=== PATIENT | male | born 1950 | race African-American/Black ===

== ENCOUNTER → 2016-05-17 | Outpatient (CLI) | payer MEDICARE, MEDICAID ==
[~2016-05-17] MED LIST: ALPR1T PO; AMIT10TA6; AMIT10TA6 PO; AMT10T PO; ASP325T PO; ASP325TEC PO; ASP81TEC PO; ASPI-84; ASPI-892 PO; ATR20T PO; AVANDAMET; CETI10TA17; CETI10TA17 PO; CLCX200C PO; CLOP75TA PO; DCS100C PO; DICL100G20 TOP; FLUO15CR2 TP; GBPN300C PO; GBPN600T PO; GLYB5TAB6 PO; KETO120S5 TP; KETO30CR; KETOCONAZOLE 2%; LANSOPRAZOLE; LD5PT TOP; LIRA0.6P SQ; LISI10TA PO; LNS30CCR; LNS30CCR PO; LORA10TA7 PO; LRT10T; LSNP20T PO; MAGN400T26 PO; MAGN400T29 PO; MECL-124 PO; MELO-195 PO; MEPE50TA2 PO; METO50TA7; METO50TA7 PO; MNTL10T PO; NITR0.4T SL; NST15O TOP; NTR.4SL SL; NYST15CR3 TP; OXC40TCR PO; OXYC-100 PO; OXYC-103 PO; OXYC-12 PO; OXYC1TAB87 PO; OXYC40TA3 PO; OXYC80TA42 PO; PERCOCET 5/325; PIOG1TAB2 PO; POLY119P PO; POLY17PO23 PO; PRX20T PO; ROSI1TAB25; ROSI1TAB25 PO; SULF1TAB35 PO; TMSL.4C PO; TOPICORT TOP; TR1C15 TOP; ZLP10T; ZLP10T PO
--- OUTSIDE RECORDS SUMMARY | 2016-05-17 09:48 | XMS REPORT | Continuity of Care Document ---
Author Author [facility] Organization [facility] Address Unknown Phone Unavailable Care Team Providers Care Bed Bug Exterminator Name Role Phone Self, Kanu PCP [phone] Source Comments Some departments are not documenting in the electronic medical record. If you do not see the information that you expected, contact Release of Information in the Health Information Management department at [phone] for further assistance in locating additional records.[facility] Active Allergies and Adverse Reactions Allergen Noted Date Severity Reactions Comments Penicillins 11/12/2006 Allergy recorded in SMS: Penicillin~Reactions: HIVES Current Medications Not on file Active Problems Not on file Social History Tobacco Use Types Packs/Day Years Used Date Never Assessed Plan of Care Health Maintenance Due Date Last Done Comments Hepatitis C Screening 1950 Physical (Comprehensive) 07/25/1955 Exam Pertussis Vaccine 07/25/1959 Tetanus Vaccine 1965 Colorectal Cancer 1998 Screening Shingles Vaccine 2008 Prevnar/Pneumovax (#1) 2013 Influenza Vaccine 11/17/2015 Results from Last 3 Months Not on file
[2016-05-17] MEDS: CATHETER FLUSH 10 ML SYR IV PRN (11:04)
--- NOTE | 2016-05-17 13:59 | Diagnostic Imaging Report ---
EXAMINATION: HIDA with EF measurements Indication: Abdominal pain TECHNIQUE: After the intravenous administration of 5.2 mCi of Tc 99m Choletec, imaging over the abdomen was obtained. This was followed by administration of Ensure orally to stimulate intrinsic CCK secretion, followed by continued imaging with ejection fraction measured. FINDINGS: There is homogeneous uptake in the liver with prompt bile duct and gallbladder filling seen. Bowel activity is seen at 15 minutes. Based on further imaging and gallbladder area of interest activity measurements after the administration of Ensure, the gallbladder ejection fraction is estimated at 32%. IMPRESSION: 1. Normal hepatobiliary uptake and Gallbladder filling. 2. Biliary dyskinesia. Reduced gallbladder ejection fraction. Dictated by: Dictated on workstation # [id number]
== END ==
LOC: CARD 09:44
PROVIDERS: ATTEND Surgery
DX: K82.8 Other specified diseases of gallbladder (principal)
CPT/HCPCS: 78227

== ENCOUNTER → 2016-06-12 | Outpatient (CLI) | payer MEDICARE, MEDICAID ==
[~2016-06-12] MED LIST changes: +CATHETER FLUSH 10 ML SYR IV PRN; +REGADENOSON 0.4 MG/5 ML SYR (LEXISCAN) IV ONE
[2016-06-12 09:37] VITALS: BP 150/86
[2016-06-12 09:42] VITALS: BP 158/66
[2016-06-12 09:44] VITALS: BP 159/86
[2016-06-12 09:46] VITALS: BP 150/85
--- NOTE | 2016-06-13 08:32 | STRESS TEST ---
PROCEDURE PHYSICIAN: MANUEL SUAZO DATE OF PROCEDURE: 06/12/2016 RESTING AND TECHNETIUM 99M TETROFOSMIN SPECT CT IMAGING ORDERING PHYSICIAN: Dinora Doshi APRN. PRIMARY PHYSICIAN: Dr. Vaughan OTHER PHYSICIAN: Dr. Suazo CLINICAL DIAGNOSES: 1. Coronary artery disease. 2. Hypertension. Baseline images were carried out after injection of 10.53 mCi of technetium 99m tetrofosmin. This was followed by 0.4 mCi of regadenoson and 29.8 mCi of technetium 99m tetrofosmin for stress imaging. The electrocardiogram showed sinus rhythm and the electrocardiogram did not change significantly with the regadenoson infusion. Following the regadenoson infusion, he had some headaches and shortness of breath and some aching of the left arm which resolved in a few minutes. Review of images at rest and following stress, does not indicate any significant perfusion defects consistent with significant myocardial ischemia or infarction. Gated images show normal global left ventricular systolic function with normal regional wall motion. Left ventricular ejection fraction is calculated by one method at 48% and by another method at 54%. Subjectively, the ejection fraction appears more close to 54% than 48%. Left ventricular end-diastolic volume is 123 mL. CONCLUSIONS: 1. No evidence of significant myocardial ischemia or infarction on this study. 2. Mild cardiomegaly. 3. No significant regional wall motion abnormality. 4. Left ventricular ejection fraction is calculated to be 54%. Job ID: [id number] Dictated Date: 06/12/2016 17:11:42 Associate Curator Date: 06/13/2016 08:27:08 / toya
== END ==
LOC: CARD 07:40
PROVIDERS: ATTEND Nurse Practitioner Family
DX: I25.10 Atherosclerotic heart disease of native coronary artery without angina pectoris (principal); I10 Essential (primary) hypertension; I47.1 Supraventricular tachycardia; I47.2 Ventricular tachycardia; E78.4 Other hyperlipidemia
CPT/HCPCS: 78452; 93017

== ENCOUNTER → 2016-07-11 | Outpatient (CLI) | payer MEDICARE, MEDICAID ==
[~2016-07-11] MED LIST changes: -CATHETER FLUSH 10 ML SYR IV PRN; -REGADENOSON 0.4 MG/5 ML SYR (LEXISCAN) IV ONE
--- NOTE | 2016-07-11 13:33 | Diagnostic Imaging Report ---
PROCEDURE: CT lumbar spine without contrast. TECHNIQUE: Multiple contiguous axial images were obtained through the lumbar spine without the use of intravenous contrast. Sagittal and coronal reformations were then performed. INDICATION: Neck pain status post spinal fusion. COMPARISON: 01/27/2015. FINDINGS: Surgical changes from laminectomies at L3-L5. There is paired transpedicular screw and qian fixation from L2-S1, with the exception of L5 in which the left-sided transpedicular screw has been removed. There are also bilateral iliac screws which transverse the posteromedial aspect of the bilateral ilii along the SI joints. The vertical spanning rods and transpedicular screws are intact. Approximately 2 mm of lucency surrounds the right L2 fixation screw, which is age indeterminate as this has been placed since prior CT. At L3-L4 and L4-L5, there have been changes of discectomy with interbody fusion. However, there is partial solid osseous incorporation across the interbody cages centrally. There is also solid osseous fusion across the posterior elements at L3 and L4 on the right and partial solid osseous fusion of L3 and L4 on the left. No acute compression fracture of the lumbar vertebrae. No acute fracture of the posterior elements. No insufficiency fracture of the sacrum. At S1, there is an anterior plate and screw fixation. No evidence of hardware complication at this level. No evidence of high-grade spinal stenosis or neural foraminal narrowing by non-myelogram CT. Visualized aspects of the retroperitoneum demonstrate no acute abnormality. Atherosclerotic calcifications of the aorta are noted. IMPRESSION: 1. Posterior decompression with long segment posterior instrumented fixation in the lumbar spine from L2-S1. The right L2 screw has 2 mm of lucency around its tip, which is age indeterminate but could represent loosening. No evidence of other hardware complication. 2. Discectomies at L3-L4 and L4-L5 with partial solid osseous fusion across the interbody bone cages. 3. No acute compression deformity. Dictated by: Dictated on workstation # [id number]
== END ==
LOC: RAD 10:28
PROVIDERS: ATTEND Orthopaedic Surgery Orthopaedic Surgery of the Spine
DX: Z98.1 Arthrodesis status (principal)
CPT/HCPCS: 72131

== ENCOUNTER → 2016-07-19 | Outpatient (CLI) | payer MEDICARE, MEDICAID ==
--- NOTE | 2016-07-19 11:11 | Diagnostic Imaging Report ---
EXAM: ABDOMEN/KUB 1VIEW INDICATION: ABDOMINAL PAIN; RT FLANK PAIN/GENERALIZED ABD PAIN COMPARISON: CT abdomen and pelvis with IV contrast 01/27/2015. FINDINGS: Nonobstructive bowel gas pattern. Moderate amount of stool in the proximal colon. Cholecystectomy clips. Surgical clips in the pelvis. Extensive lumbosacral postoperative changes. No acute osseous findings. IMPRESSION: No acute abdominal radiographic findings. Dictated by: Dictated on workstation # [id number]
== END ==
LOC: RAD 10:11
PROVIDERS: ATTEND Nurse Practitioner Family
DX: R10.817 Generalized abdominal tenderness (principal)
CPT/HCPCS: 74000

== ENCOUNTER 2016-12-18 07:09 | Day surgery (SDC) | payer MEDICARE, MEDICAID ==
[2016-12-18] VITALS (9 sets, daily range): BP systolic 136–162; BP diastolic 75–113
[~2016-12-18] VITALS: Ht 182.9 cm; Wt 108.9 kg
--- OUTSIDE RECORDS SUMMARY | 2016-12-18 07:13 | XMS REPORT | Clinical Summary ---
Author Author [facility] Organization [facility] Address Unknown Phone Unavailable Care Team Providers Care Gluer Machine Operator Name Role Phone PCP Unavailable Source Comments Some departments are not documenting in the electronic medical record. If you do not see the information that you expected, contact Release of Information in the Health Information Management department at [phone] for further assistance in locating additional records.[facility] Allergies Active Allergy Reactions Severity Noted Date Comments Penicillins 11/12/2006 Allergy recorded in SMS: Penicillin~Reactions: HIVES Current Medications Not on file Active Problems Not on file Social History Tobacco Use Types Packs/Day Years Used Date Never Assessed Sex Assigned at Date Recorded Not on file Last Filed Vital Signs Not on file Plan of Treatment Health Maintenance Due Date Last Done Comments HEPATITIS C SCREENING 1950 PHYSICAL (COMPREHENSIVE) 07/25/1955 EXAM PERTUSSIS VACCINE 07/25/1959 TETANUS VACCINE 1965 COLORECTAL CANCER 1998 SCREENING SHINGLES VACCINE 2008 PREVNAR/PNEUMOVAX (#1) 2013 INFLUENZA VACCINE 12/16/2016 Results Not on filefrom Last 3 Months
[2016-12-18] MEDS ORDERED: HEParin (CATH LAB) 2,000 ML IV ONE (07:20)
[2016-12-18] MEDS ORDERED: NS IV 1000 ML 1,000 ML ONE (07:20)
[2016-12-18] MEDS ORDERED: NS IV 1000 ML 1,000 ML IV SCH ×3 (07:33→11:55)
[2016-12-18 08:02] LABS: MEAN PLATELET VOLUME 10.6 FL (7.4-10.4); RED BLOOD COUNT 5.33 10^6/uL (4.35-5.85); RED CELL DISTRIBUTION WIDTH 17.3 % (10.0-14.5); WHITE BLOOD COUNT 6.2 10^3/uL (4.3-11.0)
[2016-12-18 08:18] LABS: PROTHROMBIN TIME PATIENT 12.9 SEC (12.2-14.7)
[2016-12-18 08:29] LABS: ALANINE AMINOTRANSFERASE 24 U/L (0-55); ALBUMIN 4.3 GM/DL (3.2-4.5); ANION GAP 10 MMOL/L (5-14); ASPARTATE AMINO TRANSFERASE 23 U/L (5-34); BILIRUBIN,TOTAL 1.2 MG/DL (0.1-1.0); BLOOD UREA NITROGEN 17 MG/DL (7-18); BUN/CREATININE RATIO 16; CALCIUM 9.6 MG/DL (8.5-10.1); CARBON DIOXIDE 25 MMOL/L (21-32); CHLORIDE 104 MMOL/L (98-107); CHOLESTEROL 159 MG/DL (< 200); CREATININE SERUM 1.04 MG/DL (0.60-1.30); DIRECT LDL 68 MG/DL (1-129); GFR ESTIMATED > 60; GLUCOSE 112 MG/DL (70-105); POTASSIUM 4.3 MMOL/L (3.6-5.0); SODIUM 139 MMOL/L (135-145); TRIGLYCERIDES 47 MG/DL (<150); VLDL CHOLESTEROL 9 MG/DL (5-40)
[2016-12-18] MEDS ORDERED: ZOLP10TA5 PO (08:46)
[2016-12-18] MEDS ORDERED: ASPI-983 PO (08:46)
[2016-12-18] MEDS ORDERED: NYST15CR TP (08:46)
[2016-12-18] MEDS ORDERED: TAMS0.4C2 PO (08:46)
[2016-12-18] MEDS ORDERED: OXYC40TA57 PO (08:46)
[2016-12-18] MEDS ORDERED: GABA-488 PO ×2 (08:46)
[2016-12-18] MEDS ORDERED: METO-272 PO (08:46)
[2016-12-18] MEDS ORDERED: TR1O15 TP (08:46)
[2016-12-18] MEDS ORDERED: BACL10TA PO (08:46)
[2016-12-18] MEDS ORDERED: KETO120S11 TP (08:46)
[2016-12-18] MEDS ORDERED: POLY17PO6 PO (08:46)
[2016-12-18] MEDS ORDERED: MECL-106 PO (08:46)
[2016-12-18] MEDS ORDERED: DOCU100C37 PO (08:46)
[2016-12-18] MEDS ORDERED: DICL100G18 TP (08:46)
[2016-12-18] MEDS ORDERED: PRAM0.252 PO (08:46)
[2016-12-18] MEDS ORDERED: FLUO15CR2 TP (08:46)
[2016-12-18] MEDS ORDERED: METF500T4 PO (08:46)
[2016-12-18] MEDS ORDERED: MELO15TA39 PO (08:46)
[2016-12-18] MEDS ORDERED: CETI10TA17 PO (08:46)
[2016-12-18] MEDS ORDERED: ALPR1TAB7 PO (08:46)
[2016-12-18] MEDS ORDERED: LANS30CA PO (08:46)
[2016-12-18] MEDS ORDERED: NITR0.4T39 SL (08:46)
[2016-12-18] MEDS ORDERED: LISI10TA2 PO (08:46)
[2016-12-18] MEDS ORDERED: LIRA0.6P SQ (08:46)
[2016-12-18] MEDS ORDERED: ATOR20TA66 PO (08:46)
[2016-12-18] MEDS ORDERED: OXYC-471 PO (08:49)
[2016-12-18] MEDS ORDERED: PANT40TA2 PO (09:45)
[2016-12-18] MEDS ORDERED: fentaNYL INJECTION 100 MCG/2 ML AMP ONE (10:02)
[2016-12-18] MEDS ORDERED: diphenhydrAMINE 50 MG/ML INJ (BENADRYL) ONE (10:03)
[2016-12-18] MEDS ORDERED: MIDAZOLAM 5 MG/5 ML (VERSED) VIAL ONE (10:03)
--- NOTE | 2016-12-18 10:46 | Cardiac Procedure Note-CS/ASA ---
Pre-Procedure Note Pre-Op Procedure Note H&P Reviewed The H&P was reviewed, patient examined and no changes noted. Date H&P Reviewed: Dec 18, 2016 Time H&P Reviewed: 10:46 Conscious Sedation Pre-Proced Time Reviewed: 10:46 ASA Class: 3 Airway Mallampati Classification: ([place] appropriate class) I. II. III, IV Lungs Heart ASA score ASA 1: a normal healthy patient ASA 2: a patient with a mild systemic disease (mid diabetes, controlled hypertension, obesity ASA 3: a patient with a severe systemic disease that limits activity (angina , COPD, prior Myocardial infarction) ASA 4: a patient with an incapacitating disease that is a constant threat to life (CHF, renal failure) ASA 5: a moribund patient not expected to survive 24 hrs. (ruptured aneurysm) ASA 6: a declared brain patient whose organs are being harvested. For emergent operations, add the letter E after the classification Grade 3 Sedation Plan: Analgesia, Amnesia, Plan communicated to team members, Discussed options with patient/fam, Discussed risks with patient/fam Note The patient is an appropriate candidate to undergo the planned procedure, sedation, and anesthesia. The patient immediately re-assessed prior to indication. MANUEL GOODRICH MD FACP FAC CCDS Dec 18, 2016 10:46
[2016-12-18] MEDS ORDERED: HEParin 1000 UNIT/ML (10ML VIAL) FOR BOLUS ONE (10:50)
[2016-12-18] MEDS ORDERED: ADENOSINE 3 MG/1 ML (ADENOSCAN) 30ML VIAL IV ONE (10:50)
[2016-12-18] MEDS ORDERED: amLODIPine 10 MG (NORVASC) TAB PO ONE (12:00)
[2016-12-18] MEDS ORDERED: PATIENT MAY USE OWN MEDS, ALL PO SCH (12:00)
--- NOTE | 2016-12-18 12:01 | Discharge Inst-Cardiology ---
Discharge Inst-Cardiac Discharge Medications Continued Medications: Alprazolam (Alprazolam) 1 Mg Tablet 1 MG PO BID PRN for ANXIETY, TAB Aspirin (Aspirin EC) 81 Mg Tablet.dr 81 MG PO DAILY, TAB Atorvastatin Calcium (Atorvastatin Calcium) 20 Mg Tablet 20 MG PO HS, TAB Baclofen (Baclofen) 10 Mg Tablet 10 MG PO TID PRN for MUSCLE SPASMS, TAB Cetirizine HCl (Cetirizine HCl) 10 Mg Tablet 10 MG PO HS, TAB Diclofenac Sodium (Voltaren) 100 Gm Gel..gram. TP QID PRN for JOINT PAIN, TUBE Docusate Sodium (Docusate Sodium) 100 Mg Capsule 100 MG PO BID, CAP Fluocinonide/Emollient Base (Fluocinonide-E 0.05% Cream) 15 Gm Cream..g. TP BID PRN for PAIN, TUBE Gabapentin (Gabapentin) 300 Mg Capsule 600 MG PO BID, CAP TAKES 2 (300MG) CAPSULES Gabapentin (Gabapentin) 300 Mg Capsule 600 MG PO 1200 PRN for NERVE PAIN, CAP TAKES 2 (300MG) CAPSULES Ketoconazole (Ketoconazole) 120 Ml Shampoo TP DAILY, EA Liraglutide (Victoza 2-Eagle) 0.6 Mg/0.1 Ml Pen.injctr 1.8 MG SQ DAILY, VIAL Lisinopril (Lisinopril) 10 Mg Tablet 5 MG PO DAILY, TAB TAKES 1/2 (10MG) TABLET Meclizine HCl (Meclizine HCl) 25 Mg Tablet 25 MG PO TID PRN for DIZZINESS, TAB Meloxicam (Meloxicam) 15 Mg Tablet 15 MG PO DAILY, TAB Metformin HCl (Metformin HCl) 500 Mg Tablet 500 MG PO BID WITH MEALS, TAB Metoprolol Succinate (Metoprolol Succinate) 50 Mg Tab.er.24h 50 MG PO DAILY, TAB Nitroglycerin (Nitroglycerin) 0.4 Mg Tab.subl 0.4 MG SL UD PRN for CHEST PAIN, TAB Nystatin (Nystatin) 15 Gm Cream..g. TP BID PRN for SORES, TUBE Oxycodone HCl (Oxycodone HCl ER) 40 Mg Tab.er.12h 40 MG PO BID PRN for PAIN-SEVERE, TAB Oxycodone HCl/Acetaminophen (Oxycodone-Acetaminophen 5-325) 1 Each Tablet 1 TAB PO Q8H PRN for PAIN-MODERATE, TAB Pantoprazole Sodium (Protonix) 40 Mg Tablet.dr 40 MG PO DAILY, TAB Polyethylene Glycol 3350 (Miralax) 17 Gm Powd.pack 17 GM PO DAILY PRN for CONSTIPATION-2ND LINE, EACH Pramipexole Di-HCl (Mirapex) 0.25 Mg Tablet 0.25 MG PO BID, TAB Tamsulosin HCl (Tamsulosin HCl) 0.4 Mg Cap.er.24h 0.4 MG PO DAILY, CAP Triamcinolone Acet (Triamcinolone Acetonide 0.1% Ointment) 15 Gm Oint TP BID, TUBE Zolpidem Tartrate (Zolpidem Tartrate) 10 Mg Tablet 10 MG PO HS, TAB MANUEL GOODRICH MD FACP FAC CCDS Dec 18, 2016 12:01
--- NOTE | 2016-12-18 12:01 | Discharge Inst-Post CATH ---
Discharge Inst-CATH Post Cardiac Cath D/C Inst Follow Up/Plan F/u at Dr Suazo's on 12/21/16 CARDIAC CATH DISCHARGE INSTRUCTIONS *Hold Metformin for 48 hours post heart cath. ACTIVITY * Go Home directly and rest. * Limit activity of the leg (or wrist if it was used) for 7 days including aerobics, swimming, jogging, bicycling, etc. * Restrict stair-climbing for 7 days if possible, if not, climb up with your non -cath leg, then bring together on the same step. * Avoid lifting, pushing, pulling or excessive movement of the affected extremity for 7 days. * Customary sexual activity may be resumed after 2 days-use caution not to use a position that strains or causes pain to the affected extremity. * No driving for 24 hours. * NO SMOKING. * Avoid straining for bowel movements for 7 days. * Gentle walking on level ground is allowed. * Returning to work will depend on the type of procedure and the results. Your doctor will discuss this with you. CALL YOUR DOCTOR FOR ANY OF THE FOLLOWING: *If bleeding from the puncture site occurs- Apply gentle pressure to site with clean cloth and call your doctor or EMS. * If a knot or lump forms under the skin, increases in size, or causes pain. * If bruising appears to be worsening or moving further down your leg instead of disappearing. * Temperature above 101 F. CARE OF YOUR GROIN INCISION; * Bruising or purple discoloration of the skin near the puncture site is common. * You may shower only, no bathtub bathing for 5 days. Be careful to avoid slipping as your leg may feel stiff. * If a closure device was used on your femoral artery, please see the attached guide regarding care of the device and your leg. * REMOVE the dressing from your groin the next day after your procedure in the shower. CARE OF YOUR WRIST INCISION; * Bruising or purple discoloration of the skin near the puncture site is common. * You may shower. * DO NOT submerge wrist. * Remove dressing in 24 hours. MANUEL SUAZO MD [facility] CCDS Dec 18, 2016 12:01
--- NOTE | 2016-12-18 12:05 | CARDIAC CATHETERIZATION ---
DATE OF SERVICE: 12/18/2016 The patient is a 66-year-old man who has multiple coronary artery disease risk factors and who has been experiencing symptoms of chest discomfort and more shortness of breath and near syncope. Cardiac catheterization was carried out today after having obtained an informed consent. PROCEDURE: He was brought to the cardiac catheterization laboratory in a fasting state. Right groin was prepared and draped in the usual sterile fashion, 1% lidocaine was used for local anesthesia. Modified Seldinger technique was used to advance a 5-Kyrgyz sheath into the right femoral artery. Angiography of the right femoral artery was carried out through a sheath. A 5-Kyrgyz JL4 catheter for left coronary angiography, JR4 catheter for right coronary angiography, 5-Kyrgyz pigtail catheter used for left heart catheterization and left ventricular angiography. FRACTIONAL FLOW RESERVE MEASUREMENT IN THE RIGHT CORONARY ARTERY: Following completion of the diagnostic procedure, we carried out fractional flow reserve measurement in the mid to distal right coronary artery where the patient had a 40% to 50% stenosis. Because of his symptoms, we wanted to be sure that this was not a hemodynamically significant lesion. We exchanged the sheath over a wire for a 6-Kyrgyz sheath. We gave 7000 units of intravenous heparin. We used the 6-Kyrgyz JR4 guide catheter to engage the right coronary artery. We advanced an Aeris wire across the lesion and the tip was placed in the distal part of the vessel. We gave adenosine 140 mcg per kilogram over a total of approximately three minutes. Fractional flow reserve was 0.9, indicating hemodynamic nonsignificance. The equipment was removed. Repeat angiography of the right coronary artery indicated stable right coronary artery. The catheter was removed. Mynx was used to achieve hemostasis. He tolerated the procedure well. HEMODYNAMICS: Left ventricular end-diastolic pressure following coronary angiography was 11 mmHg. There was no significant pressure gradient on pullback across the aortic valve. Ascending aortic pressure was 173/89 with a mean of 19 mmHg. LEFT VENTRICULAR ANGIOGRAPHY: Left ventricular angiography was carried out in the right anterior oblique projection. Global left ventricular systolic function is normal. No regional wall motion abnormalities are seen. Left ventricular ejection fraction approximately 60%. There does not appear to be significant mitral regurgitation. CORONARY ANGIOGRAPHY: Coronary calcification is present. Left main coronary artery does not exhibit significant obstructive disease. Left anterior descending and left circumflex arteries have diffuse mild to moderate plaque. The right coronary artery is dominant. It has a 30% mid vessel and 40% to 50% mid to distal vessel stenoses. Fractional flow reserve across a combination of these lesions is 0.9, indicating hemodynamic insignificance. CONCLUSIONS: 1. Mild to moderate coronary artery disease as detailed above. 2. Normal global left ventricular systolic function with ejection fraction of 60%. 3. No significant mitral regurgitation. 4. Normal left ventricular end-diastolic pressure. DISCUSSION AND RECOMMENDATIONS: Based on results of the study, it appears appropriate to continue a conservative approach for coronary artery disease. Risk factor modification has been reviewed. Outpatient followup is advised. Job ID: [id number] DocumentID: [id number] Dictated Date: 12/18/2016 11:20:43 Precision Mechanical Instrument Maker Date: 12/18/2016 12:04:55 Dictated By: MANUEL GOODRICH MD, MA, FACP, FACC, MTDD
--- NOTE | 2016-12-19 12:02 | OPERATIVE REPORT ---
DATE OF SERVICE: 12/18/2016 PREOPERATIVE DIAGNOSIS: Near syncope. POSTOPERATIVE DIAGNOSIS: Near syncope. PROCEDURE: Implantable loop recorder implantation ([employer], BioMonitor device with serial #[id number]). He was brought to the cardiac catheterization laboratory in a fasting state. The left pre-pectoral area was prepared and draped in the usual sterile fashion. A 1% lidocaine was used for local anesthesia. A small incision was made at about the level of the second intercostal space. The tools provided with the implantable loop recorder were used to make a subcutaneous pocket into which the device was placed and the pocket was closed with an absorbable suture. The patient tolerated the procedure well. Job ID: [id number] DocumentID: [id number] Dictated Date: 12/18/2016 11:51:15 Glove Presser Date: 12/19/2016 02:58:52 Dictated By: MANUEL GOODRICH MD, MA, FACP, FACC,
== END 2016-12-18 15:15 | disposition home or self-care (01) ==
LOC: CATH 07:09 → SURG 12:22 → CATH 15:15
PROVIDERS: ATTEND Nurse Practitioner Family
DX: R07.89 Other chest pain (principal); I25.10 Atherosclerotic heart disease of native coronary artery without angina pectoris; R06.02 Shortness of breath; R55 Syncope and collapse; I25.84 Coronary atherosclerosis due to calcified coronary lesion; N18.2 Chronic kidney disease, stage 2 (mild); I12.9 Hypertensive chronic kidney disease with stage 1 through stage 4 chronic kidney disease, or unspecified chronic kidney disease; E11.22 Type 2 diabetes mellitus with diabetic chronic kidney disease; E78.5 Hyperlipidemia, unspecified; Z87.891 Personal history of nicotine dependence; Z79.899 Other long term (current) drug therapy; Z79.84 Long term (current) use of oral hypoglycemic drugs
CPT/HCPCS: 33282; 36415; 80053; 80061; 85027; 85610; 85730; 87081; 93005; 93458; 93571

== ENCOUNTER 2017-03-19 06:49 | Outpatient (CLI) | payer MEDICARE, MEDICAID ==
[~2017-03-19] VITALS: Ht 188 cm; Wt 109.3 kg
[2017-03-19] VITALS (37 sets, daily range): BP systolic 143–175; BP diastolic 81–105
[~2017-03-19 06:49] MED LIST changes: +ALPR1TAB7 PO; +ASPI-983 PO; +ATOR20TA66 PO; +BACL10TA PO; +DICL100G18 TP; +DOCU100C37 PO; +GABA-488 PO; +KETO120S11 TP; +LANS30CA PO; +LISI10TA2 PO; +MECL-106 PO; +MELO15TA39 PO; +METF500T4 PO; +METO-370 PO; +NITR0.4T39 SL; +NYST15CR TP; +OXYC-471 PO; +OXYC40TA57 PO; +PANT40TA2 PO; +POLY17PO6 PO; +PRAM0.252 PO; +TAMS0.4C2 PO; +TR1O15 TP; +ZOLP10TA5 PO
[2017-03-19] MEDS ORDERED: NS IV 1000 ML 1,000 ML ONE (07:01)
[2017-03-19] MEDS ORDERED: NS IV 1000 ML 1,000 ML IV SCH (07:30)
--- NOTE | 2017-03-19 21:34 | OPERATIVE REPORT ---
DATE OF SERVICE: 03/19/2017 TILT TABLE TEST ORDERING PHYSICIAN: Dr. Suazo. CLINICAL DIAGNOSIS: Near syncope. Baseline blood pressure was obtained. He was made to lie on a tilt table. He was attached to a monitoring tech. The table was tilted up with the head up to 70 degrees. Blood pressure was taken every minute. Heart rhythm was monitored continuously. The position was maintained for 45 minutes. There was no significant change in blood pressure or heart rate. Thus, there is no evidence of neurocardiogenic syncope. CONCLUSIONS: No evidence of any neurocardiogenic syncope on this tilt table study. Job ID: [id number] DocumentID: [id number] Dictated Date: 03/19/2017 16:13:05 Mercerizer Machine Operator Date: 03/19/2017 21:33:29 Dictated By: MANUEL SUAZO MD, MA, FACP, FACC,
== END 2017-03-19 09:57 | disposition home or self-care (01) ==
LOC: CARD 06:49
PROVIDERS: ATTEND Nurse Practitioner Family
DX: R42 Dizziness and giddiness (principal); R55 Syncope and collapse; I10 Essential (primary) hypertension; I25.10 Atherosclerotic heart disease of native coronary artery without angina pectoris
CPT/HCPCS: 93660

== ENCOUNTER → 2017-03-27 | Outpatient (CLI) | payer MEDICARE, MEDICAID ==
--- NOTE | 2017-03-27 10:44 | Diagnostic Imaging Report ---
PA and lateral chest at 1002 hours. INDICATION: Dizziness, productive cough. FINDINGS: The heart size is within normal limits. The heart does seem less prominent than noted on the prior exam of 11/25/2015. The lungs are clear. There is no evidence for failure, pneumonia or for pleural effusion to indicate an acute abnormality. The mediastinum is not widened. The osseous structures are intact. There is now loop recorder device overlying the left thorax. IMPRESSION: There is no evidence for an acute cardiopulmonary abnormality. Dictated by: Dictated on workstation # [id number]
== END ==
LOC: RAD 09:32
DX: R05 Cough (principal); R42 Dizziness and giddiness
CPT/HCPCS: 71046

== ENCOUNTER → 2017-03-28 | Outpatient (CLI) | payer MEDICARE, MEDICAID ==
[~2017-03-28] MED LIST changes: +GADOBUTROL 10 MMOL/10 ML (GADAVIST) VIAL IV ONE
--- NOTE | 2017-03-28 09:47 | Diagnostic Imaging Report ---
PROCEDURE: MR imaging of the brain with and without contrast. TECHNIQUE: Multiplanar, multisequence MR imaging of the brain was performed with and without contrast. INDICATION: Blurred vision. There are no previous MRI examinations available for comparison. FINDINGS: The CT head exam performed on 02/21/2016 failed to show any sign of an acute intracranial abnormality. 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 On this exam, there is no mass, shift of midline or hemorrhage to suggest an acute intracranial abnormality. There is no abnormal enhancement on the postcontrast series to indicate a neoplastic or infectious process either. Furthermore, there is no signal abnormality arising from the brain on the diffusion sequence to indicate an area of acute ischemia. The ventricles are not abnormally dilated and stable in size when compared to the previous CT head exam. There is a prominent area of encephalomalacia involving the right parietal occipital lobe. This would correspond to the suspected infarct seen on the prior exam. The FLAIR series also shows multiple small areas of increased signal in the periventricular white matter bilaterally. These findings are nonspecific but are probably related to encephalomalacia from microvascular ischemia. There is cortical atrophy present. The degree of atrophy is consistent with the patient's age. The sella is not enlarged and expected carotid flow voids are evident bilaterally. The orbits are symmetrical and within normal limits. The sinuses show mild mucosal thickening of the ethmoid and maxillary sinuses. The seventh and eight nerve complexes are unremarkable. IMPRESSION: 1. There is no evidence for an acute intracranial abnormality. 2. There is no abnormal enhancement to suggest a neoplastic or infectious process. 3. The prominent area of encephalomalacia involving the right parietal occipital lobe seen previously is again evident. Most likely this is a sequela of a prior infarct. Dictated by: Dictated on workstation # [id number]
== END ==
LOC: RAD 07:55
DX: G93.89 Other specified disorders of brain (principal); G45.8 Other transient cerebral ischemic attacks and related syndromes
CPT/HCPCS: 70553

== ENCOUNTER 2017-07-17 20:50 | Emergency (ER) | payer MEDICARE, MEDICAID ==
[~2017-07-17] VITALS: Ht 188 cm; Wt 110.7 kg
[~2017-07-17 20:50] MED LIST changes: -GADOBUTROL 10 MMOL/10 ML (GADAVIST) VIAL IV ONE; -METF500T4 PO; +METF500T5 PO
--- OUTSIDE RECORDS SUMMARY | 2017-07-17 20:56 | XMS REPORT | Clinical Summary ---
Author Author [facility] Organization [facility] Address Unknown Phone Unavailable Care Team Providers Care Sports Medicine Trainer Name Role Phone Self, Kanu SALAZAR PCP Unavailable Source Comments Some departments are not documenting in the electronic medical record. If you do not see the information that you expected, contact Release of Information in the Health Information Management department at [phone] for further assistance in locating additional records.[facility] Allergies Active Allergy Reactions Severity Noted Date [...] VACCINE 2008 PREVNAR/PNEUMOVAX (#1) 2013 INFLUENZA VACCINE 12/16/2017 Results Not on filefrom Last 3 Months
--- OUTSIDE RECORDS SUMMARY | 2017-07-17 20:56 | XMS REPORT | Continuity of Care Document ---
Author Author [facility] Organization [facility] Address Unknown Phone Unavailable Care Team Providers Care Tourist Escort Name Role Phone [employer] Unavailable Unavailable Problems Medications Allergies, Adverse Reactions, Alerts Immunizations Results Vital Signs Encounters Location Location Details Encounter Type Encounter Number Reason For Visit Attending Provider ADM Date DC Date Status Source OUTPATIENT [id number] KANDI DARDEN 11/10/2013 11/10/2013 Active [facility] Procedures Plan of Care Social History Assessment and Plan Family History Advance Directives Functional Status
--- OUTSIDE RECORDS SUMMARY | 2017-07-17 20:59 | XMS REPORT | Continuity of Care Document ---
Author Author [facility] Organization [facility] Address Unknown Phone Unavailable Allergies Active Description Code Type Severity Reaction Onset Reported/Identified Relationship to Patient Clinical Status Yes Penicillins [id number] Drug Allergy Moderate RASH 12/22/2010 Medications There is no data. Problems Date Dx Coded Attending Type Code Diagnosis Diagnosed By 06/28/2010 Ot 718.56 ANKYLOSIS- LOWER/LEG 06/28/2010 Ot V57.1 PHYSICAL THERAPY NEC 08/01/2010 Ot 250.00 DIAB KELECHI WO COMPL, TYPE II OR UNSPEC TY 08/01/2010 Ot 272.4 HYPERLIPIDEMIA NEC/NOS 08/01/2010 Ot 281.9 DEFICIENCY ANEMIA NOS 08/01/2010 Ot 305.1 TOBACCO USE DISORDER 08/01/2010 Ot 414.01 CORONARY ATHEROSCLEROSIS OF [place] CORON 08/01/2010 Ot 715.90 OSTEOARTHROS NOS-UNSPEC 08/01/2010 Ot 729.5 PAIN IN LIMB 08/01/2010 Ot 786.59 CHEST PAIN NEC 08/01/2010 Ot V43.65 KNEE JOINT REPLACEMENT STATUS 08/01/2010 Ot V45.89 POSTSURGICAL STATES NEC 08/01/2010 Ot V58.63 LONG-TERM( CURRENT)USE OF ANTIPLATELET/AN 08/01/2010 Ot V58.66 LONG-TERM ( CURRENT) USE OF ASPIRIN 08/01/2010 Ot V58.69 OTH MED,LT, CURRENT USE 12/22/2010 Ot 250.00 DIAB KELECHI WO COMPL, TYPE II OR UNSPEC TY 12/22/2010 Ot 272.0 PURE HYPERCHOLESTEROLEM 12/22/2010 Ot 300.00 ANXIETY STATE NOS 12/22/2010 Ot 356.9 IDIO PERIPH NEURPTHY NOS 12/22/2010 Ot 401.9 HYPERTENSION NOS 12/22/2010 Ot 414.01 CORONARY ATHEROSCLEROSIS OF [place] CORON 12/22/2010 Ot 530.81 ESOPHAGEAL REFLUX 12/22/2010 Ot 715.96 OSTEOARTHROS NOS-L/LEG 12/22/2010 Ot 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 07/17/2011 Ot 250.00 DIAB KELECHI WO COMPL, TYPE II OR UNSPEC TY 07/17/2011 Ot 272.4 HYPERLIPIDEMIA NEC/NOS 07/17/2011 Ot 285.9 ANEMIA NOS 07/17/2011 Ot 414.01 CORONARY ATHEROSCLEROSIS OF [place] CORON 07/17/2011 Ot 715.90 OSTEOARTHROS NOS-UNSPEC 07/17/2011 Ot 786.09 RESPIRATORY ABNORM NEC 07/17/2011 Ot 786.59 CHEST PAIN NEC 07/17/2011 Ot V15.82 HISTORY OF TOBACCO USE 07/17/2011 Ot V58.63 LONG-TERM( CURRENT)USE OF ANTIPLATELET/AN 07/17/2011 Ot V58.66 LONG-TERM ( CURRENT) USE OF ASPIRIN 07/17/2011 Ot V58.69 OTH MED,LT, CURRENT USE 07/30/2011 Ot 250.00 DIAB KELECHI WO COMPL, TYPE II OR UNSPEC TY 07/30/2011 Ot 272.4 HYPERLIPIDEMIA NEC/NOS 07/30/2011 Ot 401.9 HYPERTENSION NOS 07/30/2011 Ot 414.01 CORONARY ATHEROSCLEROSIS OF [place] CORON 07/30/2011 Ot 593.9 RENAL URETERAL DIS NOS 07/30/2011 Ot 786.50 CHEST PAIN NOS 07/30/2011 Ot V15.82 HISTORY OF TOBACCO USE 04/30/2012 Ot 250.00 DIAB KELECHI WO COMPL, TYPE II OR UNSPEC TY 04/30/2012 Ot 727.03 TRIGGER FINGER 09/09/2012 TOYA SALAZAR, ROHAN Wilkerson Ot 916.0 ABRASION HIP LEG 09/09/2012 ROHAN PITTMAN MD Ot E000.8 OTHER EXTERNAL CAUSE STATUS 09/09/2012 ROHAN PITTMAN MD Ot E928.9 ACCIDENT NOS 09/09/2012 ROHAN PITTMAN MD Ot V06.1 UOTPCKEHIX-SPAHZCM-NBYINBCBL, COMBINED [ 02/19/2013 GUS SALAZAR, LANDY Burrell Ot 250.00 DIAB KELECHI WO COMPL, TYPE II OR UNSPEC TY 02/19/2013 LANDY WEBER MD Ot 272.4 HYPERLIPIDEMIA NEC/NOS 02/19/2013 LANDY WEBER MD Ot 401.9 HYPERTENSION NOS 02/19/2013 LANDY WEBER MD Ot 429.9 HEART DISEASE NOS 02/19/2013 LANDY WEBER MD Ot 443.9 PERIPH VASCULAR DIS NOS 02/19/2013 LANDY WEBER MD Ot 593.9 RENAL URETERAL DIS NOS 02/19/2013 LANDY WEBER MD Ot 726.32 LATERAL EPICONDYLITIS 02/19/2013 LANDY WEBER MD Ot 786.59 CHEST PAIN NEC 02/19/2013 LANDY WEBER MD Ot 996.42 DISLOCATION OF PROSTHETIC JOINT 02/19/2013 LANDY WEBER MD Ot V43.65 KNEE JOINT REPLACEMENT STATUS 08/07/2013 SUMAN CAICEDO MD Ot 780.2 SYNCOPE AND COLLAPSE 08/07/2013 SUMAN CAICEDO MD Ot 786.59 CHEST PAIN NEC 01/05/2014 VANNESA WOMACK MD Ot 780.4 DIZZINESS AND GIDDINESS 01/05/2014 VANNESA WOMACK MD Ot 787.02 NAUSEA ALONE 01/05/2014 VANNESA WOMACK MD Ot 789.00 ABDOMINAL PAIN, UNSPECIFIED SITE 01/19/2014 KARRI BECKFORD PIECE WORK INSPECTOR Ot 724.5 BACKACHE NOS 01/19/2014 KARRI BECKFORD PIECE WORK INSPECTOR Ot 729.5 PAIN IN LIMB 01/19/2014 KARRI BECKFORD PIECE WORK INSPECTOR Ot 780.2 SYNCOPE AND COLLAPSE 01/19/2014 KARRI BECKFORD PIECE WORK INSPECTOR Ot 780.4 DIZZINESS AND GIDDINESS 07/02/2014 LANDY WEBER MD Ot 726.10 08/25/2014 KP SALAZAR [facility], MANUEL FACP CCDS Ot 250.00 08/25/2014 KP SALAZAR [facility], ALI FACP CCDS Ot 401.9 08/25/2014 KP SALAZAR [facility], ALI FACP CCDS Ot 414.00 08/25/2014 KP SALAZAR [facility], ALI FACP CCDS Ot 786.50 08/25/2014 LANDY WEBER MD Ot 726.10 08/25/2014 LANDY WEBER MD Ot 727.61 08/25/2014 LANDY WEBER MD Ot V72.83 08/25/2014 LANDY WEBER MD Ot V74.8 08/25/2014 LANDY WEBER MD Ot 250.00 DIAB KELECHI WO COMPL, TYPE II OR UNSPEC TY 08/25/2014 LANDY WEBER MD Ot 272.4 HYPERLIPIDEMIA NEC/NOS 08/25/2014 LANDY WEBER MD Ot 414.01 CORONARY ATHEROSCLEROSIS OF [place] CORON 08/25/2014 LANDY WEBER MD Ot 726.10 BURSAE TENDONS DIS SHLDER NOS 08/25/2014 LANDY WEBER MD Ot 726.2 SHOULDER REGION DIS NEC 08/25/2014 LANDY WEBER MD Ot 727.61 ROTATOR CUFF RUPTURE 08/25/2014 LANDY WEBER MD Ot 733.92 CHONDROMALACIA 08/25/2014 LANDY WEBER MD Ot 840.7 (SLAP) SUPERIOR GLENOID LABRUM LESIONS 08/25/2014 LANDY WEBER MD Ot V58.69 OT MED,LT,CURRENT USE 08/25/2014 LANDY WEBER MD Ot 726.10 08/31/2014 ARLIN LEE JACQUARD LOOM FIXER Ot V57.1 08/31/2014 ARLIN LEE JACQUARD LOOM FIXER Ot V58.78 09/01/2014 ARLIN LEE JACQUARD LOOM FIXER Ot V57.1 09/01/2014 ARLIN LEE JACQUARD LOOM FIXER Ot V58.78 09/15/2014 ARLIN LEE JACQUARD LOOM FIXER Ot V57.1 PHYSICAL THERAPY NEC 09/15/2014 ARLIN LEE JACQUARD LOOM FIXER Ot V58.78 AFTERCARE POST SURGERY MUSCULOSKELETAL S 09/21/2014 KP SALAZAR FACC, MANUEL FACP CCDS Ot 250.00 DIAB KELECHI WO COMPL, TYPE II OR UNSPEC TY 09/21/2014 KP SALAZAR FACC, MANUEL FACP CCDS Ot 272.4 HYPERLIPIDEMIA NEC/NOS 09/21/2014 KP SALAZAR FACC, MANUEL FACP CCDS Ot 285.9 ANEMIA NOS 09/21/2014 KP SALAZAR FACC, MANUEL FACP CCDS Ot 403.90 HYPTNSV CHR KID DIS, UNSPEC, W CHR KD ST 09/21/2014 KP SALAZAR FACC, MANUEL TERESAP CCDS Ot 414.01 CORONARY ATHEROSCLEROSIS OF [place] CORON 09/21/2014 KP SALAZAR FACC, MANUEL TERESAP CCDS Ot 414.4 CORONARY ATHEROSCLEROSIS DUE TO [place] 09/21/2014 KP SALAZAR FACC, MANUEL TERESAP CCDS Ot 585.1 CHRONIC KIDNEY DISEASE, STAGE I 09/21/2014 KP SALAZAR FACC, MANUEL TERESAP CCDS Ot 786.59 CHEST PAIN NEC 09/21/2014 KP SALAZAR FAC, ALI [facility] CCDS Ot V15.82 HISTORY OF TOBACCO USE 09/21/2014 KP SALAZAR FAC, ALI [facility] CCDS Ot V58.69 OTH MED,LT,CURRENT USE 01/27/2015 MIKY MUSE Ot F17.211 NICOTINE DEPENDENCE, CIGARETTES, IN [place] 01/27/2015 MIKY MUSE Ot G89.18 OTHER ACUTE POSTPROCEDURAL PAIN 01/27/2015 MIKY MUSE Ot Z98.1 ARTHRODESIS STATUS 11/25/2015 Ot 718.56 ANKYLOSIS- LOWER/LEG 11/25/2015 Ot V72.83 EXAM PRE- OPERATIVE NEC 11/25/2015 Ot 715.36 LOC OSTEOARTH NOS-L/LEG 11/25/2015 Ot 791.9 ABN URINE FINDINGS NEC 11/25/2015 Ot V72.63 PRE- PROCEDURAL LABORATORY EXAMINATION 11/25/2015 Ot V74.8 SCREEN- BACTERIAL DIS NEC 11/25/2015 Ot 453.40 ACUTE VENOUS EMBOLISM THROMBOSIS UNSP 11/25/2015 Ot V43.65 KNEE JOINT REPLACEMENT STATUS 11/25/2015 Ot 250.00 DIAB KELECHI WO COMPL, TYPE II OR UNSPEC TY 11/25/2015 Ot 272.0 PURE HYPERCHOLESTEROLEM 11/25/2015 Ot 401.9 HYPERTENSION NOS 11/25/2015 Ot 718.56 ANKYLOSIS- LOWER/LEG 11/25/2015 Ot V43.65 KNEE JOINT REPLACEMENT STATUS 11/25/2015 Ot 727.03 TRIGGER FINGER 11/25/2015 Ot V72.84 EXAM PRE- OPERATIVE NOS 11/25/2015 Ot V74.8 SCREEN- BACTERIAL DIS NEC 11/25/2015 GUS SALAZAR, LANDY Burrell Ot 716.92 ARTHROPATHY NOS-UP/ARM 11/25/2015 GUS SALAZAR, LANDY Burrell Ot 718.86 JT DERANGEMENT NEC-L/LEG 11/25/2015 GUS SALAZAR, LANDY Burrell Ot 780.79 OTH MALAISE FATIGUE 11/25/2015 LANDY WEBER MD Ot V72.63 PRE-PROCEDURAL LABORATORY EXAMINATION 11/25/2015 LANDY WEBER MD Ot V74.8 SCREEN-BACTERIAL DIS NEC 11/25/2015 LANDY WEBER MD Ot 719.06 JOINT EFFUSION-L/LEG 11/25/2015 GUS SALAZAR, LANDY Burrell Ot V43.65 KNEE JOINT REPLACEMENT STATUS 11/25/2015 KP SALAZAR [facility], [facility] FACP CCDS Ot 250.00 DIAB KELECHI WO COMPL, TYPE II OR UNSPEC TY 11/25/2015 KP SALAZAR [facility], [facility] FACP CCDS Ot 401.9 HYPERTENSION NOS 11/25/2015 KP SALAZAR [facility], [facility] FACP CCDS Ot 414.00 CORON ATHEROSCLER NOS TYPE VESSEL, NATIV 11/25/2015 KP SALAZAR [facility], [facility] FACP CCDS Ot 786.50 CHEST PAIN NOS 11/25/2015 GUS SALAZAR, LANDY Burrell Ot 726.10 BURSAE TENDONS DIS SHLDER NOS 11/25/2015 GUS SALAZAR, LANDY Burrell Ot 727.61 ROTATOR CUFF RUPTURE 11/25/2015 GUS SALAZAR, LANDY Burrell Ot V72.83 EXAM PRE-OPERATIVE NEC 11/25/2015 GUS SALAZAR, LANYD Burrell Ot V74.8 SCREEN-BACTERIAL DIS NEC 11/26/2015 Ot 718.56 ANKYLOSIS- LOWER/LEG 11/26/2015 Ot V72.83 EXAM PRE- OPERATIVE NEC 11/26/2015 Ot 715.36 LOC OSTEOARTH NOS-L/LEG 11/26/2015 Ot 791.9 ABN URINE FINDINGS NEC 11/26/2015 Ot V72.63 PRE- PROCEDURAL LABORATORY EXAMINATION 11/26/2015 Ot V74.8 SCREEN- BACTERIAL DIS NEC 11/26/2015 Ot 453.40 ACUTE VENOUS EMBOLISM THROMBOSIS UNSP 11/26/2015 Ot V43.65 KNEE JOINT REPLACEMENT STATUS 11/26/2015 Ot 250.00 DIAB KELECHI WO COMPL, TYPE II OR UNSPEC TY 11/26/2015 Ot 272.0 PURE HYPERCHOLESTEROLEM 11/26/2015 Ot 401.9 HYPERTENSION NOS 11/26/2015 Ot 718.56 ANKYLOSIS- LOWER/LEG 11/26/2015 Ot V43.65 KNEE JOINT REPLACEMENT STATUS 11/26/2015 Ot 727.03 TRIGGER FINGER 11/26/2015 Ot V72.84 EXAM PRE- OPERATIVE NOS 11/26/2015 Ot V74.8 SCREEN- BACTERIAL DIS NEC 11/26/2015 GUS SALAZAR, LANDY Burrell Ot 716.92 ARTHROPATHY NOS-UP/ARM 11/26/2015 GUS SALAZAR, LANDY Burrell Ot 718.86 JT DERANGEMENT NEC-L/LEG 11/26/2015 LANDY WEBER MD Ot 780.79 OTH MALAISE FATIGUE 11/26/2015 LANDY WEBER MD Ot V72.63 PRE-PROCEDURAL LABORATORY EXAMINATION 11/26/2015 LANDY WEBER MD Ot V74.8 SCREEN-BACTERIAL DIS NEC 11/26/2015 LANDY WEBER MD Ot 719.06 JOINT EFFUSION-L/LEG 11/26/2015 LANDY WEBER MD Ot V43.65 KNEE JOINT REPLACEMENT STATUS 11/26/2015 KP SALAZAR FAC, ALI FACP CCDS Ot 250.00 DIAB KELECHI WO COMPL, TYPE II OR UNSPEC TY 11/26/2015 KP SALAZAR FACC, ALI FACP CCDS Ot 401.9 HYPERTENSION NOS 11/26/2015 KP SALAZAR FAC, ALI FACP CCDS Ot 414.00 CORON ATHEROSCLER NOS TYPE VESSEL, NATIV 11/26/2015 KP SALAZAR FAC, ALI FACP CCDS Ot 786.50 CHEST PAIN NOS 11/26/2015 LANDY WEBER MD Ot 726.10 BURSAE TENDONS DIS SHLDER NOS 11/26/2015 LANDY WEBER MD Ot 727.61 ROTATOR CUFF RUPTURE 11/26/2015 LANDY WEBER MD Ot V72.83 EXAM PRE-OPERATIVE NEC 11/26/2015 LANDY WEBER MD Ot V74.8 SCREEN-BACTERIAL DIS NEC 11/26/2015 CLINTON MONTAGUE MD Ot E11.9 TYPE 2 DIABETES MELLITUS WITHOUT COMPLIC 11/26/2015 CLINTON MONTAGUE MD Ot I10 ESSENTIAL (PRIMARY) HYPERTENSION 11/26/2015 CLINTON MONTAGUE MD A Ot R00.2 PALPITATIONS 11/26/2015 CLINTON MONTAGUE MD A Ot R06.00 DYSPNEA, UNSPECIFIED 11/26/2015 CLINTON MONTAGUE MD Ot Z79.82 USP (CURRENT) USE OF ASPIRIN 11/26/2015 CLINTON MONTAGUE MD Ot Z79.899 OTHER USP (CURRENT) DRUG THERAPY 11/28/2015 CLINTON MONTAGUE MD A Ot E11.9 TYPE 2 DIABETES MELLITUS WITHOUT COMPLIC 11/28/2015 CLINTON MONTAGUE MD Ot I10 ESSENTIAL (PRIMARY) HYPERTENSION 11/28/2015 CLINTON MONTAGUE MD Ot R00.2 PALPITATIONS 11/28/2015 CLINTON MONTAGUE MD Ot R06.00 DYSPNEA, UNSPECIFIED 11/28/2015 EDDI SALAZAR, CLINTON Londono Ot Z79.82 BEVEL GEAR GENERATOR OPERATOR (CURRENT) USE OF ASPIRIN 11/28/2015 EDDI SALAZAR, CLINTON Londono Ot Z79.899 OTHER BEVEL GEAR GENERATOR OPERATOR (CURRENT) DRUG THERAPY 02/21/2016 Ot 715.36 LOC OSTEOARTH NOS-L/LEG 02/21/2016 Ot 791.9 ABN URINE FINDINGS NEC 02/21/2016 Ot V72.63 PRE- PROCEDURAL LABORATORY EXAMINATION 02/21/2016 Ot V74.8 SCREEN- BACTERIAL DIS NEC 02/21/2016 Ot 453.40 ACUTE VENOUS EMBOLISM THROMBOSIS UNSP 02/21/2016 Ot V43.65 KNEE JOINT REPLACEMENT STATUS 02/21/2016 Ot 250.00 DIAB KELECHI WO COMPL, TYPE II OR UNSPEC TY 02/21/2016 Ot 272.0 PURE HYPERCHOLESTEROLEM 02/21/2016 Ot 401.9 HYPERTENSION NOS 02/21/2016 Ot 718.56 ANKYLOSIS- LOWER/LEG 02/21/2016 Ot V43.65 KNEE JOINT REPLACEMENT STATUS 02/21/2016 Ot 727.03 TRIGGER FINGER 02/21/2016 Ot V72.84 EXAM PRE- OPERATIVE NOS 02/21/2016 Ot V74.8 SCREEN- BACTERIAL DIS NEC 02/21/2016 GUS SALAZAR, LANDY Burrell Ot 716.92 ARTHROPATHY NOS-UP/ARM 02/21/2016 GUS SALAZAR, LANDY Burrell Ot 718.86 JT DERANGEMENT NEC-L/LEG 02/21/2016 GUS SALAZAR, LANDY Burrell Ot 780.79 OTH MALAISE FATIGUE 02/21/2016 GUS SALAZAR, LANDY Burrell Ot V72.63 PRE-PROCEDURAL LABORATORY EXAMINATION 02/21/2016 GUS SALAZAR, LANDY Burrell Ot V74.8 SCREEN-BACTERIAL DIS NEC 02/21/2016 GUS SALAZAR, LANDY Burrell Ot 719.06 JOINT EFFUSION-L/LEG 02/21/2016 LANDY WEBER MD Ot V43.65 KNEE JOINT REPLACEMENT STATUS 02/21/2016 KP SALAZAR FACDelaney, MANUEL FACP CCDS Ot 250.00 DIAB KELECHI WO COMPL, TYPE II OR UNSPEC TY 02/21/2016 KP SALAZAR FACDelaney, ALI FACP CCDS Ot 401.9 HYPERTENSION NOS 02/21/2016 KP SALAZAR FACDelaney, ALI FACP CCDS Ot 414.00 CORON ATHEROSCLER NOS TYPE VESSEL, NATIV 02/21/2016 KP SALAZAR FAC, MANUEL FACP CCDS Ot 786.50 CHEST PAIN NOS 02/21/2016 GUS SALAZAR, LANDY Burrell Ot 726.10 BURSAE TENDONS DIS SHLDER NOS 02/21/2016 LANDY WEBER MD Ot 727.61 ROTATOR CUFF RUPTURE 02/21/2016 LANDY WEBER MD Ot V72.83 EXAM PRE-OPERATIVE NEC 02/21/2016 LANDY WEBER MD Ot V74.8 SCREEN-BACTERIAL DIS NEC 02/24/2016 KARRI BECKFORD PIECE WORK INSPECTOR Ot R20.0 ANESTHESIA OF SKIN 03/15/2016 KARRI BECKFORD PIECE WORK INSPECTOR Ot R20.0 ANESTHESIA OF SKIN 03/16/2016 VANNESA WOMACK MD Ot E11.649 TYPE 2 DIABETES MELLITUS WITH HYPOGLYCEM 03/16/2016 VANNESA WOMACK MD Ot I10 ESSENTIAL (PRIMARY) HYPERTENSION 03/16/2016 VANNESA WOMACK MD Ot Z79.02 BEVEL GEAR GENERATOR OPERATOR (CURRENT) USE OF ANTITHROMBOTI 03/16/2016 VANNESA WOMACK MD Ot Z79.82 USP (CURRENT) USE OF ASPIRIN 03/16/2016 VANNESA WOMACK MD T Ot Z79.899 OTHER USP (CURRENT) DRUG THERAPY 03/16/2016 VANNESA WOMACK MD Ot Z87.891 PERSONAL HISTORY OF NICOTINE DEPENDENCE 03/20/2016 VANNESA WOMACK MD Ot E11.649 TYPE 2 DIABETES MELLITUS WITH HYPOGLYCEM 03/20/2016 VANNESA WOMACK MD Ot I10 ESSENTIAL (PRIMARY) HYPERTENSION 03/20/2016 VANNESA WOMACK MD Ot Z79.02 USP (CURRENT) USE OF ANTITHROMBOTI 03/20/2016 VANNESA WOMACK MD T Ot Z79.82 BEVEL GEAR GENERATOR OPERATOR (CURRENT) USE OF ASPIRIN 03/20/2016 VANNESA WOMACK MD Ot Z79.899 OTHER USP (CURRENT) DRUG THERAPY 03/20/2016 VANNESA WOMACK MD Ot Z87.891 PERSONAL HISTORY OF NICOTINE DEPENDENCE 03/22/2016 KARRI BECKFORD PIECE WORK INSPECTOR Ot R20.0 ANESTHESIA OF SKIN 05/20/2016 JESSICA WHATLEY MD Ot K82.8 OTHER SPECIFIED DISEASES OF GALLBLADDER 06/07/2016 JESSICA WHATLEY MD Ot K82.8 OTHER SPECIFIED DISEASES OF GALLBLADDER 06/13/2016 BAIMA, CLIFF L JACQUARD LOOM FIXER Ot E78.4 OTHER HYPERLIPIDEMIA 06/13/2016 BAIMA, CLIFF L JACQUARD LOOM FIXER Ot I10 ESSENTIAL (PRIMARY) HYPERTENSION 06/13/2016 BAIMA, CLIFF L JACQUARD LOOM FIXER Ot I25.10 ATHSCL HEART DISEASE OF [place] CORONARY 06/13/2016 BAIMA, CLIFF L JACQUARD LOOM FIXER Ot I47.1 SUPRAVENTRICULAR TACHYCARDIA 06/13/2016 BAIMA, CLIFF L JACQUARD LOOM FIXER Ot I47.2 VENTRICULAR TACHYCARDIA 06/27/2016 PHYLICIA SALAZAR, JESSICA Ot K82.8 OTHER SPECIFIED DISEASES OF GALLBLAD[place] 07/03/2016 BAIMA, CLIFF L JACQUARD LOOM FIXER Ot E78.4 OTHER HYPERLIPIDEMIA 07/03/2016 BAIMA, CLIFF L JACQUARD LOOM FIXER Ot I10 ESSENTIAL (PRIMARY) HYPERTENSION 07/03/2016 BAIMA, CLIFF L JACQUARD LOOM FIXER Ot I25.10 ATHSCL HEART DISEASE OF [place] CORONARY 07/03/2016 BAIMA, CLIFF L JACQUARD LOOM FIXER Ot I47.1 SUPRAVENTRICULAR TACHYCARDIA 07/03/2016 BAIMA, CLIFF L JACQUARD LOOM FIXER Ot I47.2 VENTRICULAR TACHYCARDIA 07/19/2016 BAIMA, CLIFF L JACQUARD LOOM FIXER Ot E78.4 OTHER HYPERLIPIDEMIA 07/19/2016 BAIMA, CLIFF L JACQUARD LOOM FIXER Ot I10 ESSENTIAL (PRIMARY) HYPERTENSION 07/19/2016 BAIMA, CLIFF L JACQUARD LOOM FIXER Ot I25.10 ATHSCL HEART DISEASE OF [place] CORONARY 07/19/2016 BAIMA, CLIFF L JACQUARD LOOM FIXER Ot I47.1 SUPRAVENTRICULAR TACHYCARDIA 07/19/2016 BAIMA, CLIFF L JACQUARD LOOM FIXER Ot I47.2 VENTRICULAR TACHYCARDIA 08/03/2016 YOSEPH BLEDSOE MD Ot Z98.1 ARTHRODESIS STATUS 08/10/2016 YOSEPH BLEDSOE MD Ot Z98.1 ARTHRODESIS STATUS 08/10/2016 KARRI BECKFORD PIECE WORK INSPECTOR Ot R10.817 GENERALIZED ABDOMINAL TENDERNESS 08/21/2016 KARRI BECKFORD PIECE WORK INSPECTOR Ot R10.817 GENERALIZED ABDOMINAL TENDERNESS 12/17/2016 KARRI BECKFORD PIECE WORK INSPECTOR Ot R20.0 ANESTHESIA OF SKIN 12/17/2016 PHYLICIA SALAZAR, JESSICA Ot K82.8 OTHER SPECIFIED DISEASES OF GALLBLADDER 12/17/2016 BAIMA, CLIFF L JACQUARD LOOM FIXER Ot E78.4 OTHER HYPERLIPIDEMIA 12/17/2016 BAIMA, CLIFF L JACQUARD LOOM FIXER Ot I10 ESSENTIAL (PRIMARY) HYPERTENSION 12/17/2016 BAIMA, CLIFF L JACQUARD LOOM FIXER Ot I25.10 ATHSCL HEART DISEASE OF [place] CORONARY 12/17/2016 BAIMA, CLIFF L JACQUARD LOOM FIXER Ot I47.1 SUPRAVENTRICULAR TACHYCARDIA 12/17/2016 BAIMA, CLIFF L JACQUARD LOOM FIXER Ot I47.2 VENTRICULAR TACHYCARDIA 12/17/2016 LADI SALAZAR, YOSEPH Keating Ot Z98.1 ARTHRODESIS STATUS 12/17/2016 KARRI BECKFORD APRN Ot R10.817 GENERALIZED ABDOMINAL TENDERNESS 12/18/2016 BAISOCORRO, CLIFF L JACQUARD LOOM FIXER Ot E11.22 TYPE 2 DIABETES MELLITUS W DIABETIC MULTIFOCAL BUTTON INSPECTOR 12/18/2016 BAIMA, CLIFF L JACQUARD LOOM FIXER Ot E78.5 HYPERLIPIDEMIA, UNSPECIFIED 12/18/2016 BAIMA, CLIFF L JACQUARD LOOM FIXER Ot I12.9 HYPERTENSIVE CHRONIC KIDNEY DISEASE W ST 12/18/2016 BAIMA, CLIFF L JACQUARD LOOM FIXER Ot I25.10 ATHSCL HEART DISEASE OF [place] CORONARY 12/18/2016 BAIMA, CLIFF L JACQUARD LOOM FIXER Ot I25.84 CORONARY ATHEROSCLEROSIS DUE TO [place]IF[place] 12/18/2016 BAIMA, CLIFF L JACQUARD LOOM FIXER Ot N18.2 CHRONIC KIDNEY DISEASE, STAGE 2 (MILD) 12/18/2016 BAIMA, CLIFF L JACQUARD LOOM FIXER Ot R06.02 SHORTNESS OF BREATH 12/18/2016 BAIMA, CLIFF L JACQUARD LOOM FIXER Ot R07.89 OTHER CHEST PAIN 12/18/2016 BAIMA, CLIFF L JACQUARD LOOM FIXER Ot R55 SYNCOPE AND COLLAPSE 12/18/2016 BAIMA, CLIFF L JACQUARD LOOM FIXER Ot Z79.84 USP (CURRENT) USE OF ORAL HYPOGLYC 12/18/2016 TUMA, CLIFF L JACQUARD LOOM FIXER Ot Z79.899 OTHER USP (CURRENT) DRUG THERAPY 12/18/2016 BAIMA, CLIFF L JACQUARD LOOM FIXER Ot Z87.891 PERSONAL HISTORY OF NICOTINE DEPENDENCE 12/26/2016 BAIMA, CLIFF L JACQUARD LOOM FIXER Ot E11.22 TYPE 2 DIABETES MELLITUS W DIABETIC MULTIFOCAL BUTTON INSPECTOR 12/26/2016 BAIMA, CLIFF L JACQUARD LOOM FIXER Ot E78.5 HYPERLIPIDEMIA, UNSPECIFIED 12/26/2016 TUCLIFF QUINTANILLA JACQUARD LOOM FIXER Ot I12.9 HYPERTENSIVE CHRONIC KIDNEY DISEASE W ST 12/26/2016 TUCLIFF QUINTANILLA L JACQUARD LOOM FIXER Ot I25.10 ATHSCL HEART DISEASE OF [place] CORONARY 12/26/2016 CLIFF CR L JACQUARD LOOM FIXER Ot I25.84 CORONARY ATHEROSCLEROSIS DUE TO [place]IF[place] 12/26/2016 TUCLIFF QUINTANILLA JACQUARD LOOM FIXER Ot N18.2 CHRONIC KIDNEY DISEASE, STAGE 2 (MILD) 12/26/2016 TUCLIFF QUINTANILLA L JACQUARD LOOM FIXER Ot R06.02 SHORTNESS OF BREATH 12/26/2016 TUCLIFF QUINTANILLA L JACQUARD LOOM FIXER Ot R07.89 OTHER CHEST PAIN 12/26/2016 TUCLIFF QUINTANILLA L JACQUARD LOOM FIXER Ot R55 SYNCOPE AND COLLAPSE 12/26/2016 TUCLIFF QUINTANILLA JACQUARD LOOM FIXER Ot Z79.84 USP (CURRENT) USE OF ORAL HYPOGLYC 12/26/2016 TUCLIFF QUINTANILLA L JACQUARD LOOM FIXER Ot Z79.899 OTHER BEVEL GEAR GENERATOR OPERATOR (CURRENT) DRUG THERAPY 12/26/2016 TUCLIFF UQINTANILLA JACQUARD LOOM FIXER Ot Z87.891 PERSONAL HISTORY OF NICOTINE DEPENDENCE 03/19/2017 TUCLIFF QUINTANILLA L JACQUARD LOOM FIXER Ot I10 ESSENTIAL (PRIMARY) HYPERTENSION 03/19/2017 [place] QUINTANILLA L JACQUARD LOOM FIXER Ot I25.10 ATHSCL HEART DISEASE OF [place] CORONARY 03/19/2017 [place] CR L JACQUARD LOOM FIXER Ot R42 DIZZINESS AND GIDDINESS 03/19/2017 [place] QUINTANILLA L JACQUARD LOOM FIXER Ot R55 SYNCOPE AND COLLAPSE 03/20/2017 [place] QUINTANILLA L JACQUARD LOOM FIXER Ot I10 ESSENTIAL (PRIMARY) HYPERTENSION 03/20/2017 [place] QUINTANILLA L JACQUARD LOOM FIXER Ot I25.10 ATHSCL HEART DISEASE OF [place] CORONARY 03/20/2017 [place] QUINTANILLA L JACQUARD LOOM FIXER Ot R42 DIZZINESS AND GIDDINESS 03/20/2017 [place] CLIFF L JACQUARD LOOM FIXER Ot R55 SYNCOPE AND COLLAPSE 03/28/2017 MEHRAN SALAZAR, JENNIFER Rock Ot R05 COUGH 03/28/2017 MEHRAN SALAZAR, JENNIFER [place] Ot R42 DIZZINESS AND GIDDINESS 04/17/2017 MEHRAN SALAZAR, JENNIFER D Ot R05 COUGH 04/17/2017 MEHRAN SALAZAR, JENNIFER Wilkerson Ot R42 DIZZINESS AND GIDDINESS 04/23/2017 JENNIFER LAURENT MD Ot 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 04/23/2017 JENNIFER LAURENT MD Ot G93.89 OTHER SPECIFIED DISORDERS OF BRAIN 05/13/2017 JENNIFER LAURENT MD Ot 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 05/13/2017 JENNIFER LAURENT MD Ot G93.89 OTHER SPECIFIED DISORDERS OF BRAIN 05/22/2017 JENNIFER LAURENT MD Ot R05 COUGH 05/22/2017 JENNIFER LAURENT MD Ot R42 DIZZINESS AND GIDDINESS 07/17/2017 JENNIFER LAURENT MD, Ot 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 07/17/2017 JENNIFER LAURENT MD, Ot G93.89 OTHER SPECIFIED DISORDERS OF BRAIN 07/17/2017 JENNIFER LAURENT MD Ot R05 COUGH 07/17/2017 JENNIFER LAURENT MD, Ot R42 DIZZINESS AND GIDDINESS Procedures Code Description Performed By Performed On 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 81.92 INJECTION INTO JOINT 01/12/2009 81.54 TOTAL KNEE REPLACEMENT 12/20/2010 81.55 REVISION OF KNEE REPLACEMENT , NOT OTHERW 02/18/2013 81.92 INJECTION INTO JOINT 02/18/2013 84.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 02/18/2013 Results Test Result Range PT panel in platelet poor plasma by coagulation assay - 11/25/15 22:43 Prothrombin time (PT) in platelet poor plasma by coagulation assay 12.6 s 12.2-14.7 INR in platelet poor plasma or blood by coagulation assay 1.0 0.8-1.4 Complete blood count (CBC) with automated white blood cell (WBC) differential - 11/25/15 22:43 Blood leukocytes automated count (number/volume) 7.4 10*3/uL 4.3-11.0 Blood erythrocytes automated count (number/volume) 5.30 10*6/uL 4.35-5.85 Venous blood hemoglobin measurement (mass/volume) 13.9 g/dL 13.3-17.7 Blood hematocrit (volume fraction) 40 % 40-54 Automated erythrocyte mean corpuscular volume 76 [foz_us] 80-99 Automated erythrocyte mean corpuscular hemoglobin (mass per erythrocyte) 26 pg 25-34 Automated erythrocyte mean corpuscular hemoglobin concentration measurement ( mass/volume) 35 g/dL 32-36 Automated erythrocyte distribution width ratio 17.1 % 10.0-14.5 Automated blood platelet count (count/volume) 209 10*3/uL 130-400 Automated blood platelet mean volume measurement 10.8 [foz_us] 7.4-10.4 Automated blood neutrophils/100 leukocytes 37 % 42-75 Automated blood lymphocytes/100 leukocytes 50 % 12-44 Blood monocytes/100 leukocytes 10 % 0-12 Automated blood eosinophils/100 leukocytes 3 % 0-10 Automated blood basophils/100 leukocytes 0 % 0-10 Blood neutrophils automated count (number/volume) 2.7 10*3 1.8-7.8 Blood lymphocytes automated count (number/volume) 3.7 10*3 1.0-4.0 Blood monocytes automated count (number/volume) 0.8 10*3 0.0-1.0 Automated eosinophil count 0.2 10*3/uL 0.0-0.3 Automated blood basophil count (count/volume) 0.0 10*3/uL 0.0-0.1 Activated partial thromboplastin time (aPTT) in platelet poor plasma bycoagulation assay - 11/25/15 22:43 Activated partial thromboplastin time (aPTT) in platelet poor plasma bycoagulation assay 33 s 24-35 Comprehensive metabolic panel - 11/25/15 22:43 Serum or plasma sodium measurement (moles/volume) 140 mmol/L 135-145 Serum or plasma potassium measurement (moles/volume) 3.5 mmol/L 3.6-5.0 Serum or plasma chloride measurement (moles/volume) 106 mmol/L 98-107 Carbon dioxide 22 mmol/L 21-32 Serum or plasma anion gap determination (moles/volume) 12 mmol/L 5-14 Serum or plasma urea nitrogen measurement (mass/volume) 18 mg/dL 7-18 Serum or plasma creatinine measurement (mass/volume) 1.09 mg/dL 0.60-1.30 Serum or plasma urea nitrogen/creatinine mass ratio 17 NRG Serum or plasma creatinine measurement with calculation of estimated glomerular filtration rate > NRG Serum or plasma glucose measurement (mass/volume) 116 mg/dL 70-105 Serum or plasma calcium measurement (mass/volume) 9.4 mg/dL 8.5-10.1 Serum or plasma total bilirubin measurement (mass/volume) 1.0 mg/dL 0.1-1.0 Serum or plasma alkaline phosphatase measurement (enzymatic activity/volume) 123 U/L 40-136 Serum or plasma aspartate aminotransferase measurement (enzymatic activity/ volume) 25 U/L 5-34 Serum or plasma alanine aminotransferase measurement (enzymatic activity/volume ) 20 U/L 0-55 Serum or plasma protein measurement (mass/volume) 7.8 g/dL 6.4-8.2 Serum or plasma albumin measurement (mass/volume) 4.5 g/dL 3.2-4.5 Magnesium - 11/25/15 22:43 Magnesium 2.2 mg/dL 1.8-2.4 Serum or plasma troponin i.cardiac measurement (mass/volume) - 11/25/15 22:43 Serum or plasma troponin i.cardiac measurement (mass/volume) < ng/ mL <0.30 Serum or plasma lithium measurement (moles/volume) - 11/25/15 22:43 BNP level 44.6 pg/mL <100.0 Capillary blood glucose measurement by glucometer (mass/volume) - 03/16/16 12: 37 Capillary blood glucose measurement by glucometer (mass/volume) 136 mg/dL 70-110 Whole blood basic metabolic panel - 03/16/16 12:41 Serum or plasma sodium measurement (moles/volume) 135 mmol/L 135-145 Serum or plasma potassium measurement (moles/volume) 3.9 mmol/L 3.6-5.0 Serum or plasma chloride measurement (moles/volume) 102 mmol/L 98-107 Carbon dioxide 24 mmol/L 21-32 Serum or plasma anion gap determination (moles/volume) 9 mmol/L 5-14 Serum or plasma urea nitrogen measurement (mass/volume) 20 mg/dL 7-18 Serum or plasma creatinine measurement (mass/volume) 0.98 mg/dL 0.60-1.30 Serum or plasma urea nitrogen/creatinine mass ratio 20 NRG Serum or plasma creatinine measurement with calculation of estimated glomerular filtration rate > NRG Serum or plasma glucose measurement (mass/volume) 134 mg/dL 70-105 Serum or plasma calcium measurement (mass/volume) 9.1 mg/dL 8.5-10.1 Complete urinalysis with reflex to culture - 03/16/16 13:44 Urine color determination YELLOW NRG Urine clarity determination CLEAR NRG Urine pH measurement by test strip 5 5-9 Specific gravity of urine by test strip 1.025 1.016- 1.022 Urine protein assay by test strip, semi-quantitative 2+ NEGATIVE Urine glucose detection by automated test strip NEGATIVE NEGATIVE Erythrocytes detection in urine sediment by light microscopy NEGATIVE NEGATIVE Urine ketones detection by automated test strip NEGATIVE NEGATIVE Urine nitrite detection by test strip NEGATIVE NEGATIVE Urine total bilirubin detection by test strip NEGATIVE NEGATIVE Urine urobilinogen measurement by automated test strip (mass/volume) NORMAL NORMAL Urine leukocyte esterase detection by dipstick 1+ NEGATIVE Automated urine sediment erythrocyte count by microscopy (number/high power field) NONE NRG Automated urine sediment leukocyte count by microscopy (number/high power field ) [HPF] NRG Bacteria detection in urine sediment by light microscopy NEGATIVE NRG Squamous epithelial cells detection in urine sediment by light microscopy 5-10 NRG Crystals detection in urine sediment by light microscopy NONE NRG Casts detection in urine sediment by light microscopy NONE NRG Mucus detection in urine sediment by light microscopy NEGATIVE NRG Complete urinalysis with reflex to culture NO NRG Capillary blood glucose measurement by glucometer (mass/volume) - 03/16/16 14: 07 Capillary blood glucose measurement by glucometer (mass/volume) 96 mg/dL 70-110 Automated blood complete blood count (hemogram) panel - 12/18/16 07:50 Blood leukocytes automated count (number/volume) 6.2 10*3/uL 4.3-11.0 Blood erythrocytes automated count (number/volume) 5.33 10*6/uL 4.35-5.85 Venous blood hemoglobin measurement (mass/volume) 13.4 g/dL 13.3-17.7 Blood hematocrit (volume fraction) 40 % 40-54 Automated erythrocyte mean corpuscular volume 75 [foz_us] 80-99 Automated erythrocyte mean corpuscular hemoglobin (mass per erythrocyte) 25 pg 25-34 Automated erythrocyte mean corpuscular hemoglobin concentration measurement ( mass/volume) 34 g/dL 32-36 Automated erythrocyte distribution width ratio 17.3 % 10.0-14.5 Automated blood platelet count (count/volume) 203 10*3/uL 130-400 Automated blood platelet mean volume measurement 10.6 [foz_us] 7.4-10.4 PT panel in platelet poor plasma by coagulation assay - 12/18/16 07:50 Prothrombin time (PT) in platelet poor plasma by coagulation assay 12.9 s 12.2-14.7 INR in platelet poor plasma or blood by coagulation assay 1.0 0.8-1.4 Activated partial thromboplastin time (aPTT) in platelet poor plasma bycoagulation assay - 12/18/16 07:50 Activated partial thromboplastin time (aPTT) in platelet poor plasma bycoagulation assay 28 s 24-35 Comprehensive metabolic panel - 12/18/16 07:50 Serum or plasma sodium measurement (moles/volume) 139 mmol/L 135-145 Serum or plasma potassium measurement (moles/volume) 4.3 mmol/L 3.6-5.0 Serum or plasma chloride measurement (moles/volume) 104 mmol/L 98-107 Carbon dioxide 25 mmol/L 21-32 Serum or plasma anion gap determination (moles/volume) 10 mmol/L 5-14 Serum or plasma urea nitrogen measurement (mass/volume) 17 mg/dL 7-18 Serum or plasma creatinine measurement (mass/volume) 1.04 mg/dL 0.60-1.30 Serum or plasma urea nitrogen/creatinine mass ratio 16 NRG Serum or plasma creatinine measurement with calculation of estimated glomerular filtration rate > NRG Serum or plasma glucose measurement (mass/volume) 112 mg/dL 70-105 Serum or plasma calcium measurement (mass/volume) 9.6 mg/dL 8.5-10.1 Serum or plasma total bilirubin measurement (mass/volume) 1.2 mg/dL 0.1-1.0 Serum or plasma alkaline phosphatase measurement (enzymatic activity/volume) 113 U/L 40-136 Serum or plasma aspartate aminotransferase measurement (enzymatic activity/ volume) 23 U/L 5-34 Serum or plasma alanine aminotransferase measurement (enzymatic activity/volume ) 24 U/L 0-55 Serum or plasma protein measurement (mass/volume) 8.0 g/dL 6.4-8.2 Serum or plasma albumin measurement (mass/volume) 4.3 g/dL 3.2-4.5 Lipid 1996 panel - 12/18/16 07:50 Serum or plasma triglyceride measurement (mass/volume) 47 mg/dL <150 Serum or plasma cholesterol measurement (mass/volume) 159 mg/dL < 200 Serum or plasma cholesterol in HDL measurement (mass/volume) 73 mg/ dL 40-60 Cholesterol in LDL [mass/volume] in serum or plasma by direct assay 68 mg/dL 1-129 Serum or plasma cholesterol in VLDL measurement (mass/volume) 9 mg/ dL 5-40 Methicillin resistant Staphylococcus aureus (MRSA) screening culture - 07:50 Methicillin resistant Staphylococcus aureus (MRSA) screening culture NEG NRG Encounters ACCT No. Visit Date/Time Discharge Status Pt. Type Provider Facility Loc./Unit Complaint [id number] 03/28/2017 07:55:00 03/28/2017 23:59:59 CLS Outpatient JENNIFER LAURENT MD [facility] RAD TRANSIENT CEREBRAL ISCHEMIA [id number] 03/27/2017 09:32:00 03/27/2017 23:59:59 CLS Outpatient JENNIFER LAURENT MD [facility] RAD R05 [id number] 03/19/2017 06:49:00 03/19/2017 09:57:00 DIS Outpatient CLIFF CR [facility] CARD DIZZINESS [id number] 12/18/2016 07:09:00 12/18/2016 15:15:00 DIS Outpatient BAICLIFF QUINTANILLA [facility] CATH CAD,CAROTID ARTERIAL DISEASE,HTN [id number] 07/19/2016 10:11:00 07/19/2016 23:59:59 CLS Outpatient KARRI BECKFORD APRN [facility] RAD [id number] 07/11/2016 10:28:00 07/11/2016 23:59:59 CLS Outpatient YOSEPH BLEDSOE MD [facility] RAD S/P SPINAL FUSION [id number] 06/12/2016 07:40:00 06/12/2016 23:59:59 CLS Outpatient CLIFF CR [facility] CARD CAD,HTN,SVT [id number] 05/17/2016 09:44:00 05/17/2016 23:59:59 CLS Outpatient PHYLICIA SALAZAR, JESSICA [facility] CARD BLOATED ABDOMEN [id number] 03/16/2016 12:27:00 03/16/2016 14:30:00 DIS Emergency VANNESA WOMACK MD [facility] ER LOW BP/WEAKNESS [id number] 02/21/2016 16:48:00 02/21/2016 23:59:59 CLS Outpatient KARRI BECKFORD APRN [facility] RAD BLURRED VISION, NUMBNESS/SWELLING OF FACE [id number] 11/25/2015 22:40:00 11/26/2015 00:12:00 DIS Emergency CLINTON MONTAGUE MD [facility] ER CHEST PAIN [id number] 01/27/2015 14:23:00 01/27/2015 18:48:00 DIS Emergency MIKY MUSE [facility] ER FALL/BACK PAIN [id number] 09/21/2014 07:13:00 09/21/2014 13:10:00 DIS Outpatient KP SALAZAR FACC, MANUEL FACIndra CCDS [facility] CATH CAD,CP,HLP [id number] 09/07/2014 09:56:00 09/15/2014 14:58:00 DIS Outpatient ARLIN LEE [facility] REHAB S/P R SHOULDER SCOPE; BICEP TENOTOMY;RCR DEBRIDEMEN [id number] 08/25/2014 06:00:00 08/25/2014 11:40:00 DIS Outpatient LANDY WEBER MD [facility] SDC RIGHT SHOULDER ROTATOR CUFF GLENOID LABRAL TEAR [id number] 08/20/2014 12:18:00 08/20/2014 23:59:59 CLS Outpatient LANDY WEBER MD [facility] PREOP RIGHT SHOULDER ROTATOR CUFF GLENOID LABRAL TEAR [id number] 06/10/2014 13:21:00 06/10/2014 23:59:59 CLS Outpatient LANDY WEBER MD [facility] RAD RTC [id number] 01/19/2014 08:31:00 01/19/2014 09:46:00 DIS Outpatient KARRI BECKFORD APRN [facility] CARD POSTURAL DIZZINES, HTN,CAD [id number] 01/05/2014 11:49:00 01/05/2014 13:28:00 DIS Emergency VANNESA WOMACK MD [facility] ER VOMITING/NAUSEA DIZZINESS [id number] 08/07/2013 14:14:00 08/07/2013 17:19:00 DIS Emergency MARIFER SALAZAR, SUMAN Phillip [facility] ER CHEST PAIN [id number] 07/16/2013 07:04:00 07/16/2013 23:59:59 CLS Outpatient KP SALAZAR FACC, MANUEL ANDRADE CCDS [facility] CARD AFIB [id number] 05/18/2013 07:43:00 05/18/2013 23:59:59 CLS Outpatient LANDY WEBER MD [facility] RAD LFT KNEE LATERAL CYST [id number] 02/18/2013 08:45:00 02/19/2013 09:40:00 DIS Inpatient LANDY WEBER MD [facility] SURGICAL LEFT KNEE FUNCTIONAL INSTABILITY;RIGHT ELBOW ARTHR [id number] 02/11/2013 07:42:00 02/11/2013 23:59:59 CLS Outpatient LANDY WEBER MD [facility] PREOP LEFT KNEE FUNCTIONAL INSTABILITY;RIGHT ELBOW ARTHR [id number] 09/09/2012 16:51:00 09/09/2012 18:07:00 DIS Emergency ROHAN PITTMAN MD [facility] ER BROKEN BLOOD VESSEL [id number] 07/17/2017 20:51:00 ACT Emergency ABRAM BOSCH MD [facility] ER PASSED OUT, DIZZY [id number] 11/25/2015 22:39:00 Document Registration [id number] 04/30/2012 07:55:00 Document Registration [id number] 04/28/2012 10:02:00 Document Registration [id number] 08/01/2011 06:23:00 Document Registration [id number] 07/29/2011 17:15:00 Document Registration [id number] 07/17/2011 10:51:00 Document Registration [id number] 12/26/2010 10:02:00 Document Registration [id number] 12/20/2010 05:41:00 Document Registration [id number] 12/12/2010 09:53:00 Document Registration [id number] 08/01/2010 12:28:00 Document Registration [id number] 06/28/2010 05:45:00 Document Registration [id number] 06/22/2010 07:34:00 Document Registration [id number] 01/12/2009 05:50:00 Document Registration [id number] 09/21/2014 07:14:13 ACT Document Registration
[2017-07-17] MEDS ORDERED: LACTATED RINGERS 1,000 ML IV ONE (21:13)
--- NOTE | 2017-07-17 21:16 | ED Syncope ---
General Chief Complaint: Dizziness/Syncope Stated Complaint: PASSED OUT, DIZZY Source of Information: Patient, Family () Exam Limitations: No Limitations History of Present Illness Date Seen by Provider: July 17, 2017 Time Seen by Provider: 21:04 Initial Comments The patient presents to the ER by private conveyance with a chief complaint that he was sitting at the dinner table and his says he is not to get up and go lay down when he passed out at the dinner table. He did not fall or hit his head. He is not on blood thinners. He's had dizziness spells multiple times in the past with extensive workup to include heart catheterization, tilt table test and a few months ago and implanted cardiac loop monitor. He is followed by Dr. Vaughan and Dr. Suazo. He is not having any chest pain, shortness of breath or cough. No nausea vomiting, fever or diarrhea. He says they checked his sugar immediately afterwards and it was 175. His called the ambulance and duplicator punch operator recommended he go be worked up at the ER but he decided to go by private conveyance. By the time this interviewer is seeing him in the ER he says he feels perfectly well just wants to go lay down and get some sleep. He says he has not been eating or drinking much today because he has been out working in the garden all day and he did have probably half of a mixed drink tonight. The patient feels that his dizzy spells seem to have something to do with him not wearing his glasses because he got a new prescription about a month or 2 ago and ever since and is not had any dizziness or syncope as long as his wearing them. He says tonight he was not wearing them but he also thinks was confounded by not having anything to eat or drink all day. He says on the way over here from home he had a couple peanut butter crackers and that made him feel much better as well. Allergies and Home Medications Allergies Coded Allergies: Penicillins (Verified Allergy, Intermediate, RASH, 12/22/10) Home Medications Alprazolam 1 Mg Tablet, 1 MG PO BID PRN for ANXIETY, (Reported) Aspirin 81 Mg Tablet., 81 MG PO DAILY, (Reported) Atorvastatin Calcium 20 Mg Tablet, 20 MG PO HS, (Reported) Baclofen 10 Mg Tablet, 10 MG PO TID PRN for MUSCLE SPASMS, (Reported) Cetirizine HCl 10 Mg Tablet, 10 MG PO HS, (Reported) Diclofenac Sodium 100 Gm Gel..gram., TP QID PRN for JOINT PAIN, (Reported) Docusate Sodium 100 Mg Capsule, 100 MG PO BID, (Reported) Fluocinonide/Emollient Base 15 Gm Cream..g., TP BID PRN for PAIN, (Reported) Gabapentin 300 Mg Capsule, 600 MG PO BID, (Reported) TAKES 2 (300MG) CAPSULES Gabapentin 300 Mg Capsule, 600 MG PO 1200 PRN for NERVE PAIN, (Reported) TAKES 2 (300MG) CAPSULES Ketoconazole 120 Ml Shampoo, TP DAILY, (Reported) Liraglutide 0.6 Mg/0.1 Ml Pen.injctr, 1.8 MG SQ DAILY, (Reported) Lisinopril 10 Mg Tablet, 5 MG PO DAILY, (Reported) TAKES 1/2 (10MG) TABLET Meclizine HCl 25 Mg Tablet, 25 MG PO TID PRN for DIZZINESS, (Reported) Meloxicam 15 Mg Tablet, 15 MG PO DAILY, (Reported) Metformin HCl 500 Mg Tablet, 500 MG PO BID WITH MEALS, (Reported) Metoprolol Succinate 50 Mg Tab.er.24h, 50 MG PO DAILY, (Reported) Nitroglycerin 0.4 Mg Tab.subl, 0.4 MG SL UD PRN for CHEST PAIN, (Reported) Nystatin 15 Gm Cream..g., TP BID PRN for SORES, (Reported) Oxycodone HCl 40 Mg Tab.er.12h, 40 MG PO BID PRN for PAIN-SEVERE, (Reported) Oxycodone HCl/Acetaminophen 1 Each Tablet, 1 TAB PO Q8H PRN for PAIN-MODERATE, ( Reported) Pantoprazole Sodium 40 Mg Tablet.dr, 40 MG PO DAILY, (Reported) Polyethylene Glycol 3350 17 Gm Powd.pack, 17 GM PO DAILY PRN for CONSTIPATION- 2ND LINE, (Reported) Pramipexole Di-HCl 0.25 Mg Tablet, 0.25 MG PO BID, (Reported) Tamsulosin HCl 0.4 Mg Cap.er.24h, 0.4 MG PO DAILY, (Reported) Triamcinolone Acet 15 Gm Oint, TP BID, (Reported) Zolpidem Tartrate 10 Mg Tablet, 10 MG PO HS, (Reported) Patient Home Medication List Home Medication List Reviewed: Yes Constitutional: No chills, No diaphoresis EENTM: No ear discharge, No ear pain Respiratory: No cough, No short of breath Cardiovascular: No chest pain, No edema Gastrointestinal: No RUQ, No abdominal pain, No constipation, No diarrhea, No nausea Genitourinary: No discharge, No dysuria Musculoskeletal: No back pain, No joint pain Skin: No pruritus, No rash Psychiatric/Neurological: Headache (left-sided for the past couple days. 3 out of 10); Denies Numbness, Denies Paresthesia Past Bkghhem-Ctwyvr-Fzzqwl Hx Patient Social History Alcohol Use: Denies Use Recreational Drug Use: No Smoking Status: Former Smoker Type Used: Cigarettes Former Smoker, Quit: Dec 18, 2009 Recent Foreign Travel: No Contact w/Someone Who Travel: No Recent Hopitalizations: No Physical Abuse: No Sexual Abuse: No Mistreated: No Fear: No Immunizations Up To Date Tetanus Booster (TDap): More than 5yrs PED Vaccines UTD: Yes Date of Pneumonia Vaccine: Nov 19, 2016 Date of Influenza Vaccine: Dec 17, 2016 Seasonal Allergies Seasonal Allergies: No Past Medical History Surgeries: Yes (knee surgery x2, back surgery x2, tummy tuck, hiatal hernia repair) Abdominal, Orthopedic Respiratory: No Cardiac: Yes High Cholesterol, Hypertension Neurological: No Reproductive Disorders: No Sexually Transmitted Disease: No Gastrointestinal: Yes Gall Bladder Disease Musculoskeletal: Yes Arthritis, Chronic Back Pain Endocrine: Yes Diabetes, Non-Insulin dep Loss of Vision: Denies Hearing Impairment: Denies Cancer: No Psychosocial: Yes Anxiety Nursing Suicide Risk Score: 0 Integumentary: No Blood Disorders: No Family Medical History Cancer 03 MOTHER 09 SISTER Family history: Cardiovascular disease 03 FATHER Family history: Diabetes mellitus 03 FATHER 09 BROTHER Family history: Hypertension 03 FATHER 09 BROTHER No Pertinent Family Hx Physical Exam Vital Signs Vital Signs - First Documented 07/17/17 20:59 Temp 98.1 Pulse 54 Resp 20 B/P (MAP) 108/66 (80) Pulse Ox 95 O2 Delivery Room Air Capillary Refill : General Appearance: No Apparent Distress, WD/WN HEENT: PERRL/EOMI, TMs Normal, Normal ENT Inspection, Pharynx Normal Neck: Full Range of Motion, Normal Inspection, Non Tender, Supple Cardiovascular: Regular Rate, Rhythm, No Edema, No Murmur, Normal Peripheral Pulses Respiratory: Chest Non Tender, Lungs Clear, Normal Breath Sounds, No Accessory Muscle Use, No Respiratory Distress Gastrointestinal: Normal Bowel Sounds, Non Tender, Soft Extremities: Normal Capillary Refill, Normal Inspection, Non Tender, No Calf Tenderness, No Pedal Edema Neurologic/Psychiatric: Alert, Oriented x3, No Motor/Sensory Deficits, Normal Mood/Affect, 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 Norm as Tested Cranial Nerves: Normal Hearing, Normal Speech, PERRL Skin: Normal Color, Warm/Dry Progress/Results/Core Measures Lab Results Laboratory Tests Test 07/17/17 21:25 07/17/17 22:25 Range/Units White Blood Count 5.9 4.3-11.0 10^3/uL Red Blood Count 4.86 4.35-5.85 10^6/uL Hemoglobin 12.9 L 13.3-17.7 G/DL Hematocrit 38 L 40-54 % Mean Corpuscular Volume 77 L 80-99 FL Mean Corpuscular Hemoglobin 27 25-34 PG Mean Corpuscular Hemoglobin Concent 34 32-36 G/DL Red Cell Distribution Width 17.5 H 10.0-14.5 % Platelet Count 230 130-400 10^3/uL Mean Platelet Volume 10.7 H 7.4-10.4 FL Neutrophils (%) (Auto) 50 42-75 % Lymphocytes (%) (Auto) 36 12-44 % Monocytes (%) (Auto) 11 0-12 % Eosinophils (%) (Auto) 3 0-10 % Basophils (%) (Auto) 0 0-10 % Neutrophils # (Auto) 2.9 1.8-7.8 X 10^3 Lymphocytes # (Auto) 2.1 1.0-4.0 X 10^3 Monocytes # (Auto) 0.6 0.0-1.0 X 10^3 Eosinophils # (Auto) 0.2 0.0-0.3 10^3/uL Basophils # (Auto) 0.0 0.0-0.1 10^3/uL Sodium Level 141 135-145 MMOL/L Potassium Level 3.8 3.6-5.0 MMOL/L Chloride Level 106 98-107 MMOL/L Carbon Dioxide Level 20 L 21-32 MMOL/L Anion Gap 15 H 5-14 MMOL/L Blood Urea Nitrogen 22 H 7-18 MG/DL Creatinine 1.42 H 0.60-1.30 MG/DL Estimat Glomerular Filtration Rate 60 BUN/Creatinine Ratio 15 Glucose Level 142 H 70-105 MG/DL Calcium Level 9.5 8.5-10.1 MG/DL Magnesium Level 2.4 1.8-2.4 MG/DL Total Bilirubin 0.8 0.1-1.0 MG/DL Aspartate Amino Transf (AST/SGOT) 47 H 5-34 U/L Alanine Aminotransferase (ALT/SGPT) 35 0-55 U/L Alkaline Phosphatase 93 40-136 U/L Troponin I < 0.30 <0.30 NG/ML C-Reactive Protein High Sensitivity 0.07 0.00-0.50 MG/DL Total Protein 7.2 6.4-8.2 GM/DL Albumin 4.3 3.2-4.5 GM/DL Serum Alcohol < 10 <10 MG/DL Urine Color YELLOW Urine Clarity CLEAR Urine pH 5 5-9 Urine Specific [place] 1.025 H 1.016-1.022 Urine Protein 2+ H NEGATIVE Urine Glucose (UA) NEGATIVE NEGATIVE Urine Ketones NEGATIVE NEGATIVE Urine Nitrite NEGATIVE NEGATIVE Urine Bilirubin NEGATIVE NEGATIVE Urine Urobilinogen NORMAL NORMAL MG/DL Urine Leukocyte Esterase 1+ H NEGATIVE Urine RBC (Auto) NEGATIVE NEGATIVE Urine RBC NONE /HPF Urine WBC 2-5 /HPF Urine Squamous Epithelial Cells 5-10 /HPF Urine Crystals NONE /LPF Urine Bacteria NEGATIVE /HPF Urine Casts PRESENT /LPF Urine Hyaline Casts 10-25 H /LPF Urine Mucus LARGE H /LPF Urine Culture Indicated NO My Orders Orders - ABRAM BOSCH Alcohol (07/17/17 21:13) Cbc With Automated Diff (07/17/17 21:13) Comprehensive Metabolic Panel (07/17/17 21:13) Hs C Reactive Protein (07/17/17 21:13) Magnesium (07/17/17 21:13) Troponin I (07/17/17 21:13) Ua Culture If Indicated (07/17/17 21:13) Saline Lock/Iv-Start (07/17/17 21:13) Lactated Ringers (Lr 1000 Ml Iv Solution (07/17/17 21:13) Ekg Tracing (07/17/17 21:13) Continuous Ekg Monitoring (07/17/17 21:13) Orthostatic Vital Signs (Adult (07/17/17 21:16) Continuous Ekg Monitoring (07/17/17 21:27) Medications Given in ED Current Medications Medications Dose Ordered Sig/Lupillo Route Start Time Stop Time Status Last Admin Dose Admin Lactated Ringer's 1,000 ml @ 0 mls/hr Q0M ONCE IV 07/17/17 21:13 07/17/17 21:15 DC 07/17/17 21:33 1,000 MLS/HR Vital Signs/I&O 07/17/17 20:59 Temp 98.1 Pulse 54 Resp 20 B/P (MAP) 108/66 (80) Pulse Ox 95 O2 Delivery Room Air Progress Note #1: Time: 21:22 Progress Note The patient's had extensive workup of his syncopal dizziness symptoms. He has an implanted front desk monitor. Her EKG doesn't show anything worrisome. He is bradycardic in the 50s. It's possible that he is dehydrated given his systolic blood pressure 101 lying down so we'll get some orthostatic vitals and give him a liter of fluids. We'll check some blood work and urine taken provided. He says he feels much better and we gave him the option just follow up outpatient and have this further worked up and he would prefer to pursue the lab work, EKG etc. that I have laid out for him. We have reviewed the on file cardiac catheterization, negative tilt test and operative report for his implantation in December 2016. 0: Orthostatic vitals are non-asserted positive but they are low and with a systolic of 83-95. Were getting him a liter of fluids and we'll reassess him. We 'll also discuss his use of metoprolol and have him talk to Dr. Rodriguez about maybe lowering the dose if this becomes a long-term issue. This probably though indicates volume depletion secondary to dehydration given his history of working out in the garden all day and not drinking anything. Progress Note #2: Time: 22:23 Progress Note The patient has been drinking oral fluids as well as received his liter of IV fluids. His blood pressure is now 105 systolic. We have talked to him by drinking more and as long as his urinalysis doesn't show any signs of infection we'll let him get home to follow up outpatient. Initial ECG Impression Date: July 17, 2017 Initial ECG Impression Time: 21:19 Initial ECG Rate: 54 Initial ECG Rhythm: S.Mayco Initial ECG Intervals: Normal Initial ECG Impression: Normal Initial ECG Comparisson: Unchanged Comment Sinus bradycardia without T-wave elevation or depression. Departure Impression Primary Impression: Syncope Qualified Codes: R55 - Syncope and collapse Additional Impression: Dehydration Disposition: 01 HOME, SELF-CARE Condition: Stable Departure-Patient Inst. Decision time for Depature: 22:40 Referrals: RIGOBERTO VAUGHAN MD (PCP) Primary Care Physician JENNIFER LAURENT MD (Family) Primary Care Physician Patient Instructions: Syncope (Fainting) (DC) Add. Discharge Instructions: You are dehydrated today. Is important that you drink plenty of fluids to try and catch up with your fluid loss. You should also talk to your heart doctor or primary care doctor about whether or not you should reduce the amount of metoprolol. It would be best if you can check a blood pressure 2-3 times a week in the morning when you first wake up and take that information with you to your doctor appointment in the next 2-4 weeks. Make sure you're drinking plenty of fluids especially as the summer gets hotter. All discharge instructions reviewed with patient and/or family. Voiced understanding. Copy Copies To 1: MANUEL SUAZO MD FACP FACC CCDS; RIGOBERTO VAUGHAN MD, TITUS J July 17, 2017 21:16
[2017-07-17 21:21] VITALS: BP_SYST 83; BP_SYST 95; BP_DIAS 53; BP_DIAS 57; BP_DIAS 58
[2017-07-17 21:32] LABS: BASOPHILS % (AUTO) 0 % (0-10); EOSINOPHILS # (AUTO) 0.2 10^3/uL (0.0-0.3); EOSINOPHILS % (AUTO) 3 % (0-10); HEMATOCRIT 38 % (40-54); HEMOGLOBIN 12.9 G/DL (13.3-17.7); LYMPHOCYTES # (AUTO) 2.1 X 10^3 (1.0-4.0); LYMPHOCYTES % (AUTO) 36 % (12-44); MEAN CORPUSCULAR HEMOGLOBIN 27 PG (25-34); MEAN CORPUSCULAR HGB CONC 34 G/DL (32-36); MEAN CORPUSCULAR VOLUME 77 FL (80-99); MEAN PLATELET VOLUME 10.7 FL (7.4-10.4); MONOCYTES # (AUTO) 0.6 X 10^3 (0.0-1.0); MONOCYTES % (AUTO) 11 % (0-12); NEUTROPHILS # (AUTO) 2.9 X 10^3 (1.8-7.8); NEUTROPHILS % (AUTO) 50 % (42-75); PLATELET COUNT 230 10^3/uL (130-400); RED BLOOD COUNT 4.86 10^6/uL (4.35-5.85); RED CELL DISTRIBUTION WIDTH 17.5 % (10.0-14.5); WHITE BLOOD COUNT 5.9 10^3/uL (4.3-11.0)
[2017-07-17 21:49] LABS: ALANINE AMINOTRANSFERASE 35 U/L (0-55); ALBUMIN 4.3 GM/DL (3.2-4.5); ALKALINE PHOSPHATASE 93 U/L (40-136); BILIRUBIN,TOTAL 0.8 MG/DL (0.1-1.0); BUN/CREATININE RATIO 15; CALCIUM 9.5 MG/DL (8.5-10.1); CARBON DIOXIDE 20 MMOL/L (21-32); CHLORIDE 106 MMOL/L (98-107); CREATININE SERUM 1.42 MG/DL (0.60-1.30); GFR ESTIMATED 60; GLUCOSE 142 MG/DL (70-105); MAGNESIUM 2.4 MG/DL (1.8-2.4); POTASSIUM 3.8 MMOL/L (3.6-5.0); SODIUM 141 MMOL/L (135-145); TOTAL PROTEIN 7.2 GM/DL (6.4-8.2)
[2017-07-17 22:30] LABS: BILIRUBIN,URINE NEGATIVE (NEGATIVE); CLARITY,URINE CLEAR; COLOR,URINE YELLOW; GLUCOSE, URINE (UA) NEGATIVE (NEGATIVE); KETONES,URINE NEGATIVE (NEGATIVE); LEUKOCYTE ESTERASE ,URINE 1+ (NEGATIVE); NITRITE,URINE NEGATIVE (NEGATIVE); PH,URINE 5 (5-9); PROTEIN,URINE 2+ (NEGATIVE); UROBILINOGEN,URINE NORMAL (NORMAL)
[2017-07-17 22:38] LABS: BACTERIA,URINE NEGATIVE /HPF
[2017-07-17 22:46] VITALS: BP 102/61
[2017-07-18] MEDS ORDERED: DICY10CA12 PO (12:13)
[2017-07-18] MEDS ORDERED: MEMA1CAP3 PO (12:13)
[2017-07-18] MEDS ORDERED: ONDA8TAB12 PO (12:13)
[2017-07-18] MEDS ORDERED: OXYC40TA46 PO (13:49)
[2017-07-18] MEDS ORDERED: FLUT16SP22 NS (13:49)
[2017-07-18] MEDS ORDERED: BISA5TAB8 PO (13:49)
== END 2017-07-17 22:46 | disposition home or self-care (01) ==
LOC: EDUNIT# 20:50 → ER 20:51
DX: R55 Syncope and collapse (principal); E86.0 Dehydration; E78.00 Pure hypercholesterolemia, unspecified; I10 Essential (primary) hypertension; E11.9 Type 2 diabetes mellitus without complications; F41.9 Anxiety disorder, unspecified; Z88.0 Allergy status to penicillin; Z79.82 Long term (current) use of aspirin; Z79.84 Long term (current) use of oral hypoglycemic drugs; Z87.891 Personal history of nicotine dependence; Z87.19 Personal history of other diseases of the digestive system
CPT/HCPCS: 36415; 80053; 80320; 81000; 83735; 84484; 85025; 86141; 93005; 96360

== ENCOUNTER 2017-07-18 11:42 | Day surgery (SDC) | payer MEDICARE, MEDICAID ==
[~2017-07-18] VITALS: Ht 188 cm; Wt 111.6 kg
[2017-07-18 11:50] VITALS: BP 141/86
--- NOTE | 2017-07-18 12:04 | Cardiology History & Physical ---
HPI-Cardiology Cardiology H&P Date of Admission 07-18-17 Primary Care Physician Kanu Vaughan MD Attending Physician Sim Suazo MD [facility] Consulting Physician [facility] Mr. Ricketts is a 66 year old male admitted to ICU 4 from home after having a witnessed syncopal episode. He reports he had sat down at the dinner table last night for the evening meal. He states he was feeling very dizzy. He called out to his that he was going to lie down. He states he does not recall any events to that point. His spouse is at the bedside. She states he was sitting in his chair when suddenly slumped over. He was unresponsive and gasping at that time. She states she held him up in his chair. She reports agonal breathing. She states he was "out" for a few minutes and then gradually came to. No loss of bowel or bladder control. He reports no c/o CP, palpitations or dyspnea. He reports no further episodes since last evening. ILR interrogation showed sinus bradycardia. Review of Systems-Cardiology Review of Systems Constitutional: No chills, No fever; tiredness Eyes: No vision change Ears/Nose/Throat: No epistaxis, No recent hearing loss Respiratory: As described under HPI Cardiovascular: As described under HPI Gastrointestinal: No constipation, No diarrhea, No nausea, No vomiting Genitourinary: No dysuria, No hematuria Musculoskeletal: no symptoms reported Skin: No rash, No ulcerations Psychiatric/Neurological: syncope; No seizure Hematologic: No bleeding abnormalities [id number]-[id number] Hx Patient Social History Former smoker/When Quit: Sep 21, 2008 Type Used: Cigarettes Recent Foreign Travel: No Immunizations Up To Date Tetanus Booster (TDap): More than 5yrs Date of Pneumonia Vaccine: Nov 19, 2016 Date of Influenza Vaccine: Dec 17, 2016 Past Medical History PMH As described under Assessment. Family Medical History Family Medical History: He reports his father had CAD, HTN and DM. He reports his brother has HTN. No report of premature CAD or SCD. Family History: Cancer 03 MOTHER 09 SISTER Family history: Cardiovascular disease 03 FATHER Family history: Diabetes mellitus 03 FATHER 09 BROTHER Family history: Hypertension 03 FATHER 09 BROTHER Allergies and Home Medications Allergies Coded Allergies: Penicillins (Verified Allergy, Intermediate, RASH, 12/22/10) Home Medications Alprazolam 1 Mg Tablet, 1 MG PO BID, (Reported) Aspirin 81 Mg Tablet.dr, 81 MG PO DAILY, (Reported) Atorvastatin Calcium 20 Mg Tablet, 20 MG PO HS, (Reported) Baclofen 10 Mg Tablet, 10 MG PO TID, (Reported) Bisacodyl 5 Mg Tablet.dr, 5 MG PO DAILY PRN for CONSTIPATION-4TH LINE, (Reported ) Cetirizine HCl 10 Mg Tablet, 10 MG PO HS, (Reported) Diclofenac Sodium 100 Gm Gel..gram., TP QID PRN for JOINT PAIN, (Reported) Dicyclomine HCl 10 Mg Capsule, 10 MG PO BID, (Reported) Docusate Sodium 100 Mg Capsule, 100 MG PO BID, (Reported) Fluocinonide/Emollient Base 15 Gm Cream..g., TP BID PRN for PAIN, (Reported) Fluticasone Propionate 16 Gm [place].susp, 1 SPRAY NS DAILY, (Reported) Gabapentin 300 Mg Capsule, 600 MG PO TID, (Reported) TAKES 2 (300MG) CAPSULES Ketoconazole 120 Ml Shampoo, TP DAILY, (Reported) Liraglutide 0.6 Mg/0.1 Ml Pen.injctr, 0.6 MG SQ DAILY, (Reported) Lisinopril 10 Mg Tablet, 10 MG PO DAILY, (Reported) Meclizine HCl 25 Mg Tablet, 25 MG PO TID PRN for DIZZINESS, (Reported) Meloxicam 15 Mg Tablet, 15 MG PO DAILY, (Reported) Memantine HCl/Donepezil HCl 1 Each Cap.spr.24, 1 CAP PO DAILY, (Reported) Metformin HCl 500 Mg Tablet, 500 MG PO BID WITH MEALS, (Reported) Metoprolol Succinate 50 Mg Tab.er.24h, 50 MG PO DAILY, (Reported) Nitroglycerin 0.4 Mg Tab.subl, 0.4 MG SL UD PRN for CHEST PAIN, (Reported) Nystatin 15 Gm Cream..g., TP BID PRN for SORES, (Reported) Ondansetron HCl 8 Mg Tablet, 8 MG PO TID PRN for NAUSEA/VOMITING-1ST LINE, ( Reported) Oxycodone HCl 40 Mg Tab.er.12h, 40 MG PO Q12H, (Reported) Oxycodone HCl/Acetaminophen 1 Each Tablet, 1 TAB PO Q8H PRN for PAIN-MODERATE, ( Reported) Pantoprazole Sodium 40 Mg Tablet.dr, 40 MG PO DAILY, (Reported) Polyethylene Glycol 3350 17 Gm Powd.pack, 17 GM PO DAILY PRN for CONSTIPATION- 2ND LINE, (Reported) Pramipexole Di-HCl 0.25 Mg Tablet, 0.25 MG PO TID, (Reported) Tamsulosin HCl 0.4 Mg Cap.er.24h, 0.4 MG PO DAILY, (Reported) Triamcinolone Acet 15 Gm Oint, TP BID, (Reported) Zolpidem Tartrate 10 Mg Tablet, 10 MG PO HS, (Reported) Patient Home Medication List Home Medication List Reviewed: Yes Physical Exam-Cardiology Physical Exam Vital Signs/I&O 07/18/17 07/19/17 07/19/17 07/19/17 21:00 00:00 00:00 01:00 Temp 97.5 Pulse 45 43 Resp 18 B/P (MAP) 127/71 (89) Pulse Ox 96 95 95 O2 Delivery Room Air Room Air Room Air 07/19/17 07/19/17 07/19/17 03:25 03:25 08:00 Temp 98.0 97.0 Pulse 16 47 Resp 17 15 B/P (MAP) 140/81 (100) 140/89 (106) Pulse Ox 97 97 98 O2 Delivery Room Air Room Air Room Air 07/19/17 00:00 Intake Total 1130 ml Output Total 1450 ml Balance -320 ml Capillary Refill : Constitutional: AAO x 3, well-developed, well-nourished HEENT: PERRL, hearing is well preserved, oral hygience is good Neck: No carotid bruit; carotid pulses are 2 + bilaterally Respiratory: No accessory muscle use, No respiratory distress; chest expansion is symmetric, chest is bilaterally symmetric, lungs clear to percussion, lungs clear to auscultation Cardiovascular: regular rate-rhythm; No JVD; S1 and S2 Gastrointestinal: No tender; soft, round, audible bowel sounds Rectal: deferred Extremities: no lower extremity edema bilateral Neurologic/Psychiatric: grossly intact, power is 5/5 both on sides Skin: No rash, No ulcerations Data Review Labs Laboratory Tests 07/18/17 12:15: White Blood Count 5.5, Red Blood Count 4.69, Hemoglobin 12.2L, Hematocrit 37L, Mean Corpuscular Volume 78L, Mean Corpuscular Hemoglobin 26, Mean Corpuscular Hemoglobin Concent 33, Red Cell Distribution Width 16.9H, Platelet Count 197, Mean Platelet Volume 10.9H, Sodium Level 138, Potassium Level 4.1, Chloride Level 108H, Carbon Dioxide Level 23, Anion Gap 7, Blood Urea Nitrogen 18, Creatinine 0.98, Estimat Glomerular Filtration Rate > 60, BUN/Creatinine Ratio 18, Glucose Level 197H, Calcium Level 8.8, Magnesium Level 2.0, Total Bilirubin 0.8, Aspartate Amino Transf (AST/SGOT) 41H, Alanine Aminotransferase (ALT/SGPT) 33, Alkaline Phosphatase 94, Total Protein 6.8, Albumin 3.9, Thyroid Stimulating Hormone (TSH) 0.39 07/19/17 03:32: White Blood Count 5.0, Red Blood Count 4.62, Hemoglobin 12.2L, Hematocrit 36L, Mean Corpuscular Volume 78L, Mean Corpuscular Hemoglobin 26, Mean Corpuscular Hemoglobin Concent 34, Red Cell Distribution Width 17.5H, Platelet Count 196, Mean Platelet Volume 10.6H, Sodium Level 139, Potassium Level 4.3, Chloride Level 106, Carbon Dioxide Level 24, Anion Gap 9, Blood Urea Nitrogen 16, Creatinine 0.88, Estimat Glomerular Filtration Rate > 60, BUN/Creatinine Ratio 18, Glucose Level 112H, Calcium Level 8.8, Prothrombin Time 13.1, INR Comment 1.0 ECG Impression ECG Initial ECG Rhythm: S.Mayco A/P-Cardiology Assessment/Admission Diagnosis Witnessed syncopal episode on 07-17-17 - symptomatic sinus bradycardia seen on ILR review of 07-17-17 ILR implanted in Dec 2016 24 Hour ambulatory blood pressure monitor of 04-12-16 showed blood pressure was WNL during the day and mildly elevated at night. Extended ambulatory counter server (Ziio) of 04-12-16 to 04-24-16 showed one 6 beat run of WCT at 160bpm. A few up to 5 beat runs of SVT at 105bpm. No significant bradycardia. Aforementioned episodes were asymptomatic MPI of May 2016 showed no evidence of significant myocardial ischemia or infarction. Mild cardiomegaly. LVEF is calculated to be 54% Normal global left ventricular systolic function with an ejection fraction of 60 to 65% on cardiac catheterization of July 2011. This indicated mild diastolic dysfunction of the left ventricle. The patient is currently not exhibiting any congestive heart failure Echocardiogram of November [address] Romano at [facility] in [facility] showed sinus bradycardia. Concenteric LVH with mod to severe disastolic LV dysfunction , LA enlargement, TR trivial, mild PH Degenerative joint disease with history of bilateral knee surgery. Most recently , he underwent knee replacement on the L (Oct 2014) Hyperlipidemia, being managed by his family physician, Dr. Vaughan. Chronic tobacco use from which he has been refraining since 2010. Maturity onset diabetes mellitus being followed by his family physician. Chronic, mild microcytic anemia, being followed by Dr. Vaughan. Cervical spinal disease for which he has had surgery Hypertension, controlled. Chronic mild renal insufficiency. Tiredness and malaise and dizziness, chronic, etiology undetermined, for which he's following with Dr Vaughan Mild bilateral carotid art disease on u/s of November 2015 Postural hypotension documented in [facility] ER on 11/23/13 Admission Status: CLIFF Dobbs July 18, 2017 12:04
[2017-07-18] MEDS ORDERED: ONDA8TAB12 PO (12:13)
[2017-07-18] MEDS ORDERED: MEMA1CAP3 PO (12:13)
[2017-07-18] MEDS ORDERED: DICY10CA12 PO (12:13)
[2017-07-18 12:26] LABS: HEMOGLOBIN 12.2 G/DL (13.3-17.7); MEAN PLATELET VOLUME 10.9 FL (7.4-10.4); RED BLOOD COUNT 4.69 10^6/uL (4.35-5.85); RED CELL DISTRIBUTION WIDTH 16.9 % (10.0-14.5); WHITE BLOOD COUNT 5.5 10^3/uL (4.3-11.0)
[2017-07-18 12:45] LABS: ALANINE AMINOTRANSFERASE 33 U/L (0-55); ALBUMIN 3.9 GM/DL (3.2-4.5); ALKALINE PHOSPHATASE 94 U/L (40-136); BILIRUBIN,TOTAL 0.8 MG/DL (0.1-1.0); BUN/CREATININE RATIO 18; CALCIUM 8.8 MG/DL (8.5-10.1); CARBON DIOXIDE 23 MMOL/L (21-32); CHLORIDE 108 MMOL/L (98-107); CREATININE SERUM 0.98 MG/DL (0.60-1.30); GFR ESTIMATED > 60; GLUCOSE 197 MG/DL (70-105); POTASSIUM 4.1 MMOL/L (3.6-5.0); SODIUM 138 MMOL/L (135-145); TOTAL PROTEIN 6.8 GM/DL (6.4-8.2)
[2017-07-18] MEDS ORDERED: FLUT16SP22 NS (13:49)
[2017-07-18] MEDS ORDERED: BISA5TAB8 PO (13:49)
[2017-07-18] MEDS ORDERED: OXYC40TA46 PO (13:49)
[2017-07-18] MEDS ORDERED: oxyCODONE/APAP 5/325MG (PERCOCET 5) TABLET PO PRN (14:30)
[2017-07-18] MEDS ORDERED: BISACODYL 5 MG (DULCOLAX) TABLET PO PRN (14:30)
[2017-07-18] MEDS ORDERED: MECLIZINE 25 MG (ANTIVERT) TAB PO PRN (14:30)
[2017-07-18] MEDS ORDERED: POLYETHYLENE GLYCOL 17 GM (MIRALAX) PACK PO PRN (14:30)
[2017-07-18] MEDS ORDERED: NYSTATIN CREAM (MYCOSTATIN) 30 GM TUBE TP PRN (14:30)
[2017-07-18] MEDS ORDERED: BACLOFEN 10 MG (LIORESAL) TAB ONE (14:34)
[2017-07-18] MEDS: BACLOFEN 10 MG (LIORESAL) TAB PO SCH ×2 (14:39→21:21)
[2017-07-18] MEDS ORDERED: NITROGLYCERIN 0.4 MG SL TABS BTL 25'S SL PRN (15:00)
[2017-07-18] MEDS ORDERED: ZOLPIDEM 5 MG (AMBIEN) TAB PO PRN (15:00)
[2017-07-18 15:51] VITALS: BP 139/88
[2017-07-18] MEDS ORDERED: PATIENT MAY USE OWN MED,SINGLE MED PO SCH (17:00)
[2017-07-18] MEDS: metFORMIN 500 MG (GLUCOPHAGE) TAB PO SCH (17:12)
--- NOTE | 2017-07-18 18:56 | Cardiology History & Physical ---
HPI-Cardiology Cardiology H&P Date of Admission 07/18/17 Primary Care Physician Kanu Vaughan MD Attending Physician Sim Suazo MD, MA FACP [facility] Consulting Physician [facility] Mr. Ricketts is a 66 year old male admitted to ICU 4 from home after having a witnessed syncopal episode. He reports he had sat down at the dinner table last night for the evening meal. He states he was feeling very dizzy. He called out to his that he was going to lie down. He states he does not recall any events to that point. His spouse is at the bedside. She states he was sitting in his chair when suddenly slumped over. He was unresponsive and gasping at that time. She states she held him up in his chair. She reports agonal breathing. She states he was "out" for a few minutes and then gradually came to. No loss of bowel or bladder control. He reports no c/o CP, palpitations or dyspnea. He reports no further episodes since last evening. ILR interrogation showed sinus bradycardia. Review of Systems-Cardiology Review of Systems Constitutional: No chills, No fever; tiredness Eyes: No vision change Ears/Nose/Throat: No epistaxis, No recent hearing loss Respiratory: As described under HPI Cardiovascular: As described under HPI Gastrointestinal: No constipation, No diarrhea, No nausea, No vomiting Genitourinary: No dysuria, No hematuria Musculoskeletal: no symptoms reported Skin: No rash, No ulcerations Psychiatric/Neurological: syncope; No seizure Hematologic: No bleeding abnormalities [id number]-Tybrbb Hx Patient Social History Alcohol Use: Denies Use Recreational Drug Use: No Former smoker/When Quit: Sep 21, 2008 Type Used: Cigarettes Recent Foreign Travel: No Recent Infectious Disease Expo: No Physical Abuse Screen: No Sexual Abuse: No Immunizations Up To Date Tetanus Booster (TDap): More than 5yrs Date of Pneumonia Vaccine: Nov 19, 2016 Date of Influenza Vaccine: Dec 17, 2016 Past Medical History PMH As described under Assessment. Family Medical History Family Medical History: He reports his father had CAD, HTN and DM. He reports his brother has HTN. No report of premature CAD or SCD. Family History: Cancer 03 MOTHER 09 SISTER Family history: Cardiovascular disease 03 FATHER Family history: Diabetes mellitus 03 FATHER 09 BROTHER Family history: Hypertension 03 FATHER 09 BROTHER Allergies and Home Medications Allergies Coded Allergies: Penicillins (Verified Allergy, Intermediate, RASH, 12/22/10) Home Medications Alprazolam 1 Mg Tablet, 1 MG PO BID, (Reported) Aspirin 81 Mg Tablet.dr, 81 MG PO DAILY, (Reported) Atorvastatin Calcium 20 Mg Tablet, 20 MG PO HS, (Reported) Baclofen 10 Mg Tablet, 10 MG PO TID, (Reported) Bisacodyl 5 Mg Tablet.dr, 5 MG PO DAILY PRN for CONSTIPATION-4TH LINE, (Reported ) Cetirizine HCl 10 Mg Tablet, 10 MG PO HS, (Reported) Diclofenac Sodium 100 Gm Gel..gram., TP QID PRN for JOINT PAIN, (Reported) Dicyclomine HCl 10 Mg Capsule, 10 MG PO BID, (Reported) Docusate Sodium 100 Mg Capsule, 100 MG PO BID, (Reported) Fluocinonide/Emollient Base 15 Gm Cream..g., TP BID PRN for PAIN, (Reported) Fluticasone Propionate 16 Gm [place].susp, 1 SPRAY NS DAILY, (Reported) Gabapentin 300 Mg Capsule, 600 MG PO TID, (Reported) TAKES 2 (300MG) CAPSULES Ketoconazole 120 Ml Shampoo, TP DAILY, (Reported) Liraglutide 0.6 Mg/0.1 Ml Pen.injctr, 0.6 MG SQ DAILY, (Reported) Lisinopril 10 Mg Tablet, 10 MG PO DAILY, (Reported) Meclizine HCl 25 Mg Tablet, 25 MG PO TID PRN for DIZZINESS, (Reported) Meloxicam 15 Mg Tablet, 15 MG PO DAILY, (Reported) Memantine HCl/Donepezil HCl 1 Each Cap.spr.24, 1 CAP PO DAILY, (Reported) Metformin HCl 500 Mg Tablet, 500 MG PO BID WITH MEALS, (Reported) Metoprolol Succinate 50 Mg Tab.er.24h, 50 MG PO DAILY, (Reported) Nitroglycerin 0.4 Mg Tab.subl, 0.4 MG SL UD PRN for CHEST PAIN, (Reported) Nystatin 15 Gm Cream..g., TP BID PRN for SORES, (Reported) Ondansetron HCl 8 Mg Tablet, 8 MG PO TID PRN for NAUSEA/VOMITING-1ST LINE, ( Reported) Oxycodone HCl 40 Mg Tab.er.12h, 40 MG PO Q12H, (Reported) Oxycodone HCl/Acetaminophen 1 Each Tablet, 1 TAB PO Q8H PRN for PAIN-MODERATE, ( Reported) Pantoprazole Sodium 40 Mg Tablet.dr, 40 MG PO DAILY, (Reported) Polyethylene Glycol 3350 17 Gm Powd.pack, 17 GM PO DAILY PRN for CONSTIPATION- 2ND LINE, (Reported) Pramipexole Di-HCl 0.25 Mg Tablet, 0.25 MG PO TID, (Reported) Tamsulosin HCl 0.4 Mg Cap.er.24h, 0.4 MG PO DAILY, (Reported) Triamcinolone Acet 15 Gm Oint, TP BID, (Reported) Zolpidem Tartrate 10 Mg Tablet, 10 MG PO HS, (Reported) Patient Home Medication List Home Medication List Reviewed: Yes Physical Exam-Cardiology Physical Exam Vital Signs/I&O 07/18/17 07/18/17 07/18/17 07/18/17 11:45 11:50 13:00 15:50 Temp 97.1 Pulse 48 46 Resp 20 B/P (MAP) 141/86 (104) Pulse Ox 97 97 O2 Delivery Room Air Room Air Room Air 07/18/17 15:51 Temp 97.7 Pulse 44 Resp 12 B/P (MAP) 139/88 (105) Pulse Ox 99 O2 Delivery Room Air Capillary Refill : Constitutional: AAO x 3, well-developed, well-nourished HEENT: PERRL, hearing is well preserved, oral hygience is good Neck: No carotid bruit; carotid pulses are 2 + bilaterally Respiratory: No accessory muscle use, No respiratory distress; chest expansion is symmetric, chest is bilaterally symmetric, lungs clear to percussion, lungs clear to auscultation Cardiovascular: regular rate-rhythm; No JVD; S1 and S2 Gastrointestinal: No tender; soft, round, audible bowel sounds Rectal: deferred Extremities: no lower extremity edema bilateral Neurologic/Psychiatric: grossly intact, power is 5/5 both on sides Skin: No rash, No ulcerations Data Review Labs Laboratory Tests 07/18/17 12:15: White Blood Count 5.5, Red Blood Count 4.69, Hemoglobin 12.2L, Hematocrit 37L, Mean Corpuscular Volume 78L, Mean Corpuscular Hemoglobin 26, Mean Corpuscular Hemoglobin Concent 33, Red Cell Distribution Width 16.9H, Platelet Count 197, Mean Platelet Volume 10.9H, Sodium Level 138, Potassium Level 4.1, Chloride Level 108H, Carbon Dioxide Level 23, Anion Gap 7, Blood Urea Nitrogen 18, Creatinine 0.98, Estimat Glomerular Filtration Rate > 60, BUN/Creatinine Ratio 18, Glucose Level 197H, Calcium Level 8.8, Magnesium Level 2.0, Total Bilirubin 0.8, Aspartate Amino Transf (AST/SGOT) 41H, Alanine Aminotransferase (ALT/SGPT) 33, Alkaline Phosphatase 94, Total Protein 6.8, Albumin 3.9, Thyroid Stimulating Hormone (TSH) 0.39 A/P-Cardiology Assessment/Admission Diagnosis Witnessed syncopal episode on 07-17-17 - symptomatic sinus bradycardia seen on ILR review of 07-17-17 (pauses of greater than 5 seconds) ILR implanted in Dec 2016 24 Hour ambulatory blood pressure monitor of 04-12-16 showed blood pressure was WNL during the day and mildly elevated at night. Extended ambulatory school lunch monitor (Zio) of 04-12-16 to 04-24-16 showed one 6 beat run of WCT at 160bpm. A few up to 5 beat runs of SVT at 105bpm. No significant bradycardia. Aforementioned episodes were asymptomatic MPI of May 2016 showed no evidence of significant myocardial ischemia or infarction. Mild cardiomegaly. LVEF is calculated to be 54% Normal global left ventricular systolic function with an ejection fraction of 60 to 65% on cardiac catheterization of July 2011. This indicated mild diastolic dysfunction of the left ventricle. The patient is currently not exhibiting any congestive heart failure Echocardiogram of November [address] Romano at [facility] in [facility] showed sinus bradycardia. Concenteric LVH with mod to severe disastolic LV dysfunction , LA enlargement, TR trivial, mild PH Degenerative joint disease with history of bilateral knee surgery. Most recently , he underwent knee replacement on the L (Oct 2014) Hyperlipidemia, being managed by his family physician, Dr. Vaughan. Chronic tobacco use from which he has been refraining since 2010. Maturity onset diabetes mellitus being followed by his family physician. Chronic, mild microcytic anemia, being followed by Dr. Vaughan. Cervical spinal disease for which he has had surgery Hypertension, controlled. Chronic mild renal insufficiency. Tiredness and malaise and dizziness, chronic, etiology undetermined, for which he's following with Dr Vaughan Mild bilateral carotid art disease on u/s of November 2015 Postural hypotension documented in [facility] on 11/23/13 Admission Status: Inpatient Order (span 2 midnights) Reason for Inpatient Admission: Symptomatic bradycardia, associated with syncope Discussion and Recomendations * He has garrett associated with profound symptoms (garrett). He is only on low dose beta-yolanda that he needs to prevent SVT and WCT that he is documented to have. Under these circumstances, perm pacemaker appears to be the best option. We have stopped his low dose bb, but will resume after pacemaker is successfully implanted * I discussed with him the rationale, procedure, risks, benefits, potential complications, and alternatives of pacemaker implantation. He understands and will consider his options overnight * We have advised him to quit tobacco use Clinical Quality Measures DVT/VTE Risk/Contraindication: Risk Factor Score Per Nursin RFS Level Per Nursing on Admit: 3=High SIM SUAZO MD FACP FAC [facility] July 18, 2017 18:56
[2017-07-18 20:24] VITALS: BP 146/82
[2017-07-18] MEDS ORDERED: ATORVASTATIN 20 MG (LIPITOR) TABLET PO SCH (21:00)
[2017-07-18] MEDS ORDERED: DONEPEZIL 10 MG (ARICEPT) TAB PO SCH (21:00)
[2017-07-18] MEDS ORDERED: ONDANSETRON 8 MG (ZOFRAN) ORAL DISSOLVE TAB PO PRN (21:00)
[2017-07-18] MEDS ORDERED: LORATADINE (CLARITIN) 10 MG TAB PO SCH (21:00)
[2017-07-18] MEDS: DOCUSATE SODIUM 100 MG (COLACE) CAP PO SCH (21:21)
[2017-07-18] MEDS: oxyCODONE ER 40 MG (oxyCONTIN CR) TAB PO SCH (21:21)
[2017-07-18] MEDS: MEMANTINE 10 MG (NAMENDA) TABLET PO SCH (21:21)
[2017-07-18] MEDS: PRAMIPEXOLE 0.125 MG (MIRAPEX) TABLET PO SCH (21:21)
[2017-07-18] MEDS: GABAPENTIN 300 MG (NEURONTIN) CAP PO SCH (21:21)
[2017-07-18] MEDS: TRIAMCINOLONE 0.1% OINT (KENALOG) 15 GM TUBE TP SCH (21:22)
[2017-07-18] MEDS: ALPRAZolam 1 MG (XANAX) TAB PO SCH (21:22)
[2017-07-18] MEDS: DICYCLOMINE 10 MG (BENTYL) CAP PO SCH (21:22)
[2017-07-19] VITALS (14 sets, daily range): BP systolic 119–173; BP diastolic 71–103
[2017-07-19 03:56] LABS: HEMOGLOBIN 12.2 G/DL (13.3-17.7); MEAN PLATELET VOLUME 10.6 FL (7.4-10.4); RED BLOOD COUNT 4.62 10^6/uL (4.35-5.85); RED CELL DISTRIBUTION WIDTH 17.5 % (10.0-14.5)
[2017-07-19 04:15] LABS: PROTHROMBIN TIME PATIENT 13.1 SEC (12.2-14.7)
[2017-07-19 04:24] LABS: BUN/CREATININE RATIO 18; CALCIUM 8.8 MG/DL (8.5-10.1); CARBON DIOXIDE 24 MMOL/L (21-32); CHLORIDE 106 MMOL/L (98-107); CREATININE SERUM 0.88 MG/DL (0.60-1.30); GFR ESTIMATED > 60; GLUCOSE 112 MG/DL (70-105); POTASSIUM 4.3 MMOL/L (3.6-5.0); SODIUM 139 MMOL/L (135-145)
[2017-07-19] MEDS: metFORMIN 500 MG (GLUCOPHAGE) TAB PO SCH (05:15)
[2017-07-19] MEDS ORDERED: LIDOCAINE 1% INJ 20 ML 20 ML VIAL ONE (06:35)
[2017-07-19] MEDS ORDERED: HEParin 1000 UNIT/ML (10ML VIAL) FOR BOLUS ONE (06:35)
[2017-07-19] MEDS ORDERED: NS IV 1000 ML 1,000 ML IV ONE (06:35)
[2017-07-19] MEDS ORDERED: NS IV 1000 ML 1,000 ML ONE ×2 (06:35→06:46)
[2017-07-19] MEDS ORDERED: diphenhydrAMINE 50 MG/ML INJ (BENADRYL) ONE (06:37)
[2017-07-19] MEDS ORDERED: fentaNYL INJECTION 100 MCG/2 ML AMP ONE ×2 (06:37→08:05)
[2017-07-19] MEDS ORDERED: MIDAZOLAM 5 MG/5 ML (VERSED) VIAL ONE ×2 (06:37→08:05)
[2017-07-19] MEDS ORDERED: VANCOMYCIN INJECTION 1,000 MG in NS (IVPB) 250 ML IV ONE (06:45)
[2017-07-19] MEDS ORDERED: BACITRACIN INJECTION 50,000 UNIT, SODIUM CHLORIDE 0.9% IRRIGATIO 500 ML IR ONE ×2 (06:45)
[2017-07-19] MEDS ORDERED: NS (IVPB) 250 ML ONE (06:46)
[2017-07-19] MEDS ORDERED: VANCOMYCIN 1000 MG/VIAL ONE (06:46)
[2017-07-19] MEDS ORDERED: FLUTICASONE NASAL SPRAY (FLONASE) 16 GM BTL NS SCH (09:00)
[2017-07-19] MEDS ORDERED: lisINopril 10 MG (PRINIVIL) TABLET PO SCH (09:00)
[2017-07-19] MEDS ORDERED: LIRAGLUTIDE 6 MG/ML SQ SCH (09:00)
[2017-07-19] MEDS ORDERED: ASPIRIN E.C. 81 MG (ECOTRIN) TAB PO SCH (09:00)
[2017-07-19] MEDS ORDERED: PANTOPRAZOLE 40 MG (PROTONIX) TAB PO SCH (09:00)
[2017-07-19] MEDS ORDERED: MELOXICAM 7.5 MG (MOBIC) TABLET PO SCH (09:00)
[2017-07-19] MEDS ORDERED: TAMSULOSIN 0.4 MG (FLOMAX) CAP PO SCH (09:00)
[2017-07-19] MEDS ORDERED: NEO/POLY/BAC (NEOSPORIN) OINT 15 GM TUBE ONE (09:30)
[2017-07-19] MEDS ORDERED: NS IV 1000 ML 1,000 ML IV SCH (09:55)
[2017-07-19] MEDS ORDERED: CIPROFLOXACIN 500 MG (CIPRO) TABLET PO NR (10:00)
[2017-07-19] MEDS ORDERED: PATIENT MAY USE OWN MEDS, ALL PO SCH (10:00)
[2017-07-19] MEDS: DOCUSATE SODIUM 100 MG (COLACE) CAP PO SCH (10:38)
[2017-07-19] MEDS: GABAPENTIN 300 MG (NEURONTIN) CAP PO SCH ×2 (10:38→13:35)
[2017-07-19] MEDS: oxyCODONE ER 40 MG (oxyCONTIN CR) TAB PO SCH (10:39)
[2017-07-19] MEDS: PRAMIPEXOLE 0.125 MG (MIRAPEX) TABLET PO SCH ×2 (10:39→13:35)
[2017-07-19] MEDS: MEMANTINE 10 MG (NAMENDA) TABLET PO SCH (10:39)
[2017-07-19] MEDS: DICYCLOMINE 10 MG (BENTYL) CAP PO SCH (10:39)
[2017-07-19] MEDS: ALPRAZolam 1 MG (XANAX) TAB PO SCH (10:40)
[2017-07-19] MEDS: BACLOFEN 10 MG (LIORESAL) TAB PO SCH ×2 (10:40→13:37)
[2017-07-19] MEDS: TRIAMCINOLONE 0.1% OINT (KENALOG) 15 GM TUBE TP SCH (10:41)
[2017-07-19] MEDS ORDERED: CIPR500T4 PO (15:35)
--- NOTE | 2017-07-19 15:37 | Discharge Inst-Cardiology ---
Discharge Inst-Cardiac Discharge Medications New Medications: Ciprofloxacin HCl (Ciprofloxacin HCl) 500 Mg Tablet 500 MG PO BID, #10 TAB 0 Refills Continued Medications: Alprazolam (Alprazolam) 1 Mg Tablet 1 MG PO BID, TAB Aspirin (Aspirin EC) 81 Mg Tablet.dr 81 MG PO DAILY, TAB Atorvastatin Calcium (Atorvastatin Calcium) 20 Mg Tablet 20 MG PO HS, TAB Baclofen (Baclofen) 10 Mg Tablet 10 MG PO TID, TAB Bisacodyl (Bisacodyl) 5 Mg Tablet.dr 5 MG PO DAILY PRN for CONSTIPATION-4TH LINE, TAB Cetirizine HCl (Cetirizine HCl) 10 Mg Tablet 10 MG PO HS, TAB Diclofenac Sodium (Voltaren) 100 Gm Gel..gram. TP QID PRN for JOINT PAIN, TUBE Dicyclomine HCl (Dicyclomine HCl) 10 Mg Capsule 10 MG PO BID, CAP Docusate Sodium (Docusate Sodium) 100 Mg Capsule 100 MG PO BID, CAP Fluocinonide/Emollient Base (Fluocinonide-E 0.05% Cream) 15 Gm Cream..g. TP BID PRN for PAIN, TUBE Fluticasone Propionate (Fluticasone Propionate) 16 Gm [place].susp 1 SPRAY NS DAILY, EA Gabapentin (Gabapentin) 300 Mg Capsule 600 MG PO TID, CAP TAKES 2 (300MG) CAPSULES Ketoconazole (Ketoconazole) 120 Ml Shampoo TP DAILY, EA Liraglutide (Victoza 2-[place]) 0.6 Mg/0.1 Ml Pen.injctr 0.6 MG SQ DAILY, VIAL Lisinopril (Lisinopril) 10 Mg Tablet 10 MG PO DAILY, TAB Meclizine HCl (Meclizine HCl) 25 Mg Tablet 25 MG PO TID PRN for DIZZINESS, TAB Meloxicam (Meloxicam) 15 Mg Tablet 15 MG PO DAILY, TAB Memantine HCl/Donepezil HCl (Namzaric 28 mg-10 mg Capsule) 1 Each Cap.spr.24 1 CAP PO DAILY, CAP Metformin HCl (Metformin HCl) 500 Mg Tablet 500 MG PO BID WITH MEALS, TAB Metoprolol Succinate (Metoprolol Succinate) 50 Mg Tab.er.24h 50 MG PO DAILY, TAB Nitroglycerin (Nitroglycerin) 0.4 Mg Tab.subl 0.4 MG SL UD PRN for CHEST PAIN, TAB Nystatin (Nystatin) 15 Gm Cream..g. TP BID PRN for SORES, TUBE Ondansetron HCl (Ondansetron HCl) 8 Mg Tablet 8 MG PO TID PRN for NAUSEA/VOMITING-1ST LINE, TAB Oxycodone HCl (Oxycontin) 40 Mg Tab.er.12h 40 MG PO Q12H, TAB Oxycodone HCl/Acetaminophen (Oxycodone-Acetaminophen 5-325) 1 Each Tablet 1 TAB PO Q8H PRN for PAIN-MODERATE, TAB Pantoprazole Sodium (Protonix) 40 Mg Tablet.dr 40 MG PO DAILY, TAB Polyethylene Glycol 3350 (Miralax) 17 Gm Powd.pack 17 GM PO DAILY PRN for CONSTIPATION-2ND LINE, EACH Pramipexole Di-HCl (Mirapex) 0.25 Mg Tablet 0.25 MG PO TID, TAB Tamsulosin HCl (Tamsulosin HCl) 0.4 Mg Cap.er.24h 0.4 MG PO DAILY, CAP Triamcinolone Acet (Triamcinolone Acetonide 0.1% Ointment) 15 Gm Oint TP BID, TUBE Zolpidem Tartrate (Zolpidem Tartrate) 10 Mg Tablet 10 MG PO HS, TAB New, Converted or Re-Newed RX: Transmitted to Pharmacy Patient Instructions Patient Instructions: DO NOT RESTART METFORMIN UNTIL THE EVENING OF JULY 21, 2017 APPOINTMENT FOR A DEVICE INSERTION SITE CHECK ON JULY 22 AT 9:00 AT [facility] July 19, 2017 15:37
--- NOTE | 2017-07-19 15:40 | Diagnostic Imaging Report ---
INDICATION: Cardiac device placement. TIME OF EXAM: 11:01 a.m. COMPARISON: Correlation is made with prior study from 03/27/2017. FINDINGS: Cardiac pacemaker has been placed and has lead tips in the region of the right atrium and right ventricle. Monitoring device overlies the left chest. The lungs are clear. No pneumothorax is seen. There is no effusion. IMPRESSION: Pacemaker placement. No complicating features are seen. Dictated by: Dictated on workstation # [id number]
--- NOTE | 2017-07-19 15:44 | OPERATIVE REPORT ---
DATE OF SERVICE: 07/19/2017 PREOPERATIVE DIAGNOSES: Symptomatic bradycardia with pauses of greater than 5 seconds associated with syncope. POSTOPERATIVE DIAGNOSES: Symptomatic bradycardia with pauses of greater than 5 seconds associated with syncope. PROCEDURE: Dual chamber pacemaker implantation. INDICATION FOR PROCEDURE: The patient is a 66-year-old man, who has been experiencing syncope. He had an implantable loop recorder placed, which has detected long asystolic pauses during episodes of syncope. Dual chamber pacemaker implantation was carried out today after having obtained an informed consent. DESCRIPTION OF PROCEDURE: He was brought to the cardiac catheterization laboratory in a fasting state. The left prepectoral area was prepped and draped in usual sterile fashion. Lidocaine 1% local anesthesia. Modified Seldinger technique was used to advance a guidewire into the left subclavian vein with the tip placed in the right atrium. Subsequently, sharp and blunt dissection was used to make a pacemaker pocket and the pocket was packed with gauze soaked in antibiotic solution after good hemostasis had been assured. The guidewire was used to advance a 6-Pashto sheath. This sheath was used to advance a second a guidewire and the sheath was removed. The guidewires were then used to advance a 6-Pashto sheath over each wire and the wires were removed. The sheaths were used to advance active fixation atrial and ventricular leads and positioning was carried out under fluoroscopy and the sheaths were then removed and the lead sutured to the prepectoral fascia using 0 Ethibond and lead sleeves. The right ventricular lead is placed at the right ventricular apex and actively fixed. The right atrial lead is placed at the right atrial appendage and actively fixed. Initially, to gain access to the subclavian vein, we did inject 20 mL of intravenous contrast through a right forearm vein. After lead placement, we interrogated the leads and they were found to be functioning appropriately. There was no diaphragmatic stimulation at 10 volts. The leads were then attached to a dual chamber pacemaker and the leads were placed in the pacemaker pocket after the antibiotic gauze had been removed from the pocket and the pocket thoroughly irrigated with an antibiotic solution. The pocket was closed in 2 layers using 3.0 Vicryl. The atrial lead is Biotronik Solia S53 lead with serial #[id number]. The ventricular lead is Biotronik Solia S60 lead with a serial #[id number]. The pacemaker is Biotronik Edora with serial #[id number]. The P waves were measured at 1.8 millivolts. The R waves are measured at 9.8 millivolts. The atrial lead impedance was 502 ohms. The ventricular lead impedance was 700 ohms. The atrial capture threshold was 1.4 volts at 0.4 milliseconds. The ventricular capture threshold was 0.5 volts at 0.4 milliseconds. The device is set in the DDDR mode at 60 beats per minute and the paced atrioventricular delay is 225+150 milliseconds and the sensed atrioventricular delay is 200+150 milliseconds. Job ID: [id number] DocumentID: [id number] Dictated Date: 07/19/2017 09:44:25 Window Cutter Date: 07/19/2017 15:42:59 Dictated By: MANUEL GOODRICH MD, MA, FACP, FACC,
--- NOTE | 2017-07-19 15:46 | Progress Note-Cardiology ---
Cardiology SOAP Progress Note Subjective: No cp or palp or syncope or shortness of breath Objective: I&O/Vital Signs 07/19/17 07/19/17 07/19/17 07/19/17 07:00 08:00 10:12 10:20 Temp 97.0 97.5 Pulse 45 47 60 Resp 15 12 B/P (MAP) 140/89 (106) 173/98 (123) Pulse Ox 98 99 99 O2 Delivery Room Air Room Air Room Air 07/19/17 07/19/17 07/19/17 10:20 12:00 12:59 Temp 96.0 Pulse 60 Resp 18 B/P (MAP) 134/74 (94) Pulse Ox 99 O2 Delivery Room Air Room Air Room Air 07/19/17 00:00 Intake Total 1130 ml Output Total 1450 ml Balance -320 ml Weight (Pounds): 246 Weight (Ounces): 0.0 Weight (Calculated Kilograms): 111.675184 Bruising: mild bruising Constitutional: AAO x 3, well-developed, well-nourished Respiratory: No accessory muscle use, No respiratory distress; chest expansion is symmetric, chest is bilaterally symmetric, lungs clear to percussion, lungs clear to auscultation Cardiovascular: regular rate-rhythm; No JVD; S1 and S2 Gastrointestional: No tender; soft, round, audible bowel sounds Extremities: no lower extremity edema bilateral Neurologic/Psychiatric: grossly intact, power is 5/5 both on sides Skin: No rash, No ulcerations Results/Procedures: Labs Laboratory Tests 07/19/17 03:32: White Blood Count 5.0, Red Blood Count 4.62, Hemoglobin 12.2L, Hematocrit 36L, Mean Corpuscular Volume 78L, Mean Corpuscular Hemoglobin 26, Mean Corpuscular Hemoglobin Concent 34, Red Cell Distribution Width 17.5H, Platelet Count 196, Mean Platelet Volume 10.6H, Prothrombin Time 13.1, INR Comment 1.0, Sodium Level 139, Potassium Level 4.3, Chloride Level 106, Carbon Dioxide Level 24, Anion Gap 9, Blood Urea Nitrogen 16, Creatinine 0.88, Estimat Glomerular Filtration Rate > 60, BUN/Creatinine Ratio 18, Glucose Level 112H, Calcium Level 8.8 Laboratory Tests 07/18/17 12:15 07/19/17 03:32 A/P: Assessment: S/p dual chamber Biotronik pacemaker implanted on 07/19/17 to treat episodes of marked sinus bradycardia with pauses greater than 5 seconds associated with syncope ILR implanted in Dec 2016 24 Hour ambulatory blood pressure monitor of 04-12-16 showed blood pressure was WNL during the day and mildly elevated at night. Extended ambulatory environmental monitoring technician ([employer]) of 04-12-16 to 04-24-16 showed one 6 beat run of WCT at 160bpm. A few up to 5 beat runs of SVT at 105bpm. No significant bradycardia. Aforementioned episodes were asymptomatic MPI of May 2016 showed no evidence of significant myocardial ischemia or infarction. Mild cardiomegaly. LVEF is calculated to be 54% Normal global left ventricular systolic function with an ejection fraction of 60 to 65% on cardiac catheterization of July 2011. This indicated mild diastolic dysfunction of the left ventricle. The patient is currently not exhibiting any congestive heart failure Echocardiogram of November [address] Romano at [facility] in [facility] showed sinus bradycardia. Concenteric LVH with mod to severe disastolic LV dysfunction , LA enlargement, TR trivial, mild PH Degenerative joint disease with history of bilateral knee surgery. Most recently , he underwent knee replacement on the L (Oct 2014) Hyperlipidemia, being managed by his family physician, Dr. Vaughan. Chronic tobacco use from which he has been refraining since 2010. Maturity onset diabetes mellitus being followed by his family physician. Chronic, mild microcytic anemia, being followed by Dr. Vaughan. Cervical spinal disease for which he has had surgery Hypertension, controlled. Chronic mild renal insufficiency. Tiredness and malaise and dizziness, chronic, etiology undetermined, for which he's following with Dr Vaughan Mild bilateral carotid art disease on u/s of November 2015 Postural hypotension documented in [facility] ER on 11/23/13 Plan: * I have reviewed the details of procedure today with him, his , and one of his daughters * Post-op care has been discussed * We have reinitiated his beta-yolanda * Outpatient f/u is advised * We have advised him to quit tobacco use MANUEL GOODRICH MD FACP [facility] July 19, 2017 15:46
--- NOTE | 2017-07-19 15:49 | Cardiology Discharge Summary ---
Diagnosis/Chief Complaint Date of Admission July 18, 2017 at 11:42 Date of Discharge 07/19/17 Admission Diagnosis Syncope due to episodes of bradycardia with asystolic pauses of greater than 5 seconds Chief Complaint/HPI Chief Complaint/HPI Mr. Ricketts is a 66 year old male admitted to ICU 4 from home after having a witnessed syncopal episode. He reports he had sat down at the dinner table last night for the evening meal. He states he was feeling very dizzy. He called out to his that he was going to lie down. He states he does not recall any events to that point. His spouse is at the bedside. She states he was sitting in his chair when suddenly slumped over. He was unresponsive and gasping at that time. She states she held him up in his chair. She reports agonal breathing. She states he was "out" for a few minutes and then gradually came to. No loss of bowel or bladder control. He reports no c/o CP, palpitations or dyspnea. He reports no further episodes since last evening. ILR interrogation showed sinus bradycardia. For condition at discharge, please see the f/u note of the same date (07/19/17) Discharge Summary Procedures Dual chamber pacemaker implantation on the morning of 07/19/17 Discussion & Recommendations Home Medications Reviewed patient Home Medication Reconciliation performed by pharmacy medication reconciliations voice and data technician and/or nursing. Patients Allergies have been reviewed. Discharge Home Medications: Reviewed and agree with Discharge Medication list on patient's Discharge Instruction sheet Clinical Quality Measures DVT/VTE Risk/Contraindication: Risk Factor Score Per Nursin RFS Level Per Nursing on Admit: 3=High MANUEL GOODRICH MD FACP FAC [facility] July 19, 2017 15:49
[2017-07-19] MEDS ORDERED: CIPROFLOXACIN 500 MG (CIPRO) TABLET PO SCH (21:00)
--- OUTSIDE RECORDS SUMMARY | 2017-07-23 11:17 | XMS REPORT | Clinical Summary ---
Author Author [facility] Organization [facility] Address Unknown Phone Unavailable Care Team Providers Care Electronic News Gathering Editor Name Role Phone Self, Kanu SALAZAR PCP Unavailable Source Comments Some departments are not documenting in the electronic medical record. If you do not see the information that you expected, contact Release of Information in the Health Information Management department at [phone] for further assistance in locating additional records.[facility] Allergies Active Allergy Reactions Severity Noted [...]
--- OUTSIDE RECORDS SUMMARY | 2017-07-23 11:17 | XMS REPORT | Continuity of Care Document ---
Author Author [employer] Organization [facility] Address Unknown Phone Unavailable Care Team Providers Care Driver Examiner Name Role Phone [employer] Unavailable Unavailable Problems Medications Allergies, Adverse Reactions, Alerts Immunizations Results Vital Signs Encounters Location Location Details Encounter Type Encounter Number Reason For Visit Attending Provider ADM Date DC Date Status Source OUTPATIENT [id number] KANDI DARDEN 11/10/2013 11/10/2013 Active [facility] Procedures Plan of Care Social History Assessment and Plan Family History Advance Directives Functional Status
--- OUTSIDE RECORDS SUMMARY | 2017-07-23 11:20 | XMS REPORT | Continuity of Care Document ---
Author Author [facility] Organization [facility] Address Unknown Phone Unavailable Allergies Active Description Code Type Severity Reaction Onset Reported/Identified Relationship to Patient Clinical Status Yes Penicillins [id number] Drug Allergy Moderate RASH 12/22/2010 Medications There [...] DISORDER 08/01/2010 Ot 414.01 CORONARY ATHEROSCLEROSIS OF [place] CORON 08/01/2010 Ot 715.90 OSTEOARTHROS NOS-UNSPEC 08/01/2010 [...] NOS 12/22/2010 Ot 414.01 CORONARY ATHEROSCLEROSIS OF [place] CORON 12/22/2010 Ot 530.81 ESOPHAGEAL REFLUX 12/22/2010 Ot 715.96 OSTEOARTHROS NOS-L/LEG 12/22/2010 Ot 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 07/17/2011 Ot 250.00 DIAB KELECHI WO COMPL, TYPE II OR UNSPEC TY 07/17/2011 Ot 272.4 HYPERLIPIDEMIA NEC/NOS 07/17/2011 Ot 285.9 ANEMIA NOS 07/17/2011 Ot 414.01 CORONARY ATHEROSCLEROSIS OF [place] CORON 07/17/2011 Ot 715.90 OSTEOARTHROS NOS-UNSPEC 07/17/2011 [...] NOS 07/30/2011 Ot 414.01 CORONARY ATHEROSCLEROSIS OF [place] CORON 07/30/2011 Ot 593.9 RENAL URETERAL DIS [...] NOS 09/09/2012 ROHAN PITTMAN MD Ot V06.1 [id number], COMBINED [ 02/19/2013 GUS SALAZAR, LANDY Burrell [...] ABDOMINAL PAIN, UNSPECIFIED SITE 01/19/2014 KARRI BECKFORD [employer] MECHANIC Ot 724.5 BACKACHE NOS 01/19/2014 KARRI BECKFORD [employer] MECHANIC Ot 729.5 PAIN IN LIMB 01/19/2014 KARRI BECKFORD [employer] MECHANIC Ot 780.2 SYNCOPE AND COLLAPSE 01/19/2014 KARRI BECKFORD [employer] MECHANIC Ot 780.4 DIZZINESS AND GIDDINESS 07/02/2014 LANDY WEBER MD Ot 726.10 08/25/2014 KP SALAZAR [facility], MANUEL FACP CCDS Ot 250.00 08/25/2014 KP SALAZAR [facility], ALI FACP CCDS Ot 401.9 08/25/2014 KP SALAZAR [facility], ALI FACP CCDS Ot 414.00 08/25/2014 KP SALAZAR [facility], ALI FACP CCDS Ot 786.50 08/25/2014 LANDY WEBER MD Ot 726.10 08/25/2014 LANDY WEBER MD Ot 727.61 08/25/2014 LANDY WEBER MD Ot V72.83 08/25/2014 LANDY WEBER MD Ot V74.8 08/25/2014 LANDY WEBER MD Ot 250.00 DIAB KELECHI WO COMPL, TYPE II OR UNSPEC TY 08/25/2014 LANDY WEBER MD Ot 272.4 HYPERLIPIDEMIA NEC/NOS 08/25/2014 LANDY WEBER MD Ot 414.01 CORONARY ATHEROSCLEROSIS OF [place] CORON 08/25/2014 LANDY WEBER MD Ot 726.10 [...] WEBER MD Ot 726.10 08/31/2014 ARLIN LEE CUTTING PRESSMAN Ot V57.1 08/31/2014 ARLIN LEE CUTTING PRESSMAN Ot V58.78 09/01/2014 ARLIN LEE CUTTING PRESSMAN Ot V57.1 09/01/2014 ARLIN LEE CUTTING PRESSMAN Ot V58.78 09/15/2014 ARLIN LEE CUTTING PRESSMAN Ot V57.1 PHYSICAL THERAPY NEC 09/15/2014 ARLIN LEE CUTTING PRESSMAN Ot V58.78 AFTERCARE POST SURGERY MUSCULOSKELETAL S [...] TERESAP CCDS Ot 414.01 CORONARY ATHEROSCLEROSIS OF [place] CORON 09/21/2014 KP SALAZAR FACC, MANUEL TERESAP CCDS Ot 414.4 CORONARY ATHEROSCLEROSIS DUE TO CALCIFIE 09/21/2014 KP SALAZAR FACC, MANUEL TERESAP CCDS Ot 585.1 CHRONIC KIDNEY DISEASE, STAGE I 09/21/2014 KP SALAZAR FACC, MANUEL TERESAP CCDS Ot 786.59 CHEST PAIN NEC 09/21/2014 KP SALAZAR FAC, ALI [facility] CCDS Ot V15.82 HISTORY OF TOBACCO USE 09/21/2014 KP SALAZAR FAC, ALI [facility] CCDS Ot V58.69 OTH MED,LT,CURRENT USE 01/27/2015 [...] KNEE JOINT REPLACEMENT STATUS 11/25/2015 KP SALAZAR [facility], [facility] FACP CCDS Ot 250.00 DIAB KELECHI WO COMPL, TYPE II OR UNSPEC TY 11/25/2015 KP SALAZAR [facility], [facility] FACP CCDS Ot 401.9 HYPERTENSION NOS 11/25/2015 KP SALAZAR [facility], [facility] FACP CCDS Ot 414.00 CORON ATHEROSCLER NOS TYPE VESSEL, NATIV 11/25/2015 KP SALAZAR [facility], [facility] FACP CCDS Ot 786.50 CHEST PAIN NOS 11/25/2015 GUS SALAZAR, LANDY Burrell Ot 726.10 BURSAE TENDONS DIS SHLDER NOS 11/25/2015 GUS SALAZAR, LANDY Burrell Ot 727.61 ROTATOR CUFF RUPTURE 11/25/2015 GUS SALAZAR, LANDY Burrell Ot V72.83 EXAM PRE-OPERATIVE NEC 11/25/2015 GUS SALAZAR, LANDY Burrell Ot V74.8 SCREEN-BACTERIAL DIS NEC 11/26/2015 [...] UNSPECIFIED 11/26/2015 CLINTON MONTAGUE MD Ot Z79.82 GROUP HOME (CURRENT) USE OF ASPIRIN 11/26/2015 CLINTON MONTAGUE MD Ot Z79.899 OTHER GROUP HOME (CURRENT) DRUG THERAPY 11/28/2015 CLINTON MONTAGUE MD A Ot E11.9 TYPE 2 DIABETES MELLITUS WITHOUT COMPLIC 11/28/2015 CLINTON MONTAGUE MD Ot I10 ESSENTIAL (PRIMARY) HYPERTENSION 11/28/2015 CLINTON MONTAGUE MD Ot R00.2 PALPITATIONS 11/28/2015 CLINTON MONTAGUE MD Ot R06.00 DYSPNEA, UNSPECIFIED 11/28/2015 EDDI SALAZAR, CLINTON Londono Ot Z79.82 RECONCILIATION CLERK (CURRENT) USE OF ASPIRIN 11/28/2015 EDDI SALAZAR, CLINTON Londono Ot Z79.899 OTHER RECONCILIATION CLERK (CURRENT) DRUG THERAPY 02/21/2016 Ot 715.36 LOC [...] V74.8 SCREEN-BACTERIAL DIS NEC 02/24/2016 KARRI BECKFORD [employer] MECHANIC Ot R20.0 ANESTHESIA OF SKIN 03/15/2016 KARRI BECKFORD [employer] MECHANIC Ot R20.0 ANESTHESIA OF SKIN 03/16/2016 VANNESA WOMACK MD Ot E11.649 TYPE 2 DIABETES MELLITUS WITH HYPOGLYCEM 03/16/2016 VANNESA WOMACK MD Ot I10 ESSENTIAL (PRIMARY) HYPERTENSION 03/16/2016 VANNESA WOMACK MD Ot Z79.02 RECONCILIATION CLERK (CURRENT) USE OF ANTITHROMBOTI 03/16/2016 VANNESA WOMACK MD Ot Z79.82 GROUP HOME (CURRENT) USE OF ASPIRIN 03/16/2016 VANNESA WOMACK MD T Ot Z79.899 OTHER GROUP HOME (CURRENT) DRUG THERAPY 03/16/2016 VANNESA WOMACK MD Ot Z87.891 PERSONAL HISTORY OF NICOTINE DEPENDENCE 03/20/2016 VANNESA WOMACK MD Ot E11.649 TYPE 2 DIABETES MELLITUS WITH HYPOGLYCEM 03/20/2016 VANNESA WOMACK MD Ot I10 ESSENTIAL (PRIMARY) HYPERTENSION 03/20/2016 VANNESA WOMACK MD Ot Z79.02 GROUP HOME (CURRENT) USE OF ANTITHROMBOTI 03/20/2016 VANNESA WOMACK MD T Ot Z79.82 RECONCILIATION CLERK (CURRENT) USE OF ASPIRIN 03/20/2016 VANNESA WOMACK MD Ot Z79.899 OTHER GROUP HOME (CURRENT) DRUG THERAPY 03/20/2016 VANNESA WOMACK MD Ot Z87.891 PERSONAL HISTORY OF NICOTINE DEPENDENCE 03/22/2016 KARRI BECKFORD [employer] MECHANIC Ot R20.0 ANESTHESIA OF SKIN 05/20/2016 JESSICA WHATLEY MD Ot K82.8 OTHER SPECIFIED DISEASES OF GALLBLADDER 06/07/2016 JESSICA WHATLEY MD Ot K82.8 OTHER SPECIFIED DISEASES OF GALLBLADDER 06/13/2016 BAIMA, CLIFF L CUTTING PRESSMAN Ot E78.4 OTHER HYPERLIPIDEMIA 06/13/2016 BAIMA, CLIFF L CUTTING PRESSMAN Ot I10 ESSENTIAL (PRIMARY) HYPERTENSION 06/13/2016 BAIMA, CLIFF L CUTTING PRESSMAN Ot I25.10 ATHSCL HEART DISEASE OF [place] CORONARY 06/13/2016 BAIMA, CLIFF L CUTTING PRESSMAN Ot I47.1 SUPRAVENTRICULAR TACHYCARDIA 06/13/2016 BAIMA, CLIFF L CUTTING PRESSMAN Ot I47.2 VENTRICULAR TACHYCARDIA 06/27/2016 PHYLICIA SALAZAR, JESSICA Ot K82.8 OTHER SPECIFIED DISEASES OF GALLBLADDER 07/03/2016 BAIMA, CLIFF L CUTTING PRESSMAN Ot E78.4 OTHER HYPERLIPIDEMIA 07/03/2016 BAIMA, CLIFF L CUTTING PRESSMAN Ot I10 ESSENTIAL (PRIMARY) HYPERTENSION 07/03/2016 BAIMA, CLIFF L CUTTING PRESSMAN Ot I25.10 ATHSCL HEART DISEASE OF [place] CORONARY 07/03/2016 BAIMA, CLIFF L CUTTING PRESSMAN Ot I47.1 SUPRAVENTRICULAR TACHYCARDIA 07/03/2016 BAIMA, CLIFF L CUTTING PRESSMAN Ot I47.2 VENTRICULAR TACHYCARDIA 07/19/2016 BAIMA, CLIFF L CUTTING PRESSMAN Ot E78.4 OTHER HYPERLIPIDEMIA 07/19/2016 BAIMA, CLIFF L CUTTING PRESSMAN Ot I10 ESSENTIAL (PRIMARY) HYPERTENSION 07/19/2016 BAIMA, CLIFF L CUTTING PRESSMAN Ot I25.10 ATHSCL HEART DISEASE OF [place] CORONARY 07/19/2016 BAIMA, CLIFF L CUTTING PRESSMAN Ot I47.1 SUPRAVENTRICULAR TACHYCARDIA 07/19/2016 BAIMA, CLIFF L CUTTING PRESSMAN Ot I47.2 VENTRICULAR TACHYCARDIA 08/03/2016 YOSEPH BLEDSOE MD Ot Z98.1 ARTHRODESIS STATUS 08/10/2016 YOSEPH BLEDSOE MD Ot Z98.1 ARTHRODESIS STATUS 08/10/2016 KARRI BECKFORD [employer] MECHANIC Ot R10.817 GENERALIZED ABDOMINAL TENDERNESS 08/21/2016 AKRRI BECKFORD [employer] MECHANIC Ot R10.817 GENERALIZED ABDOMINAL TENDERNESS 12/17/2016 KARRI BECKFORD [employer] MECHANIC Ot R20.0 ANESTHESIA OF SKIN 12/17/2016 PHYLICIA SALAZAR, JESSICA Ot K82.8 OTHER SPECIFIED DISEASES OF GALLBLADDER 12/17/2016 BAIMA, CLIFF L CUTTING PRESSMAN Ot E78.4 OTHER HYPERLIPIDEMIA 12/17/2016 BAIMA, CLIFF L CUTTING PRESSMAN Ot I10 ESSENTIAL (PRIMARY) HYPERTENSION 12/17/2016 BAIMA, CLIFF L CUTTING PRESSMAN Ot I25.10 ATHSCL HEART DISEASE OF [place] CORONARY 12/17/2016 BAIMA, CLIFF L CUTTING PRESSMAN Ot I47.1 SUPRAVENTRICULAR TACHYCARDIA 12/17/2016 BAIMA, CLIFF L CUTTING PRESSMAN Ot I47.2 VENTRICULAR TACHYCARDIA 12/17/2016 LADI SALAZAR, YOSEPH Keating Ot Z98.1 ARTHRODESIS STATUS 12/17/2016 KARRI BECKFORD APRN Ot R10.817 GENERALIZED ABDOMINAL TENDERNESS 12/18/2016 BAISOCORRO, CLIFF L CUTTING PRESSMAN Ot E11.22 TYPE 2 DIABETES MELLITUS W DIABETIC RADIO EQUIPMENT INSTALLER 12/18/2016 BAIMA, CLIFF L CUTTING PRESSMAN Ot E78.5 HYPERLIPIDEMIA, UNSPECIFIED 12/18/2016 BAIMA, CLIFF L CUTTING PRESSMAN Ot I12.9 HYPERTENSIVE CHRONIC KIDNEY DISEASE W ST 12/18/2016 BAIMA, CLIFF L CUTTING PRESSMAN Ot I25.10 ATHSCL HEART DISEASE OF [place] CORONARY 12/18/2016 BAIMA, CLIFF L CUTTING PRESSMAN Ot I25.84 CORONARY ATHEROSCLEROSIS DUE TO CALCIFIE 12/18/2016 BAIMA, CLIFF L CUTTING PRESSMAN Ot N18.2 CHRONIC KIDNEY DISEASE, STAGE 2 (MILD) 12/18/2016 BAIMA, CLIFF L CUTTING PRESSMAN Ot R06.02 SHORTNESS OF BREATH 12/18/2016 BAIMA, CLIFF L CUTTING PRESSMAN Ot R07.89 OTHER CHEST PAIN 12/18/2016 BAIMA, CLIFF L CUTTING PRESSMAN Ot R55 SYNCOPE AND COLLAPSE 12/18/2016 BAIMA, CLIFF L CUTTING PRESSMAN Ot Z79.84 GROUP HOME (CURRENT) USE OF ORAL HYPOGLYC 12/18/2016 TUMA, CLIFF L CUTTING PRESSMAN Ot Z79.899 OTHER GROUP HOME (CURRENT) DRUG THERAPY 12/18/2016 BAIMA, CLIFF L CUTTING PRESSMAN Ot Z87.891 PERSONAL HISTORY OF NICOTINE DEPENDENCE 12/26/2016 BAIMA, CLIFF L CUTTING PRESSMAN Ot E11.22 TYPE 2 DIABETES MELLITUS W DIABETIC RADIO EQUIPMENT INSTALLER 12/26/2016 BAIMA, CLIFF L CUTTING PRESSMAN Ot E78.5 HYPERLIPIDEMIA, UNSPECIFIED 12/26/2016 TUCLIFF QUINTANILLA CUTTING PRESSMAN Ot I12.9 HYPERTENSIVE CHRONIC KIDNEY DISEASE W ST 12/26/2016 TUCLIFF QUINTANILLA L CUTTING PRESSMAN Ot I25.10 ATHSCL HEART DISEASE OF [place] CORONARY 12/26/2016 CLIFF CR L CUTTING PRESSMAN Ot I25.84 CORONARY ATHEROSCLEROSIS DUE TO [place]IF[place] 12/26/2016 TUCLIFF QUINTANILLA CUTTING PRESSMAN Ot N18.2 CHRONIC KIDNEY DISEASE, STAGE 2 (MILD) 12/26/2016 TUCLIFF QUINTANILLA L CUTTING PRESSMAN Ot R06.02 SHORTNESS OF BREATH 12/26/2016 TUCLIFF QUINTANILLA L CUTTING PRESSMAN Ot R07.89 OTHER CHEST PAIN 12/26/2016 TUCLIFF QUINTANILLA L CUTTING PRESSMAN Ot R55 SYNCOPE AND COLLAPSE 12/26/2016 TUCLIFF QUINTANILLA CUTTING PRESSMAN Ot Z79.84 GROUP HOME (CURRENT) USE OF ORAL HYPOGLYC 12/26/2016 TUCLIFF QUINTANILLA L CUTTING PRESSMAN Ot Z79.899 OTHER RECONCILIATION CLERK (CURRENT) DRUG THERAPY 12/26/2016 TUCLIFF QUINTANILLA CUTTING PRESSMAN Ot Z87.891 PERSONAL HISTORY OF NICOTINE DEPENDENCE 03/19/2017 TUCLIFF QUINTANILLA L CUTTING PRESSMAN Ot I10 ESSENTIAL (PRIMARY) HYPERTENSION 03/19/2017 TUCLIFF QUINTANILLA L CUTTING PRESSMAN Ot I25.10 ATHSCL HEART DISEASE OF [place] CORONARY 03/19/2017 CLIFF CR L CUTTING PRESSMAN Ot R42 DIZZINESS AND GIDDINESS 03/19/2017 TUCLIFF QUINTANILLA L CUTTING PRESSMAN Ot R55 SYNCOPE AND COLLAPSE 03/20/2017 TUCLIFF QUINTANILLA L CUTTING PRESSMAN Ot I10 ESSENTIAL (PRIMARY) HYPERTENSION 03/20/2017 TUCLIFF QUINTANILLA L CUTTING PRESSMAN Ot I25.10 ATHSCL HEART DISEASE OF [place] CORONARY 03/20/2017 BAICLIFF QUINTANILLA L CUTTING PRESSMAN Ot R42 DIZZINESS AND GIDDINESS 03/20/2017 BAISOCORRO CLIFF L CUTTING PRESSMAN Ot R55 SYNCOPE AND COLLAPSE 03/28/2017 MEHRAN [...] resistant Staphylococcus aureus (MRSA) screening culture NEG [facility] Complete blood count (CBC) with automated white blood cell (WBC) differential - 07/17/17 21:25 Blood leukocytes automated count (number/volume) 5.9 10*3/uL 4.3-11.0 Blood erythrocytes automated count (number/volume) 4.86 10*6/uL 4.35-5.85 Venous blood hemoglobin measurement (mass/volume) 12.9 g/dL 13.3-17.7 Blood hematocrit (volume fraction) 38 % 40-54 Automated erythrocyte mean corpuscular volume 77 [foz_us] 80-99 Automated erythrocyte mean corpuscular hemoglobin (mass per erythrocyte) 27 pg 25-34 Automated erythrocyte mean corpuscular hemoglobin concentration measurement ( mass/volume) 34 g/dL 32-36 Automated erythrocyte distribution width ratio 17.5 % 10.0-14.5 Automated blood platelet count (count/volume) 230 10*3/uL 130-400 Automated blood platelet mean volume measurement 10.7 [foz_us] 7.4-10.4 Automated blood neutrophils/100 leukocytes 50 % 42-75 Automated blood lymphocytes/100 leukocytes 36 % 12-44 Blood monocytes/100 leukocytes 11 % 0-12 Automated blood eosinophils/100 leukocytes 3 % 0-10 Automated blood basophils/100 leukocytes 0 % 0-10 Blood neutrophils automated count (number/volume) 2.9 10*3 1.8-7.8 Blood lymphocytes automated count (number/volume) 2.1 10*3 1.0-4.0 Blood monocytes automated count (number/volume) 0.6 10*3 0.0-1.0 Automated eosinophil count 0.2 10*3/uL 0.0-0.3 Automated blood basophil count (count/volume) 0.0 10*3/uL 0.0-0.1 Comprehensive metabolic panel - 07/17/17 21:25 Serum or plasma sodium measurement (moles/volume) 141 mmol/L 135-145 Serum or plasma potassium measurement (moles/volume) 3.8 mmol/L 3.6-5.0 Serum or plasma chloride measurement (moles/volume) 106 mmol/L 98-107 Carbon dioxide 20 mmol/L 21-32 Serum or plasma anion gap determination (moles/volume) 15 mmol/L 5-14 Serum or plasma urea nitrogen measurement (mass/volume) 22 mg/dL 7-18 Serum or plasma creatinine measurement (mass/volume) 1.42 mg/dL 0.60-1.30 Serum or plasma urea nitrogen/creatinine mass ratio 15 NRG Serum or plasma creatinine measurement with calculation of estimated glomerular filtration rate 60 NRG Serum or plasma glucose measurement (mass/volume) 142 mg/dL 70-105 Serum or plasma calcium measurement (mass/volume) 9.5 mg/dL 8.5-10.1 Serum or plasma total bilirubin measurement (mass/volume) 0.8 mg/dL 0.1-1.0 Serum or plasma alkaline phosphatase measurement (enzymatic activity/volume) 93 U/L 40-136 Serum or plasma aspartate aminotransferase measurement (enzymatic activity/ volume) 47 U/L 5-34 Serum or plasma alanine aminotransferase measurement (enzymatic activity/volume ) 35 U/L 0-55 Serum or plasma protein measurement (mass/volume) 7.2 g/dL 6.4-8.2 Serum or plasma albumin measurement (mass/volume) 4.3 g/dL 3.2-4.5 Magnesium - 07/17/17 21:25 Magnesium 2.4 mg/dL 1.8-2.4 Serum or plasma troponin i.cardiac measurement (mass/volume) - 07/17/17 21:25 Serum or plasma troponin i.cardiac measurement (mass/volume) < ng/ mL <0.30 Serum or plasma C reactive protein measurement (mass/volume) - 07/17/17 21:25 Serum or plasma C reactive protein measurement (mass/volume) 0.07 mg /dL 0.00-0.50 Serum or plasma ethanol measurement (mass/volume) - 07/17/17 21:25 Serum or plasma ethanol measurement (mass/volume) < mg/dL <10 Complete urinalysis with reflex to culture - 07/17/17 22:25 Urine color determination YELLOW NRG Urine clarity [...] detection in urine sediment by light microscopy PRESENT NRG Mucus detection in urine sediment by light microscopy LARGE NRG Complete urinalysis with reflex to culture NO NRG Hyaline casts detection in urine sediment by light microscopy 10-25 NRG Automated blood complete blood count (hemogram) panel - 07/18/17 12:15 Blood leukocytes automated count (number/volume) 5.5 10*3/uL 4.3-11.0 Blood erythrocytes automated count (number/volume) 4.69 10*6/uL 4.35-5.85 Venous blood hemoglobin measurement (mass/volume) 12.2 g/dL 13.3-17.7 Blood hematocrit (volume fraction) 37 % 40-54 Automated erythrocyte mean corpuscular volume 78 [foz_us] 80-99 Automated erythrocyte mean corpuscular hemoglobin (mass per erythrocyte) 26 pg 25-34 Automated erythrocyte mean corpuscular hemoglobin concentration measurement ( mass/volume) 33 g/dL 32-36 Automated erythrocyte distribution width ratio 16.9 % 10.0-14.5 Automated blood platelet count (count/volume) 197 10*3/uL 130-400 Automated blood platelet mean volume measurement 10.9 [foz_us] 7.4-10.4 Comprehensive metabolic panel - 07/18/17 12:15 Serum or plasma sodium measurement (moles/volume) 138 mmol/L 135-145 Serum or plasma potassium measurement (moles/volume) 4.1 mmol/L 3.6-5.0 Serum or plasma chloride measurement (moles/volume) 108 mmol/L 98-107 Carbon dioxide 23 mmol/L 21-32 Serum or plasma anion gap determination (moles/volume) 7 mmol/L 5-14 Serum or plasma urea nitrogen measurement (mass/volume) 18 mg/dL 7-18 Serum or plasma creatinine measurement (mass/volume) 0.98 mg/dL 0.60-1.30 Serum or plasma urea nitrogen/creatinine mass ratio 18 NRG Serum or plasma creatinine measurement with calculation of estimated glomerular filtration rate > NRG Serum or plasma glucose measurement (mass/volume) 197 mg/dL 70-105 Serum or plasma calcium measurement (mass/volume) 8.8 mg/dL 8.5-10.1 Serum or plasma total bilirubin measurement (mass/volume) 0.8 mg/dL 0.1-1.0 Serum or plasma alkaline phosphatase measurement (enzymatic activity/volume) 94 U/L 40-136 Serum or plasma aspartate aminotransferase measurement (enzymatic activity/ volume) 41 U/L 5-34 Serum or plasma alanine aminotransferase measurement (enzymatic activity/volume ) 33 U/L 0-55 Serum or plasma protein measurement (mass/volume) 6.8 g/dL 6.4-8.2 Serum or plasma albumin measurement (mass/volume) 3.9 g/dL 3.2-4.5 Magnesium - 07/18/17 12:15 Magnesium 2.0 mg/dL 1.8-2.4 THYROID STIMULATING HORMONE - 07/18/17 12:15 THYROID STIMULATING HORMONE 0.39 u[iU]/mL 0.35-4.94 Automated blood complete blood count (hemogram) panel - 07/19/17 03:32 Blood leukocytes automated count (number/volume) 5.0 10*3/uL 4.3-11.0 Blood erythrocytes automated count (number/volume) 4.62 10*6/uL 4.35-5.85 Venous blood hemoglobin measurement (mass/volume) 12.2 g/dL 13.3-17.7 Blood hematocrit (volume fraction) 36 % 40-54 Automated erythrocyte mean corpuscular volume 78 [foz_us] 80-99 Automated erythrocyte mean corpuscular hemoglobin (mass per erythrocyte) 26 pg 25-34 Automated erythrocyte mean corpuscular hemoglobin concentration measurement ( mass/volume) 34 g/dL 32-36 Automated erythrocyte distribution width ratio 17.5 % 10.0-14.5 Automated blood platelet count (count/volume) 196 10*3/uL 130-400 Automated blood platelet mean volume measurement 10.6 [foz_us] 7.4-10.4 PT panel in platelet poor plasma by coagulation assay - 07/19/17 03:32 Prothrombin time (PT) in platelet poor plasma by coagulation assay 13.1 s 12.2-14.7 INR in platelet poor plasma or blood by coagulation assay 1.0 0.8-1.4 Whole blood basic metabolic panel - 07/19/17 03:32 Serum or plasma sodium measurement (moles/volume) 139 mmol/L 135-145 Serum or plasma potassium measurement (moles/volume) 4.3 mmol/L 3.6-5.0 Serum or plasma chloride measurement (moles/volume) 106 mmol/L 98-107 Carbon dioxide 24 mmol/L 21-32 Serum or plasma anion gap determination (moles/volume) 9 mmol/L 5-14 Serum or plasma urea nitrogen measurement (mass/volume) 16 mg/dL 7-18 Serum or plasma creatinine measurement (mass/volume) 0.88 mg/dL 0.60-1.30 Serum or plasma urea nitrogen/creatinine mass ratio 18 NRG Serum or plasma creatinine measurement with calculation of estimated glomerular filtration rate > NRG Serum or plasma glucose measurement (mass/volume) 112 mg/dL 70-105 Serum or plasma calcium measurement (mass/volume) 8.8 mg/dL 8.5-10.1 Encounters ACCT No. Visit Date/Time Discharge Status Pt. Type Provider Facility Loc./Unit Complaint [id number] 07/18/2017 11:42:00 07/19/2017 17:17:00 DIS Inpatient KP SALAZAR FACCMANUEL FACP CCDS [facility] ICU BRADYCARDIA [id number] 07/17/2017 20:51:00 07/17/2017 22:46:00 DIS Emergency ABRAM BOSCH MD [facility] ER PASSED OUT, DIZZY [id number] 03/28/2017 07:55:00 03/28/2017 23:59:59 CLS Outpatient JENNIFER LAURENT MD [facility] RAD TRANSIENT CEREBRAL ISCHEMIA [id number] 03/27/2017 09:32:00 03/27/2017 23:59:59 CLS Outpatient JENNIFER LAURENT MD [facility] RAD R05 [id number] 03/19/2017 06:49:00 03/19/2017 09:57:00 DIS Outpatient CLIFF CRP [facility] CARD DIZZINESS [id number] 12/18/2016 07:09:00 12/18/2016 15:15:00 DIS Outpatient TAYO CLIFFHER Shanique BREEN [facility] CATH CAD,CAROTID ARTERIAL DISEASE,HTN [id number] 07/19/2016 10:11:00 07/19/2016 23:59:59 CLS Outpatient KARRI BECKFORD APRN [facility] RAD [id number] 07/11/2016 10:28:00 07/11/2016 23:59:59 CLS Outpatient YOSEPH BLEDSOE MD [facility] RAD S/P SPINAL FUSION [id number] 06/12/2016 07:40:00 06/12/2016 23:59:59 CLS Outpatient CLIFF CR [facility] CARD CAD,HTN,SVT [id number] 05/17/2016 09:44:00 05/17/2016 23:59:59 CLS Outpatient PHYLICIA SALAZAR, JESSICA [facility] CARD BLOATED ABDOMEN [id number] 03/16/2016 12:27:00 03/16/2016 14:30:00 DIS Emergency VU SALAZAR, VANNESA Yanez [facility] ER LOW BP/WEAKNESS [id number] 02/21/2016 16:48:00 02/21/2016 23:59:59 CLS Outpatient KARRI BECKFORD APRN [facility] RAD BLURRED VISION, NUMBNESS/SWELLING OF FACE [id number] 11/25/2015 22:40:00 11/26/2015 00:12:00 DIS Emergency CLINTON MONTAGUE MD [facility] ER CHEST PAIN [id number] 01/27/2015 14:23:00 01/27/2015 18:48:00 DIS Emergency MIKY MUSE [facility] ER FALL/BACK PAIN [id number] 09/21/2014 07:13:00 09/21/2014 13:10:00 DIS Outpatient KP SALAZAR FACC, MANUEL TERESAP CCDS [facility] CATH CAD,CP,HLP [id number] 09/07/2014 09:56:00 09/15/2014 14:58:00 DIS Outpatient ARLIN LEE [facility] REHAB S/P R SHOULDER SCOPE; BICEP TENOTOMY;RCR DEBRIDEMEN [id number] 08/25/2014 06:00:00 08/25/2014 11:40:00 DIS Outpatient LANDY WEBER MD [facility] SDC RIGHT SHOULDER ROTATOR CUFF GLENOID LABRAL TEAR [id number] 08/20/2014 12:18:00 08/20/2014 23:59:59 CLS Outpatient LANDY WBEER MD [facility] PREOP RIGHT SHOULDER ROTATOR CUFF GLENOID LABRAL TEAR [id number] 06/10/2014 13:21:00 06/10/2014 23:59:59 CLS Outpatient LANDY WEBER MD [facility] RAD RTC [id number] 01/19/2014 08:31:00 01/19/2014 09:46:00 DIS Outpatient KARRI BECKFORD APRN [facility] CARD POSTURAL DIZZINES, HTN,CAD [id number] 01/05/2014 11:49:00 01/05/2014 13:28:00 DIS Emergency VANNESA WOMACK MD [facility] ER VOMITING/NAUSEA DIZZINESS [id number] 08/07/2013 14:14:00 08/07/2013 17:19:00 DIS Emergency SUMAN CAICEDO MD [facility] ER CHEST PAIN [id number] 07/16/2013 07:04:00 07/16/2013 23:59:59 CLS Outpatient KP SALAZAR FACC, MANUEL ANDRADE CCDS [facility] CARD AFIB [id number] 05/18/2013 07:43:00 05/18/2013 23:59:59 CLS Outpatient LANDY WEBER MD [facility] RAD LFT KNEE LATERAL CYST [id number] 02/18/2013 08:45:00 02/19/2013 09:40:00 DIS Inpatient LANDY WEBER MD [facility] SURGICAL LEFT KNEE FUNCTIONAL INSTABILITY;RIGHT ELBOW ARTHR [id number] 02/11/2013 07:42:00 02/11/2013 23:59:59 CLS Outpatient GUS SALAZAR, LANDY Burrell [facility] PREOP LEFT KNEE FUNCTIONAL INSTABILITY;RIGHT ELBOW ARTHR [id number] 09/09/2012 16:51:00 09/09/2012 18:07:00 DIS Emergency ROHAN PITTMAN MD [facility] ER BROKEN BLOOD VESSEL [id number] 11/25/2015 22:39:00 Document Registration [id number] 04/30/2012 07:55:00 Document Registration [id number] 04/28/2012 10:02:00 Document Registration [id number] 08/01/2011 06:23:00 Document Registration [id number] 07/29/2011 17:15:00 Document Registration [id number] 07/17/2011 10:51:00 Document Registration [id number] 12/26/2010 10:02:00 Document Registration [id number] 12/20/2010 05:41:00 Document Registration [id number] 12/12/2010 09:53:00 Document Registration [id number] 08/01/2010 12:28:00 Document Registration [id number] 06/28/2010 05:45:00 Document Registration [id number] 06/22/2010 07:34:00 Document Registration [id number] 01/12/2009 05:50:00 Document Registration [id number] 09/21/2014 07:14:13 ACT Document Registration
== END 2017-07-19 17:17 | disposition home or self-care (01) ==
LOC: ICU 11:42 → UNDOADMOB 11:42 → CATH 11:42 → UNDODISOB 07-19 17:17 → CATH 07-19 17:17
PROVIDERS: ATTEND Internal Medicine Cardiovascular Disease
DX: R00.1 Bradycardia, unspecified (principal); Z96.652 Presence of left artificial knee joint; E78.5 Hyperlipidemia, unspecified; Z87.891 Personal history of nicotine dependence; E11.9 Type 2 diabetes mellitus without complications; D64.9 Anemia, unspecified; I12.9 Hypertensive chronic kidney disease with stage 1 through stage 4 chronic kidney disease, or unspecified chronic kidney disease; N18.9 Chronic kidney disease, unspecified; I65.23 Occlusion and stenosis of bilateral carotid arteries
CPT/HCPCS: 33208; 36415; 71046; 80048; 80053; 83735; 84443; 85027; 85610; 93005; 99211

== ENCOUNTER → 2017-08-06 | Day surgery (SDC) | payer MEDICARE, MEDICAID ==
[~2017-08-06] VITALS: Ht 188 cm; Wt 110.7 kg
[~2017-08-06] MED LIST changes: +BISA5TAB8 PO; +CIPR500T4 PO; +DICY10CA12 PO; +FLUT16SP22 NS; +LIDOCAINE 1% INJ 20 ML 20 ML VIAL ONE; +MEMA1CAP3 PO; +ONDA8TAB12 PO; +OXYC40TA46 PO
[2017-08-06 11:20] VITALS: BP 129/79
[2017-08-06 12:01] VITALS: BP 120/64
--- NOTE | 2017-08-06 19:40 | OPERATIVE REPORT ---
DATE OF SERVICE: 08/06/2017 PROCEDURE: Explantation of implantable loop recorder. INDICATIONS: The patient is a 67-year-old man who had implantable loop recorder placed for evaluation of symptoms of syncope. He was found to have long symptomatic bradycardic pauses for which he now has a pacemaker in place and the implantable loop recorder was removed after having obtained an informed consent today. DESCRIPTION OF PROCEDURE: He was brought to the cardiac catheterization laboratory in a fasting state. The left prepectoral area, which is the site of implant, was prepared and draped in the usual sterile fashion. Lidocaine 1% local anesthesia. We used a sharp and blunt dissection to open the pocket and to remove the device. The incision was closed using 3-0 Vicryl. He tolerated the procedure well. ESTIMATED BLOOD LOSS: Less than 3 mL. Job ID: [id number] DocumentID: [id number] Dictated Date: 08/06/2017 11:51:30 Immigration Law Specialist Date: 08/06/2017 19:38:59 Dictated By: MANUEL GOODRICH MD, MA, FACP, FACC,
== END | disposition home or self-care (01) ==
LOC: CATH 11:09
PROVIDERS: ATTEND Internal Medicine Cardiovascular Disease
DX: R55 Syncope and collapse (principal); I25.10 Atherosclerotic heart disease of native coronary artery without angina pectoris; I65.23 Occlusion and stenosis of bilateral carotid arteries; E78.5 Hyperlipidemia, unspecified; I12.9 Hypertensive chronic kidney disease with stage 1 through stage 4 chronic kidney disease, or unspecified chronic kidney disease; E11.22 Type 2 diabetes mellitus with diabetic chronic kidney disease; N18.9 Chronic kidney disease, unspecified; D50.9 Iron deficiency anemia, unspecified; Z87.891 Personal history of nicotine dependence; Z79.82 Long term (current) use of aspirin; Z79.84 Long term (current) use of oral hypoglycemic drugs; Z79.899 Other long term (current) drug therapy
CPT/HCPCS: 33284

== ENCOUNTER → 2017-10-24 | Outpatient (CLI) | payer MEDICARE, MEDICAID ==
[~2017-10-24] MED LIST changes: -KETO120S11 TP; +KETO120S2 TP; -LIDOCAINE 1% INJ 20 ML 20 ML VIAL ONE
--- NOTE | 2017-10-24 12:53 | Diagnostic Imaging Report ---
INDICATION: Chest pain at site of implant.. TECHNIQUE: Two view chest at 12:05 PM CORRELATION STUDY: 07/19/2017 FINDINGS: Left-sided dual-chamber pacemaker is present. There has been either revision or change in the appearance of the distal lead course. There is a loop of the lead over the central aspect of the heart, changed from prior study. A loop recorder device previously demonstrated over the left chest has been removed. Heart size, mediastinum and vasculature overall generally stable. Lung mejia with chronic-type changes. No infiltrate or effusion. Degenerative changes with bridging osteophytes of the thoracic spine. Partial visualization of the lumbar spinal fixation hardware. IMPRESSION: 1. There has been change in the appearance and configuration/course of the distal pacemaker lead. There is now loops superimposed over the central aspect of the heart. Clinical correlation is recommended. 2. Interval removal of the loop recorder device. Dictated by: Dictated on workstation # [id number]
== END ==
LOC: RAD 11:34
PROVIDERS: ATTEND Nurse Practitioner Family
DX: R07.89 Other chest pain (principal); R06.09 Other forms of dyspnea; M25.512 Pain in left shoulder; Z95.0 Presence of cardiac pacemaker
CPT/HCPCS: 71046

== ENCOUNTER → 2017-10-31 | Outpatient (CLI) | payer MEDICAID, MEDICARE | LOC: RAD 16:21 | PROVIDERS: ATTEND Physician Assistant | DX: M54.2 Cervicalgia (principal); Z53.8 Procedure and treatment not carried out for other reasons ==

== ENCOUNTER → 2018-05-05 | Outpatient (CLI) | payer MEDICARE, MEDICAID ==
[~2018-05-05] MED LIST changes: +METF-397 PO; -METF500T5 PO
--- NOTE | 2018-05-05 14:04 | Diagnostic Imaging Report ---
PROCEDURE: CT cervical spine without contrast. TECHNIQUE: Multiple contiguous axial images were obtained through the cervical spine without the use of intravenous contrast. Sagittal and coronal reformations were then performed. INDICATION: Neck pain and bilateral arm pain, left greater with numbness and tingling. Patient has had prior cervical spine surgery in 1991. COMPARISON: Correlation is made with prior MRI of the cervical spine from 11/12/2017. No prior CT of the cervical spine is available for comparison. FINDINGS: Curvature of the cervical spine is normal. There is osseous fusion between the C3 and C4 vertebral bodies. There is degenerative disc disease at all levels of the cervical spine. Disc space narrowing and marginal spurring is present. There is also degenerative changes involving all cervical facets. Evaluation of the central canal is limited with CT. Uncovertebral joint degenerative change is noted at C2-3 resulting in severe bilateral neural foraminal stenosis, greatest on the left. Mild neural foraminal narrowing is seen bilaterally at C3-4. C4-5 level is unremarkable. C5-6 level is grossly unremarkable. C6-7 does show significant bilateral neural foraminal stenosis due to uncovertebral joint degenerative change. C7-T1 is unremarkable. IMPRESSION: Postop changes of C3-4 vertebral body osseous fusion. There is marked multilevel cervical spondylosis with multilevel neural foraminal stenosis. Bony canal is limited by CT. MRI would be useful for further evaluation, if clinically indicated. Dictated by: Dictated on workstation # [id number]
== END ==
LOC: RAD 13:10
PROVIDERS: ATTEND Orthopaedic Surgery Orthopaedic Surgery of the Spine
DX: M48.02 Spinal stenosis, cervical region (principal); M47.812 Spondylosis without myelopathy or radiculopathy, cervical region; Z98.1 Arthrodesis status
CPT/HCPCS: 72125

== ENCOUNTER → 2018-05-20 | Outpatient (CLI) | payer MEDICARE, MEDICAID ==
[~2018-05-20] MED LIST changes: +CATHETER FLUSH 10 ML SYR IV PRN; +REGADENOSON 0.4 MG/5 ML SYR (LEXISCAN) IV ONE
[2018-05-20 09:19] VITALS: BP 162/93
[2018-05-20 09:23] VITALS: BP 162/100
--- NOTE | 2018-05-20 23:21 | STRESS TEST ---
DATE OF SERVICE: 05/20/2018 RESTING AND POST REGADENOSON TECHNETIUM-99M TETROFOSMIN SPECT CT IMAGING ORDERING PHYSICIAN: Dr. Suazo. CLINICAL DIAGNOSES: Chest discomfort, coronary artery disease. Baseline images were carried out after injection of 10.51 mCi of technetium-99m Tetrofosmin. This was followed by 0.4 mg regadenoson and 30.5 mCi of technetium-99m Tetrofosmin for stress imaging. The electrocardiogram showed sinus rhythm at baseline. It did not change significantly with the regadenoson infusion. The patient had some abdominal cramping and mild chest discomfort and a headache following regadenoson infusion, which resolved in a few minutes. Overall, he tolerated the procedure fairly well. Review of images at rest and following stress does not indicate any significant perfusion defects consistent with significant myocardial ischemia or infarction. Gated images show normal global left ventricular systolic function with normal regional wall motion. Left ventricular ejection fraction is calculated to be 47%, but appears subjectively higher than that. Left ventricular end diastolic volume is 115 mL. TID is absent (1.04). CONCLUSIONS: 1. This study does not indicate significant myocardial ischemia or infarction. 2. Normal regional wall motion. 3. Well preserved global left ventricular systolic function. Left ventricular ejection fraction is calculated to be 47%, but subjectively appears to be higher than that. 4. Mild cardiomegaly. Job ID: [id number] DocumentID: [id number] Dictated Date: 05/20/2018 17:37:03 Bench Worker [employer] Handle Date: 05/20/2018 23:21:18 Dictated By: MANUEL SUAZO MD, MA, FACP, FACC, MTDD
== END ==
LOC: CARD 06:57
PROVIDERS: ATTEND Internal Medicine Cardiovascular Disease
DX: R07.9 Chest pain, unspecified (principal); I25.10 Atherosclerotic heart disease of native coronary artery without angina pectoris; I77.9 Disorder of arteries and arterioles, unspecified; I13.0 Hypertensive heart and chronic kidney disease with heart failure and stage 1 through stage 4 chronic kidney disease, or unspecified chronic kidney disease; N18.9 Chronic kidney disease, unspecified; I50.32 Chronic diastolic (congestive) heart failure; E11.9 Type 2 diabetes mellitus without complications
CPT/HCPCS: 78452; 93017

== ENCOUNTER 2018-08-08 10:47 | Outpatient (RCR) | payer MEDICARE, MEDICAID ==
[~2018-08-08 10:47] MED LIST changes: -CATHETER FLUSH 10 ML SYR IV PRN; -REGADENOSON 0.4 MG/5 ML SYR (LEXISCAN) IV ONE
[2018-08-08 11:20] LABS: FIBRIN DEGRADATION PRODUCTS 0.96 UG/ML (0.00-0.49)
[2018-08-08 11:29] LABS: CREATINE KINASE MB 2.9 NG/ML (<6.6)
== END 2018-11-06 | disposition home or self-care (01) ==
LOC: LAB 10:47
DX: R07.9 Chest pain, unspecified (principal)
CPT/HCPCS: 36415; 82553; 84484; 85379; 85610

== ENCOUNTER 2018-08-08 11:59 | Emergency (ER) | payer MEDICARE, MEDICAID ==
[~2018-08-08] VITALS: Ht 188 cm; Wt 101.6 kg
[2018-08-08 12:32] LABS: BASOPHILS % (AUTO) 0 % (0-10); EOSINOPHILS # (AUTO) 0.1 10^3/uL (0.0-0.3); EOSINOPHILS % (AUTO) 1 % (0-10); HEMATOCRIT 39 % (40-54); HEMOGLOBIN 13.1 G/DL (13.3-17.7); LYMPHOCYTES # (AUTO) 1.5 X 10^3 (1.0-4.0); LYMPHOCYTES % (AUTO) 24 % (12-44); MEAN CORPUSCULAR HEMOGLOBIN 25 PG (25-34); MEAN CORPUSCULAR HGB CONC 34 G/DL (32-36); MEAN CORPUSCULAR VOLUME 75 FL (80-99); MEAN PLATELET VOLUME 10.3 FL (7.4-10.4); MONOCYTES # (AUTO) 0.3 X 10^3 (0.0-1.0); MONOCYTES % (AUTO) 5 % (0-12); NEUTROPHILS # (AUTO) 4.3 X 10^3 (1.8-7.8); NEUTROPHILS % (AUTO) 69 % (42-75); PLATELET COUNT 175 10^3/uL (130-400); RED CELL DISTRIBUTION WIDTH 16.4 % (10.0-14.5); WHITE BLOOD COUNT 6.3 10^3/uL (4.3-11.0)
--- NOTE | 2018-08-08 12:44 | ED General ---
General Chief Complaint: Respiratory Problems Stated Complaint: ELEVATED BLOOD WORK, LT SIDE OF NECK PAIN Nursing Triage Note: PT CO OF SOA, PT AMBULATED TO ROOM [address] PT STATES HAS SEEN DR LAURENT AND DR SUAZO TODAY. PT HAD INTERRIGATION OF PACEMAKER. PT HAS HAD SOA, PT HAS HAD RECENT NECK SURG JULY 01. PT WEARING A SOFT COLLAR AROUND NECK. PT STATES HAS ABNORMAL LAB WORK TODAY AND NEEDS MORE WORK UP Nursing Sepsis Screen: No Definite Risk Source of Information: Patient Exam Limitations: No Limitations History of Present Illness Date Seen by Provider: August 08, 2018 Time Seen by Provider: 12:09 Initial Comments This 68-year-old gentleman presents to the emergency room accompanied by his as directed by his primary care office for reasons of shortness of air and elevated d-dimer. Patient was seen at Dr. Suazo's office today and his pacemaker was interrogated. Labs were obtained as ordered through Dr. Laurent 's office and a d-dimer was found to be elevated. Workup was presumed to be ordered because of patient's shortness of breath and fatigue. Patient also reports he has had some drainage and some difficulty with swallowing after having neck surgery by Dr. Bucio on July 01. He is here in the ER to follow-up on the abnormal labs. He denies any lower extremity symptoms. Allergies and Home Medications Allergies Coded Allergies: Penicillins (Verified Allergy, Intermediate, RASH, 12/22/10) Home Medications Alprazolam 1 Mg Tablet, 1 MG PO BID, (Reported) Aspirin 81 Mg Tablet.dr, 81 MG PO DAILY, (Reported) Atorvastatin Calcium 20 Mg Tablet, 20 MG PO HS, (Reported) Baclofen 10 Mg Tablet, 10 MG PO TID, (Reported) Bisacodyl 5 Mg Tablet.dr, 5 MG PO DAILY PRN for CONSTIPATION-4TH LINE, (Reported) Cetirizine HCl 10 Mg Tablet, 10 MG PO HS, (Reported) Ciprofloxacin HCl 500 Mg Tablet, 500 MG PO BID Prescribed by: CLIFF CR on 07/19/17 8505 Diclofenac Sodium 100 Gm Gel..gram., TP QID PRN for JOINT PAIN, (Reported) Dicyclomine HCl 10 Mg Capsule, 10 MG PO BID, (Reported) Docusate Sodium 100 Mg Capsule, 100 MG PO BID, (Reported) Fluocinonide/Emollient Base 15 Gm Cream..g., TP BID PRN for PAIN, (Reported) Fluticasone Propionate 16 Gm [place].susp, 1 SPRAY NS DAILY, (Reported) Gabapentin 300 Mg Capsule, 600 MG PO TID, (Reported) TAKES 2 (300MG) CAPSULES Ketoconazole 120 Ml Shampoo, TP DAILY, (Reported) Liraglutide 0.6 Mg/0.1 Ml Pen.injctr, 0.6 MG SQ DAILY, (Reported) Lisinopril 10 Mg Tablet, 10 MG PO DAILY, (Reported) Meclizine HCl 25 Mg Tablet, 25 MG PO TID PRN for DIZZINESS, (Reported) Meloxicam 15 Mg Tablet, 15 MG PO DAILY, (Reported) Memantine HCl/Donepezil HCl 1 Each Cap.spr.24, 1 CAP PO DAILY, (Reported) Metformin HCl 500 Mg Tablet, 500 MG PO BID WITH MEALS, (Reported) Metoprolol Succinate 50 Mg Tab.er.24h, 50 MG PO DAILY, (Reported) Nitroglycerin 0.4 Mg Tab.subl, 0.4 MG SL UD PRN for CHEST PAIN, (Reported) Nystatin 15 Gm Cream..g., TP BID PRN for SORES, (Reported) Ondansetron HCl 8 Mg Tablet, 8 MG PO TID PRN for NAUSEA/VOMITING-1ST LINE, (Reported) Oxycodone HCl 40 Mg Tab.er.12h, 40 MG PO Q12H, (Reported) Oxycodone HCl/Acetaminophen 1 Each Tablet, 1 TAB PO Q8H PRN for PAIN-MODERATE, (Reported) Pantoprazole Sodium 40 Mg Tablet.dr, 40 MG PO DAILY, (Reported) Polyethylene Glycol 3350 17 Gm Powd.pack, 17 GM PO DAILY PRN for CONSTIPATION- 2ND LINE, (Reported) Pramipexole Di-HCl 0.25 Mg Tablet, 0.25 MG PO TID, (Reported) Tamsulosin HCl 0.4 Mg Cap.er.24h, 0.4 MG PO DAILY, (Reported) Triamcinolone Acet 15 Gm Oint, TP BID, (Reported) Zolpidem Tartrate 10 Mg Tablet, 10 MG PO HS, (Reported) Patient Home Medication List Home Medication List Reviewed: Yes Review of Systems Review of Systems Constitutional: see HPI EENTM: see HPI Respiratory: see HPI Cardiovascular: no symptoms reported Gastrointestinal: no symptoms reported Genitourinary: no symptoms reported Musculoskeletal: see HPI Skin: no symptoms reported Psychiatric/Neurological: No Symptoms Reported Hematologic/Lymphatic: No Symptoms Reported Immunological/Allergic: no symptoms reported Past Dxeshyk-Zflmit-Gsokcm Hx Past Med/Social Hx: Reviewed Nursing Past Med/Soc Hx Patient Social History Alcohol Use: Denies Use Recreational Drug Use: No Smoking Status: Former Smoker Type Used: Cigarettes Former Smoker, Quit: Dec 18, 2009 Recent Foreign Travel: No Contact w/Someone Who Travel: No Recent Infectious Disease Expo: No Recent Hopitalizations: Yes (NECK SURG) Immunizations Up To Date Tetanus Booster (TDap): More than 5yrs PED Vaccines UTD: Yes Date of Pneumonia Vaccine: Nov 19, 2016 Date of Influenza Vaccine: Dec 17, 2016 Seasonal Allergies Seasonal Allergies: No Past Medical History Surgeries: Yes (r knee surgery x4, l tra, back surgery x6, hiatal hernia repair, neck) Abdominal, Orthopedic Respiratory: Yes Sleep Apnea Currently Using CPAP: Yes (not using) Currently Using BIPAP: No Cardiac: Yes (svt) High Cholesterol, Hypertension Neurological: Yes Reproductive Disorders: No Sexually Transmitted Disease: No Genitourinary: No Gastrointestinal: Yes Gall Bladder Disease Musculoskeletal: Yes Degenerate Disk Disease, Arthritis, Chronic Back Pain Endocrine: Yes Diabetes, Non-Insulin dep HEENT: Yes Cataract Loss of Vision: Denies Hearing Impairment: Denies Cancer: No Did You Recieve Any Treatments: No Psychosocial: Yes Sleep Difficulties, Anxiety Integumentary: Yes Eczema Blood Disorders: No Adverse Reaction/Blood Tranf: No Family Medical History Reviewed Nursing Family Hx Cancer 03 MOTHER 09 SISTER Family history: Cardiovascular disease 03 FATHER Family history: Diabetes mellitus 03 FATHER 09 BROTHER Family history: Hypertension 03 FATHER 09 BROTHER No Pertinent Family Hx Physical Exam Vital Signs Vital Signs - First Documented 08/08/18 12:00 Temp 97.4 Pulse 82 Resp 26 B/P (MAP) 146/100 (115) Pulse Ox 98 Capillary Refill : Less Than 3 Seconds Height, Weight, BMI Height: 6'2.00" Weight: 224lbs. 0.0oz. 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 Norm as Tested Skin: Normal Color, Warm/Dry Progress/Results/Core Measures Suspected Sepsis Recent Fever Within 48 Hours: No Infection Criteria Present: None New/Unexplained Altered Menta: No Sepsis Screen: No Definite Risk SIRS Temperature:97.4 Pulse: 82 Respiratory Rate: 26 Laboratory Tests 08/08/18 12:20: White Blood Count 6.3 Blood Pressure 146 /100 Mean: 115 Laboratory Tests 08/08/18 12:20: Creatinine 1.15, Platelet Count 175 Results/Orders Lab Results Laboratory Tests Test 08/08/18 12:20 Range/Units White Blood Count 6.3 4.3-11.0 10^3/uL Red Blood Count 5.17 4.35-5.85 10^6/uL Hemoglobin 13.1 L 13.3-17.7 G/DL Hematocrit 39 L 40-54 % Mean Corpuscular Volume 75 L 80-99 FL Mean Corpuscular Hemoglobin 25 25-34 PG Mean Corpuscular Hemoglobin Concent 34 32-36 G/DL Red Cell Distribution Width 16.4 H 10.0-14.5 % Platelet Count 175 130-400 10^3/uL Mean Platelet Volume 10.3 7.4-10.4 FL Neutrophils (%) (Auto) 69 42-75 % Lymphocytes (%) (Auto) 24 12-44 % Monocytes (%) (Auto) 5 0-12 % Eosinophils (%) (Auto) 1 0-10 % Basophils (%) (Auto) 0 0-10 % Neutrophils # (Auto) 4.3 1.8-7.8 X 10^3 Lymphocytes # (Auto) 1.5 1.0-4.0 X 10^3 Monocytes # (Auto) 0.3 0.0-1.0 X 10^3 Eosinophils # (Auto) 0.1 0.0-0.3 10^3/uL Basophils # (Auto) 0.0 0.0-0.1 10^3/uL Sodium Level 135 135-145 MMOL/L Potassium Level 4.1 3.6-5.0 MMOL/L Chloride Level 101 98-107 MMOL/L Carbon Dioxide Level 25 21-32 MMOL/L Anion Gap 9 5-14 MMOL/L Blood Urea Nitrogen 18 7-18 MG/DL Creatinine 1.15 0.60-1.30 MG/DL Estimat Glomerular Filtration Rate > 60 BUN/Creatinine Ratio 16 Glucose Level 158 H 70-105 MG/DL Calcium Level 9.7 8.5-10.1 MG/DL B-Type Natriuretic Peptide 18.6 <100.0 PG/ML My Orders Orders - VANNESA WOMACK MD Basic Metabolic Panel (08/08/18 12:18) Cbc With Automated Diff (08/08/18 12:18) Ed Iv/Invasive Line Start (08/08/18 12:18) Ct Angio Chest W (08/08/18 12:18) Ct Neck (Soft Tissue) W (08/08/18 12:18) BNP (08/08/18 12:28) Vital Signs/I&O Capillary Refill : Less Than 3 Seconds Blood Pressure Mean: 115 Progress Note #1: Time: 12:46 Progress Note Basic labs have been ordered. If creatinine is acceptable, CT angiogram of the chest will be performed to rule out pulmonary embolus. We will extend CT after the soft tissues of the neck as well to evaluate patient's dysphasia. Progress Note #2: Progress Note CT scans revealed no acute concerns. There was no evidence of PE or postsurgical abnormality is noted that. Incidental thyroid nodule was noted and was discussed. Diagnostic Imaging Diagonstic Imaging: CT Plain Films/CT/US/NM/MRI: chest Comments NAME: [facility]AYLOR [facility] REC#: [id number] PT STATUS: DEP ER : 1950 PHYSICIAN: VANNESA WOMACK MD ADMIT DATE: 08/08/18/ER Signed Date of Exam: 08/08/18 CT ANGIO CHEST W PROCEDURE: CT angiography of the chest with contrast. TECHNIQUE: Multiple contiguous axial images were obtained through the chest after uneventful bolus administration of intravenous contrast. 2D reconstructed CTA MIP acquisitions were also performed. Auto Exposure Controls were utilized during the CT exam to meet ALARA standards for radiation dose reduction. INDICATION: Status post neck surgery one and a half months ago. Patient currently complains of shortness of air and wheezing. COMPARISON: No prior studies are available for comparison. FINDINGS: Evaluation of the pulmonary arterial system is without evidence of thromboembolism. No filling defects are seen within the central, lobar, or segmental branches. The thoracic aorta is normal in caliber. There is calcified plaque in the aortic arch. No dissection is seen. No pericardial or pleural fluid is identified. No pulmonary infiltrates, nodules, or masses are seen. Upper abdomen demonstrates bilateral renal cysts, largest in the upper pole of the left kidney of approximately 2.9 cm in size. IMPRESSION: 1. No evidence of pulmonary embolism or thoracic aortic dissection. No acute feature is detected. Dictated by: Dictated on workstation # [id number] Dict: 08/08/18 1357 Trans: 08/08/18 1505 Interpreted by: DUTCH KAUR MD Electronically signed by: DUTCH KAUR MD 08/08/18 1505 Reviewed: Reviewed by Me Diagonstic Imaging: CT Plain Films/CT/US/NM/MRI: other (neck) Comments NAME: TAYLOR [facility] REC#: [id number] PT STATUS: DEP ER : 1950 PHYSICIAN: VANNESA WOMACK MD ADMIT DATE: 08/08/18/ER Signed Date of Exam: 08/08/18 CT NECK (SOFT TISSUE) W PROCEDURE: CT neck soft tissue with contrast. TECHNIQUE: Multiple contiguous axial images were obtained through the neck after the administration of contrast. Auto Exposure Controls were utilized during the CT exam to meet ALARA standards for radiation dose reduction. INDICATION: Left-sided neck pain. Patient is status post neck surgery one and half months ago. FINDINGS: Evaluation of bony structures demonstrates postop changes of ACDF with anterior plates and screws transfixing the C2-3 level as well as the C6-7 level. There is osseous fusion between the C3 and C4 vertebral bodies. The hardware appears to be intact. No definite fracture or loosening is identified. Evaluation of the soft tissues demonstrates intracranial structures to be unremarkable. Posterior nasopharynx and oropharynx are unremarkable. Parapharyngeal fat planes are preserved. Epiglottis and larynx are unremarkable. There is a low-density nodule in the right lobe of the thyroid measuring 14 mm. The submandibular glands are unremarkable. Bilateral parotid glands are unremarkable. No cervical lymphadenopathy or fluid collection is identified. No inflammatory changes are seen. IMPRESSION: 1. Postop changes of ACDF C2-3 and C6-7 levels. No complicating features are identified. 2. Otherwise, unremarkable CT of the soft tissue neck. No inflammatory process or fluid collection is detected. 3. Small right lobe thyroid nodule, likely a benign nodule. Correlation with thyroid ultrasound on a nonemergent basis could be performed for better characterization. Dictated by: Dictated on workstation # [id number] Dict: 08/08/18 1401 Trans: 08/08/18 1506 Interpreted by: DUTCH KAUR MD Electronically signed by: DUTCH KAUR MD 08/08/18 1506 Reviewed: Reviewed by Me Departure Impression Primary Impression: Dyspnea Qualified Codes: R06.00 - Dyspnea, unspecified Additional Impressions: Dysphasia Elevated d-dimer Thyroid nodule Disposition: HOME, SELF-CARE Condition: Stable Departure-Patient Inst. Decision time for Depature: 14:21 Referrals: JENNIFER LAURENT MD (PCP/Family) Primary Care Physician Patient Instructions: NO INSTRUCTIONS GIVEN Add. Discharge Instructions: Follow-up with Dr. Laurent and Dr. Bucio as soon as possible. Call their offices this afternoon to schedule appointments. Return to care if you have worsening symptoms. There was an incidental finding of a thyroid nodule on your CT. This should be addressed and followed up by Dr. Laurent. An ultrasound of her thyroid may be suggested. Discuss further with Dr. Laurent. Your CT scans were negative for any acute problems such as blood clot, hematoma, etc. Continue with postop instructions as previously directed. All discharge instructions reviewed with patient and/or family. Voiced understanding. Copy Copies To 1: JENNIFER LAURENT MD Copies To 2: YOSEPH BUCIO MD, JOSHUA T MD August 08, 2018 12:44
[2018-08-08 12:53] LABS: BUN/CREATININE RATIO 16; CALCIUM 9.7 MG/DL (8.5-10.1); CARBON DIOXIDE 25 MMOL/L (21-32); CHLORIDE 101 MMOL/L (98-107); CREATININE SERUM 1.15 MG/DL (0.60-1.30); GFR ESTIMATED > 60; GLUCOSE 158 MG/DL (70-105); POTASSIUM 4.1 MMOL/L (3.6-5.0); SODIUM 135 MMOL/L (135-145)
--- NOTE | 2018-08-08 14:03 | NUR ---
PT UPSET STATES NEEDS TO GO HOME, STATES X-RAY SHOULD HAVE ALREADY BEEN BACK
--- NOTE | 2018-08-08 14:08 | Diagnostic Imaging Report ---
PROCEDURE: CT neck soft tissue with contrast. TECHNIQUE: Multiple contiguous axial images were obtained through the neck after the administration of contrast. Auto Exposure Controls were utilized during the CT exam to meet ALARA standards for radiation dose reduction. INDICATION: Left-sided neck pain. Patient is status post neck surgery one and half months ago. FINDINGS: Evaluation of bony structures demonstrates postop changes of ACDF with anterior plates and screws transfixing the C2-3 level as well as the C6-7 level. There is osseous fusion between the C3 and C4 vertebral bodies. The hardware appears to be intact. No definite fracture or loosening is identified. Evaluation of the soft tissues demonstrates intracranial structures to be unremarkable. Posterior nasopharynx and oropharynx are unremarkable. Parapharyngeal fat planes are preserved. Epiglottis and larynx are unremarkable. There is a low-density nodule in the right lobe of the thyroid measuring 14 mm. The submandibular glands are unremarkable. Bilateral parotid glands are unremarkable. No cervical lymphadenopathy or fluid collection is identified. No inflammatory changes are seen. IMPRESSION: 1. Postop changes of ACDF C2-3 and C6-7 levels. No complicating features are identified. 2. Otherwise, unremarkable CT of the soft tissue neck. No inflammatory process or fluid collection is detected. 3. Small right lobe thyroid nodule, likely a benign nodule. Correlation with thyroid ultrasound on a nonemergent basis could be performed for better characterization. Dictated by: Dictated on workstation # [id number]
--- NOTE | 2018-08-08 14:10 | Diagnostic Imaging Report ---
PROCEDURE: CT angiography of the chest with contrast. TECHNIQUE: Multiple contiguous axial images were obtained through the chest after uneventful bolus administration of intravenous contrast. 2D reconstructed CTA MIP acquisitions were also performed. Auto Exposure Controls were utilized during the CT exam to meet ALARA standards for radiation dose reduction. INDICATION: Status post neck surgery one and a half months ago. Patient currently complains of shortness of air and wheezing. COMPARISON: No prior studies are available for comparison. FINDINGS: Evaluation of the pulmonary arterial system is without evidence of thromboembolism. No filling defects are seen within the central, lobar, or segmental branches. The thoracic aorta is normal in caliber. There is calcified plaque in the aortic arch. No dissection is seen. No pericardial or pleural fluid is identified. No pulmonary infiltrates, nodules, or masses are seen. Upper abdomen demonstrates bilateral renal cysts, largest in the upper pole of the left kidney of approximately 2.9 cm in size. IMPRESSION: 1. No evidence of pulmonary embolism or thoracic aortic dissection. No acute feature is detected. Dictated by: Dictated on workstation # [id number]
[2018-08-08 14:29] VITALS: BP 146/100
== END 2018-08-08 14:28 | disposition home or self-care (01) ==
LOC: EDUNIT# 11:59 → ER 12:00
DX: R06.00 Dyspnea, unspecified (principal); R13.10 Dysphagia, unspecified; R79.1 Abnormal coagulation profile; R59.0 Localized enlarged lymph nodes; G47.30 Sleep apnea, unspecified; E78.00 Pure hypercholesterolemia, unspecified; I10 Essential (primary) hypertension; E11.9 Type 2 diabetes mellitus without complications; F41.9 Anxiety disorder, unspecified; Z82.49 Family history of ischemic heart disease and other diseases of the circulatory system; Z87.19 Personal history of other diseases of the digestive system; Z88.0 Allergy status to penicillin; Z79.82 Long term (current) use of aspirin; Z79.51 Long term (current) use of inhaled steroids; Z79.84 Long term (current) use of oral hypoglycemic drugs; Z87.891 Personal history of nicotine dependence; Z98.890 Other specified postprocedural states
CPT/HCPCS: 36415; 70491; 71275; 80048; 83880; 85025

== ENCOUNTER → 2018-08-25 | Outpatient (CLI) | payer MEDICARE, MEDICAID | LOC: RAD 07:16 | DX: R47.81 Slurred speech (principal) ==

== ENCOUNTER → 2018-09-05 | Outpatient (CLI) | payer MEDICARE, MEDICAID ==
--- NOTE | 2018-10-22 15:00 | RADIOLOGY REPORT ---
NAME: TAYLOR MATUTE [facility] REC#: [id number] PT STATUS: REG CLI : 1950 PHYSICIAN: JENNIFER LAURENT MD CORRECTED ADMIT DATE: 09/05/18/RAD Signed Date of Exam:09/05/18 CHEST PA/LAT (2 VIEW) INDICATION: ABNORMAL WEIGHT LOSS COMPARISON: 10/24/2017 FINDINGS: Frontal and lateral views of the chest demonstrate normal heart size and pulmonary vascularity. The lungs are clear. There are no signs of infiltrate, pleural effusions or pneumothoraces. The visualized osseous structures show no acute abnormalities. Left-sided dual-lead pacemaker is noted. IMPRESSION: 1. No acute process. No signs of infiltrates, effusions or pneumothoraces. Dictated by: Dictated on workstation # [id number] Dict: 09/05/18 1358 Trans: 09/05/18 1819 [id number] Interpreted by: LOAN BERNABE MD Electronically signed by: LOAN BERNABE MD 09/05/18 1819 [facility]
== END ==
LOC: RAD 13:30
DX: R63.4 Abnormal weight loss (principal)
CPT/HCPCS: 71046

== ENCOUNTER → 2018-09-22 | Outpatient (CLI) | payer MEDICARE, MEDICAID ==
--- NOTE | 2018-09-22 14:10 | Diagnostic Imaging Report ---
PROCEDURE: MR imaging of the brain without contrast. TECHNIQUE: Multiplanar, multisequence MR imaging of the brain was performed without contrast. INDICATION: Difficulty swallowing and dizziness. COMPARISON: Correlation is made with prior MRI of the brain from 03/28/2017. FINDINGS: No diffusion restriction is identified. The normal expected flow-voids within the carotid siphons are seen. Ventricular size is stable. Encephalomalacia right occipital lobe is again noted and unchanged. Periventricular and subcortical white matter foci bilaterally are similar to prior exam consistent with chronic microvascular ischemia. No acute intra-axial or extra-axial hemorrhage is identified. Corpus callosum is unremarkable. The sella and parasellar structures are unremarkable. IMPRESSION: Stable chronic changes when compared with prior exam from 03/28/2017. No acute intracranial process is detected. Dictated by: Dictated on workstation # [id number]
== END ==
LOC: RAD 12:59
DX: R13.10 Dysphagia, unspecified (principal); R47.81 Slurred speech; R42 Dizziness and giddiness
CPT/HCPCS: 70551

== ENCOUNTER → 2018-09-30 | Outpatient (CLI) | payer MEDICARE, MEDICAID ==
--- NOTE | 2018-09-05 14:00 | Diagnostic Imaging Report ---
INDICATION: ABNORMAL WEIGHT LOSS COMPARISON: 10/24/2017 FINDINGS: Frontal and lateral views of the chest demonstrate normal heart size and pulmonary vascularity. The lungs are clear. There are no signs of infiltrate, pleural effusions or pneumothoraces. The visualized osseous structures show no acute abnormalities. Left-sided dual-lead pacemaker is noted. IMPRESSION: 1. No acute process. No signs of infiltrates, effusions or pneumothoraces. Dictated by: Dictated on workstation # [id number]
[~2018-09-30] MED LIST changes: +CATHETER FLUSH 10 ML SYR IV PRN; +HOLD METFORMIN - RECEIVED CONTRAST 20 ML VIAL IV SCH; +IOHEXOL 350 MG/ML 100 ML (OMNIPAQUE 350) VIAL IV ONE; +NS 100 ML (IVPB) BAG IV ONE
--- NOTE | 2018-09-30 11:04 | Diagnostic Imaging Report ---
PROCEDURE: CT abdomen and pelvis without contrast. TECHNIQUE: Multiple contiguous axial images were obtained through the abdomen and pelvis without the use of intravenous contrast. Auto Exposure Controls were utilized during the CT exam to meet ALARA standards for radiation dose reduction. INDICATION: Weight loss. FINDINGS: The previous CT abdomen/pelvis exam of 01/27/2015 noted postsurgical changes consistent with repair of a ventral hernia. There was no acute abnormality identified. The liver does not appear to be enlarged and seems similar to the prior study. In the interval since the prior exam, the gallbladder has been resected. The spleen, pancreas, adrenals, aorta, and inferior vena cava show no sign of an acute abnormality. The stomach is distended by gas and particulate matter and consequently difficult to assess. The cyst associated with the left ovary seen previously is again evident and perhaps slightly larger. This cyst now measures 3.3 cm as opposed to 2.8 cm on the prior study. There is also a small 1.0 cm cyst in the superior pole of the right kidney. This is slightly larger than on the prior exam as well. There is no pelvic mass or free fluid collection evident. The appendix was visualized and is not abnormally thickened. There is a fair amount of fecal material throughout the colon. The urinary bladder and prostate gland are grossly unremarkable. The repair of the ventral hernia seen previously is intact. There is no sign of recurrent hernia. The bone windows are unremarkable for fracture or for destructive lesion. The previous exam did note that there had been a prior fusion of L2-L3, L4-L5, and L5-S1. In the interval since the prior exam, the fusion has been revised. There are now bilateral pedicle screws at each level except L5. There is a single pedicle screw on the right at L5. Also, there are now interconnecting rods on each side of the spine extending through each sacroiliac joint. The lung bases are clear. IMPRESSION: 1. There is no acute abnormality of the abdomen or pelvis. There is no abnormality to account for the patient's weight loss either. 2. There has been an interval cholecystectomy. The fusion of the lumbar spine seen previously has also been revised. Dictated by: Dictated on workstation # [id number]
--- NOTE | 2018-09-30 12:18 | Diagnostic Imaging Report ---
EXAMINATION: PA and lateral chest at 10:15 AM. INDICATION: Weight loss, chest pain. FINDINGS: The heart size is within normal limits and stable when compared to 09/05/2018. The left-sided pacemaker seen on the prior study is again evident and no different. The lungs are clear. There is no sign of failure, pneumonia, or pleural effusion. The mediastinum is not widened. The osseous structures are intact. The orthopedic hardware overlying the lower cervical spine seen previously is again evident. IMPRESSION: There is no evidence for active disease. When compared to the previous study, there has been no significant change. Dictated by: Dictated on workstation # [id number]
== END ==
LOC: RAD 09-05 13:12
DX: R63.4 Abnormal weight loss (principal); R07.9 Chest pain, unspecified; Z90.49 Acquired absence of other specified parts of digestive tract; Z98.1 Arthrodesis status; Z95.0 Presence of cardiac pacemaker
CPT/HCPCS: 71046; 74176

== ENCOUNTER → 2018-12-19 | Outpatient (CLI) | payer MEDICARE, MEDICAID ==
[~2018-12-19] MED LIST changes: -CATHETER FLUSH 10 ML SYR IV PRN; -HOLD METFORMIN - RECEIVED CONTRAST 20 ML VIAL IV SCH; -IOHEXOL 350 MG/ML 100 ML (OMNIPAQUE 350) VIAL IV ONE; -NS 100 ML (IVPB) BAG IV ONE
--- NOTE | 2018-12-19 13:17 | Diagnostic Imaging Report ---
EXAMINATION: Modified barium swallow. INDICATION: Dysphagia. FINDINGS: This exam was performed in the presence of speech pathologist, Laurita. There are no prior studies available for comparison. The patient was given barium in different substances to swallow. This included honey, nectar, thin barium, cottage cheese, and ground ham. The patient was able to swallow the barium without difficulty. There was no aspiration or penetration. There did seem to be some delay in the passage of the contrast in the upper esophagus. This may be related to osteophytes impinging upon the posterior aspect of the proximal esophagus. There has also been a fusion of C2 and C3, but this does not seem to interfere with the passage of the contrast. IMPRESSION: There is no evidence for aspiration or penetration. Dictated by: Dictated on workstation # [id number]
== END ==
LOC: RAD 09:49
PROVIDERS: ATTEND Otolaryngology Otolaryngology/Facial Plastic Surgery
DX: R13.10 Dysphagia, unspecified (principal)
CPT/HCPCS: 74230

== ENCOUNTER → 2020-01-06 | Outpatient (CLI) | payer MEDICARE, MEDICAID ==
[~2020-01-06] MED LIST changes: +ASPI-1238 PO; -ASPI-983 PO; +CATHETER FLUSH 10 ML SYR IV PRN; +HOLD METFORMIN - RECEIVED CONTRAST 20 ML VIAL IV SCH; +IOHEXOL 350 MG/ML 100 ML (OMNIPAQUE 350) VIAL IV ONE; +KETO120S13 TP; -KETO120S2 TP; -MECL-106 PO; +MECL-149 PO; -METO-370 PO; +NS 100 ML (IVPB) BAG IV ONE; -ONDA8TAB12 PO; +ONDA8TAB15 PO
--- NOTE | 2020-01-06 16:17 | Diagnostic Imaging Report ---
EXAM: CT NECK-CHEST W/ABDOMEN W WO INDICATION: Skin nodule on back. COMPARISON: CT neck with IV contrast 08/08/2018. CT abdomen pelvis without contrast 09/30/2018. CTA chest 08/08/2018. FINDINGS: CTA NECK: Stable 1.8 cm hypoenhancing nodule in the right thyroid. No other mass or fluid collection in the neck. No cervical lymphadenopathy. The pharyngeal and laryngeal soft tissues demonstrate no focal mass or enhancement. The floor of the mouth, tongue base and epiglottis are negative. No retropharyngeal fluid. The carotid and vertebral arteries are grossly patent intoe neck. The orbits and visualized intracranial contents are unremarkable. Visualized paranasal sinuses and mastoids are clear. Postoperative findings from anterior fusion C2-C3 and C6-C7 with chronic fusion of C3-C4. No acute osseous findings. CT CHEST: 0.4 cm solid pulmonary nodule in the right middle lobe is stable compared to 08/08/2018. Lungs are otherwise clear. No pleural effusion or pneumothorax. Cardiac pacer. Normal heart size. No pericardial effusion. No mediastinal or hilar lymphadenopathy. The left axillary lymph nodes are diffusely prominent and asymmetric compared to the contralateral side. These measure up to 1.0 cm in short axis dimension. No acute osseous findings. CT ABDOMEN: Cholecystectomy. The liver, pancreas, spleen, adrenals negative. Simple cysts in the kidneys are stable. No lymphadenopathy, air/fluid or evidence of bowel obstruction visualized upper abdomen. Partially visualized posterior instrumentation throughout the lumbar spine at L2 extending inferiorly. Moderate atherosclerotic calcifications. IMPRESSION: 1. No acute CT findings in the neck, chest or abdomen. 2. 1.8 cm hypoenhancing nodule in the right thyroid. Recommend further evaluation with dedicated ultrasound. 3. 0.4 cm solid pulmonary nodule in the right middle lobe is stable compared to 08/08/2018 but is indeterminate. Fleischner criteria recommendations would include an optional noncontrast chest CT in 12 months if patient is high risk for lung cancer. 4. Asymmetrically prominent left axillary lymph nodes measure up 1.0 cm in short axis dimension. These appear to maintain a normal morphology and no necrotic lymph nodes are identified. This may be reactive. Dictated by: Dictated on workstation # [id number]
== END ==
LOC: RAD 12:55
PROVIDERS: ATTEND Internal Medicine Hematology & Oncology
DX: E04.1 Nontoxic single thyroid nodule (principal); R91.1 Solitary pulmonary nodule
CPT/HCPCS: 70491; 71260; 74170

== ENCOUNTER 2020-01-08 09:27 | Outpatient (RCR) | payer MEDICARE, MEDICAID ==
[2019-12-31 15:50] LABS: ALBUMIN 4.2 GM/DL (3.2-4.5); BILIRUBIN,TOTAL 0.8 MG/DL (0.1-1.0); CALCIUM 8.7 MG/DL (8.5-10.1); POTASSIUM 4.3 MMOL/L (3.6-5.0); TOTAL PROTEIN 7.6 GM/DL (6.4-8.2)
[2019-12-31 16:10] LABS: BASOPHILS % (AUTO) 0 % (0-10); EOSINOPHILS # (AUTO) 0.1 10^3/uL (0.0-0.3); EOSINOPHILS % (AUTO) 1 % (0-10); HEMATOCRIT 41 % (40-54); HEMOGLOBIN 13.5 g/dL (13.3-17.7); LYMPHOCYTES # (AUTO) 2.2 10^3/uL (1.0-4.0); LYMPHOCYTES % (AUTO) 33 % (12-44); MEAN CORPUSCULAR HEMOGLOBIN 26 pg (25-34); MEAN CORPUSCULAR HGB CONC 33 g/dL (32-36); MEAN CORPUSCULAR VOLUME 79 fL (80-99); MONOCYTES # (AUTO) 0.5 10^3/uL (0.0-1.0); MONOCYTES % (AUTO) 8 % (0-12); NEUTROPHILS # (AUTO) 3.7 10^3/uL (1.8-7.8); NEUTROPHILS % (AUTO) 56 % (42-75); PLATELET COUNT 176 10^3/uL (130-400); WHITE BLOOD COUNT 6.6 10^3/uL (4.3-11.0)
[2020-01-05 14:31] LABS: BUN/CREATININE RATIO 17; CARBON DIOXIDE 27 MMOL/L (21-32); CHLORIDE 102 MMOL/L (98-107); CREATININE SERUM 1.12 MG/DL (0.60-1.30); GFR ESTIMATED > 60; GLUCOSE 111 MG/DL (70-105); POTASSIUM 3.8 MMOL/L (3.6-5.0); SODIUM 137 MMOL/L (135-145)
[~2020-01-08 09:27] MED LIST changes: -CATHETER FLUSH 10 ML SYR IV PRN; -HOLD METFORMIN - RECEIVED CONTRAST 20 ML VIAL IV SCH; -IOHEXOL 350 MG/ML 100 ML (OMNIPAQUE 350) VIAL IV ONE; -NS 100 ML (IVPB) BAG IV ONE
== END 2020-03-30 | disposition home or self-care (01) ==
LOC: ONC 09:27
PROVIDERS: ATTEND Internal Medicine Hematology & Oncology
DX: E11.22 Type 2 diabetes mellitus with diabetic chronic kidney disease (principal); I11.0 Hypertensive heart disease with heart failure; N18.9 Chronic kidney disease, unspecified; I25.10 Atherosclerotic heart disease of native coronary artery without angina pectoris; E78.5 Hyperlipidemia, unspecified; R22.2 Localized swelling, mass and lump, trunk; Z98.890 Other specified postprocedural states
CPT/HCPCS: 80053; 83615; 85025; G0463; 80048; 99213; 99214

== ENCOUNTER → 2020-04-18 | Outpatient (CLI) | payer MEDICARE, MEDICAID ==
[2020-04-18 21:50] LABS: HEPATITIS C ANTIBODY C Non-Reactive (Non-Reactive)
== END ==
LOC: LAB 09:48
PROVIDERS: ATTEND Internal Medicine
DX: B19.20 Unspecified viral hepatitis C without hepatic coma (principal)
CPT/HCPCS: 86803

== ENCOUNTER → 2020-08-25 | Outpatient (CLI) | payer MEDICARE, MEDICAID ==
[~2020-08-25] MED LIST changes: -CIPR500T4 PO; +CIPR500T5 PO; -LISI10TA2 PO; +LISI10TA25 PO; -OXYC-471 PO; +OXYC1TAB11 PO
== END ==
LOC: CARD 10:00
PROVIDERS: ATTEND Internal Medicine Cardiovascular Disease
DX: I51.7 Cardiomegaly (principal); I36.1 Nonrheumatic tricuspid (valve) insufficiency
CPT/HCPCS: 93306

== ENCOUNTER → 2020-09-13 | Outpatient (CLI) | payer MEDICARE, MEDICAID ==
[~2020-09-13] VITALS: Ht 187 cm; Wt 114.0 kg
[~2020-09-13] MED LIST changes: +CATHETER FLUSH 10 ML SYR IV PRN; +REGADENOSON 0.4 MG/5 ML SYR (LEXISCAN) IV ONE
--- NOTE | 2020-09-13 22:58 | STRESS TEST ---
DATE OF SERVICE: 09/13/2020 RESTING AND POST REGADENOSON TECHNETIUM-99M TETROFOSMIN SPECT CT IMAGING ORDERING PHYSICIAN: Dr. Suazo. PRIMARY PHYSICIAN: Dr. Gonzales. CLINICAL DIAGNOSIS: Chest discomfort. Baseline images were carried out after injection of 10.47 mCi of technetium-99m Tetrofosmin. This was followed by 0.4 mg regadenoson and 27.9 mCi of technetium-99m Tetrofosmin for stress imaging. The electrocardiogram showed paced atrial rhythm at baseline. Intermittently, normal sinus rhythm was also seen. The electrocardiogram did not change significantly with regadenoson infusion. Review of images at rest and following stress does not indicate any distinct perfusion defects consistent with significant myocardial ischemia or infarction. Some degree of diaphragmatic attenuation is seen both at rest and following regadenoson infusion. Gated images show normal global left ventricular systolic function with normal regional wall motion, including the diaphragmatic wall of the left ventricle. Left ventricular ejection fraction is calculated to be 46%. Subjectively, it appears somewhat higher than that. Left ventricular end-diastolic volume is 131 mL. TID is absent (1). CONCLUSIONS: 1. No evidence of any significant myocardial ischemia or infarction on this study. 2. Well preserved global left ventricular systolic function with a calculated ejection fraction of 46% (subjectively, appears somewhat higher than that). 3. Mild to moderate cardiomegaly. Job ID: [id number] DocumentID: [id number] Dictated Date: 09/13/2020 20:26:03 [employer] Date: 09/13/2020 22:57:45 Dictated By: MANUEL SUAZO MD, MA, FACP, FACC,
== END ==
LOC: CARD 08:20
PROVIDERS: ATTEND Internal Medicine Cardiovascular Disease
DX: R07.89 Other chest pain (principal)
CPT/HCPCS: 78452; 93017; A9502

== ENCOUNTER → 2021-02-02 | Outpatient (CLI) | payer MEDICARE, MEDICAID ==
[~2021-02-02] MED LIST changes: -CATHETER FLUSH 10 ML SYR IV PRN; -REGADENOSON 0.4 MG/5 ML SYR (LEXISCAN) IV ONE; -SULF1TAB35 PO; +SULF1TAB38 PO
--- NOTE | 2021-02-02 14:22 | Diagnostic Imaging Report ---
INDICATION: Pre-MRI screening. TIME OF EXAM: 2:16 p.m. COMPARISON: Correlation is made with prior chest from 09/05/2018. FINDINGS: Heart size is normal. There is a dual-lead left subclavian cardiac pacemaker with lead tips in the region of the right atrium and right ventricle. No definite abandoned leads are identified. Lungs are clear. There is no effusion or pneumothorax. IMPRESSION: No evidence of abandoned cardiac leads to preclude MRI. Dictated by: Dictated on workstation # [id number]
--- NOTE | 2021-02-02 17:07 | Diagnostic Imaging Report ---
CLINICAL INDICATION: Patient with radiculopathy with multilevel pole level fusion. EXAM: MRI of the lumbar spine performed without IV contrast. Sequences include sagittal T2, sagittal T1, sagittal stir, and axial T2. COMPARISON: CT scan of the lumbar spine without contrast dated 07/11/2016. FINDINGS: Again seen postop changes to the lumbar spine with L2-S1 through the sacral posterior spinal fusion hardware in place. Susceptibility hardware artifact limits evaluation for evaluation of bony fusion of the posterior elements. There is solid bony bridging/fusion involving the L3-L5 levels and L5-S1 level. There is no intervertebral disk fusion at the L2-L3 level. Posterior elements are not able to be evaluated. There is a minimal sized fluid collection in the laminectomy area which causes no significant encroachment upon the central canal. L3-L4 laminectomies are noted. Partial resection L5 posterior elements are noted. The visualized portions of the distal thoracic spinal cord, conus medullaris, and cauda equina nerve roots are unremarkable. The conus medullaris tip is not seen past the lower L2 vertebra. Susceptibility hardware artifact limits evaluation of the cord. T12-L1: There is a subtle posterior disk bulge. There is moderate bilateral facet arthropathy. There is mild central canal narrowing. There is no significant neural foramen narrowing. L1-L2: There is diffuse disk bulge and severe bilateral facet arthropathy/hypertrophy and ligament flavum buckling. There is moderate to severe central canal stenosis, mild right neural foramen narrowing and no significant left neural foramen narrowing. L2-L3: There is a small disk bulge in the left foraminal region and small disk spurs in the right foraminal region. There is mild bilateral neural foramen narrowing. There is decompression of thecal sac posteriorly with no significant central canal narrowing. L3-L4: There is decompression of the thecal sac posteriorly with no significant central canal narrowing. There is at least mild to moderate right neural foramen narrowing and mild left neural foramen narrowing due to bony hypertrophic changes. L4-L5: There is decompression of the thecal sac posteriorly with no significant central canal stenosis. There are bony hypertrophic changes in the posterior elements contributing to moderate left neural foramen narrowing and mild to moderate right neural foramen narrowing which was also noted on the prior study. L5-S1: There is decompression of thecal sac with no significant central canal narrowing. There is no significant left neural foramen narrowing and moderate right neural foramen narrowing which is also noted on the prior study. IMPRESSION: 1: Again seen postoperative changes with L2-S1 through the iliac posterior spinal fusion hardware. Susceptibility hardware artifact limits evaluation of the adjacent structures. There is bony bridging/fusion seen from the L3-S1 levels. Hardware artifact limits evaluation of posterior aspect of the L2-L3 facets, effusion cannot be evaluated. There is no intervertebral disk fusion at the L2-L3 level. CT scan may help better evaluate if necessary. 2: There is an L1-L2 diffuse disk bulge with severe bilateral facet arthropathy and ligamentum flavum buckling. There is moderate to severe central canal stenosis at the L1-L2 level. 3: Otherwise, the remainder of the lumbar spine degenerative changes have not significantly changed in interim. Dictated by: Dictated on workstation # [id number]
== END ==
LOC: RAD 14:00
PROVIDERS: ATTEND Physician Assistant
DX: M47.26 Other spondylosis with radiculopathy, lumbar region (principal); M51.16 Intervertebral disc disorders with radiculopathy, lumbar region; M48.061 Spinal stenosis, lumbar region without neurogenic claudication; Z98.1 Arthrodesis status
CPT/HCPCS: 71045; 72148

== ENCOUNTER → 2021-02-27 | Outpatient (CLI) | payer MEDICARE, MEDICAID ==
[~2021-02-27] MED LIST changes: +ONDA-106 PO; -ONDA8TAB15 PO
--- NOTE | 2021-02-27 09:53 | Diagnostic Imaging Report ---
CLINICAL INDICATIONS: Patient had fusion in 1991. Cervical spine region pops a lot. Patient has bilateral arm numbness and pain. EXAM: Axial CT scan of the cervical spine performed without IV contrast. Sagittal and coronal reformatted images were created. Auto Exposure Controls were utilized during the CT exam to meet ALARA standards for radiation dose reduction. COMPARISON: CT scan of the neck, chest, and abdomen dated 01/06/2020. CT scan of the cervical spine without contrast dated 05/05/2018. FINDINGS: There are postop changes with C2-C3 anterior cervical interbody fusion and C6-C7 anterior cervical interbody fusion. These postop changes are new compared to the prior CT scan of the cervical spine dated 05/05/2018 and were noted on the prior CT scan dated 01/06/2020. There is stable solid bony bridging/fusion of the C3-C4 level which was noted on the prior CT from 2018. There is no significant bony bridging involving the C2-C3 and C6-C7 levels concerning for pseudoarthrosis. There is also note of backing out of the right and left C7 screws and fractures of the right and left C7 screws. This appears similar to the prior CT scan from 2019. Besides the postop changes, the neck soft tissue structures show no significant abnormality. The visualized upper lung mejia are clear. The described below degenerative findings will be described in relation to the CT scan dated 2019. C1-C2: There are hypertrophic spurs involving the atlantoodontoid interval. There is severe joint space narrowing involving the atlantoodontoid interval which has progressed. There is no significant bony central canal narrowing. C2-C3: There is no significant change to the hypertrophic bilateral uncinate spurs. There is moderate right facet arthropathy and mild left facet arthropathy. There is stable moderate to severe bilateral neuroforaminal narrowing. There is at least mild bony central canal narrowing. C3-C4: There are stable uncinate spurs on the left side with stable moderate to severe left neuroforaminal narrowing. There is no significant right neuroforaminal narrowing. There is no significant bony central canal narrowing. These findings have not significantly changed in the interim. C4-C5: There is progression of severe left facet arthropathy and moderate right facet arthropathy. There is mild to moderate left neuroforaminal narrowing and mild right neuroforaminal narrowing which has progressed. There is no significant bony central canal narrowing. C5-C6: There is mild bilateral facet arthropathy. There are hypertrophic left-sided uncinate spurs. There is moderate right neuroforaminal narrowing and severe left neuroforaminal narrowing which has not significantly changed. There is no significant bony central canal stenosis. C6-C7: There is bilateral facet arthropathy and hypertrophic bilateral uncinate spurs again seen. There is severe bilateral neuroforaminal narrowing which has not significantly changed. There is no significant bony central canal narrowing. C7-T1: Again seen is grade 1 anterolisthesis of C7 on T1. There is mild bilateral facet arthropathy. There is no significant bony central canal narrowing. There is no significant right neuroforaminal narrowing and mild left neuroforaminal narrowing which is stable. IMPRESSION: 1: Compared to the CT scan of the cervical spine dated 05/05/2018, there is interval placement of C2-C3 and C6-C7 anterior cervical disk fusion hardware. There is no intervertebral bony bridging/fusion at the C2-C3 and C6-C7 levels concerning for pseudoarthrosis. There are bilateral C7 screw fractures and backing out of the bilateral C7 screws. The hardware findings have not significantly changed compared to the CT scan of the neck soft tissue dated 01/06/2020. 2: There is stable solid bony bridging/fusion of the C3-C4 level which was also seen on the comparison cervical spine CT scan from 2019. 3: There is multilevel cervical spine degenerative disease with moderate to severe multilevel neuroforaminal narrowing. This is described in detail above. Dictated by: Dictated on workstation # [id number]
--- NOTE | 2021-02-27 10:02 | Diagnostic Imaging Report ---
PROCEDURE: CT lumbar spine without contrast. TECHNIQUE: Multiple contiguous axial images were obtained through the lumbar spine without the use of intravenous contrast. Sagittal and coronal reformations were then performed. Auto Exposure Controls were utilized during the CT exam to meet ALARA standards for radiation dose reduction. INDICATION: Low back pain. Prior lumbar spine fusion. Bilateral lower extremity weakness. COMPARISON: Lumbar spine MRI of 02/02/2021. FINDINGS: There are five lumbar-type vertebral bodies. Normal alignment. Vertebral body heights are preserved. No fractures. Post operative findings of bilateral qian and pedicle screw fixation at L2 through the sacroiliac joints. A left L5 pedicle screw has been removed. Hardware components are intact. No evidence of loosening. Mature interbody bone grafting at L4-L5 and anterior interbody fusion at L5-S1. There are at least partial laminectomies at L3-S1. No high-grade spinal canal stenosis is evident on soft tissue windows. Ligamentous hypertrophy and facet arthropathy do appear to result in moderate spinal canal stenosis at L1-L2, similar to the prior MRI. There is high-grade osseous neuroforaminal narrowing on the left at L3-L4 and on the right at L5-S1, also similar to the prior MRI. No other convincing high-grade osseous neuroforaminal narrowing is identified. The visualized pelvis is intact. Moderate atherosclerotic calcifications. No acute findings in the visualized paravertebral soft tissues. IMPRESSION: 1. Post operative findings in the lumbar spine as detailed above. No evidence of hardware failure. 2. No acute CT findings in the lumbar spine. 3. Spondylotic changes result in moderate spinal canal stenosis at L1-L2. There is also high-grade osseous neuroforaminal narrowing on the left at L3-L4 and on the right at L5-S1. These findings are similar to the recent MRI examination. Dictated by: Dictated on workstation # [id number]
== END ==
LOC: RAD 09:45
PROVIDERS: ATTEND Physician Assistant
DX: M47.812 Spondylosis without myelopathy or radiculopathy, cervical region (principal); M47.816 Spondylosis without myelopathy or radiculopathy, lumbar region; M48.02 Spinal stenosis, cervical region; M48.061 Spinal stenosis, lumbar region without neurogenic claudication; M48.07 Spinal stenosis, lumbosacral region; M46.02 Spinal enthesopathy, cervical region; M43.13 Spondylolisthesis, cervicothoracic region; Z98.1 Arthrodesis status
CPT/HCPCS: 72125; 72131

== ENCOUNTER → 2021-03-22 | Outpatient (CLI) | payer MEDICARE, MEDICAID ==
--- NOTE | 2021-03-22 13:09 | Diagnostic Imaging Report ---
EXAMINATION: Erect PA chest at 1:02 p.m. INDICATION: MRI screening. FINDINGS: The heart size is within normal limits and stable when compared to 02/02/2021. The left-sided pacemaker seen previously seems stable. The leads appear to be intact. The lungs remain generally clear. There is no sign of failure, pneumonia, or pleural effusion. The mediastinum is not widened. The osseous structures are intact. IMPRESSION: 1. There is no evidence for an acute cardiopulmonary abnormality. 2. The left-sided pacemaker seen previously appears stable. Dictated by: Dictated on workstation # [id number]
--- NOTE | 2021-03-22 16:11 | Diagnostic Imaging Report ---
PROCEDURE: MR imaging cervical spine without contrast. TECHNIQUE: Multiplanar, multisequence MR imaging of the cervical spine was performed without contrast. INDICATION: Neck pain. COMPARISON: CT dated 02/27/2021 and MRI dated 11/12/2017. FINDINGS: Alignment of the cervical spine is stable from the prior examination without significant anterolisthesis or retrolisthesis. Anterior cervical disc fusion hardware is identified at the C2/C3 and C6/C7 levels. Magnetic susceptibility artifact related to these post surgical changes slightly limits evaluation of the adjacent structures. The hardware was better evaluated on the recent CTs of the cervical spine. Partial ankylosis of C3 and C4. Increased signal intensity on the T2 fat saturated images is noted within the C2, C3, C4, and C5 levels. Similar increased signal intensity is noted on the T1-weighted images. Therefore, this is felt to relate to simply magnetic susceptibility artifact versus fatty infiltration of the osseous structures. Minimal marrow edema within the superior endplate of T1. No evidence of a new vertebral body compression deformity. The cervicomedullary junction is unremarkable. The paraspinal soft tissues are unremarkable. C2/C3: Post surgical changes. Diffuse disc/osteophyte complex is present. Bilateral facet joint degenerative changes and uncovertebral joint hypertrophy. There is resulting effacement of the ventral subarachnoid space with slight decrease in volume of the spinal cord. Moderate to severe bilateral neuroforaminal stenosis. C3/C4: Ankylosis of the vertebral bodies. Left facet joint degenerative changes and uncovertebral joint hypertrophy. There is effacement of the ventral subarachnoid space without cord deformity or cord signal abnormality. Moderate left neuroforaminal stenosis. No significant right neuroforaminal stenosis. C4/C5: Moderate disc space height loss. Bilateral facet joint degenerative changes and uncovertebral joint hypertrophy. Small diffuse disc bulge. There is resulting effacement of the ventral subarachnoid space with slight flattening of the spinal cord. No cord signal abnormality. Severe left and moderate to severe right neuroforaminal stenosis. C5/C6: Disc space height loss. Uncovertebral joint hypertrophy and facet joint degenerative changes. Small diffuse disc/osteophyte complex. There is resulting effacement of the ventral subarachnoid space with contact and slight flattening of the spinal cord without cord signal abnormality. Moderate bilateral neuroforaminal stenosis. C6/C7: Post surgical changes. Bilateral facet joint degenerative changes and uncovertebral joint hypertrophy. There is resulting severe bilateral neuroforaminal stenosis. Effacement of the ventral subarachnoid space without cord deformity or cord signal abnormality. C7/T1: Mild disc space height loss. Bilateral uncovertebral joint hypertrophy. There is resulting mild bilateral neuroforaminal stenosis. Minimal central canal stenosis. Minimally increased T2-weighted signal is identified within the spinal cord at the level of C3, best seen on the sagittal images. IMPRESSION: Extensive post surgical and degenerative changes as described above with multilevel relatively high-grade central canal and neuroforaminal stenosis. No acute osseous abnormality. Suggestion of minimally increased signal intensity within the spinal cord at the level of C3. This appears relatively similar to 2018 and could relate to a small focus of myelomalacia. Dictated by: Dictated on workstation # [id number]
== END ==
LOC: RAD 13:15
PROVIDERS: ATTEND Physician Assistant
DX: M47.812 Spondylosis without myelopathy or radiculopathy, cervical region (principal); M50.221 Other cervical disc displacement at C4-C5 level; M48.02 Spinal stenosis, cervical region; M89.38 Hypertrophy of bone, other site; M24.69 Ankylosis, other specified joint; Z95.0 Presence of cardiac pacemaker
CPT/HCPCS: 71045; 72141

== ENCOUNTER 2021-07-11 08:20 | Emergency (ER) | payer MEDICARE, MEDICAID ==
[~2021-07-11] VITALS: Ht 187 cm; Wt 106.0 kg
[2021-07-11 08:42] LABS: BASOPHILS % (AUTO) 1 % (0-10); EOSINOPHILS # (AUTO) 0.2 10^3/uL (0.0-0.3); EOSINOPHILS % (AUTO) 4 % (0-10); HEMATOCRIT 41 % (40-54); HEMOGLOBIN 13.3 g/dL (13.3-17.7); LYMPHOCYTES % (AUTO) 53 % (12-44); MEAN CORPUSCULAR HEMOGLOBIN 25 pg (25-34); MEAN CORPUSCULAR HGB CONC 32 g/dL (32-36); MEAN CORPUSCULAR VOLUME 77 fL (80-99); MEAN PLATELET VOLUME 10.3 fL (9.0-12.2); MONOCYTES # (AUTO) 0.4 10^3/uL (0.0-1.0); MONOCYTES % (AUTO) 7 % (0-12); NEUTROPHILS # (AUTO) 2.1 10^3/uL (1.8-7.8); NEUTROPHILS % (AUTO) 36 % (42-75); PLATELET COUNT 173 10^3/uL (130-400)
[2021-07-11 08:43] LABS: WHITE BLOOD COUNT 5.8 10^3/uL (4.3-11.0)
[2021-07-11] MEDS ORDERED: ASPIRIN 81 MG CHEW (CHILDREN'S ASA) PO ONE (08:45)
[2021-07-11] MEDS: NITROGLYCERIN 0.4 MG SL TABS BTL 25'S SL PRN ×2 (08:49→09:25)
--- NOTE | 2021-07-11 08:50 | Diagnostic Imaging Report ---
EXAMINATION: Chest 1 view HISTORY: Chest pain. COMPARISON: 03/22/2021. FINDINGS: The lung volumes are normal. No focal consolidation is seen. No large pleural effusion or pneumothorax is seen. The cardiomediastinal silhouette is normal in size and contour. Stable configuration of the left pectoral dual-chamber pacemaker. There is calcified aortic atherosclerotic plaque. No acute osseous abnormality is seen. IMPRESSION: 1. No acute pleuroparenchymal process. Dictated by: Dictated on workstation # [id number]
[2021-07-11 08:54] LABS: PROTHROMBIN TIME PATIENT 13.3 SEC (12.2-14.7)
[2021-07-11 09:05] LABS: ALBUMIN 4.3 GM/DL (3.2-4.5); CALCIUM 9.2 MG/DL (8.5-10.1); CREATININE SERUM 1.03 MG/DL (0.60-1.30); MAGNESIUM 1.6 MG/DL (1.6-2.4); POTASSIUM 4.1 MMOL/L (3.6-5.0); TOTAL PROTEIN 7.5 GM/DL (6.4-8.2)
[2021-07-11] MEDS ORDERED: KETOROLAC 30 MG/ML VIAL IVP ONE (09:30)
--- NOTE | 2021-07-11 13:07 | ED Chest Pain ---
General Chief Complaint: Chest Pain Stated Complaint: CP Nursing Triage Note: PT TO [facility] 5 PER W/C FROM [facility], PT STATES HAS HAD INTERMITTENT C/P FOR 3 DAYS RATES 07/25. PT STATES GETTING HEART CATH THIS AM, SO THOUGHT HE WOULD GET IT CHECKED OUT. PT HAS REPRODUCABLE PAIN UPON LT PALPATION BY Source: patient, old records Exam Limitations: no limitations History of Present Illness Date Seen by Provider: Jul 11, 2021 Time Seen by Provider: 08:26 Initial Comments This is 70-year-old gentleman presents to the emergency room complaining of ches t pain described as a tightness that started on his way in route to the hospital. He is here with his who is undergoing cardiac cath with Dr. Suazo this morning. He states his chest pain started about 4 days ago and became increasingly worse over the weekend. He had recurrence of the chest pain this morning. He has also been trying to move and is sore as a result. His ch est is tender to palpation. 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 Patient states nitroglycerin sometimes helps his pain. Allergies and Home Medications Allergies Coded Allergies: Penicillins (Verified Allergy, Intermediate, RASH, 12/22/10) Patient Home Medication List Home Medication List Reviewed: Yes Alprazolam (Alprazolam) 1 Mg Tablet, 1 MG PO BID, (Reported) Entered as Reported by: ASHLEY GREWAL on 12/18/16 08 Aspirin (Aspirin EC) 81 Mg Tablet., 81 MG PO DAILY, (Reported) Entered as Reported by: ASHLEY GREWAL on 12/18/16 0846 Atorvastatin Calcium (Atorvastatin Calcium) 20 Mg Tablet, 20 MG PO HS, (Report ed) Entered as Reported by: ASHLEY GREWAL on 12/18/16 0846 Baclofen (Baclofen) 10 Mg Tablet, 10 MG PO TID, (Reported) Entered as Reported by: ASHLEY GREWAL on 12/18/16 0846 Bisacodyl (Bisacodyl) 5 Mg Tablet.dr, 5 MG PO DAILY PRN for CONSTIPATION-4TH LINE, (Reported) Entered as Reported by: ASHLEY GREWAL on 07/18/17 1349 Cetirizine HCl (Cetirizine HCl) 10 Mg Tablet, 10 MG PO HS, (Reported) Entered as Reported by: ASHLEY GREWAL on 12/18/16845 Ciprofloxacin HCl (Ciprofloxacin HCl) 500 Mg Tablet, 500 MG PO BID Prescribed by: CLIFF CR on 07/19/17 1535 Diclofenac Sodium (Voltaren) 100 Gm Gel..gram., TP QID PRN for JOINT PAIN, (Reported) Entered as Reported by: ASHLEY GREWAL on 12/18/16845 Dicyclomine HCl (Dicyclomine HCl) 10 Mg Capsule, 10 MG PO BID, (Reported) Entered as Reported by: ASHLEY GREWAL on 07/18/17 1213 Docusate Sodium (Docusate Sodium) 100 Mg Capsule, 100 MG PO BID, (Reported) Entered as Reported by: ASHLEY GREWAL on 12/18/16845 Fluocinonide/Emollient Base (Fluocinonide-E 0.05% Cream) 15 Gm Cream..g., TP BID PRN for PAIN, (Reported) Entered as Reported by: ASHLEY GREWAL on 12/18/16845 Fluticasone Propionate (Fluticasone Propionate) 16 Gm [place].susp, 1 SPRAY NS DAILY, (Reported) Entered as Reported by: ASHLEY GREWAL on 07/18/17 1349 Gabapentin (Gabapentin) 300 Mg Capsule, 600 MG PO TID, (Reported) Entered as Reported by: ASHLEY GREWAL on 12/18/16845 Ketoconazole (Ketoconazole) 120 Ml Shampoo, TP DAILY, (Reported) Entered as Reported by: ASHLEY GREWAL on 12/18/16845 Liraglutide (Victoza 2-Eagle) 0.6 Mg/0.1 Ml Pen.injctr, 0.6 MG SQ DAILY, (Reported) Entered as Reported by: ASHLEY GREWAL on 12/18/16845 Lisinopril (Lisinopril) 10 Mg Tablet, 10 MG PO DAILY, (Reported) Entered as Reported by: ASHLEY GREWAL on 12/18/16845 Meclizine HCl (Meclizine HCl) 25 Mg Tablet, 25 MG PO TID PRN for DIZZINESS, (Reported) Entered as Reported by: ASHLEY GREWAL on 12/18/16845 Meloxicam (Meloxicam) 15 Mg Tablet, 15 MG PO DAILY, (Reported) Entered as Reported by: ASHLEY GREWAL on 12/18/16 0846 Memantine HCl/Donepezil HCl (Namzaric 28 mg-10 mg Capsule) 1 Each Cap.spr.24, 1 CAP PO DAILY, (Reported) Entered as Reported by: ASHLEY GREWAL on 07/18/17 1213 Metformin HCl (Metformin HCl) 500 Mg Tablet, 500 MG PO BID WITH MEALS, (Reported) Entered as Reported by: ASHLEY GREWAL on 12/18/16 0846 Metoprolol Succinate (Metoprolol Succinate) 50 Mg Tab.er.24h, 50 MG PO DAILY, (Reported) Entered as Reported by: ASHLEY GREWAL on 12/18/16 0846 Nitroglycerin (Nitroglycerin) 0.4 Mg Tab.subl, 0.4 MG SL UD PRN for CHEST PAIN, (Reported) Entered as Reported by: ASHLEY GREWAL on 12/18/16 08 Nystatin (Nystatin) 15 Gm Cream..g., TP BID PRN for SORES, (Reported) Entered as Reported by: ASHLEY GREWAL on 12/18/16 0846 Ondansetron HCl (Ondansetron HCl) 8 Mg Tablet, 8 MG PO TID PRN for NAUSEA/VOMITING-1ST LINE, (Reported) Entered as Reported by: ASHLEY GREWAL on 07/18/17 1213 Oxycodone HCl (Oxycontin) 40 Mg Tab.er.12h, 40 MG PO Q12H, (Reported) Entered as Reported by: ASHLEY GREWAL on 07/18/17 1349 Oxycodone HCl/Acetaminophen (Oxycodone-Acetaminophen 5-325) 1 Each Tablet, 1 TAB PO Q8H PRN for PAIN-MODERATE, (Reported) Entered as Reported by: ASHLEY GREWAL on 12/18/16 0849 Pantoprazole Sodium (Protonix) 40 Mg Tablet.dr, 40 MG PO DAILY, (Reported) Entered as Reported by: ASHLEY GREWAL on 12/18/16 0945 Polyethylene Glycol 3350 (Miralax) 17 Gm Powd.pack, 17 GM PO DAILY PRN for CONSTIPATION-2ND LINE, (Reported) Entered as Reported by: ASHLEY GREWAL on 10/3/17 0846 Pramipexole Di-HCl (Mirapex) 0.25 Mg Tablet, 0.25 MG PO TID, (Reported) Entered as Reported by: ASHLEY GREWAL on 12/18/16845 Tamsulosin HCl (Tamsulosin HCl) 0.4 Mg Cap.er.24h, 0.4 MG PO DAILY, (Reported) Entered as Reported by: ASHLEY GREWAL on 12/18/16845 Triamcinolone Acet (Triamcinolone Acetonide 0.1% Ointment) 15 Gm Oint, TP BID, (Reported) Entered as Reported by: ASHLEY GREWAL on 12/18/16845 Zolpidem Tartrate (Zolpidem Tartrate) 10 Mg Tablet, 10 MG PO HS, (Reported) Entered as Reported by: ASHLEY GREWAL on 12/18/16845 Review of Systems Review of Systems Constitutional: no symptoms reported EENTM: No Symptoms Reported Respiratory: Shortness of Air Cardiovascular: See HPI, Chest Pain, Lightheadedness Gastrointestinal: No Symptoms Reported Genitourinary: No Symptoms Reported Musculoskeletal: see HPI Skin: no symptoms reported Psychiatric/Neurological: No Symptoms Reported Endocrine: No Symptoms Reported Hematologic/Lymphatic: No Symptoms Reported Past Itubpwm-Ortflb-Rnvjjg Hx Patient Social History Tobacco Use?: No Substance use?: No Alcohol Use?: No Pt feels they are or have been: No Immunizations Up To Date Tetanus Booster (TDap): More than 5yrs PED Vaccines UTD: Yes Seasonal Allergies Seasonal Allergies: No Past Medical History Surgery/Hospitalization HX: PACEMAKER, BACK SURGERY Surgeries: Yes (r knee surgery x4, l tra, back surgery x6, hiatal hernia repair, neck) Abdominal, Orthopedic, Pacemaker Respiratory: Yes Sleep Apnea Currently Using CPAP: Yes (not using) Currently Using BIPAP: No Cardiac: Yes (svt) High Cholesterol, Hypertension Neurological: Yes Reproductive Disorders: No Sexually Transmitted Disease: No Genitourinary: No Gastrointestinal: Yes Gall Bladder Disease Musculoskeletal: Yes Degenerate Disk Disease, Arthritis, Chronic Back Pain Endocrine: Yes Diabetes, Non-Insulin dep HEENT: Yes Cataract Loss of Vision: Denies Hearing Impairment: Denies Cancer: No Did You Recieve Any Treatments: No Psychosocial: Yes Sleep Difficulties, Anxiety Integumentary: Yes Eczema Blood Disorders: No Adverse Reaction/Blood Tranf: No Family Medical History Cancer 03 MOTHER 09 SISTER Family history: Cardiovascular disease 03 FATHER Family history: Diabetes mellitus 03 FATHER 09 BROTHER Family history: Hypertension 03 FATHER 09 BROTHER No Pertinent Family Hx Physical Exam Vital Signs Vital Signs - First Documented 07/11/21 08:25 Temp 36.4 Pulse 60 Resp 18 B/P (MAP) 175/98 (123) Pulse Ox 99 O2 Delivery Room Air Capillary Refill : Less Than 3 Seconds Height, Weight, BMI Height: 6'2.00" Weight: 224lbs. 0.0oz. 101.089415qi; 30.00 BMI Method:Stated General Appearance: No Apparent Distress, WD/WN HEENT: PERRL/EOMI, Normal ENT Inspection Neck: Normal Inspection; No JVD Respiratory: Lungs Clear, Normal Breath Sounds, No Accessory Muscle Use, No Respiratory Distress, Other (Anterior chest wall tender to palpation) Cardiovascular: Regular Rate, Rhythm, No Edema, Normal Peripheral Pulses Gastrointestinal: Normal Bowel Sounds, Non Tender, Soft Extremity: Normal Inspection, Other (Mild muscle tenderness over the lower legs equal bilaterally) Neurologic/Psychiatric: Alert, Oriented x3, No Motor/Sensory Deficits, Normal Mood/Affect, 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 Norm as Tested Skin: Normal Color, Warm/Dry Progress/Results/Core Measures Results/Orders Lab Results Laboratory Tests Test 07/11/21 08:33 07/11/21 12:05 Range/Units White Blood Count 5.8 4.3-11.0 10^3/uL Red Blood Count 5.32 4.30-5.52 10^6/uL Hemoglobin 13.3 13.3-17.7 g/dL Hematocrit 41 40-54 % Mean Corpuscular Volume 77 L 80-99 fL Mean Corpuscular Hemoglobin 25 25-34 pg Mean Corpuscular Hemoglobin Concent 32 32-36 g/dL Red Cell Distribution Width 16.3 H 10.0-14.5 % Platelet Count 173 130-400 10^3/uL Mean Platelet Volume 10.3 9.0-12.2 fL Immature Granulocyte % (Auto) 0 % Neutrophils (%) (Auto) 36 L 42-75 % Lymphocytes (%) (Auto) 53 H 12-44 % Monocytes (%) (Auto) 7 0-12 % Eosinophils (%) (Auto) 4 0-10 % Basophils (%) (Auto) 1 0-10 % Neutrophils # (Auto) 2.1 1.8-7.8 10^3/uL Lymphocytes # (Auto) 3.0 1.0-4.0 10^3/uL Monocytes # (Auto) 0.4 0.0-1.0 10^3/uL Eosinophils # (Auto) 0.2 0.0-0.3 10^3/uL Basophils # (Auto) 0.0 0.0-0.1 10^3/uL Immature Granulocyte # (Auto) 0.0 0.0-0.1 10^3/uL Prothrombin Time 13.3 12.2-14.7 SEC INR Comment 1.0 0.8-1.4 Activated Partial Thromboplast Time 31 24-35 SEC Sodium Level 140 135-145 MMOL/L Potassium Level 4.1 3.6-5.0 MMOL/L Chloride Level 105 98-107 MMOL/L Carbon Dioxide Level 24 21-32 MMOL/L Anion Gap 11 5-14 MMOL/L Blood Urea Nitrogen 12 7-18 MG/DL Creatinine 1.03 0.60-1.30 MG/DL Estimat Glomerular Filtration Rate 77 BUN/Creatinine Ratio 12 Glucose Level 155 H 70-105 MG/DL Calcium Level 9.2 8.5-10.1 MG/DL Corrected Calcium 9.0 8.5-10.1 MG/DL Magnesium Level 1.6 1.6-2.4 MG/DL Total Bilirubin 1.0 0.1-1.0 MG/DL Aspartate Amino Transf (AST/SGOT) 34 5-34 U/L Alanine Aminotransferase (ALT/SGPT) 44 0-55 U/L Alkaline Phosphatase 139 H 40-136 U/L Myoglobin 111.5 H 10.0-92.0 NG/ML Troponin I < 0.028 < 0.028 <0.028 NG/ML B-Type Natriuretic Peptide 41.2 <100.0 PG/ML Total Protein 7.5 6.4-8.2 GM/DL Albumin 4.3 3.2-4.5 GM/DL My Orders Orders - VANNESA WOMACK MD Cbc With Automated Diff (07/11/21 08:26) Magnesium (07/11/21 08:26) Chest 1 View, Ap/Pa Only (07/11/21 08:26) Ekg Tracing (07/11/21 08:26) Comprehensive Metabolic Panel (07/11/21 08:26) Myoglobin Serum (07/11/21 08:26) Protime With Inr (07/11/21 08:26) Partial Thromboplastin Time (07/11/21 08:26) O2 (07/11/21 08:26) Monitor-Rhythm Ecg Trace Only (07/11/21 08:26) Ed Iv/Invasive Line Start (07/11/21 08:26) Troponin I Gene (07/11/21 08:26) Nitroglycerin 0.4 Mg Btl 25's (Nitrostat (07/11/21 08:45) Aspirin Chewable Tablet (Baby Aspirin Ch (07/11/21 08:45) Bnp Gene (07/11/21 09:15) Ketorolac Injection (Toradol Injection) (07/11/21 09:30) Troponin I Peach (07/11/21 12:00) Medications Given in ED Current Medications Medications Dose Ordered Sig/Lupillo Route Start Time Stop Time Status Last Admin Dose Admin Aspirin 243 mg ONCE ONCE PO 07/11/21 08:45 07/11/21 08:46 DC 07/11/21 08:48 243 MG Ketorolac Tromethamine 15 mg ONCE ONCE IVP 07/11/21 09:30 07/11/21 09:31 DC 07/11/21 09:58 15 MG Nitroglycerin 0.4 mg UD PRN SL 07/11/21 08:45 07/11/21 14:59 DC 07/11/21 09:25 0.4 MG Vital Signs/I&O 07/11/21 07/11/21 08:25 13:10 Temp 36.4 Pulse 60 60 Resp 18 12 B/P (MAP) 175/98 (123) 157/86 Pulse Ox 99 99 O2 Delivery Room Air Room Air Blood Pressure Mean: 123 Progress Progress Note : Progress Note Cardiopulmonary work-up was unremarkable. Patient did not have any reduction in pain with nitroglycerin. Toradol was administered which did resolve his pain. A troponin was drawn 4 hours after onset of pain and was negative. Case was discussed with Dr. Suazo who recommended a 6-hour troponin from onset of pain. Patient's 4-hour troponin was negative and he is experiencing much relief after Toradol. 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 He acknowledges Dr. Suazo's recommendation for a 6-hour troponin but declines to stay to receive that test. Initial ECG Impression Date: Jul 11, 2021 Initial ECG Impression Time: 08:30 Initial ECG Rate: 60 Comment Atrial paced rhythm with no ST elevation or depression. No abnormal intervals or axis deviation. Diagnostic Imaging Diagonstic Imaging: Xray Plain Films/CT/US/NM/MRI: chest Comments NAME: TAYLOR MATUTE MED REC#: [id number] PT STATUS: REG ER : 1950 PHYSICIAN: VANNESA WOMACK MD ADMIT DATE: 07/11/21/ER Signed Date of Exam:07/11/21 CHEST 1 VIEW, AP/PA ONLY EXAMINATION: Chest 1 view HISTORY: Chest pain. COMPARISON: 03/22/2021. FINDINGS: The lung volumes are normal. No focal consolidation is seen. No large pleural effusion or pneumothorax is seen. The cardiomediastinal silhouette is normal in size and contour. Stable configuration of the left pectoral dual-chamber pacemaker. There is calcified aortic atherosclerotic plaque. No acute osseous abnormality is seen. IMPRESSION: 1. No acute pleuroparenchymal process. Dictated by: Dictated on workstation # [id number] Dict: 07/11/2148 Trans: 07/11/21 0851 [id number] Interpreted by: XIOMARA JONES DO Electronically signed by: XIOMARA JONES DO 07/11/21 0851 Departure Impression Primary Impression: Atypical chest pain Disposition: 01 HOME, SELF-CARE Condition: Improved Departure-Patient Inst. Referrals: JENNIFER LAURENT MD (PCP/Family) Primary Care Physician Patient Instructions: Chest Pain Add. Discharge Instructions: Continue your medications as previously prescribed. Please follow-up with Dr. Suazo as soon as possible. You may take ibuprofen up to 400 mg every 6 hours as needed along with Tylenol (acetaminophen) up to 1000 mg every 6 hours as needed for musculoskeletal pain. Return to the ER if you have pain that is not promptly relieved by ibuprofen and Tylenol. Also return to the ER if you have other significant symptoms such as shortness of breath, dizziness, vomiting, etc. Please follow-up with your primary care provider soon as possible as well. All discharge instructions reviewed with patient and/or family. Voiced understanding. Copy Copies To 1: MANUEL SUAZO MD FACP FAC CCDS Copies To 2: JENNIFER LAURENT MD, JOSHUA T MD Jul 11, 2021 13:07
[2021-07-11 13:10] VITALS: BP 157/86
== END 2021-07-11 13:10 | disposition home or self-care (01) ==
LOC: EDUNIT# 08:20 → ER 08:23
DX: R07.89 Other chest pain (principal); E11.9 Type 2 diabetes mellitus without complications; Z79.84 Long term (current) use of oral hypoglycemic drugs
CPT/HCPCS: 36415; 71045; 80053; 83735; 83874; 83880; 84484; 85025; 85610; 85730; 93005; 93041

== ENCOUNTER → 2021-07-19 | Outpatient (CLI) | payer MEDICARE, MEDICAID ==
--- NOTE | 2021-07-19 13:43 | Diagnostic Imaging Report ---
PROCEDURE: CT cervical spine without contrast. TECHNIQUE: Multiple contiguous axial images were obtained through the cervical spine without the use of intravenous contrast. Sagittal and coronal reformations were then performed. Auto Exposure Controls were utilized during the CT exam to meet ALARA standards for radiation dose reduction. INDICATION: Neck pain. Cervical spine fusion. Bilateral upper extremity numbness, tingling and swelling. COMPARISON: MRI cervical spine 03/22/2021. CT cervical spine without contrast 02/27/2021. FINDINGS: Normal alignment. Vertebral body heights preserved. No fractures. Postoperative findings of anterior interbody fusion at C2-C3 and C6-C7. Again noted are the bilateral screw fractures and backing out of the screws at the C7 level. No new hardware fractures are identified. There is chronic interbody fusion at C3-C4 for which hardware has likely been removed. High-grade spinal canal stenosis at C4-C5 and C5-C6 is better demonstrated on the comparison MRI. Osteophytic ridging and facet hypertrophy result in high-grade neural foraminal narrowing bilaterally at C2-C3, on the left at C3-C4, bilaterally at C5-C6, C6-C7 and on the left at C7-T1. Advanced atherosclerotic calcifications in the carotid bifurcations. Lung apices are clear. Partially visualized cardiac pacer. IMPRESSION: 1. Stable postoperative findings of anterior interbody fusions at C2-C3 and C6-C7 including bilateral C7 screw fractures with backing out of the screw fragments. Mature interbody fusion at C3-C4 for which hardware has likely been removed. 2. The known high-grade spinal canal stenosis at C4-C5 and C5-C6 is better demonstrated on the prior MRI exam. 3. Multilevel high-grade neural foraminal narrowing detailed above. Dictated by: Dictated on workstation # [id number]
== END ==
LOC: RAD 11:45
PROVIDERS: ATTEND Orthopaedic Surgery Orthopaedic Surgery of the Spine
DX: M48.02 Spinal stenosis, cervical region (principal); M48.03 Spinal stenosis, cervicothoracic region; Z98.1 Arthrodesis status
CPT/HCPCS: 72125

== ENCOUNTER 2021-08-15 08:00 | Day surgery (SDC) | payer MEDICARE, MEDICAID ==
[2021-08-15] VITALS (9 sets, daily range): BP systolic 116–139; BP diastolic 76–89
[~2021-08-15] VITALS: Ht 187.9 cm; Wt 108.9 kg
[2021-08-15 07:56] LABS: HEMATOCRIT 42 % (40-54); HEMOGLOBIN 13.7 g/dL (13.3-17.7); MEAN CORPUSCULAR HEMOGLOBIN 25 pg (25-34); MEAN CORPUSCULAR HGB CONC 33 g/dL (32-36); MEAN CORPUSCULAR VOLUME 76 fL (80-99); MEAN PLATELET VOLUME 10.2 fL (9.0-12.2); PLATELET COUNT 169 10^3/uL (130-400); WHITE BLOOD COUNT 6.5 10^3/uL (4.3-11.0)
[~2021-08-15 08:00] MED LIST changes: +HEParin (CATH LAB) 2,000 ML IV ONE; +LIDOCAINE 1% INJ 20 ML VIAL ONE; +NS IV 1000 ML 1,000 ML IV SCH; +NS IV 1000 ML 1,000 ML ONE
[2021-08-15 08:12] LABS: POTASSIUM 4.1 MMOL/L (3.6-5.0); PROTHROMBIN TIME PATIENT 13.2 SEC (12.2-14.7)
[2021-08-15 08:13] LABS: ALBUMIN 4.2 GM/DL (3.2-4.5)
[2021-08-15 08:14] LABS: CALCIUM 9.6 MG/DL (8.5-10.1)
[2021-08-15 08:15] LABS: TOTAL PROTEIN 7.4 GM/DL (6.4-8.2)
[2021-08-15 08:17] LABS: BILIRUBIN,TOTAL 0.8 MG/DL (0.1-1.0)
[2021-08-15 08:19] LABS: CREATININE SERUM 1.08 MG/DL (0.60-1.30)
[2021-08-15] MEDS ORDERED: PROM25TA14 PO (08:45)
[2021-08-15] MEDS ORDERED: PREG75CA75 PO (08:45)
[2021-08-15] MEDS ORDERED: LOSA50TA63 PO (08:45)
[2021-08-15] MEDS ORDERED: TRAZ-227 PO (08:45)
[2021-08-15] MEDS ORDERED: TADA5TAB4 PO (08:45)
[2021-08-15] MEDS ORDERED: SUCR1TAB PO (08:45)
[2021-08-15] MEDS ORDERED: INSU100I29 SQ (08:45)
[2021-08-15] MEDS ORDERED: GLIP-30 PO (08:45)
[2021-08-15] MEDS ORDERED: MEMA1CAP3 PO (08:45)
[2021-08-15] MEDS ORDERED: MONT-40 PO (08:45)
[2021-08-15] MEDS ORDERED: MTP100TCR PO (08:45)
[2021-08-15] MEDS ORDERED: PRAM1TAB5 PO (08:45)
[2021-08-15] MEDS ORDERED: NS IV 1000 ML 1,000 ML IV SCH ×2 (09:00→11:30)
[2021-08-15] MEDS ORDERED: MIDAZOLAM 5 MG/5 ML (VERSED) VIAL ONE (10:11)
[2021-08-15] MEDS ORDERED: fentaNYL INJ 100 MCG/2 ML AMP ONE (10:11)
[2021-08-15] MEDS ORDERED: NITROGLYCERIN 0.4 MG SL TABS BTL 25'S SL PRN (11:30)
[2021-08-15] MEDS ORDERED: NON-FORMULARY MEDICATION 1 EA EA (Ondansetron HCl 8 MG) PO PRN (11:30)
[2021-08-15] MEDS ORDERED: oxyCODONE/APAP 5/325MG (PERCOCET 5) TABLET PO PRN (11:30)
[2021-08-15] MEDS ORDERED: MECLIZINE 25 MG (ANTIVERT) TAB PO PRN (11:30)
[2021-08-15] MEDS ORDERED: NON-FORMULARY MEDICATION 1 EA EA (Pramipexole Di-HCl (Pramipexole Dihydrochloride) 1 MG) PO SCH (11:30)
[2021-08-15] MEDS ORDERED: oxyCODONE ER 40 MG (oxyCONTIN CR) TAB PO SCH (11:30)
[2021-08-15] MEDS ORDERED: NYSTATIN CREAM (MYCOSTATIN) 30 GM TUBE TP PRN (11:30)
[2021-08-15] MEDS ORDERED: PROMETHAZINE 25 MG (PHENERGAN) TAB PO PRN (11:30)
[2021-08-15] MEDS ORDERED: PATIENT MAY USE OWN MEDS, ALL PO SCH (11:30)
[2021-08-15] MEDS ORDERED: polyethylene glycoL POWDER 17 GM (MIRALAX) PACK PO PRN (11:30)
[2021-08-15] MEDS ORDERED: BISACODYL 5 MG (DULCOLAX) TABLET PO PRN (11:30)
[2021-08-15] MEDS ORDERED: DICLOFENAC 1% GEL 100 GM (VOLTAREN) TUBE TP PRN (11:30)
--- NOTE | 2021-08-15 11:37 | Discharge Inst-Cardiology ---
Discharge Inst-Cardiac Discharge Medications Continued Medications: Alprazolam (Alprazolam) 1 Mg Tablet 1 MG PO BID, TAB Aspirin (Aspirin EC) 81 Mg Tablet.dr 81 MG PO DAILY, TAB Atorvastatin Calcium (Atorvastatin Calcium) 20 Mg Tablet 20 MG PO HS, TAB Baclofen (Baclofen) 10 Mg Tablet 10 MG PO TID, TAB Bisacodyl (Bisacodyl) 5 Mg Tablet.dr 5 MG PO DAILY PRN for CONSTIPATION-4TH LINE, TAB Cetirizine HCl (Cetirizine HCl) 10 Mg Tablet 10 MG PO HS, TAB Diclofenac Sodium (Voltaren) 100 Gm Gel..gram. TP QID PRN for JOINT PAIN, TUBE Docusate Sodium (Docusate Sodium) 100 Mg Capsule 100 MG PO BID, CAP Fluticasone Propionate (Fluticasone Propionate) 16 Gm [place].susp 1 SPRAY NS DAILY, EA Glipizide (Glipizide Xl) 5 Mg Tab.er.24 5 MG PO DAILY, TAB Insulin Detemir (Levemir Flextouch) 100 Unit/Ml (3 Ml) Insuln.pen 15 UNIT SQ HS, EA Ketoconazole (Ketoconazole) 120 Ml Shampoo TP DAILY, EA Liraglutide (Victoza 2-Eagle) 0.6 Mg/0.1 Ml Pen.injctr 0.6 MG SQ DAILY, VIAL Losartan Potassium (Losartan Potassium) 50 Mg Tablet 50 MG PO DAILY, TAB Meclizine HCl (Meclizine HCl) 25 Mg Tablet 25 MG PO TID PRN for DIZZINESS, TAB Meloxicam (Meloxicam) 15 Mg Tablet 15 MG PO DAILY, TAB Memantine HCl/Donepezil HCl (Namzaric 28 mg-10 mg Capsule) 1 Each Cap.spr.24 1 CAP PO DAILY, CAP Memantine HCl/Donepezil HCl (Namzaric 28 mg-10 mg Capsule) 28 Mg-10 Mg Cap.spr.24 1 EACH PO DAILY, CAP Metoprolol Succinate (Metoprolol Succinate) 100 Mg Tab.er.24h 100 MG PO DAILY, TAB Montelukast Sodium (Montelukast Sodium) 10 Mg Tablet 10 MG PO DAILY, TAB Nitroglycerin (Nitroglycerin) 0.4 Mg Tab.subl 0.4 MG SL UD PRN for CHEST PAIN, TAB Nystatin (Nystatin) 15 Gm Cream..g. TP BID PRN for SORES, TUBE Ondansetron HCl (Ondansetron HCl) 8 Mg Tablet 8 MG PO TID PRN for NAUSEA/VOMITING-1ST LINE, TAB Oxycodone HCl (Oxycontin) 40 Mg Tab.er.12h 40 MG PO Q12H, TAB Oxycodone HCl/Acetaminophen (Oxycodone-Acetaminophen 5-325) 1 Each Tablet 1 TAB PO Q8H PRN for PAIN-MODERATE, TAB Pantoprazole Sodium (Protonix) 40 Mg Tablet.dr 40 MG PO DAILY, TAB Polyethylene Glycol 3350 (Miralax) 17 Gm Powd.pack 17 GM PO DAILY PRN for CONSTIPATION-2ND LINE, EACH Pramipexole Di-HCl (Pramipexole Dihydrochloride) 1 Mg Tablet 1 MG PO UD, TAB one tab in am, noon, and early afternoon, 2 tablets at bedtime Pregabalin (Pregabalin) 75 Mg Capsule 75 MG PO TID, CAP Promethazine HCl (Promethazine Tablet) 25 Mg Tablet 25 MG PO Q6H PRN for NAUSEA/VOMITING, TAB Sucralfate (Sucralfate) 1 Gram Tablet 1 GM PO BID, TAB Tadalafil (Tadalafil) 5 Mg Tablet 5 MG PO DAILY, TAB Tamsulosin HCl (Tamsulosin HCl) 0.4 Mg Cap.er.24h 0.4 MG PO DAILY, CAP Trazodone HCl (Trazodone HCl) 100 Mg Tablet 100 MG PO HS, TAB Triamcinolone Acet (Triamcinolone Acetonide 0.1% Ointment) 15 Gm Oint TP BID, TUBE Discontinued Medications: Metformin HCl (Metformin HCl) 500 Mg Tablet 500 MG PO BID WITH MEALS, TAB Patient Instructions Patient Instructions: Resume METFORMIN at previous home dose beginning on the morning of 08/17/21 MANUEL GOODRICH MD FACP [facility] CCDS August 15, 2021 11:36
--- NOTE | 2021-08-15 11:37 | Discharge Inst-Post CATH ---
Discharge Inst-CATH/EP Post Cardiac Cath/EP D/C Inst Follow Up/Plan F/u with Dr Suazo in 2 weeks ACTIVITY * Go Home directly and rest. * Limit activity of the leg (or wrist if it was used) for 7 days including aerobics, swimming, jogging, bicycling, etc. * Restrict stair-climbing for 7 days if possible, if not, climb up with your n on-cath leg, then bring together on the same step. * Avoid lifting, pushing, pulling or excessive movement of the affected ex tremity for 7 days. * Customary sexual activity may be resumed after 2 days-use caution not to use a position that strains or causes pain to the affected extremity. * No driving for 24 hours. * NO SMOKING. * Avoid straining for bowel movements for 7 days. * Gentle walking on level ground is allowed. * Returning to work will depend on the type of procedure and the results. Your doctor will discuss this with you. CALL YOUR DOCTOR FOR ANY OF THE FOLLOWING: *If bleeding from the puncture site occurs- Apply gentle pressure to site with clean cloth and call your doctor or EMS. * If a knot or lump forms under the skin, increases in size, or causes pain. * If bruising appears to be worsening or moving further down your leg instead of disappearing. * Temperature above 101 F. CARE OF YOUR GROIN INCISION; * Bruising or purple discoloration of the skin near the puncture site is common. * You may shower only, no bathtub bathing for 5 days. Be careful to avoid slipping as your leg may feel stiff. * If a closure device was used on your femoral artery, please see the attached guide regarding care of the device and your leg. * Leave dressing on FOR 24 hours. CARE OF YOUR WRIST INCISION; * Bruising or purple discoloration of the skin near the puncture site is common. * You may shower. * DO NOT submerge wrist. * Leave dressing on FOR 24 hours. MANUEL SUAZO MD FACP FAC CCDS August 15, 2021 11:37
--- NOTE | 2021-08-15 11:41 | Cardiac Procedure Note-CS/ASA ---
Pre-Procedure Note Pre-Op Procedure Note H&P Reviewed The H&P was reviewed, patient examined and no changes noted. Date H&P Reviewed: August 15, 2021 Time H&P Reviewed: 10:10 Conscious Sedation Pre-Proced Time 10:10 ASA Score 3 For ASA 3 and 4: Consider anesthesia and medical clearance. Also, for patients with a history of failed moderate sedation consider anesthesia. Airway Lungs Heart ASA score ASA 1: a normal healthy patient ASA 2: a patient with a mild systemic disease (mid diabetes, controlled hypertension, obesity ASA 3: a patient with a severe systemic disease that limits activity (angina, COPD, prior Myocardial infarction) ASA 4: a patient with an incapacitating disease that is a constant threat to life (CHF, renal failure) ASA 5: a moribund patient not expected to survive 24 hrs. (ruptured aneurysm) ASA 6: a declared brain- patient whose organs are being harvested. For emergent operations, add the letter E after the classification Mallampati Classification Grade 3 Sedation Plan Analgesia, Amnesia, Plan communicated to team members, Discussed options with patient/fam, Discussed risks with patient/fam The patient is an appropriate candidate to undergo the planned procedure, sedation, and anesthesia. The patient immediately re-assessed prior to indication. MANUEL GOODRICH MD FACP FAC CCDS August 15, 2021 11:41
--- NOTE | 2021-08-15 12:10 | CARDIAC CATHETERIZATION ---
DATE OF SERVICE: 08/15/2021 CARDIAC CATHETERIZATION REPORT INDICATIONS: The patient is a 71-year-old gentleman who has multiple coronary artery disease risk factors and who has been having increasing chest discomfort and shortness of breath. Cardiac catheterization was carried out today after having obtained an informed consent. PROCEDURE IN DETAIL: He was brought to the cardiac catheterization laboratory in a fasting state. Right groin was prepared and draped in the usual sterile fashion. Lidocaine 1% was used for local anesthesia. Modified Seldinger technique was used to advance a 5-Turkish sheath in the right femoral artery, 5-Turkish JL4 catheter was used for left coronary angiography, 5-Turkish JR4 catheter for right coronary angiography, 5-Turkish pigtail catheter was used for left heart catheterization and left ventricular angiography was not performed to conserve contrast. The catheter was pulled back and removed. Angiography of the right femoral artery had been carried out through the sheath at the beginning of the procedure. At the end of the procedure, Mynx was used to achieve hemostasis. He tolerated the procedure well. HEMODYNAMICS: Left ventricular end-diastolic pressure following coronary angiography was 7 mmHg. There is no significant pressure gradient on pullback across the aortic valve. Ascending aortic pressure was 133/72 with a mean of 98 mmHg. CORONARY ANGIOGRAPHY: Left main coronary artery does not exhibit significant disease. Left anterior descending, left circumflex, and right coronary arteries have diffuse moderate plaque. Right coronary artery is dominant. CONCLUSIONS: 1. Mild to moderate diffuse coronary artery disease without evidence of significant focal stenoses. 2. Normal left ventricular end-diastolic pressure. Job ID: [id number] DocumentID: [id number] Dictated Date: 08/15/2021 11:46:15 Blind Eyeletter Date: 08/15/2021 12:09:04 Dictated By: MANUEL GOODRICH MD, MA, FACP, FACC,
[2021-08-15] MEDS ORDERED: PREGABALIN 75 MG (LYRICA) CAP PO SCH (13:00)
[2021-08-15] MEDS ORDERED: BACLOFEN 10 MG (LIORESAL) TAB PO SCH (13:00)
[2021-08-15] MEDS ORDERED: CETIRIZINE HCL (ZYRTEC) 10 MG TAB PO SCH (21:00)
[2021-08-15] MEDS ORDERED: NON-FORMULARY MEDICATION 1 EA EA (Insulin Detemir (Levemir Flextouch) 15 UNIT) SQ SCH (21:00)
[2021-08-15] MEDS ORDERED: traZODone 100 MG (DESYREL) TAB PO SCH (21:00)
[2021-08-15] MEDS ORDERED: DOCUSATE SODIUM 100 MG (COLACE) CAP PO SCH (21:00)
[2021-08-15] MEDS ORDERED: ALPRAZolam 1 MG (XANAX) TAB PO SCH (21:00)
[2021-08-16] MEDS ORDERED: meTOprolol SUCCINATE 100 MG (TOPROL XL) TAB PO SCH (09:00)
[2021-08-16] MEDS ORDERED: NON-FORMULARY MEDICATION 1 EA EA (Liraglutide (Victoza 2-Pak) 0.6 MG) SQ SCH (09:00)
[2021-08-16] MEDS ORDERED: glipiZIDE XL 5 MG (GLUCOTROL XL) TAB PO SCH (09:00)
[2021-08-16] MEDS ORDERED: ASPIRIN E.C. 81 MG (ECOTRIN) TAB PO SCH (09:00)
[2021-08-16] MEDS ORDERED: NON-FORMULARY MEDICATION 1 EA EA (Memantine HCl/Donepezil HCl (Namzaric 28 mg-10 mg Capsul PO SCH ×2 (09:00)
[2021-08-16] MEDS ORDERED: PANTOPRAZOLE 40 MG (PROTONIX) TAB PO SCH (09:00)
[2021-08-16] MEDS ORDERED: TAMSULOSIN 0.4 MG (FLOMAX) CAP PO SCH (09:00)
[2021-08-16] MEDS ORDERED: NON-FORMULARY MEDICATION 1 EA EA (Tadalafil 5 MG) PO SCH (09:00)
[2021-08-16] MEDS ORDERED: MONTELUKAST 10 MG (SINGULAIR) TAB PO SCH (09:00)
[2021-08-16] MEDS ORDERED: LOSARTAN 50 MG (COZAAR) TAB PO SCH (09:00)
[2021-08-16] MEDS ORDERED: FLUTICASONE NASAL SPRAY (FLONASE) 16 GM BTL NS SCH (09:00)
== END 2021-08-15 14:29 | disposition home or self-care (01) ==
LOC: CATH 08:00 → SDC 11:54 → CATH 14:29
PROVIDERS: ATTEND Internal Medicine Cardiovascular Disease
DX: I25.10 Atherosclerotic heart disease of native coronary artery without angina pectoris (principal); I12.9 Hypertensive chronic kidney disease with stage 1 through stage 4 chronic kidney disease, or unspecified chronic kidney disease; I65.23 Occlusion and stenosis of bilateral carotid arteries; I95.81 Postprocedural hypotension; E11.22 Type 2 diabetes mellitus with diabetic chronic kidney disease; N18.9 Chronic kidney disease, unspecified; R53.81 Other malaise; R63.4 Abnormal weight loss; M19.90 Unspecified osteoarthritis, unspecified site; D64.9 Anemia, unspecified; D50.9 Iron deficiency anemia, unspecified; E78.2 Mixed hyperlipidemia; Z98.41 Cataract extraction status, right eye; Z98.42 Cataract extraction status, left eye; Z87.891 Personal history of nicotine dependence; Z95.0 Presence of cardiac pacemaker; Z79.899 Other long term (current) drug therapy; Z79.84 Long term (current) use of oral hypoglycemic drugs; Z79.4 Long term (current) use of insulin
CPT/HCPCS: 80053; 80061; 85027; 85610; 85730; 87081; 93005; 93458; C1760; C1894; 36415

== ENCOUNTER 2022-01-08 10:06 | Emergency (ER) | payer MEDICARE, MEDICAID ==
[~2022-01-08] VITALS: Ht 187 cm; Wt 108.0 kg
[~2022-01-08 10:06] MED LIST changes: +GLIP-30 PO; -HEParin (CATH LAB) 2,000 ML IV ONE; +INSU100I29 SQ; -LIDOCAINE 1% INJ 20 ML VIAL ONE; +LOSA50TA63 PO; +MONT-40 PO; +MTP100TCR PO; -NS IV 1000 ML 1,000 ML IV SCH; -NS IV 1000 ML 1,000 ML ONE; -NYST15CR TP; +NYST15CR35 TP; +PRAM1TAB5 PO; +PREG75CA75 PO; +PROM25TA14 PO; +SUCR1TAB PO; +TADA5TAB4 PO; +TRAZ-227 PO
--- NOTE | 2022-01-08 10:40 | ED Chest Pain ---
General Chief Complaint: Chest Pain Stated Complaint: HEART PROBLEMS Nursing Triage Note: Pt reports chest pain starting yesterday around noon, worsening since then. Pt sees Dr. Suazo Source: patient Exam Limitations: no limitations (ROHAN PITTMAN MD) History of Present Illness Date Seen by Provider: Jan 08, 2022 Time Seen by Provider: 10:18 Initial Comments Here with report of chest pain that is central under the left breast and radiating to the left arm that has been intermittent since yesterday. States that sharp. It is better with nitro. Pain is gone currently. Does have cardiac history and follows with Dr. Suazo and Dr. Read. Denies fever or chills. Does have some sinus congestion that has been chronic. He is vaccinated for COVID. Timing/Duration: 24 hours, intermittent, gone now Severity/Quality: moderate, sharp Location: central Radiation: arms (Left) Modifying Factors: improves with nitroglycerin, improves with rest ASA po STRATEGIC SOURCING SPECIALIST: Yes NTG SL STRATEGIC SOURCING SPECIALIST: Yes Associated Symptoms: No abdominal pain, No back pain, No fatigue, No nausea/vomiting, No shortness of breath, No weakness (ROHAN PITTMAN MD) Allergies and Home Medications Allergies Coded Allergies: Penicillins (Verified Allergy, Intermediate, RASH, 12/22/10) Patient Home Medication List Home Medication List Reviewed: Yes (ROHAN PITTMAN MD) Alprazolam (Alprazolam) 1 Mg Tablet, 1 MG PO BID, (Reported) Entered as Reported by: ASHLEY GREWAL on 12/18/16845 Aspirin (Aspirin EC) 81 Mg Tablet., 81 MG PO DAILY, (Reported) Entered as Reported by: ASHLEY GREWAL on 12/18/16845 Atorvastatin Calcium (Atorvastatin Calcium) 20 Mg Tablet, 20 MG PO HS, (Reported) Entered as Reported by: ASHLEY GREWAL on 12/18/16845 Baclofen (Baclofen) 10 Mg Tablet, 10 MG PO TID, (Reported) Entered as Reported by: ASHLEY GREWAL on 12/18/16845 Bisacodyl (Bisacodyl) 5 Mg Tablet.dr, 5 MG PO DAILY PRN for CONSTIPATION-4TH LINE, (Reported) Entered as Reported by: ASHLEY GREWAL on 07/18/17 1349 Cetirizine HCl (Cetirizine HCl) 10 Mg Tablet, 10 MG PO HS, (Reported) Entered as Reported by: ASHLEY GREWAL on 12/18/16845 Diclofenac Sodium (Voltaren) 100 Gm Gel..gram., TP QID PRN for JOINT PAIN, (Reported) Entered as Reported by: ASHLEY GREWAL on 12/18/16845 Docusate Sodium (Docusate Sodium) 100 Mg Capsule, 100 MG PO BID, (Reported) Entered as Reported by: ASHLEY GREWAL on 12/18/16845 Fluticasone Propionate (Fluticasone Propionate) 16 Gm [place].susp, 1 SPRAY NS DAILY, (Reported) Entered as Reported by: ASHLEY GREWAL on 07/18/17 134 Glipizide (Glipizide Xl) 5 Mg Tab.er.24, 5 MG PO DAILY, (Reported) Entered as Reported by: ANTOINETTE MCKEON on 08/15/21 08 Insulin Detemir (Levemir Flextouch) 100 Unit/Ml (3 Ml) Insuln.pen, 15 UNIT SQ HS, (Reported) Entered as Reported by: ANTOINETTE MCKEON on 08/15/2145 Ketoconazole (Ketoconazole) 120 Ml Shampoo, TP DAILY, (Reported) Entered as Reported by: ASHLEY GREWAL on 12/18/16845 Liraglutide (Victoza 2-Eagle) 0.6 Mg/0.1 Ml Pen.injctr, 0.6 MG SQ DAILY, (Reported) Entered as Reported by: ASHLEY GREWAL on 12/18/16845 Losartan Potassium (Losartan Potassium) 50 Mg Tablet, 50 MG PO DAILY, (Reported) Entered as Reported by: ANTOINETTE MCKEON on 08/15/2145 Meclizine HCl (Meclizine HCl) 25 Mg Tablet, 25 MG PO TID PRN for DIZZINESS, (Reported) Entered as Reported by: ASHLEY GREWAL on 12/18/16845 Meloxicam (Meloxicam) 15 Mg Tablet, 15 MG PO DAILY, (Reported) Entered as Reported by: ASHLEY GREWAL on 12/18/16845 Memantine HCl/Donepezil HCl (Namzaric 28 mg-10 mg Capsule) 1 Each Cap.spr.24, 1 CAP PO DAILY, (Reported) Entered as Reported by: ASHLEY GREWAL on 07/18/17 1213 Memantine HCl/Donepezil HCl (Namzaric 28 mg-10 mg Capsule) 28 Mg-10 Mg Cap.spr.24, 1 EACH PO DAILY, (Reported) Entered as Reported by: ANTOINETTE MCKEON on 08/15/21 0845 Metoprolol Succinate (Metoprolol Succinate) 100 Mg Tab.er.24h, 100 MG PO DAILY, (Reported) Entered as Reported by: ANTOINETTE MCKEON on 08/15/21 0845 Montelukast Sodium (Montelukast Sodium) 10 Mg Tablet, 10 MG PO DAILY, (Reported) Entered as Reported by: ANTOINETTE MCKEON on 08/15/21 0845 Nitroglycerin (Nitroglycerin) 0.4 Mg Tab.subl, 0.4 MG SL UD PRN for CHEST PAIN, (Reported) Entered as Reported by: ASHLEY GREWAL on 12/18/16 0846 Nystatin (Nystatin) 15 Gm Cream..g., TP BID PRN for SORES, (Reported) Entered as Reported by: ASHLEY GREWAL on 12/18/16 0846 Ondansetron HCl (Ondansetron HCl) 8 Mg Tablet, 8 MG PO TID PRN for NAUSEA/VOMITING-1ST LINE, (Reported) Entered as Reported by: ASHLEY GREWAL on 07/18/17 1213 Oxycodone HCl (Oxycontin) 40 Mg Tab.er.12h, 40 MG PO Q12H, (Reported) Entered as Reported by: ASHLEY GREWAL on 07/18/17 1349 Oxycodone HCl/Acetaminophen (Oxycodone-Acetaminophen 5-325) 1 Each Tablet, 1 TAB PO Q8H PRN for PAIN-MODERATE, (Reported) Entered as Reported by: ASHLEY GREWAL on 12/18/16 0849 Pantoprazole Sodium (Protonix) 40 Mg Tablet.dr, 40 MG PO DAILY, (Reported) Entered as Reported by: ASHLEY GREWAL on 12/18/16 0945 Polyethylene Glycol 3350 (Miralax) 17 Gm Powd.pack, 17 GM PO DAILY PRN for CONSTIPATION-2ND LINE, (Reported) Entered as Reported by: ASHLEY GREWAL on 12/18/16 0846 Pramipexole Di-HCl (Pramipexole Dihydrochloride) 1 Mg Tablet, 1 MG PO UD, (Repo rted) Entered as Reported by: ANTOINETTE MCKEON on 08/15/21844 Pregabalin (Pregabalin) 75 Mg Capsule, 75 MG PO TID, (Reported) Entered as Reported by: ANTOINETTE MCKEON on 08/15/21844 Promethazine HCl (Promethazine Tablet) 25 Mg Tablet, 25 MG PO Q6H PRN for NAUSEA/VOMITING, (Reported) Entered as Reported by: ANTOINETTE MCKEON on 08/15/21844 Sucralfate (Sucralfate) 1 Gram Tablet, 1 GM PO BID, (Reported) Entered as Reported by: ANTOINETTE MCKEON on 08/15/21844 Tadalafil (Tadalafil) 5 Mg Tablet, 5 MG PO DAILY, (Reported) Entered as Reported by: ANTOINETTE MCKEON on 08/15/21844 Tamsulosin HCl (Tamsulosin HCl) 0.4 Mg Cap.er.24h, 0.4 MG PO DAILY, (Reported) Entered as Reported by: ASHLEY GREWAL on 12/18/16845 Trazodone HCl (Trazodone HCl) 100 Mg Tablet, 100 MG PO HS, (Reported) Entered as Reported by: ANTOINETTE MCKEON on 08/15/21844 Triamcinolone Acet (Triamcinolone Acetonide 0.1% Ointment) 15 Gm Oint, TP BID, (Reported) Entered as Reported by: ASHLEY GREWAL on 12/18/16845 Review of Systems Review of Systems Constitutional: see HPI; No chills, No fever EENTM: Nose Congestion; No Throat Pain Respiratory: Denies Cough, Denies Shortness of Air Cardiovascular: Chest Pain; Denies Edema, Denies Lightheadedness Gastrointestinal: Denies Diarrhea, Denies Nausea, Denies Vomiting Genitourinary: No Symptoms Reported Musculoskeletal: No back pain; muscle pain Skin: No change in color, No lesions Psychiatric/Neurological: Denies Headache, Denies Weakness (ROHAN PITTMAN MD) All Other Systems Reviewed Negative Unless Noted: Yes (ROHAN PITTMAN MD) Past Qlnstby-Gwklbu-Gjcafm Hx Patient Social History Tobacco Use?: No Use of E-Cig and/or Vaping dev: No Substance use?: No Alcohol Use?: No (ROHAN PITTMAN MD) Immunizations Up To Date Tetanus Booster (TDap): More than 5yrs PED Vaccines UTD: Yes (ROHAN PITTMAN MD) Seasonal Allergies Seasonal Allergies: No (ROHAN PITTMAN MD) Past Medical History Surgery/Hospitalization HX: PACEMAKER, BACK SURGERY Surgeries: Yes (r knee surgery x4, l tra, back surgery x6, hiatal hernia repair, neck) Eye Surgery, Pacemaker Respiratory: Yes Sleep Apnea Currently Using CPAP: Yes Currently Using BIPAP: No Cardiac: Yes (svt) High Cholesterol, Hypertension Neurological: Yes Reproductive Disorders: No Sexually Transmitted Disease: No Genitourinary: No Gastrointestinal: Yes Gall Bladder Disease Musculoskeletal: Yes Degenerate Disk Disease, Arthritis, Chronic Back Pain Endocrine: Yes Diabetes, Non-Insulin dep HEENT: Yes Cataract Loss of Vision: Denies Hearing Impairment: Denies Cancer: No Did You Recieve Any Treatments: No Psychosocial: Yes Sleep Difficulties, Anxiety Integumentary: Yes Eczema Blood Disorders: No Adverse Reaction/Blood Tranf: No (ROHAN PITTMAN MD) Family Medical History Reviewed Nursing Family Hx (ROHAN PITTMAN MD) Cancer 03 MOTHER 09 SISTER Family history: Cardiovascular disease 03 FATHER Family history: Diabetes mellitus 03 FATHER 09 BROTHER Family history: Hypertension 03 FATHER 09 BROTHER No Pertinent Family Hx (ROHAN PITTMAN MD) Physical Exam Vital Signs Vital Signs - First Documented 01/08/22 10:11 Temp 35.9 Pulse 84 Resp 18 B/P (MAP) 116/80 (92) O2 Delivery Room Air (JEANINE PRYOR MD) Vital Signs Capillary Refill : Less Than 3 Seconds (ROHAN PITTMAN MD) Height, Weight, BMI Height: 6'2.00" Weight: 224lbs. 0.0oz. 101.442621fn; 30.00 BMI Method:Stated General Appearance: No Apparent Distress, WD/WN HEENT: PERRL/EOMI, Pharynx Normal Neck: Non Tender, Supple Respiratory: Lungs Clear, Normal Breath Sounds, Other (Reproducible anterior chest wall pain just below the breast on the left) Cardiovascular: Regular Rate, Rhythm, No Murmur Gastrointestinal: Non Tender, Soft Extremity: Normal Range of Motion, Non Tender Neurologic/Psychiatric: Alert, Oriented x3 Skin: Normal Color, Warm/Dry (ROHAN PITTMAN MD) Progress/Results/Core Measures Results/Orders Lab Results Laboratory Tests Test 01/08/22 10:30 01/08/22 12:39 Range/Units White Blood Count 4.4 4.3-11.0 10^3/uL Red Blood Count 5.17 4.30-5.52 10^6/uL Hemoglobin 12.6 L 13.3-17.7 g/dL Hematocrit 39 L 40-54 % Mean Corpuscular Volume 76 L 80-99 fL Mean Corpuscular Hemoglobin 24 L 25-34 pg Mean Corpuscular Hemoglobin Concent 32 32-36 g/dL Red Cell Distribution Width 15.7 H 10.0-14.5 % Platelet Count 131 130-400 10^3/uL Mean Platelet Volume 10.5 9.0-12.2 fL Immature Granulocyte % (Auto) 0 % Neutrophils (%) (Auto) 42 42-75 % Lymphocytes (%) (Auto) 48 H 12-44 % Monocytes (%) (Auto) 7 0-12 % Eosinophils (%) (Auto) 2 0-10 % Basophils (%) (Auto) 1 0-10 % Neutrophils # (Auto) 1.9 1.8-7.8 10^3/uL Lymphocytes # (Auto) 2.1 1.0-4.0 10^3/uL Monocytes # (Auto) 0.3 0.0-1.0 10^3/uL Eosinophils # (Auto) 0.1 0.0-0.3 10^3/uL Basophils # (Auto) 0.0 0.0-0.1 10^3/uL Immature Granulocyte # (Auto) 0.0 0.0-0.1 10^3/uL Percent Immature Platelet Fraction 4.2 0.0-7.6 % Prothrombin Time 13.4 12.2-14.7 SEC INR Comment 1.0 0.8-1.4 Activated Partial Thromboplast Time 31 24-35 SEC Sodium Level 137 135-145 MMOL/L Potassium Level 3.7 3.6-5.0 MMOL/L Chloride Level 104 98-107 MMOL/L Carbon Dioxide Level 23 21-32 MMOL/L Anion Gap 10 5-14 MMOL/L Blood Urea Nitrogen 12 7-18 MG/DL Creatinine 1.10 0.60-1.30 MG/DL Estimat Glomerular Filtration Rate 71 BUN/Creatinine Ratio 11 Glucose Level 202 H 70-105 MG/DL Calcium Level 9.0 8.5-10.1 MG/DL Corrected Calcium 9.1 8.5-10.1 MG/DL Magnesium Level 1.4 L 1.6-2.4 MG/DL Total Bilirubin 1.4 H 0.1-1.0 MG/DL Aspartate Amino Transf (AST/SGOT) 20 5-34 U/L Alanine Aminotransferase (ALT/SGPT) 20 0-55 U/L Alkaline Phosphatase 115 40-136 U/L Myoglobin 74.9 10.0-92.0 NG/ML Troponin I < 0.028 < 0.028 <0.028 NG/ML Total Protein 6.8 6.4-8.2 GM/DL Albumin 3.9 3.2-4.5 GM/DL (JEANINE PRYOR MD) My Orders Orders - JEANINE PRYOR MD Troponin I Gene (01/08/22 12:30) (JEANINE PRYOR MD) Vital Signs/I&O 01/08/22 10:11 Temp 35.9 Pulse 84 Resp 18 B/P (MAP) 116/80 (92) O2 Delivery Room Air (JEANINE PRYOR MD) Blood Pressure Mean: 92 Progress Progress Note : Progress Note Seen and evaluated. IV, labs, EKG and chest x-ray ordered. Patient has already had aspirin this morning. He is also had nitroglycerin. He is chest pain-free currently. We will initiate chest pain protocol including basic labs and troponin. Monitor patient. 1117: Chest x-ray does not show any acute abnormality on my interpretation. Pending radiology report. Monitor patient. 1146: Labs reviewed and troponin negative. White count is negative and radiology read of chest x-ray is negative. I will discuss case with Dr. Suazo. He has been paged. Patient is chest pain-free currently. Monitor patient. 1205: I have discussed the case with Dr Suazo. With initial troponin negative and negative heart cath in July of this year, he feels comfortable with just repeat troponin and he will see the patient in office if that is negative. Heart cath done in July of this year showed relatively clear LAD and right dominant coronary artery with only mild to moderate disease and no stent required. I did discuss all of this with the patient. Care was transferred to Dr. Pryor pending repeat troponin and that will be drawn at 1230. Bedside checkout performed. All questions answered. (ROHAN PITTMAN MD) Progress Note : Time: 13:29 Progress Note Patient care assumed from Dr. PITTMAN at 11:50 AM with second troponin pending for 1230. Dr. Pittman had spoken with Dr. Suazo, the patient's automatic tire tester. He recommended if the second troponin was negative but the patient follow-up closely with him in clinic to call tomorrow for an appointment. The second troponin is indeed negative. The patient remains asymptomatic, no chest pain. The rest of his labs, his EKG and chest x-ray have been reviewed by me. No clinical or objective findings to warrant further studies from the emergency department or admission at this time. The patient is comfortable with the plan of care. All questions have been sought and answered. (JEANINE PRYOR MD) Initial ECG Impression Date: Jan 08, 2022 Initial ECG Impression Time: 10:14 Initial ECG Rate: 84 Initial ECG Rhythm: Normal Sinus Comment Sinus rhythm with left axis deviation. No evidence of ST elevation CA. Compared to previous of 07/11/2021 with similar morphology but previous EKG shows atrial paced at a rate of 60. Interpreted by me. (ROHAN PITTMAN MD) Diagnostic Imaging Diagonstic Imaging: Xray Plain Films/CT/US/NM/MRI: chest Comments [facility], [place] NAME: [facility] REC#: [id number] PT STATUS: REG ER : 1950 PHYSICIAN: ROHAN PITTMAN MD ADMIT DATE: 01/08/22/ER Draft Date of Exam:01/08/22 CHEST 1 VIEW, AP/PA ONLY INDICATION: Chest pain. Time of Exam: 10:41 AM Correlation is made with prior chest of 07/11/2021. Heart size is stable. A dual lead left subclavian cardiac pacemaker remains in place. Lungs are clear. No infiltrates are detected. There is no effusion or pneumothorax. Postop changes lower cervical spine are noted. IMPRESSION: No acute cardiopulmonary process is detected. Dictated on workstation # [id number] Dict: 01/08/221121 Trans: 01/08/221126 [id number] Interpreted by: DUTCH KAUR MD Electronically signed by: Reviewed: Reviewed by Me (ROHAN PITTMAN MD) Departure Impression Primary Impression: Chest pain Qualified Codes: R07.9 - Chest pain, unspecified Disposition: HOME, SELF-CARE Condition: Stable Departure-Patient Inst. Decision time for Depature: 13:30 (JEANINE PRYOR MD) Referrals: MANUEL SUAZO MD [facility] JENNIFER LAURENT MD (PCP/Family) Primary Care Physician Patient Instructions: Chest Pain, Adult ED Add. Discharge Instructions: Continue your daily medications as previously prescribed You can take peeg-wwt-acwlqvt ibuprofen extra strength 2 tablets every 6 hours or ibuprofen 3 tablets which is 600 mg every 6 hours as needed for pain. Always take ibuprofen with food. Please call Dr. Suazo's office today for a follow-up appointment this week. If you have a return of chest pain that is associated with shortness of breath, sweating, nausea, change in location of the pain or any other emergent, concerning symptoms please come back to the emergency room for reevaluation. Copy Copies To 1: [facility] Jan 08, 2022 10:40 JEANINE PRYOR MD Jan 08, 2022 13:31
[2022-01-08 10:45] LABS: BASOPHILS % (AUTO) 1 % (0-10); EOSINOPHILS # (AUTO) 0.1 10^3/uL (0.0-0.3); EOSINOPHILS % (AUTO) 2 % (0-10); HEMATOCRIT 39 % (40-54); HEMOGLOBIN 12.6 g/dL (13.3-17.7); LYMPHOCYTES # (AUTO) 2.1 10^3/uL (1.0-4.0); LYMPHOCYTES % (AUTO) 48 % (12-44); MEAN CORPUSCULAR HEMOGLOBIN 24 pg (25-34); MEAN CORPUSCULAR HGB CONC 32 g/dL (32-36); MEAN CORPUSCULAR VOLUME 76 fL (80-99); MEAN PLATELET VOLUME 10.5 fL (9.0-12.2); MONOCYTES # (AUTO) 0.3 10^3/uL (0.0-1.0); MONOCYTES % (AUTO) 7 % (0-12); NEUTROPHILS # (AUTO) 1.9 10^3/uL (1.8-7.8); NEUTROPHILS % (AUTO) 42 % (42-75); PLATELET COUNT 131 10^3/uL (130-400); WHITE BLOOD COUNT 4.4 10^3/uL (4.3-11.0)
[2022-01-08 10:53] LABS: ALBUMIN 3.9 GM/DL (3.2-4.5); POTASSIUM 3.7 MMOL/L (3.6-5.0)
[2022-01-08 10:56] LABS: TOTAL PROTEIN 6.8 GM/DL (6.4-8.2)
[2022-01-08 10:57] LABS: BILIRUBIN,TOTAL 1.4 MG/DL (0.1-1.0)
[2022-01-08 11:00] LABS: CREATININE SERUM 1.1 MG/DL (0.60-1.30); PROTHROMBIN TIME PATIENT 13.4 SEC (12.2-14.7)
[2022-01-08 11:02] LABS: MAGNESIUM 1.4 MG/DL (1.6-2.4)
--- NOTE | 2022-01-08 11:27 | Diagnostic Imaging Report ---
INDICATION: Chest pain. Time of Exam: 10:41 AM Correlation is made with prior chest of 07/11/2021. Heart size is stable. A dual lead left subclavian cardiac pacemaker remains in place. Lungs are clear. No infiltrates are detected. There is no effusion or pneumothorax. Postop changes lower cervical spine are noted. IMPRESSION: No acute cardiopulmonary process is detected. Dictated by: Dictated on workstation # [id number]
[2022-01-08 13:41] VITALS: BP 113/73
== END 2022-01-08 13:41 | disposition home or self-care (01) ==
LOC: EDUNIT# 10:06 → ER 10:08
DX: R07.89 Other chest pain (principal); G47.30 Sleep apnea, unspecified; Z95.0 Presence of cardiac pacemaker; Z98.61 Coronary angioplasty status; Z99.89 Dependence on other enabling machines and devices
CPT/HCPCS: 36415; 71045; 80053; 83735; 83874; 84484; 85025; 85610; 85730; 93005; 93041

== ENCOUNTER → 2022-04-18 | Outpatient (CLI) | payer MEDICARE, MEDICAID ==
[~2022-04-18] MED LIST changes: +ACET325C7 PO; +ALB0.5V INH; +BISA5TAB20 PO; -BISA5TAB8 PO; +CARB15DR OU; +CLIN-144 PO; +DICL100G13 TP; +FLUT9.9S NS; +GABA300C PO; +GLIP5TAB26 PO; +HYDR25TA4 PO; +KETO120S13; +LIDO700A45 TP; +MAGN400T39 PO; +ONDA4TAB11 PO; +OXYC20TA3 PO; +TADA5TAB2 PO
--- NOTE | 2022-04-18 14:09 | Diagnostic Imaging Report ---
Indication: Pre-MRI screening. Time of Exam: 1:49 PM Comparison is made with prior chest from 01/08/2022. Dual lead left subclavian pacemaker is in place. No abandoned leads are identified. The heart size is normal. Lungs are clear. No infiltrates, effusion or pneumothorax is identified. Postoperative changes lower cervical spine are noted. IMPRESSION: Stable chest. No acute features identified. There are no evidence of cardiac pacer abandoned leads. Dictated by: Dictated on workstation # [id number]
--- NOTE | 2022-04-18 16:35 | Diagnostic Imaging Report ---
PROCEDURE: MRI lumbar spine. TECHNIQUE: Multiplanar, multisequence MRI of the lumbar spine was performed without contrast. INDICATION: Back pain. Lumbar spine fusion. COMPARISON: CT lumbar spine without contrast 02/27/2021. FINDINGS: Examination is limited by both susceptibility artifact from hardware and ALEKSANDAR limitations related to a pacemaker. There are 5 lumbar-type vertebral bodies for the purposes of this report. Normal alignment. Vertebral body heights preserved. No suspicious bone marrow signal or edema is identified. There are postoperative findings of bilateral qian and pedicle screw fixation at L2 through the sacroiliac joints with partial laminectomies at L2-L3, L4-L5 and L5-S1. Anterior interbody fusion at L5-S1. Interbody fusions at L3-L5. Small fluid collection in the dorsal epidural postoperative soft tissues at the level of L3 measures up to 1.3 x 1.6 cm and results in no mass effect upon the thecal sac. Visualized pelvis and paravertebral soft tissues demonstrate no acute findings. Nonspecific cysts in both kidneys. No abnormal signal in the conus which terminates at L1-L2. Normal morphology of the cauda equina. L1-L2: Broad-based disc bulging, ligamentous hypertrophy and facet arthropathy all result in moderate to severe spinal canal stenosis. Moderate to severe bilateral neural foraminal narrowing. L2-L3: No spinal canal stenosis. Mild to moderate bilateral neural foraminal narrowing due to disc space height loss. L3-L4: Facet proliferation results in mild spinal canal narrowing. There is severe right and moderate left neural foraminal narrowing. L4-L5: Facet proliferation results in mild spinal canal narrowing. Severe bilateral neural foraminal narrowing. L5-S1: No spinal canal narrowing. Disc space height loss and facet proliferation result in severe right and moderate left neural foraminal narrowing. IMPRESSION: 1. Bilateral qian and pedicle screw fixation at L2 through the sacroiliac joints with interbody fusions at L3-L5 and anterior interbody fusion L5-S1. There are partial laminectomies as above. 2. Spondylotic changes result in moderate to severe spinal canal stenosis at L1-L2. 3. Multilevel high-grade neural foraminal narrowing detailed above. Dictated by: Dictated on workstation # [id number]
--- NOTE | 2022-04-18 17:00 | Diagnostic Imaging Report ---
PROCEDURE: MR imaging cervical spine without contrast. TECHNIQUE: Multiplanar, multisequence MR imaging of the cervical spine was performed without contrast. DATE: April 18, 2022. COMPARISON: CT cervical spine July 19, 2021. MR cervical spine March 22, 2021. INDICATION: 71-year-old male, increasing pain of the neck and numbness in both extremities. FINDINGS: There is hardware related artifact at the level of C2-C3 relating to anterior cervical spine hardware. There is ankylosis across the C3-C4 disc space. There is also hardware related artifact at C6-C7. There is mild to moderate disc height loss at C4-C5 and C5-C6. There is no evidence of a diffuse marrow infiltrating or replacing process. There is increased signal in the cervical spinal cord at the level of 3. This is unchanged from the prior MRI. There is severe spinal stenosis and cord compression at C4-C5 with abnormal cord signal at this location. The degree of cord compression is increased. Abnormal cord signal is an interval change since the prior MRI. C2-C3: There is no disc bulge. There are bilateral uncovertebral and right greater than left facet degenerative changes. There is moderate to severe bilateral foraminal narrowing. There is mild to moderate spinal canal stenosis. C3-C4: No identified posterior disc osteophyte complex. There are left uncovertebral and facet degenerative changes. There is severe left foraminal narrowing. There is moderate spinal canal stenosis. C4-C5: There is a posterior disc osteophyte complex. There are bilateral facet degenerative changes and uncovertebral degenerative changes. There is severe bilateral foraminal narrowing. There is severe spinal stenosis with cord compression and abnormal cord signal. C5-C6: There is a posterior disc osteophyte complex. There are bilateral uncovertebral degenerative changes. There is moderate to severe left and mild right foraminal narrowing. There is severe spinal canal stenosis. C6-C7: There is a posterior disc osteophyte complex. There are bilateral uncovertebral degenerative changes. There is severe bilateral foraminal narrowing. There is mild spinal canal stenosis. C7-T1: There is no disc bulge. There are left uncovertebral degenerative changes. There is no foraminal narrowing. There is no spinal canal stenosis. IMPRESSION: 1. Severe spinal stenosis and cord compression at C4-C5 with abnormal cord signal. This is a progression in change since March 22, 2021. 2. Additional multilevel degenerative changes with foraminal and spinal stenosis as described level by level above. 3. Abnormal cord signal at C3 is unchanged. Faxed to Dr. Celso Quan at 4:59 p.m. by cvb. Dictated by: Dictated on workstation # [id number]
== END ==
LOC: RAD 13:21
PROVIDERS: ATTEND Physician Assistant
DX: M48.02 Spinal stenosis, cervical region (principal); M47.812 Spondylosis without myelopathy or radiculopathy, cervical region; M48.061 Spinal stenosis, lumbar region without neurogenic claudication; M47.816 Spondylosis without myelopathy or radiculopathy, lumbar region; Z98.1 Arthrodesis status
CPT/HCPCS: 71045; 72141; 72148

== ENCOUNTER 2022-04-20 10:50 | Inpatient (IN) | payer MEDICARE, MEDICAID ==
[~2022-04-20] VITALS: Ht 188 cm; Wt 115.9 kg
[~2022-04-20 10:50] MED LIST changes: -ACET325C7 PO; -ALB0.5V INH; -CARB15DR OU; -CLIN-144 PO; -DICL100G13 TP; -FLUT9.9S NS; -GABA300C PO; -GLIP5TAB26 PO; -HYDR25TA4 PO; -KETO120S13; -LIDO700A45 TP; -MAGN400T39 PO; -ONDA4TAB11 PO; -OXYC20TA3 PO; -TADA5TAB2 PO
[2022-04-20 12:00] VITALS: BP 142/98
[2022-04-20] MEDS ORDERED: DICL100G13 TP (12:30)
[2022-04-20] MEDS ORDERED: LISI10TA25 PO (12:30)
[2022-04-20] MEDS ORDERED: ACET325C7 PO (12:30)
[2022-04-20] MEDS ORDERED: GABA300C PO (12:30)
[2022-04-20] MEDS ORDERED: HYDR25TA4 PO (12:30)
[2022-04-20] MEDS ORDERED: METF-397 PO (12:30)
[2022-04-20] MEDS ORDERED: OXYC20TA3 PO (12:30)
[2022-04-20] MEDS ORDERED: INSU100I29 SQ (12:30)
[2022-04-20] MEDS ORDERED: LANS30CA PO (12:30)
[2022-04-20] MEDS ORDERED: GLIP5TAB26 PO (12:30)
[2022-04-20] MEDS ORDERED: PRAM1TAB5 PO (12:30)
[2022-04-20] MEDS ORDERED: OXYC40TA57 PO (12:30)
[2022-04-20] MEDS ORDERED: LIDO700A45 TP (12:30)
[2022-04-20] MEDS ORDERED: CLIN-144 PO ×2 (12:30→15:56)
[2022-04-20] MEDS ORDERED: TMSL.4C PO (12:30)
[2022-04-20] MEDS ORDERED: ALB0.5V INH (12:30)
[2022-04-20] MEDS ORDERED: MAGN400T39 PO ×2 (12:30→14:24)
[2022-04-20] MEDS ORDERED: FLUT9.9S NS (12:30)
--- NOTE | 2022-04-20 12:40 | PM&R Post Admission Assessment ---
PM&R HP Date of Visit: Apr 20, 2022 Time of Visit: 12:15 History of Present Illness CC: Debility following urgent cervical spine surgery at [facility] by Dr Bucio HPI: This is a 71yoAAM clinic patient of Dr Read and Intermediate Frame Tender Dr Suazo who has a complicated PMH including DM and dementia who presented to the [facility] s/p cervical spine surgery by Dr Bucio due to cervical myelopathy. He had an uncomplicated course at [facility] and due to complicated PMH it was decided to move to [facility] for further strengthening and work on fall risk prevention. He arrived via EMS. PT OT evaluated him and all meds were continued including Clindamycin and pain meds. Prior level of functioning has been complicated from the progressive myelopathy so we will work on stamina and increasing independent ADL's. Past Ewpagac-Wukfco-Pcssji Hx Past Med/Social Hx: Reviewed Nursing Past Med/Soc Hx, Reviewed and Corrections made Patient Social History Marrital Status: Employed/Student: retired Alcohol Use: Denies Use Smoking Status: Former Smoker Former Smoker, Quit: Dec 18, 2009 Type Used: Cigarettes Recent Hopitalizations: Yes (NECK SURG) Immunizations Up To Date Tetanus Booster (TDap): More than 5yrs Pediatric: Yes Date of Pneumonia Vaccine: Nov 19, 2016 Date of Influenza Vaccine: Dec 17, 2016 Seasonal Allergies Seasonal Allergies: No Past Medical History Surgeries: Eye Surgery, Pacemaker Currently Using CPAP: Yes Currently Using BIPAP: No Cardiac: High Cholesterol, Hypertension Reproductive: No Sexually Transmitted Disease: No Gastrointestinal: Gall Bladder Disease Musculoskeletal: Degenerate Disk Disease, Arthritis, Chronic Back Pain Endocrine: Diabetes, Non-Insulin dep HEENT: Cataract Loss of Vision: Denies Hearing Impairment: Denies Did You Recieve Any Treatments: No Psychosocial: Sleep Difficulties, Anxiety Skin/Integumentary: Eczema History of Blood Disorders: No Adverse Reaction to Blood Hernandez: No Family History Cancer 03 MOTHER 09 SISTER Family history: Cardiovascular disease 03 FATHER Family history: Diabetes mellitus 03 FATHER 09 BROTHER Family history: Hypertension 03 FATHER 09 BROTHER No Pertinent Family Hx PM&R Allergy/Meds/Data Review Allergies Coded Allergies: Penicillins (Verified Allergy, Intermediate, RASH, 12/22/10) Home Medications Scheduled Alprazolam (Alprazolam), 1 MG PO BID, (Reported) Aspirin (Aspirin EC), 81 MG PO DAILY, (Reported) Atorvastatin Calcium (Atorvastatin Calcium), 20 MG PO HS, (Reported) Cetirizine HCl (Cetirizine HCl), 10 MG PO DAILY, (Reported) Clindamycin HCl (Clindamycin HCl), 300 MG PO TID Diclofenac Sodium (Diclofenac Sodium), 1 APPLIC TP QID, (Reported) Glipizide (Glipizide ER), 5 MG PO 1800, (Reported) Insulin Detemir (Levemir Flextouch), 15 UNIT SQ HS, (Reported) Lidocaine (Lidocaine 5% Patch), 1 EACH TP DAILY, (Reported) Liraglutide (Victoza 2-Eagle), 1.2 MG SQ DAILY, (Reported) Losartan Potassium (Losartan Potassium), 50 MG PO DAILY, (Reported) Magnesium Oxide (Magnesium), 400 MG PO BID, (Reported) Meloxicam (Meloxicam), 15 MG PO DAILY, (Reported) Memantine HCl/Donepezil HCl (Namzaric 28 mg-10 mg Capsule), 1 EACH PO DAILY, (Reported) Metformin HCl (Metformin HCl), 500 MG PO BID WITH MEALS, (Reported) Metoprolol Succinate (Metoprolol Succinate), 100 MG PO DAILY, (Reported) Montelukast Sodium (Montelukast Sodium), 10 MG PO HS, (Reported) Oxycodone HCl (Oxycodone HCl ER), 40 MG PO Q12H, (Reported) Pantoprazole Sodium (Protonix), 40 MG PO DAILY, (Reported) Pramipexole Di-HCl (Pramipexole Dihydrochloride), 1 MG PO 0800,1200,1800, (Reported) Pramipexole Di-HCl (Pramipexole Dihydrochloride), 2 MG PO HS, (Reported) Pregabalin (Pregabalin), 75 MG PO BID, (Reported) Sucralfate (Sucralfate), 1 GM PO BID, (Reported) Tamsulosin HCl (Flomax), 0.8 MG PO HS, (Reported) Trazodone HCl (Trazodone HCl), 100 MG PO HS, (Reported) Scheduled PRN Acetaminophen (Tylenol), 650 MG PO Q6H PRN for PAIN-MILD (1-4), (Reported) Albuterol Sulfate (Albuterol Sulfate), 2.5 MG INH Q8H PRN for SHORTNESS OF BREATH, (Reported) Baclofen (Baclofen), 10 MG PO TID PRN for PAIN-BREAKTHROUGH, (Reported) Bisacodyl (Bisacodyl), 5 MG PO DAILY PRN for CONSTIPATION-4TH LINE, (Reported) Carboxymethylcellulose Sodium (Refresh Tears), 1-2 DROP OU UD PRN for DRY EYES, (Reported) Docusate Sodium (Docusate Sodium), 100 MG PO BID PRN for CONSTIPATION-1ST LINE, (Reported) Fluticasone Propionate (Flonase Allergy Relief), 1 SPRAY NS DAILY PRN for CONGESTION, (Reported) Ketoconazole (Ketoconazole), 1 APPLIC UD PRN for WHEN SHOWERING, (Reported) Meclizine HCl (Meclizine HCl), 25 MG PO TID PRN for DIZZINESS, (Reported) Nitroglycerin (Nitroglycerin), 0.4 MG SL UD PRN for CHEST PAIN, (Reported) Nystatin (Nystatin), TP BID PRN for SORES, (Reported) Ondansetron (Ondansetron Odt), 4 MG PO Q8H PRN for NAUSEA/VOMITING-1ST LINE, (Reported) Oxycodone HCl (Oxycodone HCl), 20 MG PO Q4H PRN for PAIN-SEVERE (8-10), (Reported) Polyethylene Glycol 3350 (Miralax), 17 GM PO DAILY PRN for CONSTIPATION-2ND LINE, (Reported) Promethazine HCl (Promethazine Tablet), 25 MG PO Q6H PRN for NAUSEA/VOMITING, (Reported) Tadalafil (Cialis), 5 MG PO DAILY PRN for URINARY SYMPTOMS, (Reported) Triamcinolone Acet (Triamcinolone Acetonide 0.1% Ointment), 1 APPLIC TP DAILY PRN for SKIN IRRITATION, (Reported) Discontinued Medications Fluticasone Propionate (Fluticasone Propionate), 1 SPRAY NS DAILY, (Reported) Discontinued Reason: Duplicate Order Gabapentin (Neurontin), 300 MG PO HS, (Reported) Discontinued Reason: No Longer Taking Glipizide (Glipizide Xl), 5 MG PO DAILY, (Reported) Discontinued Reason: Duplicate Order Insulin Detemir (Levemir Flextouch), 15 UNIT SQ HS, (Reported) Discontinued Reason: Duplicate Order Ketoconazole (Ketoconazole), TP DAILY, (Reported) Discontinued Reason: Duplicate Order Lansoprazole (Lansoprazole), 30 MG PO DAILY, (Reported) Discontinued Reason: No Longer Taking Lisinopril (Lisinopril), 10 MG PO DAILY, (Reported) Discontinued Reason: No Longer Taking Magnesium Oxide (Magnesium), 400 MG PO BID, (Reported) Discontinued Reason: Duplicate Order Memantine HCl/Donepezil HCl (Namzaric 28 mg-10 mg Capsule), 1 CAP PO DAILY, (Reported) Discontinued Reason: Duplicate Order Ondansetron HCl (Ondansetron HCl), 8 MG PO TID PRN for NAUSEA/VOMITING-1ST LINE, (Reported) Discontinued Reason: Duplicate Order Oxycodone HCl (Oxycontin), 40 MG PO Q12H, (Reported) Discontinued Reason: Duplicate Order Oxycodone HCl/Acetaminophen (Oxycodone-Acetaminophen 5-325), 1 TAB PO Q8H PRN for PAIN-MODERATE, (Reported) Discontinued Reason: Duplicate Order Promethazine HCl (Promethazine Tablet), 25 MG PO Q6H PRN for NAUSEA/VOMITING, (Reported) Discontinued Reason: Duplicate Order Tadalafil (Tadalafil), 5 MG PO DAILY, (Reported) Discontinued Reason: Duplicate Order Current Medications Current Medications Reviewed Review of Systems Constitutional: see HPI, weakness EENTM: no symptoms reported Respiratory: no symptoms reported Cardiovascular: no symptoms reported Gastrointestinal: no symptoms reported Genitourinary: no symptoms reported Musculoskeletal: muscle twitching, muscle weakness, neck pain Skin: no symptoms reported Psychiatric/Neurological: No Symptoms Reported All Other Systems Reviewed Negative Unless Noted: Yes Physical Exam Physical Exam Vital Signs Capillary Refill : Height, Weight, BMI Height: 6'2.00" Weight: 224lbs. 0.0oz. [id number]; 30.00 BMI Method:Stated General Appearance: No Apparent Distress, WD/WN, Chronically ill Eyes: Bilateral Eye Normal Inspection, Bilateral Eye PERRL HEENT: PERRL/EOMI, Normal ENT Inspection, Pharynx Normal Neck: Full Range of Motion, Normal Inspection, Non Tender, Supple, Carotid Bruit Respiratory: Chest Non Tender, Lungs Clear, Normal Breath Sounds, No Accessory Muscle Use, No Respiratory Distress Cardiovascular: Regular Rate, Rhythm, No Edema, No Gallop, No JVD, No Murmur, Normal Peripheral Pulses Gastrointestinal: Normal Bowel Sounds, No Organomegaly, No Pulsatile Mass, Non Tender, Soft Back: Decreased Range of Motion, Muscle Spasm, Vertebral Tenderness, Other (hard collar on) Extremity: Normal Capillary Refill, Normal Inspection, Normal Range of Motion, Non Tender, No Calf Tenderness, No Pedal Edema Neurologic/Psychiatric: Alert, Oriented x3, Normal Mood/Affect, roadway designer II-XII Norm as Tested, Abnormal Gait, Motor Weakness (generalized) Skin: Normal Color, Warm/Dry Lymphatic: No Adenopathy PM&R Medical Assessment & Plan REHAB/MEDICAL ASSESSMENT AND PLAN: REHAB IMPAIRMENT GROUP: Cervical spine myelopathy ETIOLOGIC DIAGNOSIS: Cervical spine myelopathy The comorbidities that impact the patients function and/or functional outcome by: dementia, DM, fall risk, impulsivity REHAB PLAN: The patient is being admitted to our comprehensive inpatient rehabilitation facility and can tolerate the intensity of service consisting of at least: 180 minutes of therapy a day, 5 out of 7 days a week Rehab treatment will consist of: PT OT will work on regaining function in order to return home to independence along with AD to help prevent falls The patient/family has a good understanding of our discharge process and will benefit from an interdisciplinary inpatient rehabilitation program. The patient has potential to make improvement and is in need of at least two of the following multidisciplinary therapies including but not limited to physical, occupational, speech, and prosthetics and orthotics. Additionally the patient will need services from respiratory, nutritional services, wound care, psychology, etc. (Customize this to each patient). Given the patients complex condition and risk of further medical complications, rehabilitation services cannot be safely or effectively provided at a lower level of care such as a half-way facility. BARRIERS TO DISCHARGE: Dementia, impulsiveness ESTIMATED LOS: 5 days DISPOSITION: Home RELEVANT CHANGES SINCE PREADMISSION SCREENING: I have compared the patients medical and functional status at the time of the preadmission screening and there are: no changes PROGNOSIS: Good REHABILITATION GOALS: 1. PT OT will work on regaining function in order to return home to independence along with AD to help prevent falls All the above goals were reviewed with the patient and he/she is in agreement. By signing this document, I acknowledge that I have personally performed a full physical examination on this patient within 24 hours of admission to this inpatient rehabilitation facility and have determined the patient to be able to tolerate the above course of treatment at an intensive level for a reasonable period of time. I will be completing a detailed individualized Plan of Care for this patient by day #4 of the patients stay based upon the Preadmission Screen, the Post-Admission Evaluation, and the therapy evaluations. 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
[2022-04-20] MEDS ORDERED: LACTULOSE SYRUP 10GM/15ML (ENULOSE) 30ML UDC PO PRN (12:45)
[2022-04-20] MEDS ORDERED: ACETAMINOPHEN 325 MG TABLET PO PRN (12:45)
[2022-04-20] MEDS ORDERED: FLEET ENEMA ADULT 1 EA BTL PR PRN (12:45)
[2022-04-20] MEDS ORDERED: MELATONIN 3 MG TABLET PO PRN (12:45)
[2022-04-20] MEDS ORDERED: LOPERAMIDE 2 MG (IMODIUM) TABLET PO PRN (12:45)
[2022-04-20] MEDS ORDERED: BISACODYL 10 MG SUPP (DULCOLAX) PR PRN (12:45)
[2022-04-20] MEDS ORDERED: cloNIDine 0.1 MG (CATAPRES) TAB PO PRN (12:45)
[2022-04-20] MEDS ORDERED: guaiFENesin/CODEINE (ROBITUSSIN AC) 10ML UDC PO PRN (12:45)
[2022-04-20] MEDS ORDERED: diphenhydrAMINE 25 MG TAB (BENADRYL) PO PRN (12:45)
[2022-04-20] MEDS ORDERED: CALCIUM CARBONATE 500 MG (TUMS) TAB.CHEW PO PRN (12:45)
[2022-04-20] MEDS ORDERED: ALPRAZolam 0.25 MG (XANAX) TAB PO PRN (12:45)
[2022-04-20] MEDS ORDERED: inSUlin (REGULAR) HUMAN 1 UNIT/0.01 ML (CHARGE PER UNIT) SC PRN (12:45)
[2022-04-20] MEDS ORDERED: DOCUSATE SODIUM 100 MG (COLACE) CAP PO PRN ×2 (12:45→15:30)
[2022-04-20] MEDS ORDERED: ONDANSETRON 4 MG (ZOFRAN) ORAL DISSOLVE TAB PO PRN ×2 (12:45→15:30)
[2022-04-20] MEDS ORDERED: TADA5TAB2 PO (12:55)
[2022-04-20] MEDS ORDERED: amLODIPine 5 MG (NORVASC) TAB PO NR (13:00)
[2022-04-20] MEDS ORDERED: CARB15DR OU (13:24)
[2022-04-20] MEDS ORDERED: KETO120S13 (13:54)
[2022-04-20] MEDS ORDERED: ONDA4TAB11 PO (13:54)
[2022-04-20] MEDS ORDERED: PROM25TA14 PO (13:54)
--- NOTE | 2022-04-20 13:58 | Physical Therapy Evaluation ---
PT Evaluation-General Medical Diagnosis Admission Date Apr 20, 2022 at 12:15 Medical Diagnosis: C2-T1 posterior cervical fusion, C4-5 lami Onset Date: Apr 19, 2022 Therapy Diagnosis Therapy Diagnosis: impaired mobility, strength Height/Weight Height (Feet): 6 Height (Inches): 2.00 Weight (Pounds): 224 Weight (Ounces): 0.0 Precautions Precautions/Isolations: Fall Prevention, Standard Precautions Referral Physician: Yudi Brooke DO Reason for Referral: Evaluation/Treatment Medical History Additional Medical History Past Medical History Surgeries: Eye Surgery, Pacemaker Currently Using CPAP: Yes Currently Using BIPAP: No Cardiac: High Cholesterol, Hypertension Reproductive: No Sexually Transmitted Disease: No Gastrointestinal: Gall Bladder Disease Musculoskeletal: Degenerate Disk Disease, Arthritis, Chronic Back Pain Endocrine: Diabetes, Non-Insulin dep HEENT: Cataract Loss of Vision: Denies Hearing Impairment: Denies Did You Recieve Any Treatments: No Psychosocial: Sleep Difficulties, Anxiety Skin/Integumentary: Eczema History of Blood Disorders: No Adverse Reaction to Blood Hernandez: No Social History Home: Single Level Current Living Status: Spouse Entry Into Home: Stairs Without Railing PT Steps Into Home: 1 Prior Prior Level of Function SCALE: Activities may be completed with or without assistive devices. 2-Gidrthopfi-ygdeeyc completes the activity by him/herself with no assistance from a helper. 5-Set-up or Clean-up Assistance-helper sets up or cleans up; patient completes activity. [place] assists only prior to or following the activity. 4-Supervision or Touching Assistance-helper provides verbal cues and/or touching/steadying and/or contact guard assistance as patient completes activity. Assistance may be provided throughout the activity or intermittently. 3-Partial/Moderate Assistance-helper does LESS THAN HALF the effort. [place] lifts, holds or supports trunk or limbs, but provides less than half the effort. 2-Substantial/Maximal Assistance-helper does MORE THAN HALF the effort. [place] lifts or holds trunk or limbs and provides more than half the effort. 1-Cbygdjprg-vvaaft does ALL the effort. Patient does none of the effort to complete the activity. Or, the assistance of 2 or more helpers is required for the patient to complete the activity. If activity was not attempted, code reason: 7-Patient Refused. 9-Not Applicable-not attempted and the patient did not perform the activity before the current illness, exacerbation or injury. 10-Not Attempted due to Environmental Limitations-(lack of equipment, weather restraints, etc.). 88-Not Attempted due to Medical Conditions or Safety Concerns. Bed Mobility: 6 Transfers (B,C,W/C): 6 Gait: 6 Indoor Mobility (Ambulation): Independent Prior Devices Use: None Patient states he uses a walker occasionally PT Evaluation-Current Subjective Patient in bed pre tx, agrees to PT, has 9/10 neck pain, nurse notified. Will be co-treating with OT for part of tx due to poor patient mobility, strength, endurance, severe pain with activity, coordinate UE and LE with activity, safety and reduce risk of falls. Pain Section J - Health Conditions 1. Rarely or not at all 2. Occasionally 3. Frequently 4. Almost constantly 8. Unable to answer Pain Effect on Sleep: 2 Pain Interference with Therapy: 2 Pain Interference w/Day-to-Day: 2 Pt/Family Goals "to go home" Objective Patient Orientation: Person, Place, Situation Attachments: Drains cervical collar, wound vac ROM/Strength ROM Lower Extremities WNL Strength Lower Extremities LLE (hip flexion 3+/5, knee flexion 4/5, knee extension 4/5, dorsiflexion 4/5), RLE (hip flexion 3+/5, knee flexion 3+/5, knee extension 3+/5, dorsiflexion 4/5) Sensory Vision: Functional Hearing: Functional Sensation Right Lower Extremit: Intact Sensation Left Lower Extremity: Intact Transfers Roll Left & Right (QC): 6 Sit to Lying (QC): 6 Lying to Sitting/Side of Bed(Q: 6 Sit to Stand (QC): 4 Chair/Cqd-ke-Hsfyz Xfer(QC): 4 Toilet Transfer (QC): 4 Car Transfer (QC): 4 Patient performs rolling and supine <-> sit with independence, sit <-> stand and transfers with CGA, car transfer CGA, cues for positioning and safety during activity. Gait Walk 10 feet (QC): 4 Walk 50 ft with 2 Turns(QC): 4 Walk 150 ft (QC): 4 Walking 10ft/uneven surface-QC: 4 Distance: 300', 100'x2 Gait Assistive Device: FWW Comments/Gait Description Patient can ambulate 300' with a rolling walker with CGA (including 50' with at least 2 turns of 90 degrees and 10' over an uneven surface), has a slumped posture, slow but steady ambulation Wheelchair Training Does the Pt Use a Wheelchair?: No Wheel 50 ft with 2 turns (QC): 9 Wheel 150 ft (QC): 9 Stairs #of Steps: 1 1 Step (curb) (QC): 4 4 Steps (QC): 88 12 Steps (QC): 88 Walking Assistive Device: Walker Patient can go up and down 1 step using a rolling walker with CGA, cues for foot placement Balance Sitting Static: Normal Sitting Dynamic: Normal Standing Static: Good Standing Dynamic: Fair Picking up an Object (QC): 4 (CGA using a draw fire operator) Treatment Patient also performed bathing and dressing. PT performed bed mobility and transfers, ambulation, stair training, positioning and safety during bathing and dressing, OT performed bathing, dressing, UE positioning and safety during activity. Assessment/Needs Patient in recliner post tx with nurse call, phone, tray, all needs met. Patient has impaired mobility, strength, endurance, pretty severe neck pain. CGA with transfers and ambulation using a rolling walker Rehab Potential: Fair PT Short Term Goals Short Term Goals Time Frame: Apr 27, 2022 Sit to stand: 4 Chair/ogj-yh-jtwjw transfer: 4 Walk 10 feet: 4 Walk 50 feet with two turns: 4 Walk 150 feet: 4 all scores of 4 are SBA PT Shopping Investigator Goals Nursing Home Goals PT Shopping Investigator Goals Time Frame: May 04, 2022 Roll Left to Right (QC): 6 Sit to Lying (QC): 6 Lying-Sitting on Side/Bed(QC): 6 Sit to Stand (QC): 6 Chair/Mua-jb-Issde Xfer(QC): 6 Toilet/Commode Transfer (QC): 6 Car Transfer (QC): 6 Does the Patient Walk: Yes Walk 10 feet (QC): 6 Walk 10ft-Uneven Surface(QC): 6 Walk 50ft with 2 Turns (QC): 6 Walk 150 ft (QC): 6 Wheel 50 feet with 2 turns (QC: 9 Wheel 150 feet: 9 1 Step (curb) (QC): 4 (SBA) 4 Steps (QC): 4 (SBA) 12 Steps (QC): 4 (SBA) Picking up an Object (QC): 6 PT Plan Problem List Problem List: Activity Tolerance, Functional Strength, Safety, Balance, Gait, Transfer, Bed Mobility, ROM Treatment/Plan Treatment Plan: Continue Plan of Care Treatment Plan: Bed Mobility, Education, Functional Activity Monica, Functional Strength, Group Therapy, Gait, Safety, Therapeutic Exercise, Transfers Treatment Duration: May 04, 2022 Frequency: At least 5 of 7 days/Wk (IRF) Estimated Hrs Per Day: 1.5 hours per day Patient and/or Family Agrees t: No Safety Risks/Education Patient Education: Gait Training, Transfer Techniques, Steps, Correct Positioning, Reviewed Don/Doff Brace, Safety Issues Teaching Recipient: Patient Teaching Methods: Demonstration, Discussion Response to Teaching: Reinforcement Needed Discharge Recommendations Plan Patient will perform bed mobility and transfer training, balance and endurance training, functional strengthening, stair training, gait training, and education, to improve functional mobility and independence at home. Therapy Discharge Recommendati: Home & Family, Post Acute PT Time Time In: 1250 Time Out: 1410 DATE: Apr 20, 2022 Total Billed Treatment Time: 80 Total Billed Treatment 1 visit EVM 10' FA 70' (only charge 4 units) PT eval from [id number], co-treat from [id number] YEE DASH PT Apr 20, 2022 13:58
--- NOTE | 2022-04-20 14:00 | Occupational Therapy Eval ---
OT Evaluation-General/PLF Medical Diagnosis Admission Date Apr 20, 2022 at 12:15 Medical Diagnosis: s/p C2-T1 posterior cervical fusion with C4-5 lami Onset Date: Apr 19, 2022 Therapy Diagnosis Therapy Diagnosis: decreased ADL status Height/Weight Height (Feet): 6 Height (Inches): 2.00 Weight (Pounds): 224 Weight (Ounces): 0.0 Precautions Precautions/Isolations: Fall Prevention, Standard Precautions Comments C collar when out of bed, Cervical spine precautions, 10 lb lifting restriction (per pt report) Referral Physician: Edwardo Referral Reason: Evaluation/Treatment Medical History Additional Medical History Axiety, arthritis, bulging disc (L2-3, L5-S1), CAD, DM, GERD, Gout, HTN, back sx, pacemaker Current History 04/19/22 s/p C2-T1 posterior cervical fusion with C4-5 Laminectomy. Transfer To ARU 04/20/22 Social History Home: Single Level Current Living Status: Spouse Entry Into Home: Stairs With Railing Steps Into Home: 1 ADL-Prior Level of Function SCALE: Activities may be completed with or without assistive devices. 4-Zlbgjufgom-bommqbi completes the activity by him/herself with no assistance from a helper. 5-Set-up or Clean-up Assistance-helper sets up or cleans up; patient completes activity. [place] assists only prior to or following the activity. 4-Supervision or Touching Assistance-helper provides verbal cues and/or touching/steadying and/or contact guard assistance as patient completes activity. Assistance may be provided throughout the activity or intermittently. 3-Partial/Moderate Assistance-helper does LESS THAN HALF the effort. [place] lifts, holds or supports trunk or limbs, but provides less than half the effort. 2-Substantial/Maximal Assistance-helper does MORE THAN HALF the effort. [place] lifts or holds trunk or limbs and provides more than half the effort. 9-Wdjydgrmu-kzpbkj does ALL the effort. Patient does none of the effort to complete the activity. Or, the assistance of 2 or more helpers is required for the patient to complete the activity. If activity was not attempted, code reason: 7-Patient Refused. 9-Not Applicable-not attempted and the patient did not perform the activity before the current illness, exacerbation or injury. 10-Not Attempted due to Environmental Limitations-(lack of equipment, weather restraints, etc.). 88-Not Attempted due to Medical Conditions or Safety Concerns. ADL PLOF Comments Pt reports IND with ADLs and functional mobility at PLOF, using walker PRN. 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 Pt indicates he has all equipment he needs at home, having a tub/shower with a SC. Pt uses a walker beside the tub as a rail to hold onto as he steps in/out of tub. He has a mill operator helper and sock aide. Self Care: Independent Functional Cognition: Independent OT Current Status Subjective Pt agreeable to OT evaluation followed by cotreatment. Pt reports pain 8-9/10 in neck and b/l knees. Pt doesn't feel like he needs to be in rehab, stating he has had multiple neck surgeries in the past and he knows what to expect with going home. Pt believes he only needs rest and he will be fine. Pt states he wants to discharge Saturday, tomorrow. Mental Status/Objective Patient Orientation: Person, Place, Time, Situation Attachments: Other-See Comments (Cervial collar, drain, wound vac) Current Glasses/Contacts: Yes Hearing Aids: No Dentures/Partials: No Hand Dominance: Right Upper Extremity ROM WFL, BUE shoulder flexion to approx 140 degrees Upper Extremity Coordination WFL Upper Extremity Sensation WFL Upper Extremity Strength grossly 4/5 BUE (Increased shoulder pain noted in RUE) ADL-Treatment Eating (QC): 6 Oral Hygiene (QC): 6 (seated) Shower/Bathe Self (QC): 4 (SBA sponge bath) Upper Body Dressing (QC): 3 (Min A with C-Collar and pulling shirt overhead.) Lower Body Dressing (QC): 4 (CGA in stand for pant hike) On/Off Footwear (QC): 4 (SBA, pt able to utilize sock aide and mill operator helper as needed like he would at home.) Toileting Hygiene (QC): 4 (SBA to CGA) Other Treatments OT evaluation complete. OT/PT cotreat due to skill of 2 clinicians required which a rehabilitation nurse could not perform in order to coordinate UE/LEs, decrease fall risk, and due to pt's limitations in strength, mobility and pain. OT focused on UE placement, cues for sequencing and safety and ADLs, PT focused on LE placement, gross overall movement, and mobility/transfers. Pt performed functional mobility/transfers using FWW, including car transfer, uneven surface, 1 step, and hallway mobility. Pt used FWW to return to room, completing dressing and sponge bath seated at sink, and toileting (standing to urinate). Pt used FWW to transfer to recliner. Post tx, pt in recliner, call light in reach and all needs met, eating lunch. IND rolling and supine to/from sit, CGA sit to/from stand, CGA car transfer, functional mobility 300' with FWW CGA. Education OT Patient Education: Correct positioning, Energy conservation, Exercise program, Modified ADL techniques, Progress toward Goal/Update tx plan, Purpose of tx/functional activities, Reviewed precautions, Rehab process Teaching Recipient: Patient Teaching Methods: Discussion Response to Teaching: Verbalize Understanding BIMS CAM BIMS Expression of Ideas and Wants: Without Difficulty Understanding Verbal Content: Understands Brief Interview/Mental Status: Yes IRF REBA BIMS: IRF REBA BIMS Response (Comments) Value Repitition of Three Words Three 3 Recalls Socks Yes, No Cue Required 2 Recalls Blue Yes, No Cue Required 2 Recalls Bed Yes, No Cue Required 2 Year Correct 3 Month Accurate Within 5 Days 2 Day Correct 1 Total 15 CAM Mental Status Change/Baseline: 0 Inattention: 0 Disorganized thinkin Altered level of consciousness: 0 OT Short Term Goals Short Term Goals Time Frame: Apr 25, 2022 Shower/bathe self: 5 Upper body dressin Lower body dressin Putting on/taking off footwear: 5 OT Civil Service Worker Goals Senior Living Goals Time Frame: May 11, 2022 Eating (QC): 6 Oral Hygiene (QC): 6 Toileting Hygiene (QC): 6 Shower/Bathe Self (QC): 6 Upper Body Dressing (QC): 6 Lower Body Dressing (QC): 6 On/Off Footwear (QC): 6 Additional Goals: 1-Demonstrate ADL Tasks, 2-Verbalize Understanding, 3- ImproveStrength/Monica 1=Demonstrate adherence to instructed precautions during ADL tasks. 2=Patient will verbalize/demonstrate understanding of assistive devices/modifications for ADL. 3=Patient will improve strength/tolerance for activity to enable patient to perform ADL's. OT Education/Plan Problem List/Assessment Assessment: Decreased Activ Tolerance, Impaired Funct Balance, Impaired I ADL's, Impaired Self-Care Skills Discharge Recommendations Plan/Recommendations: Continue POC Treatment Plan/Plan of Care Patient would benefit from OT for education, treatment and training to promote independence in ADL's, mobility, safety and/or upper extremity function for ADL's. Plan of Care: ADL Retraining, Functional Mobility, Group Exercise/Act as Ind, UE Funct Exercise/Act Treatment Duration: May 11, 2022 Frequency: At least 5 of 7 days/Wk (IRF) Estimated Hrs Per Day: 1.5 hours per day Agreement: Yes Rehab Potential: Good Time Start Time: 12:40 Stop Time: 14:10 DATE: Apr 20, 2022 Total Time Billed (hr/min): 80 Billed Treatment Time [id number] OT eval, [id number] PT eval (not billed), [id number] [place] (70') 1, EVL (10'), FA 2 (35), ADL 2 (35') LALI HILLS OT Apr 20, 2022 14:00
--- NOTE | 2022-04-20 14:40 | ST Cognitive Linguistic Eval ---
Speech Evaluation-General Medical Diagnosis C2-T1 Posterior Cervical Fusion, C4-5 Lami Onset Date: Apr 19, 2022 Therapy Diagnosis Therapy Diagnosis: Intact (Baseline) Cognition Precautions Precautions: Fall Precautions/Isolations: Fall Prevention, Standard Precautions Referral Referring Physician: Dr. Brooke Reason for Referral: Evaluation/Treatment Social History Current Living Status: Spouse Speech PLF-Current Status Prior Level of Function The patient denied prior or current concerns with his speech, language, cognition, or swallowing. Per patient, he experienced swallowing issues following his most recent ACDF procedure, however, has returned to baseline without difficulties. Subjective The patient was seated upright in his recliner, awake and alert, upon entrance to his room by the clinician. The patient greeted the clinician appropriately and was agreeable to participation in the cognitive linguistic assessment. Language Eval: Auditory Comprehends Simple Yes/No Ques: Functional Indent/Objects Multiple Guillory: Functional Follows 1-Step Commands: Functional Follows General Conversations: Functional Language Eval: Verbal Language Completes Spontaneous Greeting: Functional Produces Auto, Serial Info: Functional Word Finding: Functional Requests Basic Needs: Functional States Basic Personal Info: Functional Language Evaluation: Reading Follows Simple Written Direct: Functional Cognitive Patient Orientation The patient was independently oriented to self, location, month, day of the week, date and year. Objective Cognitive Domain Attention: WNL Memory: WNL Problem Solving: Functional Executive Functions: WNL Visuospatial Skills: WNL Composite Severity Rating: WNL Clock Drawing Severity Rating: WNL Objective Formal/Standardized Tests [facility] Mental Status Exam (UMS) Results The patient demonstrated a result of +28/30 on the SLUMS correlating to cognitive linguistic skills within normal limits. Oral Motor/Speech Production The patient does not display dysarthria or apraxia of speech. The patient is 100% intelligible in known and unknown contexts. Impression The patient demonstrated intact and baseline cognitive linguistic skills. Skilled speech pathology services are not warranted at this time. The patient was educated regarding post-operative pharyngeal edema, however, stated, "This is my seventh time, I know all about that." Speech pathology to sign off of skilled services at this time. Speech-Plan Treatment Plan Speech Therapy Treatment Plan: Continue Plan of Care Treatment Duration: Apr 20, 2022 Frequency: 1 time per week Estimated Hrs Per Day: .25 hour per day Rehab Potential: Good Safety Risks/Education Teaching Recipient: Patient Teaching Methods: Discussion Response to Teaching: Verbalize Understanding Education Topics Provided: Results, Recommendations, Plan of Care Time Speech Therapy Time In: 14:10 Speech Therapy Time Out: 14:30 DATE: Apr 20, 2022 Total Billed Time: 20 Billed Treatment Time 1, ISAÍAS RODRIGUEZ ELIZAB[facility] ST Apr 20, 2022 14:40
[2022-04-20] MEDS ORDERED: NYSTATIN CREAM (MYCOSTATIN) 30 GM TUBE TP PRN (15:30)
[2022-04-20] MEDS ORDERED: CARBOXYMETHYLCELLULOSE SODIUM OU PRN (15:30)
[2022-04-20] MEDS ORDERED: NITROGLYCERIN 0.4 MG SL TABS BTL 25'S SL PRN (15:30)
[2022-04-20] MEDS ORDERED: PROMETHAZINE 25 MG (PHENERGAN) TAB PO PRN (15:30)
[2022-04-20] MEDS ORDERED: NON-FORMULARY MEDICATION 1 EA EA (Ketoconazole 1 APPLIC) PRN (15:30)
[2022-04-20] MEDS ORDERED: RT-ALBUTEROL SULF 2.5 MG/3 ML PRE-MIX VIAL INH PRN (15:30)
[2022-04-20] MEDS ORDERED: NON-FORMULARY MEDICATION 1 EA EA (Oxycodone HCl 20 MG) PO PRN (15:30)
[2022-04-20] MEDS ORDERED: polyethylene glycoL POWDER 17 GM (MIRALAX) PACK PO PRN (15:30)
[2022-04-20] MEDS ORDERED: NON-FORMULARY MEDICATION 1 EA EA (Tadalafil (Cialis) 5 MG) PO PRN (15:30)
[2022-04-20] MEDS ORDERED: BACLOFEN 10 MG (LIORESAL) TAB PO PRN (15:30)
[2022-04-20] MEDS ORDERED: TRIAMCINOLONE 0.1% OINT (KENALOG) 15 GM TUBE TP PRN (15:30)
[2022-04-20] MEDS ORDERED: NON-FORMULARY MEDICATION 1 EA EA (Fluticasone Propionate (Flonase Allergy Relief) 1 SPRAY) NS PRN (15:30)
[2022-04-20] MEDS ORDERED: BISACODYL 5 MG (DULCOLAX) TABLET PO PRN (15:30)
[2022-04-20] MEDS ORDERED: MECLIZINE 25 MG (ANTIVERT) TAB PO PRN (15:30)
[2022-04-20] MEDS ORDERED: FLUTICASONE NASAL SPRAY (FLONASE) 16 GM BTL NS PRN (15:45)
--- NOTE | 2022-04-20 15:51 | Discharge Summary ---
Diagnosis/Chief Complaint Date of Admission Apr 20, 2022 at 12:15 Date of Discharge Discharge Date: Apr 20, 2022 Discharge Diagnosis Cervical spine myelopathy s/p surgery POD # 1 Left 3 hours after arrival Discharge Summary Discharge Physical Examination Allergies: Coded Allergies: Penicillins (Verified Allergy, Intermediate, RASH, 12/22/10) Vitals & I&Os Vital Signs Date Time Temp Pulse Resp B/P (MAP) Pulse Ox O2 Delivery O2 Flow Rate FiO2 04/20/22 13:54 Room Air 04/20/22 12:00 36.4 72 20 142/98 (113) 97 Hospital Course Was the Problem List Reviewed?: Yes Short stay before he decided to leave so I updated Dr Bucio obtained instructions and dc meds and patient declined HH. Labs (last 24 hrs) Laboratory Tests 04/20/22 15:42: Glucometer 327H Pending Labs Laboratory Tests 04/20/22 15:42: Glucometer 327 Discharge Home Medications: Active Scripts Active Clindamycin HCl 300 Mg Capsule 300 Mg PO TID Reported Magnesium (Magnesium Oxide) 400 Mg Magnesium Tablet 400 Mg PO BID Promethazine Tablet (Promethazine HCl) 25 Mg Tablet 25 Mg PO Q6H PRN Ondansetron Odt (Ondansetron) 4 Mg Tab.rapdis 4 Mg PO Q8H PRN Ketoconazole 2 % Shampoo 1 Applic UD PRN Refresh Tears (Carboxymethylcellulose Sodium) 0.5 % Drops 1-2 Drop OU UD PRN Cialis (Tadalafil) 5 Mg Tablet 5 Mg PO DAILY PRN Pramipexole Dihydrochloride (Pramipexole Di-HCl) 1 Mg Tablet 2 Mg PO HS TAKES 2 (1MG) TABS Metformin HCl 500 Mg Tablet 500 Mg PO BID WITH MEALS Lidocaine 5% Patch (Lidocaine) 5 % Adh..patch 1 Each TP DAILY MDD 2 APPLICATION SITE NOT LISTED ON THE [facility] DISCHARGE ORDERS LEAVE PATCH ON FOR 12 HOURS AND OFF FOR 12 HOURS Levemir Flextouch (Insulin Detemir) 100 Unit/Ml (3 Ml) Insuln.pen 15 Unit SQ HS Glipizide ER (Glipizide) 5 Mg Tab.er.24 5 Mg PO 1800 Flonase Allergy Relief (Fluticasone Propionate) 50 Mcg/Actuation [place].susp 1 [place] NS DAILY PRN Albuterol Sulfate 2.5 Mg/0.5 Ml Vial.neb 2.5 Mg INH Q8H PRN Oxycodone HCl 20 Mg Tablet 20 Mg PO Q4H PRN MDD 120MG Oxycodone HCl ER (Oxycodone HCl) 40 Mg Tab.er.12h 40 Mg PO Q12H MDD 80MG 7 Days Tylenol (Acetaminophen) 325 Mg Capsule 650 Mg PO Q6H PRN Flomax (Tamsulosin HCl) 0.4 Mg Cap 0.8 Mg PO HS TAKES 2 (0.4MG) CAPS Diclofenac Sodium 1 % Gel..gram. 1 Applic TP QID NO APPLICATION SITE LISTED ON THE [facility] DISCHARGE ORDERS Trazodone HCl 100 Mg Tablet 100 Mg PO HS Sucralfate 1 Gram Tablet 1 Gm PO BID Pregabalin 75 Mg Capsule 75 Mg PO BID Pramipexole Dihydrochloride (Pramipexole Di-HCl) 1 Mg Tablet 1 Mg PO 0800,1200,1800 Namzaric 28 mg-10 mg Capsule (Memantine HCl/Donepezil HCl) 28 Mg-10 Mg Cap.spr.24 1 Each PO DAILY Montelukast Sodium 10 Mg Tablet 10 Mg PO HS Metoprolol Succinate 100 Mg Tab.er.24h 100 Mg PO DAILY Losartan Potassium 50 Mg Tablet 50 Mg PO DAILY Bisacodyl 5 Mg Tablet.dr 5 Mg PO DAILY PRN Protonix (Pantoprazole Sodium) 40 Mg Tablet.dr 40 Mg PO DAILY Victoza 2-Eagle (Liraglutide) 0.6 Mg/0.1 Ml (18 Mg/3 Ml) Pen.injctr 1.2 Mg SQ DAILY Nystatin 15 Gm Cream..g. TP BID PRN Triamcinolone Acetonide 0.1% Ointment (Triamcinolone Acet) 0.1 % Oint 1 Applic TP DAILY PRN Baclofen 10 Mg Tablet 10 Mg PO TID PRN Miralax (Polyethylene Glycol 3350) 17 Gm Powd.pack 17 Gm PO DAILY PRN Aspirin EC (Aspirin) 81 Mg Tablet.dr 81 Mg PO DAILY Meclizine HCl 25 Mg Tablet 25 Mg PO TID PRN Nitroglycerin 0.4 Mg Tab.subl 0.4 Mg SL UD PRN Meloxicam 15 Mg Tablet 15 Mg PO DAILY Cetirizine HCl 10 Mg Tablet 10 Mg PO DAILY Docusate Sodium 100 Mg Capsule 100 Mg PO BID PRN Alprazolam 1 Mg Tablet 1 Mg PO BID Atorvastatin Calcium 20 Mg Tablet 20 Mg PO HS Instructions to patient/family Please see electronic discharge instructions given to patient. Clinical Quality Measures DVT/VTE Risk/Contraindication: Contraindications-Pharm: Other *list below* Other: spine surgery too high risk for hematoma and subsequent paralysis CHINEDU STERN DO Apr 20, 2022 15:51
[2022-04-20] MEDS ORDERED: inSUlin ASPART (NovoLOG) 1 UNIT/0.01 ML (CHARGE PER UNIT) SC SCH (16:00)
[2022-04-20] MEDS ORDERED: ARTIFICAL TEARS 0.4 ML UNIT DOSE (REFRESH PLUS) OU PRN (16:00)
[2022-04-20] MEDS ORDERED: DICLOFENAC 1% GEL 100 GM (VOLTAREN) TUBE TP SCH (17:00)
[2022-04-20] MEDS ORDERED: PRAMIPEXOLE 0.5 MG TAB (MIRAPEX) PO SCH ×2 (18:00→21:00)
[2022-04-20] MEDS ORDERED: glipiZIDE XL 5 MG (GLUCOTROL XL) TAB PO SCH (18:00)
[2022-04-20] MEDS ORDERED: metFORMIN 500 MG (GLUCOPHAGE) TAB PO SCH (18:00)
[2022-04-20] MEDS ORDERED: NON-FORMULARY MEDICATION 1 EA EA (Pramipexole Di-HCl (Pramipexole Dihydrochloride) 1 MG) PO SCH (18:00)
[2022-04-20] MEDS ORDERED: MAGNESIUM OXIDE (MAG-OX)400 MG TAB PO SCH (21:00)
[2022-04-20] MEDS ORDERED: NON-FORMULARY MEDICATION 1 EA EA (Magnesium Oxide (Magnesium) 400 MG) PO SCH (21:00)
[2022-04-20] MEDS ORDERED: LIDOCAINE PATCH REMOVAL TP SCH (21:00)
[2022-04-20] MEDS ORDERED: ALPRAZolam 1 MG (XANAX) TAB PO SCH (21:00)
[2022-04-20] MEDS ORDERED: CLINDAMYCIN HCL 300 MG PO SCH (21:00)
[2022-04-20] MEDS ORDERED: DOCUSATE SODIUM 100 MG (COLACE) CAP PO SCH (21:00)
[2022-04-20] MEDS ORDERED: MEMANTINE 10 MG (NAMENDA) TABLET PO SCH (21:00)
[2022-04-20] MEDS ORDERED: CLINDAMYCIN 150 MG (CLEOCIN) CAP PO SCH (21:00)
[2022-04-20] MEDS ORDERED: PRAMIPEXOLE DI HCL 2 MG PO SCH (21:00)
[2022-04-20] MEDS ORDERED: traZODone 100 MG (DESYREL) TAB PO SCH (21:00)
[2022-04-20] MEDS ORDERED: TAMSULOSIN 0.4 MG (FLOMAX) CAP PO SCH (21:00)
[2022-04-20] MEDS ORDERED: NON-FORMULARY MEDICATION 1 EA EA (Insulin Detemir (Levemir Flextouch) 15 UNIT) SQ SCH (21:00)
[2022-04-20] MEDS ORDERED: polyethylene glycoL POWDER 17 GM (MIRALAX) PACK PO SCH (21:00)
[2022-04-20] MEDS ORDERED: SENNA W/DOCUSATE (SENOKOT S) TABLET PO SCH (21:00)
[2022-04-20] MEDS ORDERED: SUCRALFATE 1 GM (CARAFATE) TAB PO SCH (21:00)
[2022-04-20] MEDS ORDERED: oxyCODONE ER 40 MG (oxyCONTIN CR) TAB PO SCH (21:00)
[2022-04-20] MEDS ORDERED: MONTELUKAST 10 MG (SINGULAIR) TAB PO SCH (21:00)
[2022-04-20] MEDS ORDERED: PREGABALIN 75 MG (LYRICA) CAP PO SCH (21:00)
[2022-04-21] MEDS ORDERED: LIDOCAINE 4% (SALONPAS) PATCH TP SCH (09:00)
[2022-04-21] MEDS ORDERED: LORATADINE (CLARITIN) 10 MG TAB PO SCH (09:00)
[2022-04-21] MEDS ORDERED: NON-FORMULARY MEDICATION 1 EA EA (Memantine HCl/Donepezil HCl (Namzaric 28 mg-10 mg Capsul PO SCH (09:00)
[2022-04-21] MEDS ORDERED: meTOprolol SUCCINATE 100 MG (TOPROL XL) TAB PO SCH (09:00)
[2022-04-21] MEDS ORDERED: DONEPEZIL 10 MG (ARICEPT) TAB PO SCH (09:00)
[2022-04-21] MEDS ORDERED: LOSARTAN 50 MG (COZAAR) TAB PO SCH (09:00)
[2022-04-21] MEDS ORDERED: PANTOPRAZOLE 40 MG (PROTONIX) TAB PO SCH (09:00)
[2022-04-21] MEDS ORDERED: ASPIRIN E.C. 81 MG (ECOTRIN) TAB PO SCH (09:00)
[2022-04-21] MEDS ORDERED: MELOXICAM 7.5 MG (MOBIC) TABLET PO SCH (09:00)
[2022-04-21] MEDS ORDERED: NON-FORMULARY MEDICATION 1 EA EA (Meloxicam 15 MG) PO SCH (09:00)
[2022-04-21] MEDS ORDERED: amLODIPine 5 MG (NORVASC) TAB PO SCH (09:00)
[2022-04-21] MEDS ORDERED: NON-FORMULARY MEDICATION 1 EA EA (Liraglutide (Victoza 2-Pak) 1.2 MG) SQ SCH (09:00)
[2022-04-21] MEDS ORDERED: NON-FORMULARY MEDICATION 1 EA EA (Cetirizine HCl 10 MG) PO SCH (09:00)
--- NOTE | 2022-04-23 14:51 | Therapy Team Discharge Summary ---
Therapy Discharge Summary Discharge Recommendations Date of Discharge Apr 20, 2022 at 16:15 Physical Therapy Roll Left to Right (QC): 6 Sit to Lying (QC): 6 Lying to Sitting/Side of Bed(Q: 6 Sit to Stand (QC): 4 Chair/Bny-qt-Xjuyp Xfer(QC): 4 Toilet Transfer (QC): 4 Car Transfer (QC): 4 Walk 10 feet (QC): 4 Walk 50 ft with 2 Turns(QC): 4 Walk 150 ft (QC): 4 Walking 10ft on uneven surface: 4 Distance: 300', 100'x2 Gait Assistive Device: FWW Does the Pt Use a Wheelchair: No Wheel 50 ft with 2 turns (QC): 9 Wheel 150 ft (QC): 9 #of Steps: 1 1 Step (curb) (QC): 4 4 Steps (QC): 88 12 Steps (QC): 88 Walking Assistive Device: Walker Balance Sitting Static: Normal Balance Sitting Dynamic: Normal Balance-Standing Static: Good Picking up an Object (QC): 4 (CGA using a brazer production line) Occupational Therapy Pt admitted to ARU s/p C2-T1 posterior cervical fusion with C4-5 lami. At [facility], pt was independent with ADLS and functional mobility using FWW as needed. Upon initial evaluation, pt was independent with eating and oral care, required min A with UE dressing, CGA showering, LE dressing, SBA footwear and CGA toileting. Pt had short stay, thus did not attain any LTGS due to discharging several hours after arriving on ARU. D/C from OT. Decreased Activ Tolerance, Impaired Funct Balance, Impaired I ADL's, Impaired Self-Care Skills Eating (QC): 6 Oral Hygiene (QC): 6 (seated) Shower/Bathe Self (QC): 4 (SBA sponge bath) Upper Body Dressing (QC): 3 (Min A with C-Collar and pulling shirt overhead.) Lower Body Dressing (QC): 4 (CGA in stand for pant hike) On/Off Footwear (QC): 4 (SBA, pt able to utilize sock aide and brazer production line as needed like he would at home.) Toileting Hygiene (QC): 4 (SBA to CGA) PT Fpc Goals Loader Demolder Goals PT Loader Demolder Goals Time Frame: May 04, 2022 Roll Left to Right (QC): 6 Sit to Lying (QC): 6 Lying-Sitting on Side/Bed(QC): 6 Sit to Stand (QC): 6 Chair/Zkn-vz-Mnqgi Xfer(QC): 6 Toilet/Commode Transfer (QC): 6 Car Transfer (QC): 6 Does the Patient Walk: Yes Walk 10 feet (QC): 6 Walk 10ft-Uneven Surface(QC): 6 Walk 50ft with 2 Turns (QC): 6 Walk 150 ft (QC): 6 Wheel 50 feet with 2 turns (QC: 9 Wheel 150 feet: 9 1 Step (curb) (QC): 4 (SBA) 4 Steps (QC): 4 (SBA) 12 Steps (QC): 4 (SBA) Picking up an Object (QC): 6 OT Fpc Goals Loader Demolder Goals Time Frame: May 11, 2022 Acute change in mental status: 0 Inattention: 0 Disorganized thinkin Altered level of consciousness: 0 Eating (QC): 6 Oral Hygiene (QC): 6 Toileting Hygiene (QC): 6 Shower/Bathe Self (QC): 6 Upper Body Dressing (QC): 6 Lower Body Dressing (QC): 6 On/Off Footwear (QC): 6 Additional Goals: 1-Demonstrate ADL Tasks, 2-Verbalize Understanding, 3- ImproveStrength/Monica 1=Demonstrate adherence to instructed precautions during ADL tasks. 2=Patient will verbalize/demonstrate understanding of assistive devices/mod ifications for ADL. 3=Patient will improve strength/tolerance for activity to enable patient to perform ADL's. LALI HILLS OT Apr 23, 2022 14:51
== END 2022-04-20 16:15 | disposition home or self-care (01) | DRG 93 ==
PROVIDERS: ADMIT Internal Medicine; ATTEND Internal Medicine
DX: G72.89 Other specified myopathies (principal); Z47.89 Encounter for other orthopedic aftercare; E11.9 Type 2 diabetes mellitus without complications; F03.90 Unspecified dementia, unspecified severity, without behavioral disturbance, psychotic disturbance, mood disturbance, and anxiety; Z91.81 History of falling; R45.87 Impulsiveness; E78.00 Pure hypercholesterolemia, unspecified; I10 Essential (primary) hypertension; M19.91 Primary osteoarthritis, unspecified site; F41.9 Anxiety disorder, unspecified; Z95.0 Presence of cardiac pacemaker; Z87.891 Personal history of nicotine dependence; Z79.4 Long term (current) use of insulin; Z79.84 Long term (current) use of oral hypoglycemic drugs; Z79.82 Long term (current) use of aspirin; Z88.0 Allergy status to penicillin; Z83.3 Family history of diabetes mellitus; Z82.49 Family history of ischemic heart disease and other diseases of the circulatory system
CPT/HCPCS: 82947

== ENCOUNTER 2022-04-21 11:09 | Inpatient (IN) | payer MEDICARE, MEDICAID ==
[~2022-04-21] VITALS: Ht 182 cm; Wt 113.2 kg
[~2022-04-21 11:09] MED LIST changes: +ACET325C7 PO; +ALB0.5V INH; +CARB15DR OU; +CLIN-144 PO; +DICL100G13 TP; +FLUT9.9S NS; +GABA300C PO; +GLIP5TAB26 PO; +HYDR25TA4 PO; +KETO120S13; +LIDO700A45 TP; +MAGN400T39 PO; +ONDA4TAB11 PO; +OXYC20TA3 PO; +TADA5TAB2 PO
[2022-04-21] MEDS ORDERED: diphenhydrAMINE 25 MG TAB (BENADRYL) PO PRN ×2 (11:15)
[2022-04-21] MEDS ORDERED: guaiFENesin/CODEINE (ROBITUSSIN AC) 10ML UDC PO PRN ×2 (11:15)
[2022-04-21] MEDS ORDERED: FLEET ENEMA ADULT 1 EA BTL PR PRN ×2 (11:15)
[2022-04-21] MEDS ORDERED: NYSTATIN CREAM (MYCOSTATIN) 30 GM TUBE TP PRN (11:15)
[2022-04-21] MEDS ORDERED: ALPRAZolam 0.25 MG (XANAX) TAB PO PRN ×2 (11:15)
[2022-04-21] MEDS ORDERED: ONDANSETRON 4 MG (ZOFRAN) ORAL DISSOLVE TAB PO PRN ×2 (11:15)
[2022-04-21] MEDS ORDERED: LOPERAMIDE 2 MG (IMODIUM) TABLET PO PRN ×2 (11:15)
[2022-04-21] MEDS ORDERED: ARTIFICAL TEARS 0.4 ML UNIT DOSE (REFRESH PLUS) OU PRN (11:15)
[2022-04-21] MEDS ORDERED: FLUTICASONE NASAL SPRAY (FLONASE) 16 GM BTL NS PRN (11:15)
[2022-04-21] MEDS ORDERED: RT-ALBUTEROL SULF 2.5 MG/3 ML PRE-MIX VIAL INH PRN (11:15)
[2022-04-21] MEDS ORDERED: ACETAMINOPHEN 325 MG TABLET PO PRN ×2 (11:15)
[2022-04-21] MEDS ORDERED: PROMETHAZINE 25 MG (PHENERGAN) TAB PO PRN (11:15)
[2022-04-21] MEDS ORDERED: polyethylene glycoL POWDER 17 GM (MIRALAX) PACK PO PRN (11:15)
[2022-04-21] MEDS ORDERED: BACLOFEN 10 MG (LIORESAL) TAB PO PRN (11:15)
[2022-04-21] MEDS ORDERED: inSUlin (REGULAR) HUMAN 1 UNIT/0.01 ML (CHARGE PER UNIT) SC PRN (11:15)
[2022-04-21] MEDS ORDERED: BISACODYL 10 MG SUPP (DULCOLAX) PR PRN ×2 (11:15)
[2022-04-21] MEDS ORDERED: TRIAMCINOLONE 0.1% OINT (KENALOG) 15 GM TUBE TP PRN (11:15)
[2022-04-21] MEDS ORDERED: MELATONIN 3 MG TABLET PO PRN ×2 (11:15)
[2022-04-21] MEDS ORDERED: CALCIUM CARBONATE 500 MG (TUMS) TAB.CHEW PO PRN ×2 (11:15)
[2022-04-21] MEDS ORDERED: NITROGLYCERIN 0.4 MG SL TABS BTL 25'S SL PRN (11:15)
[2022-04-21] MEDS ORDERED: BISACODYL 5 MG (DULCOLAX) TABLET PO PRN (11:15)
[2022-04-21] MEDS ORDERED: LACTULOSE SYRUP 10GM/15ML (ENULOSE) 30ML UDC PO PRN ×2 (11:15)
[2022-04-21] MEDS ORDERED: MECLIZINE 25 MG (ANTIVERT) TAB PO PRN (11:15)
[2022-04-21] MEDS ORDERED: NON-FORMULARY MEDICATION 1 EA EA (Ketoconazole 1 APPLIC) PRN (11:15)
[2022-04-21] MEDS ORDERED: DOCUSATE SODIUM 100 MG (COLACE) CAP PO PRN (11:15)
[2022-04-21] MEDS ORDERED: cloNIDine 0.1 MG (CATAPRES) TAB PO PRN (11:15)
--- NOTE | 2022-04-21 11:19 | PM&R Post Admission Assessment ---
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 He had an uncomplicated course at [place] and due to complicated PMH it was decided to move to [facility] for further strengthening and work on fall risk prevention. He arrived via EMS. PT OT evaluated him and all meds were continued including Clindamycin and pain meds. Prior level of functioning has been complicated from the progressive myelopathy so we will work on stamina and increasing independent ADL's. Past Pxjkahg-Pqwxxm-Rtvhsx Hx Past Med/Social Hx: Reviewed Nursing Past Med/Soc Hx, Reviewed and Corrections made Patient Social History Marrital Status: Employed/Student: retired Alcohol Use: Denies Use Smoking Status: Former Smoker Former Smoker, Quit: Dec 18, 2009 Type Used: Cigarettes Recent Hopitalizations: Yes (NECK SURG) Immunizations Up To Date Tetanus Booster (TDap): More than 5yrs Pediatric: Yes Date of Pneumonia Vaccine: Nov 19, 2016 Date of Influenza Vaccine: Dec 17, 2016 Seasonal Allergies Seasonal Allergies: No Past Medical History Surgeries: Eye Surgery, Pacemaker Currently Using CPAP: Yes Currently Using BIPAP: No Cardiac: High Cholesterol, Hypertension Neurological: Dementia Reproductive: No Sexually Transmitted Disease: No Gastrointestinal: Gall Bladder Disease Musculoskeletal: Degenerate Disk Disease, Arthritis, Chronic Back Pain Endocrine: Diabetes, Non-Insulin dep HEENT: Cataract Loss of Vision: Denies Hearing Impairment: Denies Did You Recieve Any Treatments: No Psychosocial: Sleep Difficulties, Anxiety Skin/Integumentary: Eczema History of Blood Disorders: No Adverse Reaction to Blood Hernandez: No Family History Cancer 03 MOTHER 09 SISTER Family history: Cardiovascular disease 03 FATHER Family history: Diabetes mellitus 03 FATHER 09 BROTHER Family history: Hypertension 03 FATHER 09 BROTHER No Pertinent Family Hx PM&R Allergy/Meds/Data Review Allergies Coded Allergies: Penicillins (Verified Allergy, Intermediate, RASH, 10/7/11) Home Medications Scheduled Alprazolam (Alprazolam), 1 MG PO BID, (Reported) Aspirin (Aspirin EC), 81 MG PO DAILY, (Reported) Atorvastatin Calcium (Atorvastatin Calcium), 20 MG PO HS, (Reported) Cetirizine HCl (Cetirizine HCl), 10 MG PO DAILY, (Reported) Clindamycin HCl (Clindamycin HCl), 300 MG PO TID Diclofenac Sodium (Diclofenac Sodium), 1 APPLIC TP QID, (Reported) Glipizide (Glipizide ER), 5 MG PO 1800, (Reported) Insulin Detemir (Levemir Flextouch), 15 UNIT SQ HS, (Reported) Lidocaine (Lidocaine 5% Patch), 1 EACH TP DAILY, (Reported) Liraglutide (Victoza 2-Eagle), 1.2 MG SQ DAILY, (Reported) Losartan Potassium (Losartan Potassium), 50 MG PO DAILY, (Reported) Magnesium Oxide (Magnesium), 400 MG PO BID, (Reported) Meloxicam (Meloxicam), 15 MG PO DAILY, (Reported) Memantine HCl/Donepezil HCl (Namzaric 28 mg-10 mg Capsule), 1 EACH PO DAILY, (Reported) Metformin HCl (Metformin HCl), 500 MG PO BID WITH MEALS, (Reported) Metoprolol Succinate (Metoprolol Succinate), 100 MG PO DAILY, (Reported) Montelukast Sodium (Montelukast Sodium), 10 MG PO HS, (Reported) Oxycodone HCl (Oxycodone HCl ER), 40 MG PO Q12H, (Reported) Pantoprazole Sodium (Protonix), 40 MG PO DAILY, (Reported) Pramipexole Di-HCl (Pramipexole Dihydrochloride), 1 MG PO 0800,1200,1800, (Reported) Pramipexole Di-HCl (Pramipexole Dihydrochloride), 2 MG PO HS, (Reported) Pregabalin (Pregabalin), 75 MG PO BID, (Reported) Sucralfate (Sucralfate), 1 GM PO BID, (Reported) Tamsulosin HCl (Flomax), 0.8 MG PO HS, (Reported) Trazodone HCl (Trazodone HCl), 100 MG PO HS, (Reported) Scheduled PRN Acetaminophen (Tylenol), 650 MG PO Q6H PRN for PAIN-MILD (1-4), (Reported) Albuterol Sulfate (Albuterol Sulfate), 2.5 MG INH Q8H PRN for SHORTNESS OF BREATH, (Reported) Baclofen (Baclofen), 10 MG PO TID PRN for PAIN-BREAKTHROUGH, (Reported) Bisacodyl (Bisacodyl), 5 MG PO DAILY PRN for CONSTIPATION-4TH LINE, (Reported) Carboxymethylcellulose Sodium (Refresh Tears), 1-2 DROP OU UD PRN for DRY EYES, (Reported) Docusate Sodium (Docusate Sodium), 100 MG PO BID PRN for CONSTIPATION-1ST LINE, (Reported) Fluticasone Propionate (Flonase Allergy Relief), 1 SPRAY NS DAILY PRN for CONGESTION, (Reported) Ketoconazole (Ketoconazole), 1 APPLIC UD PRN for WHEN SHOWERING, (Reported) Meclizine HCl (Meclizine HCl), 25 MG PO TID PRN for DIZZINESS, (Reported) Nitroglycerin (Nitroglycerin), 0.4 MG SL UD PRN for CHEST PAIN, (Reported) Nystatin (Nystatin), TP BID PRN for SORES, (Reported) Ondansetron (Ondansetron Odt), 4 MG PO Q8H PRN for NAUSEA/VOMITING-1ST LINE, (Reported) Oxycodone HCl (Oxycodone HCl), 20 MG PO Q4H PRN for PAIN-SEVERE (8-10), (Reported) Polyethylene Glycol 3350 (Miralax), 17 GM PO DAILY PRN for CONSTIPATION-2ND LINE, (Reported) Promethazine HCl (Promethazine Tablet), 25 MG PO Q6H PRN for NAUSEA/VOMITING, (Reported) Tadalafil (Cialis), 5 MG PO DAILY PRN for URINARY SYMPTOMS, (Reported) Triamcinolone Acet (Triamcinolone Acetonide 0.1% Ointment), 1 APPLIC TP DAILY PRN for SKIN IRRITATION, (Reported) Discontinued Medications Fluticasone Propionate (Fluticasone Propionate), 1 SPRAY NS DAILY, (Reported) Discontinued Reason: Duplicate Order Gabapentin (Neurontin), 300 MG PO HS, (Reported) Discontinued Reason: No Longer Taking Glipizide (Glipizide Xl), 5 MG PO DAILY, (Reported) Discontinued Reason: Duplicate Order Insulin Detemir (Levemir Flextouch), 15 UNIT SQ HS, (Reported) Discontinued Reason: Duplicate Order Ketoconazole (Ketoconazole), TP DAILY, (Reported) Discontinued Reason: Duplicate Order Lansoprazole (Lansoprazole), 30 MG PO DAILY, (Reported) Discontinued Reason: No Longer Taking Lisinopril (Lisinopril), 10 MG PO DAILY, (Reported) Discontinued Reason: No Longer Taking Magnesium Oxide (Magnesium), 400 MG PO BID, (Reported) Discontinued Reason: Duplicate Order Memantine HCl/Donepezil HCl (Namzaric 28 mg-10 mg Capsule), 1 CAP PO DAILY, (Reported) Discontinued Reason: Duplicate Order Ondansetron HCl (Ondansetron HCl), 8 MG PO TID PRN for NAUSEA/VOMITING-1ST LINE, (Reported) Discontinued Reason: Duplicate Order Oxycodone HCl (Oxycontin), 40 MG PO Q12H, (Reported) Discontinued Reason: Duplicate Order Oxycodone HCl/Acetaminophen (Oxycodone-Acetaminophen 5-325), 1 TAB PO Q8H PRN for PAIN-MODERATE, (Reported) Discontinued Reason: Duplicate Order Promethazine HCl (Promethazine Tablet), 25 MG PO Q6H PRN for NAUSEA/VOMITING, (Reported) Discontinued Reason: Duplicate Order Tadalafil (Tadalafil), 5 MG PO DAILY, (Reported) Discontinued Reason: Duplicate Order Current Medications Current Medications Reviewed Review of Systems Constitutional: see HPI, malaise, weakness EENTM: no symptoms reported Respiratory: no symptoms reported Cardiovascular: no symptoms reported Gastrointestinal: no symptoms reported Genitourinary: decreased output Musculoskeletal: neck pain Skin: no symptoms reported Psychiatric/Neurological: No Symptoms Reported All Other Systems Reviewed Negative Unless Noted: Yes Physical Exam Physical Exam Vital Signs Capillary Refill : Height, Weight, BMI Height: 6'2.00" Weight: 224lbs. 0.0oz. [id number]; 32.79 BMI Method:Stated General Appearance: No Apparent Distress, WD/WN, Chronically ill Eyes: Bilateral Eye Normal Inspection, Bilateral Eye PERRL HEENT: PERRL/EOMI, Normal ENT Inspection, Pharynx Normal Neck: Full Range of Motion, Normal Inspection, Non Tender, Supple, Carotid Bruit Respiratory: Chest Non Tender, Lungs Clear, Normal Breath Sounds, No Accessory Muscle Use, No Respiratory Distress Cardiovascular: Regular Rate, Rhythm, No Edema, No Gallop, No JVD, No Murmur, Normal Peripheral Pulses Gastrointestinal: Normal Bowel Sounds, No Organomegaly, No Pulsatile Mass, Non Tender, Soft Back: Decreased Range of Motion, Muscle Spasm, Vertebral Tenderness Extremity: Normal Capillary Refill, Normal Inspection, Normal Range of Motion, Non Tender, No Calf Tenderness, No Pedal Edema Neurologic/Psychiatric: Alert, Oriented x3, No Motor/Sensory Deficits, Normal Mood/Affect, lining mechanic II-XII Norm as Tested, Motor Weakness (Generalized) Skin: Normal Color, Warm/Dry Lymphatic: No Adenopathy PM&R Medical Assessment & Plan REHAB/MEDICAL ASSESSMENT AND PLAN: REHAB IMPAIRMENT GROUP: Cervical spine myelopathy ETIOLOGIC DIAGNOSIS: Cervical spine myelopathy The comorbidities that impact the patients function and/or functional outcome by: dementia, DM, fall risk, impulsivity REHAB PLAN: The patient is being admitted to our comprehensive inpatient rehabilitation facility and can tolerate the intensity of service consisting of at least: 180 minutes of therapy a day, 5 out of 7 days a week Rehab treatment will consist of: PT OT will work on regaining function in order to return home to independence along with AD to help prevent falls The patient/family has a good understanding of our discharge process and will benefit from an interdisciplinary inpatient rehabilitation program. The patient has potential to make improvement and is in need of at least two of the following multidisciplinary therapies including but not limited to physical, occupational, speech, and prosthetics and orthotics. Additionally the patient will need services from respiratory, nutritional services, wound care, psychology, etc. (Customize this to each patient). Given the patients complex condition and risk of further medical complications, rehabilitation services cannot be safely or effectively provided at a lower level of care such as a [facility] facility. BARRIERS TO DISCHARGE: Dementia, impulsiveness ESTIMATED LOS: 5 days DISPOSITION: Home RELEVANT CHANGES SINCE PREADMISSION SCREENING: I have compared the patients medical and functional status at the time of the preadmission screening and there are: no changes PROGNOSIS: Good REHABILITATION GOALS: 1. PT OT will work on regaining function in order to return home to independence along with AD to help prevent falls All the above goals were reviewed with the patient and he/she is in agreement. By signing this document, I acknowledge that I have personally performed a full physical examination on this patient within 24 hours of admission to this inpatient rehabilitation facility and have determined the patient to be able to tolerate the above course of treatment at an intensive level for a reasonable period of time. I will be completing a detailed individualized Plan of Care for this patient by day #4 of the patients stay based upon the Preadmission Screen, the Post-Admission Evaluation, and the therapy evaluations. Admission Dx/Comorbidities: (1) Stenosis of cervical spine with myelopathy ICD Codes: M48.02 - Spinal stenosis, cervical region; G99.2 - Myelopathy in diseases classified elsewhere (2) Risk for falls ICD Codes: Z91.81 - History of falling (3) Impulsiveness ICD Codes: R45.87 - Impulsiveness (4) Pacemaker ICD Codes: Z95.0 - Presence of cardiac pacemaker (5) Hypertension Status: Acute (6) Diabetes ICD Codes: E11.9 - Type 2 diabetes mellitus without complications (7) Dementia ICD Codes: F03.90 - Unspecified dementia, unspecified severity, without behavioral disturbance, psychotic disturbance, mood disturbance, and anxiety Assessment/Plan Assessment and Plan Assess & Plan/Chief Complaint Assessment: Cervical spine stenosis with myelopathy status post decompression by Dr. BUCIO POD # 2 after leaving AMA from inpatient rehab yesterday to 04/20/2022 after spending 3 hours on the unit but now returning today Pacemaker Dementia Diabetes insulin-dependent [id number]-ehyqapz Hypertension pfg-am-fcahsko Noncompliance Plan: Supportive care Pain control Home meds PT CHINEDU TAVERAS DO Apr 21, 2022 11:19
[2022-04-21 14:00] VITALS: BP 125/83
[2022-04-21 14:23] LABS: BASOPHILS % (AUTO) 0 % (0-10); EOSINOPHILS % (AUTO) 0 % (0-10); HEMATOCRIT 33 % (40-54); LYMPHOCYTES % (AUTO) 19 % (12-44); MEAN CORPUSCULAR HEMOGLOBIN 25 pg (25-34); MEAN CORPUSCULAR HGB CONC 33 g/dL (32-36); MEAN CORPUSCULAR VOLUME 76 fL (80-99); MEAN PLATELET VOLUME 11.2 fL (9.0-12.2); MONOCYTES # (AUTO) 0.9 10^3/uL (0.0-1.0); MONOCYTES % (AUTO) 8 % (0-12); NEUTROPHILS # (AUTO) 7.8 10^3/uL (1.8-7.8); NEUTROPHILS % (AUTO) 72 % (42-75); PLATELET COUNT 158 10^3/uL (130-400); WHITE BLOOD COUNT 10.7 10^3/uL (4.3-11.0)
[2022-04-21 14:31] LABS: ALBUMIN 3.5 GM/DL (3.2-4.5); POTASSIUM 4.3 MMOL/L (3.6-5.0)
[2022-04-21 14:33] LABS: CALCIUM 8.8 MG/DL (8.5-10.1)
[2022-04-21 14:36] LABS: BILIRUBIN,TOTAL 0.9 MG/DL (0.1-1.0)
[2022-04-21 14:38] LABS: CREATININE SERUM 1.23 MG/DL (0.60-1.30)
--- NOTE | 2022-04-21 14:51 | Diagnostic Imaging Report ---
INDICATION: Confusion. TIME OF EXAM: 2:13 PM. COMPARISON: Correlation is made with prior chest from 04/18/2022. Heart size is normal. Cardiac pacer is in place. Lungs are clear. No infiltrates are seen. There is no effusion or pneumothorax. There are postoperative changes in the lower cervical spine. IMPRESSION: No acute cardiopulmonary process is detected. Dictated by: Dictated on workstation # [id number]
[2022-04-21] MEDS: oxyCODONE ER 40 MG (oxyCONTIN CR) TAB PO SCH ×2 (15:20→22:57)
[2022-04-21] MEDS ORDERED: tadalafiL 5 MG TABLET (NON-FORMULARY) PO PRN (15:45)
[2022-04-21] MEDS: CLINDAMYCIN 150 MG (CLEOCIN) CAP PO SCH ×2 (16:36→20:43)
[2022-04-21] MEDS: DICLOFENAC 1% GEL 100 GM (VOLTAREN) TUBE TP SCH ×3 (16:36→20:49)
[2022-04-21] MEDS: glipiZIDE XL 5 MG (GLUCOTROL XL) TAB PO SCH (17:30)
[2022-04-21] MEDS: metFORMIN 500 MG (GLUCOPHAGE) TAB PO SCH (17:31)
[2022-04-21] MEDS: inSUlin ASPART (NovoLOG) 1 UNIT/0.01 ML (CHARGE PER UNIT) SC SCH ×2 (17:31→20:47)
[2022-04-21 17:38] LABS: BILIRUBIN,URINE NEGATIVE (NEGATIVE); CLARITY,URINE CLEAR; COLOR,URINE YELLOW; GLUCOSE, URINE (UA) 2+ (NEGATIVE); KETONES,URINE NEGATIVE (NEGATIVE); LEUKOCYTE ESTERASE ,URINE NEGATIVE (NEGATIVE); NITRITE,URINE NEGATIVE (NEGATIVE); PROTEIN,URINE NEGATIVE (NEGATIVE)
[2022-04-21 17:53] LABS: BACTERIA,URINE TRACE /HPF; RBC,URINE 0-2 /HPF; SQUAMOUS EPITHELIAL CELL,UR 0-2 /HPF
[2022-04-21 19:10] VITALS: BP 132/67
[2022-04-21] MEDS: polyethylene glycoL POWDER 17 GM (MIRALAX) PACK PO SCH (20:42)
[2022-04-21] MEDS: ALPRAZolam 1 MG (XANAX) TAB PO SCH (20:43)
[2022-04-21] MEDS: MONTELUKAST 10 MG (SINGULAIR) TAB PO SCH (20:43)
[2022-04-21] MEDS: traZODone 100 MG (DESYREL) TAB PO SCH (20:44)
[2022-04-21] MEDS: DOCUSATE SODIUM 100 MG (COLACE) CAP PO SCH (20:44)
[2022-04-21] MEDS: PREGABALIN 75 MG (LYRICA) CAP PO SCH (20:44)
[2022-04-21] MEDS: MAGNESIUM OXIDE (MAG-OX)400 MG TAB PO SCH (20:45)
[2022-04-21] MEDS: MEMANTINE 10 MG (NAMENDA) TABLET PO SCH (20:45)
[2022-04-21] MEDS: SENNA W/DOCUSATE (SENOKOT S) TABLET PO SCH (20:45)
[2022-04-21] MEDS: SUCRALFATE 1 GM (CARAFATE) TAB PO SCH (20:45)
[2022-04-21] MEDS: TAMSULOSIN 0.4 MG (FLOMAX) CAP PO SCH (20:45)
[2022-04-21] MEDS: PATCH REMOVAL TP SCH (20:48)
[2022-04-21] MEDS ORDERED: PRAMIPEXOLE 0.5 MG TAB (MIRAPEX) PO SCH (21:00)
[2022-04-21] MEDS ORDERED: SENNA W/DOCUSATE (SENOKOT S) TABLET PO SCH (21:00)
[2022-04-22 05:53] LABS: BASOPHILS % (AUTO) 0 % (0-10); EOSINOPHILS # (AUTO) 0.1 10^3/uL (0.0-0.3); EOSINOPHILS % (AUTO) 1 % (0-10); HEMATOCRIT 33 % (40-54); HEMOGLOBIN 10.8 g/dL (13.3-17.7); LYMPHOCYTES # (AUTO) 3.2 10^3/uL (1.0-4.0); LYMPHOCYTES % (AUTO) 32 % (12-44); MEAN CORPUSCULAR HEMOGLOBIN 25 pg (25-34); MEAN CORPUSCULAR HGB CONC 33 g/dL (32-36); MEAN CORPUSCULAR VOLUME 77 fL (80-99); MEAN PLATELET VOLUME 10.4 fL (9.0-12.2); MONOCYTES # (AUTO) 1.1 10^3/uL (0.0-1.0); MONOCYTES % (AUTO) 11 % (0-12); NEUTROPHILS # (AUTO) 5.5 10^3/uL (1.8-7.8); NEUTROPHILS % (AUTO) 55 % (42-75); PLATELET COUNT 157 10^3/uL (130-400)
[2022-04-22 06:14] LABS: ALBUMIN 3.3 GM/DL (3.2-4.5); BILIRUBIN,TOTAL 1.1 MG/DL (0.1-1.0); CALCIUM 9.1 MG/DL (8.5-10.1); CREATININE SERUM 1.44 MG/DL (0.60-1.30); TOTAL PROTEIN 6.7 GM/DL (6.4-8.2)
[2022-04-22] MEDS: inSUlin ASPART (NovoLOG) 1 UNIT/0.01 ML (CHARGE PER UNIT) SC SCH ×4 (06:21→20:56)
[2022-04-22 07:21] VITALS: BP 104/65
--- NOTE | 2022-04-22 07:43 | PM&R Progress Note ---
Subjective HPI/CC On Admission Date Seen by Provider: Apr 22, 2022 Time Seen by Provider: 12:00 Subjective/Events-last exam 04/22/2022: Patient appears to be oversedated Labs reviewed Vitals remained stable Reviewed entire medication list and minimized every narcotic and benzodiazepine and muscle relaxant by cutting dose in half Will monitor closely Review of Systems General: Fatigue, Malaise Musculoskeletal: neck pain Neurological: Confusion Focused Exam Lactate Level 04/21/22 14:06: Lactic Acid Level 1.58 Objective Exam Vital Signs Vital Signs Date Time Temp Pulse Resp B/P (MAP) Pulse Ox O2 Delivery O2 Flow Rate FiO2 04/22/22 10:00 76 18 128/60 (82) 96 Room Air 04/22/22 07:21 37.0 Capillary Refill : General Appearance: No Apparent Distress, WD/WN, Chronically ill HEENT: PERRL/EOMI, Normal ENT Inspection, Pharynx Normal Neck: Full Range of Motion, Normal Inspection, Non Tender, Supple, Carotid Bruit Respiratory: Chest Non Tender, Lungs Clear, Normal Breath Sounds, No Accessory Muscle Use, No Respiratory Distress Cardiovascular: Regular Rate, Rhythm, No Edema, No Gallop, No JVD, No Murmur, Normal Peripheral Pulses Gastrointestinal: Normal Bowel Sounds, No Organomegaly, No Pulsatile Mass, Non Tender, Soft Back: Decreased Range of Motion, Muscle Spasm, Vertebral Tenderness Extremity: Normal Capillary Refill, Normal Inspection, Normal Range of Motion, Non Tender, No Calf Tenderness, No Pedal Edema Neurologic/Psychiatric: Alert, Oriented x3, No Motor/Sensory Deficits, Normal Mood/Affect, 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 FIM Transfers Therapy Code Descriptions/Definitions Functional [place] Measure: 0=Not Assessed/NA 4=Minimal Assistance 1=Total Assistance 5=Supervision or Setup 2=Maximal Assistance 6=Modified [place] 3=Moderate Assistance 7=Complete IndependenceSCALE: Activities may be completed with or without assistive devices. 3-Dqhaozvvoi-cwilvoc completes the activity by him/herself with no assistance from a helper. 5-Set-up or Clean-up Assistance-helper sets up or cleans up; patient completes activity. Frederick assists only prior to or following the activity. 4-Supervision or Touching Assistance-helper provides verbal cues and/or touching/steadying and/or contact guard assistance as patient completes activity. Assistance may be provided throughout the activity or intermittently. 3-Partial/Moderate Assistance-helper does LESS THAN HALF the effort. Frederick lifts, holds or supports trunk or limbs, but provides less than half the effort. 2-Substantial/Maximal Assistance-helper does MORE THAN HALF the effort. Frederick lifts or holds trunk or limbs and provides more than half the effort. 0-Wvdybiydj-pmdoxw does ALL the effort. Patient does none of the effort to complete the activity. Or, the assistance of 2 or more helpers is required for the patient to complete the activity. If activity was not attempted, code reason: 7-Patient Refused. 9-Not Applicable-not attempted and the patient did not perform the activity before the current illness, exacerbation or injury. 10-Not Attempted due to Environmental Limitations-(lack of equipment, weather restraints, etc.). 88-Not Attempted due to Medical Conditions or Safety Concerns. Assessment/Plan Assessment and Plan Assess & Plan/Chief Complaint Assessment: Cervical spine stenosis with myelopathy status post decompression by Dr. BLEDSOE POD # 3 after leaving AMA from inpatient rehab yesterday to 04/20/2022 after spending 3 hours on the unit but now returning today Pacemaker Dementia Diabetes insulin-dependent dbv-jh-tieweji Hypertension ono-ur-lzoyoyo Noncompliance Oversedation due to medication-minimize dose on 04/22/2022 Plan: Supportive care Pain control Home meds PT OT 04/22/2022: Minimize sedatives (1) Stenosis of cervical spine with myelopathy (2) Risk for falls (3) Impulsiveness (4) Pacemaker (5) Hypertension Status: Acute (6) Diabetes (7) Dementia CHINEDU STERN DO Apr 22, 2022 07:43
--- NOTE | 2022-04-22 08:21 | Physical Therapy Evaluation ---
PT Evaluation-General Medical Diagnosis Admission Date Apr 21, 2022 at 13:30 Medical Diagnosis: C2-T1 posterior cervical fusion, C4-5 lami Onset Date: Apr 19, 2022 Therapy Diagnosis Therapy Diagnosis: weakness, debility Height/Weight Height (Feet): 6 Height (Inches): 2.00 Weight (Pounds): 224 Weight (Ounces): 0.0 Precautions Precautions/Isolations: Fall Prevention, Standard Precautions Weight Bear Status Weight Bearing/Tolerated Weight Bearing/Tolerated Referral Physician: Edwardo Reason for Referral: Evaluation/Treatment Social History Home: Single Level Current Living Status: Spouse Entry Into Home: Stairs With Railing (1) Prior Prior Level of Function SCALE: Activities may be completed with or without assistive devices. 9-Mdsoafwjjg-ysiiqlu completes the activity by him/herself with no assistance from a helper. 5-Set-up or Clean-up Assistance-helper sets up or cleans up; patient completes activity. Baxley assists only prior to or following the activity. 4-Supervision or Touching Assistance-helper provides verbal cues and/or touching/steadying and/or contact guard assistance as patient completes activity. Assistance may be provided throughout the activity or intermittently. 3-Partial/Moderate Assistance-helper does LESS THAN HALF the effort. Baxley lifts, holds or supports trunk or limbs, but provides less than half the effort. 2-Substantial/Maximal Assistance-helper does MORE THAN HALF the effort. Baxley lifts or holds trunk or limbs and provides more than half the effort. 5-Ppyabsbne-lcxzug does ALL the effort. Patient does none of the effort to comp lete the activity. Or, the assistance of 2 or more helpers is required for the patient to complete the activity. If activity was not attempted, code reason: 7-Patient Refused. 9-Not Applicable-not attempted and the patient did not perform the activity before the current illness, exacerbation or injury. 10-Not Attempted due to Environmental Limitations-(lack of equipment, weather restraints, etc.). 88-Not Attempted due to Medical Conditions or Safety Concerns. Bed Mobility: 6 Transfers (B,C,W/C): 6 Gait: 6 Stairs: 6 Occasionally used a walker. PT Evaluation-Current Subjective Pt reclined in bed upon arrival to room, in and out of sleep. Easy to awaken; however, quickly falls back to sleep. reports pain 8/10 in neck Pain Section J - Health Conditions 1. Rarely or not at all 2. Occasionally 3. Frequently 4. Almost constantly 8. Unable to answer Pain Effect on Sleep: 3 Pain Interference with Therapy: 3 Pain Interference w/Day-to-Day: 3 Pt/Family Goals Return home Objective Patient Orientation: Person Attachments: Other-See Comments (drains ) ROM/Strength ROM Lower Extremities grossly WFL Strength Lower Extremities grossly 3/5 with functional mobility Integumentary/Posture Integumentary refer to nursing notes Posture significant thoracic kyphosis, forward head Neuromuscular (Tone, Coordination, Reflexes) grossly intact Sensory Vision: Functional Hearing: Functional Transfers Roll Left & Right (QC): 4 Sit to Lying (QC): 4 Lying to Sitting/Side of Bed(Q: 3 Sit to Stand (QC): 3 Chair/Scv-uz-Qoezp Xfer(QC): 3 Toilet Transfer (QC): 88 Car Transfer (QC): 88 Gait Does the Patient Walk?: Yes Mode of Locomotion: Walk Anticipated Mode of Locomotion: Walk Walk 10 feet (QC): 4 Walk 50 ft with 2 Turns(QC): 88 Walk 150 ft (QC): 88 Walking 10ft/uneven surface-QC: 88 Gait Assistive Device: FWW Comments/Gait Description Pt required extensive cueing for posture, walker mgmt, and navigation. Small steps on L, responds to cueing for short period, requiring frequent cues Wheelchair Training Wheel 50 ft with 2 turns (QC): 88 Wheel 150 ft (QC): 88 Stairs 1 Step (curb) (QC): 88 4 Steps (QC): 88 12 Steps (QC): 88 Balance Sitting Static: Poor Sitting Dynamic: Poor Standing Static: Poor Standing Dynamic: Poor Picking up an Object (QC): 88 Special Test Comments Pt very retropulsive in sitting, requiring min A to maintain sitting balance on EOB Assessment/Needs Pt is a 71 year old male s/p cervical surgery who presents with extensive limitations of functional mobility due to strength, balance, activity tolerance, and overall sequencing of activities which all increase pts risk of falls. Pt would benefit from skilled PT to address above mentioned limitations and ensure safety upon DC from hospital Rehab Potential: Good PT Short Term Goals Short Term Goals Time Frame: Apr 29, 2022 Roll Left & Right: 4 Sit to lyin Lying to sitting on side of be: 4 Sit to stand: 4 Chair/vxw-qj-idcsv transfer: 4 Toilet transfer: 4 Car transfer: 4 Walk 10 feet: 4 Walk 50 feet with two turns: 4 Walk 150 feet: 4 Walking 10ft on uneven surface: 4 1 step (curb): 4 4 steps: 4 PT [facility] Goals Custodial Services Manager Goals PT Custodial Services Manager Goals Time Frame: May 13, 2022 Roll Left to Right (QC): 6 Sit to Lying (QC): 6 Lying-Sitting on Side/Bed(QC): 6 Sit to Stand (QC): 6 Chair/Osy-yu-Dwzgw Xfer(QC): 6 Toilet/Commode Transfer (QC): 6 Car Transfer (QC): 6 Walk 10 feet (QC): 6 Walk 10ft-Uneven Surface(QC): 6 Walk 50ft with 2 Turns (QC): 6 Walk 150 ft (QC): 6 Wheel 50 feet with 2 turns (QC: 9 Wheel 150 feet: 9 1 Step (curb) (QC): 6 4 Steps (QC): 6 12 Steps (QC): 6 Picking up an Object (QC): 6 PT Plan Problem List Problem List: Activity Tolerance, Functional Strength, Safety, Balance, Gait, Transfer, Bed Mobility, ROM Treatment/Plan Treatment Plan: Continue Plan of Care Treatment Plan: Bed Mobility, Education, Functional Activity Monica, Functional Strength, Group Therapy, Gait, Safety, Therapeutic Exercise, Transfers Treatment Duration: May 13, 2022 Frequency: Modified Program (IRF) Estimated Hrs Per Day: 1.5 hours per day Patient and/or Family Agrees t: Yes Time Time In: 757 Time Out: 815 DATE: Apr 22, 2022 Total Billed Treatment Time: 18 Total Billed Treatment [address] [facility] (18') ALEX GAMING PT Apr 22, 2022 08:21
[2022-04-22] MEDS ORDERED: NON-FORMULARY MEDICATION 1 EA EA (Liraglutide (Victoza 2-Pak) 1.2 MG) SQ SCH (09:00)
[2022-04-22] MEDS ORDERED: amLODIPine 5 MG (NORVASC) TAB PO SCH (09:00)
[2022-04-22] MEDS: LIDOCAINE 4% (SALONPAS) PATCH TP SCH (09:51)
[2022-04-22] MEDS: LORATADINE (CLARITIN) 10 MG TAB PO SCH (09:54)
[2022-04-22] MEDS: metFORMIN 500 MG (GLUCOPHAGE) TAB PO SCH ×2 (09:54→17:16)
[2022-04-22] MEDS: ALPRAZolam 1 MG (XANAX) TAB PO SCH (09:54)
[2022-04-22] MEDS: PREGABALIN 75 MG (LYRICA) CAP PO SCH ×2 (09:54→20:54)
[2022-04-22] MEDS: PANTOPRAZOLE 40 MG (PROTONIX) TAB PO SCH (09:54)
[2022-04-22] MEDS: MAGNESIUM OXIDE (MAG-OX)400 MG TAB PO SCH ×2 (09:55→20:53)
[2022-04-22] MEDS: ASPIRIN E.C. 81 MG (ECOTRIN) TAB PO SCH (09:55)
[2022-04-22] MEDS: MEMANTINE 10 MG (NAMENDA) TABLET PO SCH ×2 (09:55→20:55)
[2022-04-22] MEDS: MELOXICAM 7.5 MG (MOBIC) TABLET PO SCH (09:55)
[2022-04-22] MEDS: DONEPEZIL 10 MG (ARICEPT) TAB PO SCH (09:55)
[2022-04-22] MEDS: SUCRALFATE 1 GM (CARAFATE) TAB PO SCH ×2 (09:56→20:55)
[2022-04-22] MEDS: SENNA W/DOCUSATE (SENOKOT S) TABLET PO SCH ×2 (09:56→20:52)
[2022-04-22] MEDS: CLINDAMYCIN 150 MG (CLEOCIN) CAP PO SCH ×3 (09:56→20:52)
[2022-04-22 10:00] VITALS: BP 128/60
[2022-04-22] MEDS: LOSARTAN 50 MG (COZAAR) TAB PO SCH (10:19)
[2022-04-22] MEDS: meTOprolol SUCCINATE 100 MG (TOPROL XL) TAB PO SCH (10:20)
[2022-04-22] MEDS: DICLOFENAC 1% GEL 100 GM (VOLTAREN) TUBE TP SCH ×4 (10:33→20:57)
[2022-04-22] MEDS: polyethylene glycoL POWDER 17 GM (MIRALAX) PACK PO SCH ×2 (11:50→20:55)
[2022-04-22] MEDS: oxyCODONE ER 40 MG (oxyCONTIN CR) TAB PO SCH (11:50)
[2022-04-22] MEDS: DOCUSATE SODIUM 100 MG (COLACE) CAP PO SCH ×2 (11:50→20:54)
[2022-04-22] MEDS: glipiZIDE XL 5 MG (GLUCOTROL XL) TAB PO SCH (17:16)
[2022-04-22 19:43] VITALS: BP 115/57
[2022-04-22] MEDS: PRAMIPEXOLE 0.5 MG TAB (MIRAPEX) PO SCH (20:52)
[2022-04-22] MEDS: TAMSULOSIN 0.4 MG (FLOMAX) CAP PO SCH (20:54)
[2022-04-22] MEDS: MONTELUKAST 10 MG (SINGULAIR) TAB PO SCH (20:54)
[2022-04-22] MEDS: ALPRAZolam 0.5 MG (XANAX) TAB PO SCH (20:54)
[2022-04-22] MEDS: oxyCODONE ER 20 MG (OxyCONTIN CR) TAB PO SCH (20:55)
[2022-04-22] MEDS: traZODone 100 MG (DESYREL) TAB PO SCH (20:55)
[2022-04-22] MEDS: PATCH REMOVAL TP SCH (20:59)
[2022-04-22] MEDS: RT-ALBUTEROL SULF 2.5 MG/3 ML PRE-MIX VIAL INH SCH (21:14)
--- NOTE | 2022-04-23 05:15 | PM&R Progress Note ---
Subjective HPI/CC On Admission Date Seen by Provider: Apr 23, 2022 Time Seen by Provider: 08:30 Subjective/Events-last exam 04/23/2022: Much improved status Decreased all sedatives and pain meds and muscle relaxants by 1/2 and now much improved No overmedicated appearance Family at bedside very pleased with his status today 04/22/2022: Patient appears to be oversedated Labs reviewed Vitals remained stable Reviewed entire medication list and minimized every narcotic and benzodiazepine and muscle relaxant by cutting dose in half Will monitor closely Review of Systems General: Fatigue, Malaise Focused Exam Lactate Level 04/21/22 14:06: Lactic Acid Level 1.58 Objective Exam Vital Signs Vital Signs Date Time Temp Pulse Resp B/P (MAP) Pulse Ox O2 Delivery O2 Flow Rate FiO2 04/23/22 21:07 96 Room Air 04/23/22 20:09 36.5 77 16 144/91 (108) Capillary Refill : General Appearance: No Apparent Distress, WD/WN, Chronically ill HEENT: PERRL/EOMI, Normal ENT Inspection, Pharynx Normal Neck: Full Range of Motion, Normal Inspection, Non Tender, Supple, Carotid Bruit Respiratory: Chest Non Tender, Lungs Clear, Normal Breath Sounds, No Accessory Muscle Use, No Respiratory Distress Cardiovascular: Regular Rate, Rhythm, No Edema, No Gallop, No JVD, No Murmur, Normal Peripheral Pulses Gastrointestinal: Normal Bowel Sounds, No Organomegaly, No Pulsatile Mass, Non Tender, Soft Back: Decreased Range of Motion, Muscle Spasm, Vertebral Tenderness Extremity: Normal Capillary Refill, Normal Inspection, Normal Range of Motion, Non Tender, No Calf Tenderness, No Pedal Edema Neurologic/Psychiatric: Alert, Oriented x3, No Motor/Sensory Deficits, Normal Mood/Affect, 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 FIM Transfers Therapy Code Descriptions/Definitions Functional [place] Measure: 0=Not Assessed/NA 4=Minimal Assistance 1=Total Assistance 5=Supervision or Setup 2=Maximal Assistance 6=Modified [place] 3=Moderate Assistance 7=Complete IndependenceSCALE: Activities may be completed with or without assistive devices. 9-Xrfsghrjlu-zqgtvik completes the activity by him/herself with no assistance f rom a helper. 5-Set-up or Clean-up Assistance-helper sets up or cleans up; patient completes activity. [place] assists only prior to or following the activity. 4-Supervision or Touching Assistance-helper provides verbal cues and/or touching/steadying and/or contact guard assistance as patient completes activity. Assistance may be provided throughout the activity or intermittently. 3-Partial/Moderate Assistance-helper does LESS THAN HALF the effort. [place] lifts, holds or supports trunk or limbs, but provides less than half the effort. 2-Substantial/Maximal Assistance-helper does MORE THAN HALF the effort. [place] lifts or holds trunk or limbs and provides more than half the effort. 5-Msyzwfurl-aqeubs does ALL the effort. Patient does none of the effort to complete the activity. Or, the assistance of 2 or more helpers is required for the patient to complete the activity. If activity was not attempted, code reason: 7-Patient Refused. 9-Not Applicable-not attempted and the patient did not perform the activity before the current illness, exacerbation or injury. 10-Not Attempted due to Environmental Limitations-(lack of equipment, weather restraints, etc.). 88-Not Attempted due to Medical Conditions or Safety Concerns. Roll Left to Right (QC): 4 Sit to Lying (QC): 4 Sit to Stand (QC): 3 Chair/Wni-vk-Eciqj Xfer(QC): 3 Car Transfer (QC): 88 Gait Training Does the Patient Walk?: Yes Walk 10 feet (QC): 4 Walk 50 ft with 2 Turns(QC): 88 Walk 150 ft (QC): 88 Walking 10ft/uneven surface-QC: 88 Gait Assistive Device: FWW Wheelchair Training Wheel 50 ft with 2 turns (QC): 88 Wheel 150 ft (QC): 88 Stair Training 1 Step (curb) (QC): 88 4 Steps (QC): 88 12 Steps (QC): 88 Balance Picking up an Object (QC): 88 Assessment/Plan Assessment and Plan Assess & Plan/Chief Complaint Assessment: Cervical spine stenosis with myelopathy status post decompression by Dr. BLEDSOE POD # 3 after leaving AMA from inpatient rehab yesterday to 04/20/2022 after spending 3 hours on the unit but now returning today Pacemaker Dementia Diabetes insulin-dependent vyz-kb-nzofiwu Hypertension kui-yt-kunrfpd Noncompliance Oversedation due to medication-minimize dose on 04/22/2022 Plan: Supportive care Pain control Home meds PT OT 04/22/2022: Minimize sedatives 04/23/2022: Much improved status Minimize pain meds (1) Stenosis of cervical spine with myelopathy (2) Risk for falls (3) Impulsiveness (4) Pacemaker (5) Hypertension Status: Acute (6) Diabetes (7) Dementia CHINEDU STERN DO Apr 23, 2022 05:15
[2022-04-23] MEDS: inSUlin ASPART (NovoLOG) 1 UNIT/0.01 ML (CHARGE PER UNIT) SC SCH ×4 (06:20→20:06)
[2022-04-23] MEDS: RT-ALBUTEROL SULF 2.5 MG/3 ML PRE-MIX VIAL INH SCH ×2 (07:23→21:06)
[2022-04-23 07:45] VITALS: BP 145/76
[2022-04-23 08:05] LABS: BASOPHILS % (AUTO) 0 % (0-10); EOSINOPHILS # (AUTO) 0.1 10^3/uL (0.0-0.3); EOSINOPHILS % (AUTO) 1 % (0-10); HEMATOCRIT 34 % (40-54); HEMOGLOBIN 11.2 g/dL (13.3-17.7); LYMPHOCYTES # (AUTO) 1.9 10^3/uL (1.0-4.0); LYMPHOCYTES % (AUTO) 18 % (12-44); MEAN CORPUSCULAR HEMOGLOBIN 25 pg (25-34); MEAN CORPUSCULAR HGB CONC 33 g/dL (32-36); MEAN CORPUSCULAR VOLUME 75 fL (80-99); MEAN PLATELET VOLUME 10.1 fL (9.0-12.2); MONOCYTES # (AUTO) 0.8 10^3/uL (0.0-1.0); MONOCYTES % (AUTO) 7 % (0-12); NEUTROPHILS # (AUTO) 7.6 10^3/uL (1.8-7.8); NEUTROPHILS % (AUTO) 74 % (42-75); PLATELET COUNT 190 10^3/uL (130-400); WHITE BLOOD COUNT 10.4 10^3/uL (4.3-11.0)
[2022-04-23] MEDS: SENNA W/DOCUSATE (SENOKOT S) TABLET PO SCH ×2 (08:12→20:11)
[2022-04-23] MEDS: DOCUSATE SODIUM 100 MG (COLACE) CAP PO SCH ×2 (08:12→20:11)
[2022-04-23] MEDS: ASPIRIN E.C. 81 MG (ECOTRIN) TAB PO SCH (08:12)
[2022-04-23] MEDS: CLINDAMYCIN 150 MG (CLEOCIN) CAP PO SCH ×3 (08:12→20:12)
[2022-04-23] MEDS: SUCRALFATE 1 GM (CARAFATE) TAB PO SCH ×2 (08:12→20:12)
[2022-04-23] MEDS: MEMANTINE 10 MG (NAMENDA) TABLET PO SCH ×2 (08:12→20:11)
[2022-04-23] MEDS: LORATADINE (CLARITIN) 10 MG TAB PO SCH (08:12)
[2022-04-23] MEDS: metFORMIN 500 MG (GLUCOPHAGE) TAB PO SCH ×2 (08:12→17:28)
[2022-04-23] MEDS: meTOprolol SUCCINATE 100 MG (TOPROL XL) TAB PO SCH (08:13)
[2022-04-23] MEDS: MAGNESIUM OXIDE (MAG-OX)400 MG TAB PO SCH ×2 (08:13→20:12)
[2022-04-23] MEDS: DONEPEZIL 10 MG (ARICEPT) TAB PO SCH (08:13)
[2022-04-23] MEDS: PANTOPRAZOLE 40 MG (PROTONIX) TAB PO SCH (08:13)
[2022-04-23] MEDS: MELOXICAM 7.5 MG (MOBIC) TABLET PO SCH (08:13)
[2022-04-23] MEDS: PREGABALIN 75 MG (LYRICA) CAP PO SCH ×2 (08:16→20:11)
[2022-04-23] MEDS: ALPRAZolam 0.5 MG (XANAX) TAB PO SCH ×2 (08:17→20:11)
[2022-04-23] MEDS: LIDOCAINE 4% (SALONPAS) PATCH TP SCH (08:18)
[2022-04-23] MEDS: polyethylene glycoL POWDER 17 GM (MIRALAX) PACK PO SCH ×2 (08:19→20:13)
[2022-04-23] MEDS: LOSARTAN 50 MG (COZAAR) TAB PO SCH (08:21)
[2022-04-23] MEDS: DICLOFENAC 1% GEL 100 GM (VOLTAREN) TUBE TP SCH ×4 (08:22→20:13)
[2022-04-23 08:29] LABS: ALBUMIN 3.2 GM/DL (3.2-4.5); BILIRUBIN,TOTAL 1.1 MG/DL (0.1-1.0); CALCIUM 9.2 MG/DL (8.5-10.1); CREATININE SERUM 1.36 MG/DL (0.60-1.30); POTASSIUM 4.6 MMOL/L (3.6-5.0); TOTAL PROTEIN 6.9 GM/DL (6.4-8.2)
[2022-04-23] MEDS: oxyCODONE ER 20 MG (OxyCONTIN CR) TAB PO SCH ×2 (08:53→20:12)
--- NOTE | 2022-04-23 10:32 | Physical Therapy Daily Note ---
PT Daily Note-Current Subjective Patient lying supine in bed upon PT arrival, agreeable to treatment. Rates neck pain at 9/10 currently. Towards the end of treatment patient reports his left medial two fingers are numb and notes they haven't felt that way previously. Pain Section J - Health Conditions 1. Rarely or not at all 2. Occasionally 3. Frequently 4. Almost constantly 8. Unable to answer Pain Effect on Sleep: 3 Pain Interference with Therapy: 3 Pain Interference w/Day-to-Day: 3 Mental Status Patient Orientation: Person, Place, Time, Situation Attachments: Other-See Comments [place] C-Collar Transfers SCALE: Activities may be completed with or without assistive devices. 5-Taaiigwaqm-omsyymh completes the activity by him/herself with no assistance from a helper. 5-Set-up or Clean-up Assistance-helper sets up or cleans up; patient completes activity. [place] assists only prior to or following the activity. 4-Supervision or Touching Assistance-helper provides verbal cues and/or touching/steadying and/or contact guard assistance as patient completes activity. Assistance may be provided throughout the activity or intermittently. 3-Partial/Moderate Assistance-helper does LESS THAN HALF the effort. [place] lifts, holds or supports trunk or limbs, but provides less than half the effort. 2-Substantial/Maximal Assistance-helper does MORE THAN HALF the effort. [place] lifts or holds trunk or limbs and provides more than half the effort. 1-Lfphmthsa-vezhyj does ALL the effort. Patient does none of the effort to complete the activity. Or, the assistance of 2 or more helpers is required for the patient to complete the activity. If activity was not attempted, code reason: 7-Patient Refused. 9-Not Applicable-not attempted and the patient did not perform the activity before the current illness, exacerbation or injury. 10-Not Attempted due to Environmental Limitations-(lack of equipment, weather restraints, etc.). 88-Not Attempted due to Medical Conditions or Safety Concerns. Roll Left & Right (QC): 5 Sit to Lying (QC): 5 Lying to Sitting/Side of Bed(Q: 5 Sit to Stand (QC): 4 Chair/Uyx-wc-Atgmp Xfer(QC): 4 Toilet Transfer (QC): 4 Weight Bearing Weight Bearing/Tolerated Weight Bearing/Tolerated Gait Training Does the Patient Walk?: Yes Distance: 150 feet Walk 10 feet (QC): 4 Walk 50 ft with 2 Turns(QC): 4 Walk 150 ft (QC): 4 Gait Persons Needed: 1 Gait Assistive Device: FWW Exercises Seated Therapy Exercises: Ankle pumps, Hip flexion, Hamstring Curls, Hip abd/ add Seated Reps: 20 NuStep Minutes: 10 NuStep Workload: 4 Assessment Current Status: Fair Progress Patient tolerated treatment fair. Demonstrates setup for bed mobility. SBA for all observed transfers. Impulsive at times and likes to do things his own way. Patient educated on sit to stand from the bed using rail to push off and he insisted that this therapist not touch him. He also used the FWW to pull up with and despite the FWW tipping, he was reluctant to attempt pushing from the bed. Patient ambulates to the BR with FWW with SBA. Patient requires total A for doffing/donning depends/pants. Patient ambulates to the therapy gym where he performs the NU Step, LE exercises as listed above. Patient ambulates to his room with FWW with SBA and verbal cues for posture, to avoid obstacles and safety. Patient in chair post treatment with all needs met, nursing notified, call light in reach and family in the room. PT Short Term Goals Short Term Goals Time Frame: Apr 29, 2022 Roll Left & Right: 4 Sit to lyin Lying to sitting on side of be: 4 Sit to stand: 4 Chair/nan-vu-kzqvh transfer: 4 Toilet transfer: 4 Car transfer: 4 Walk 10 feet: 4 Walk 50 feet with two turns: 4 Walk 150 feet: 4 Walking 10ft on uneven surface: 4 1 step (curb): 4 4 steps: 4 PT Senior Care Goals Aircraft Dispatcher Goals PT Senior Care Goals Time Frame: May 13, 2022 Roll Left & Right (QC): 6 Sit to Lying (QC): 6 Lying-Sitting on Side/Bed(QC): 6 Sit to Stand (QC): 6 Chair/Ufm-vm-Zvhap Xfer(QC): 6 Toilet Transfer (QC): 6 Car Transfer (QC): 6 Does the Patient Walk: Yes Walk 10 feet (QC): 6 Walk 50ft with 2 Turns (QC): 6 Walk 150 ft (QC): 6 Walking 10ft on Uneven Surface: 6 1 Step (curb) (QC): 6 4 Steps (QC): 6 12 Steps (QC): 6 Picking up an Object (QC): 6 Wheel 50 feet with 2 turns (QC: 9 Wheel 150 feet: 9 PT Plan Treatment/Plan Treatment Plan: Continue Plan of Care Treatment Plan: Bed Mobility, Education, Functional Activity Monica, Functional Strength, Group Therapy, Gait, Safety, Therapeutic Exercise, Transfers Treatment Duration: May 13, 2022 Frequency: Modified Program (IRF) Estimated Hrs Per Day: 1.5 hours per day Patient and/or Family Agrees t: Yes Safety Risks/Education Patient Education: Gait Training, Transfer Techniques Teaching Recipient: Patient, Family Teaching Methods: Demonstration, Discussion Response to Teaching: Verbalize Understanding, Return Demonstration Time Time In: 930 Time Out: 1030 DATE: Apr 23, 2022 Total Billed Treatment Time: 60 Total Billed Treatment Visit, MARCE (2)Hiram, Ex DEANGELO MOTA PT Apr 23, 2022 10:32
--- NOTE | 2022-04-23 11:58 | Occupational Therapy Eval ---
OT Evaluation-General/PLF Medical Diagnosis Admission Date Apr 21, 2022 at 13:30 Medical Diagnosis: C2-T1 posterior cervical fusion, C4-5 lami Onset Date: Apr 19, 2022 Therapy Diagnosis Therapy Diagnosis: decreased ADL status Height/Weight Height (Feet): 6 Height (Inches): 2.00 Weight (Pounds): 224 Weight (Ounces): 0.0 Precautions Precautions/Isolations: Fall Prevention, Standard Precautions Referral Physician: Edwardo Referral Reason: Evaluation/Treatment Medical History Additional Medical History Axiety, arthritis, bulging disc (L2-3, L5-S1), CAD, DM, GERD, Gout, HTN, back sx, pacemaker Current History 04/19/22 s/p C2-T1 posterior cervical fusion with C4-5 Laminectomy. Transfer To ARU 04/20/22, left AMA after a few hours. Pt returned to ARU 04/21/22 Social History Home: Single Level Current Living Status: Spouse Entry Into Home: Stairs With Railing Steps Into Home: 1 ADL-Prior Level of Function SCALE: Activities may be completed with or without assistive devices. 5-Dczpncltif-eydmcyr completes the activity by him/herself with no assistance from a helper. 5-Set-up or Clean-up Assistance-helper sets up or cleans up; patient completes activity. [place] assists only prior to or following the activity. 4-Supervision or Touching Assistance-helper provides verbal cues and/or touc shailesh/steadying and/or contact guard assistance as patient completes activity. Assistance may be provided throughout the activity or intermittently. 3-Partial/Moderate Assistance-helper does LESS THAN HALF the effort. [place] lifts, holds or supports trunk or limbs, but provides less than half the effort. 2-Substantial/Maximal Assistance-helper does MORE THAN HALF the effort. [place] lifts or holds trunk or limbs and provides more than half the effort. 2-Xgvvrznoi-lgkiqh does ALL the effort. Patient does none of the effort to complete the activity. Or, the assistance of 2 or more helpers is required for the patient to complete the activity. If activity was not attempted, code reason: 7-Patient Refused. 9-Not Applicable-not attempted and the patient did not perform the activity before the current illness, exacerbation or injury. 10-Not Attempted due to Environmental Limitations-(lack of equipment, weather restraints, etc.). 88-Not Attempted due to Medical Conditions or Safety Concerns. ADL PLOF Comments Pt reports IND with ADLs and functional mobility at PLOF, using walker PRN. 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 Pt indicates he has all equipment he needs at home, having a tub/shower with a SC. Pt uses a walker beside the tub as a rail to hold onto as he steps in/out of tub. He has a agricultural research technologist and sock aide. Self Care: Independent Functional Cognition: Independent DME/Equipment: Bath Chair, Grab Bars, Tub/Shower OT Current Status Subjective Pt agreeable to OT tx, reports some pain in back of neck but didn't provide pain rating. Mental Status/Objective Patient Orientation: Person, Place, Situation Current Glasses/Contacts: Yes Hearing Aids: No Dentures/Partials: No Hand Dominance: Right Upper Extremity ROM WFL, BUE shoulder flexion to approx 140 degrees Upper Extremity Coordination WFL Upper Extremity Sensation Pt reports some numbness in ulnar nerve distribution of L hand, states this has been going on for a while. Upper Extremity Strength grossly 4/5 ADL-Treatment Eating (QC): 6 Oral Hygiene (QC): 4 (CGA) Shower/Bathe Self (QC): 3 (Assistance washing/drying BLEs lower legs/feet.) Upper Body Dressing (QC): 3 (mod A overall with robe and button up shirt) Lower Body Dressing (QC): 3 (Mod Assistance) On/Off Footwear (QC): 2 Toileting Hygiene (QC): 4 (CGA) Other Treatments Pt in recliner, CGA sit to stand, then CGA using FWW to transfer into bathroom. Pt completed toileting, dressing and showering as outlined above. OT informed pt and spouse to let pt do what he can for initial evaluation, but pt's was quick to assist pt. Pt used FWW to transfer to EOB, CGA, then supine with SBA. Post tx, pt in bed, call light in reach and all needs met. Education OT Patient Education: Correct positioning, Modified ADL techniques, Progress toward Goal/Update tx plan, Purpose of tx/functional activities Teaching Recipient: Patient Response to Teaching: Verbalize Understanding BIMS CAM BIMS Expression of Ideas and Wants: Without Difficulty Understanding Verbal Content: Understands Brief Interview/Mental Status: Yes IRF REBA BIMS: IRF REBA BIMS Response (Comments) Value Repitition of Three Words Three 3 Recalls Socks No, Could Not Recall (pants ) 0 Recalls Blue No, Could Not Recall (chair) 0 Recalls Bed Yes, No Cue Required 2 Year Missed by 5 Yrs/No Answer (1922) 0 Month Missed by 6 Days/1 Month (Mar) 1 Total 6 Should Staff Asses. Mental St.: No CAM Mental Status Change/Baseline: 0 Inattention: 0 Disorganized thinkin Altered level of consciousness: 0 OT Short Term Goals Short Term Goals Time Frame: May 08, 2022 Shower/bathe self: 4 Lower body dressin Putting on/taking off footwear: 4 OT Prison Goals Prison Goals Time Frame: May 23, 2022 Eating (QC): 6 Oral Hygiene (QC): 6 Toileting Hygiene (QC): 6 Shower/Bathe Self (QC): 6 Upper Body Dressing (QC): 6 Lower Body Dressing (QC): 6 On/Off Footwear (QC): 6 Additional Goals: 1-Demonstrate ADL Tasks, 2-Verbalize Understanding, 3- ImproveStrength/Mon[place] 1=Demonstrate adherence to instructed precautions during ADL tasks. 2=Patient will verbalize/demonstrate understanding of assistive devices/modifications for ADL. 3=Patient will improve strength/tolerance for activity to enable patient to perform ADL's. OT Education/Plan Problem List/Assessment Assessment: Decreased Activ Tolerance, Decreased UE Strength, Impaired Funct Balance, Impaired I ADL's, Impaired Self-Care Skills Discharge Recommendations Plan/Recommendations: Continue POC Treatment Plan/Plan of Care Patient would benefit from OT for education, treatment and training to promote independence in ADL's, mobility, safety and/or upper extremity function for ADL's. Plan of Care: ADL Retraining, Functional Mobility, Group Exercise/Act as Ind, UE Funct Exercise/Act Treatment Duration: May 23, 2022 Frequency: At least 5 of 7 days/Wk (IRF) Estimated Hrs Per Day: 1.5 hours per day Rehab Potential: Good Time Start Time: 11:00 Stop Time: 12:00 DATE: Apr 23, 2022 Total Time Billed (hr/min): 60 Billed Treatment Time 1, EVM (10'), ADL 3 (50') LALI HILLS OT Apr 23, 2022 11:58
--- NOTE | 2022-04-23 12:21 | ST Cognitive Linguistic Eval ---
Speech Evaluation-General Medical Diagnosis C2-T1 Posterior Cervical Fusion, C4-5 Lami Onset Date: Apr 19, 2022 Therapy Diagnosis Therapy Diagnosis: Baseline Cognition (Mild Impairment) Precautions Precautions: Fall Precautions/Isolations: Fall Prevention, Standard Precautions Referral Referring Physician: Dr. Brooke Reason for Referral: Evaluation/Treatment Medical History Reviewed History: Yes Social History Current Living Status: Spouse Speech PLF-Current Status Prior Level of Function The patient (and patient's family) reported the patient is currently functioning at his baseline cognitive status. Additionally, a concern was reported regarding the patient's oropharyngeal swallowing function. The patient, the patient's daughter, the patient's , and the patient's RN denied concerns or difficulties with swallowing. Per RN, the patient recently consumed medication without any difficulty. Subjective The patient was seated upright in his bed, awake and alert, upon entrance to his room by the clinician. The patient greeted the clinician appropriately and was agreeable to participation in the cognitive linguistic assessment. The patient's , the patient's daughter, and the patient's RN were present in the room. The patient's family members participated in the evaluation by providing past medical history information to the clinician. Language Eval: Auditory Comprehends Simple Yes/No Ques: Functional Indent/Objects Multiple Guillory: Functional Follows 1-Step Commands: Functional Follows General Conversations: Functional Language Eval: Verbal Language Completes Spontaneous Greeting: Functional Produces Auto, Serial Info: Functional Word Finding: Mild Requests Basic Needs: Functional States Basic Personal Info: Functional Cognitive Patient Orientation The patient was independently oriented to self, location, month, day of the week, and year. Per patient, "When I woke up this morning, I didn't know it was Saturday. I thought it was still Saturday night." Objective Cognitive Domain Attention: WNL Memory: Mild Problem Solving: Mild Visuospatial Skills: WNL Composite Severity Rating: Mild Objective Oral Motor/Speech Production The patient does not display dysarthria or apraxia of speech. The patient is 100% intelligible in known and unknown contexts. 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 An extensive conversation occurred with the patient, the patient's , and the patient's daughter. Per family and patient, the patient is functioning at baseline cognitive function. The patient's stated, "He is taking some medication for his memory." The patient's daughter reported the patient "had too many medications on Saturday and didn't really know me." Following a reduction of the patient's medications, the patient's daughter stated the patient is at baseline. Speech pathology discussed her role in the rehabilitation process and how speech pathology can aid in the reinforcement of processes learned from physical and occupational therapy. At this time, the patient would like to focus on "getting physically stronger." The clinician respects the patient's and patient's family's request, however, stated if the patient's memory does interfere with the positive progression of therapy, speech pathology would need to participate to aid with safety. Additionally, OT and PT were updated on the conversation and requested to monitor the patient's ability to perform tasks with his currently cognitive function. Skilled speech pathology will sign off at this time. Speech-Plan Treatment Plan Speech Therapy Treatment Plan: Discontinue ST Treatment Duration: Apr 23, 2022 Frequency: 1 time per week Estimated Hrs Per Day: .25 hour per day Rehab Potential: Good Pt/Family Agrees to Plan: Yes Safety Risks/Education Teaching Recipient: Patient Teaching Methods: Discussion Response to Teaching: Verbalize Understanding Education Topics Provided: Results, Recommendations, Plan of Care Time Speech Therapy Time In: 09:06 Speech Therapy Time Out: 09:30 DATE: Apr 23, 2022 Total Billed Time: 24 Billed Treatment Time 1, ISAÍAS RODRIGUEZ [facility] ST Apr 23, 2022 12:21
--- NOTE | 2022-04-23 13:30 | Occupational Ther Daily Note ---
OT Current Status-Daily Note Subjective Pt in bed, agreeable to OT Tx. ADL-Treatment Therapy Code Descriptions/Definitions Functional [place] Measure: 0=Not Assessed/NA 4=Minimal Assistance 1=Total Assistance 5=Supervision or Setup 2=Maximal Assistance 6=Modified [place] 3=Moderate Assistance 7=Complete IndependenceSCALE: Activities may be completed with or without assistive devices. 1-Taryibfdip-nwiggmq completes the activity by him/herself with no assistance from a helper. 5-Set-up or Clean-up Assistance-helper sets up or cleans up; patient completes activity. Patterson assists only prior to or following the activity. 4-Supervision or Touching Assistance-helper provides verbal cues and/or touching/steadying and/or contact guard assistance as patient completes activity. Assistance may be provided throughout the activity or intermittently. 3-Partial/Moderate Assistance-helper does LESS THAN HALF the effort. Patterson lifts, holds or supports trunk or limbs, but provides less than half the effort. 2-Substantial/Maximal Assistance-helper does MORE THAN HALF the effort. Patterson lifts or holds trunk or limbs and provides more than half the effort. 6-Swrjpsycw-lthiex does ALL the effort. Patient does none of the effort to complete the activity. Or, the assistance of 2 or more helpers is required for the patient to complete the activity. If activity was not attempted, code reason: 7-Patient Refused. 9-Not Applicable-not attempted and the patient did not perform the activity befo re the current illness, exacerbation or injury. 10-Not Attempted due to Environmental Limitations-(lack of equipment, weather re straints, etc.). 88-Not Attempted due to Medical Conditions or Safety Concerns. Other Treatment OT tx with focus on increasing BUE strength and activity tolerance. Pt completed UE reaching task with nut/bolt block, placing/removing nuts and bolts from block. Pt completed task for 20 mins. Post tx, pt in bed, call light in reach and all needs met. OT Short Term Goals Short Term Goals Time Frame: May 08, 2022 Shower/bathe self: 4 Lower body dressin Putting on/taking off footwear: 4 OT Custodial Goals Boilermaker Fitter Goals Time Frame: May 23, 2022 Acute change in mental status: 0 Inattention: 0 Disorganized thinkin Altered level of consciousness: 0 Eating (QC): 6 Oral Hygiene (QC): 6 Toileting Hygiene (QC): 6 Shower/Bathe Self (QC): 6 Upper Body Dressing (QC): 6 Lower Body Dressing (QC): 6 On/Off Footwear (QC): 6 Additional Goals: 1-Demonstrate ADL Tasks, 2-Verbalize Understanding, 3- ImproveStrength/Monica 1=Demonstrate adherence to instructed precautions during ADL tasks. 2=Patient will verbalize/demonstrate understanding of assistive devices/modifications for ADL. 3=Patient will improve strength/tolerance for activity to enable patient to perform ADL's. OT Education/Plan Problem List/Assessment Assessment: Decreased Activ Tolerance, Decreased UE Strength, Impaired Funct Balance, Impaired I ADL's, Impaired Self-Care Skills Discharge Recommendations Plan/Recommendations: Continue POC Treatment Plan/Plan of Care Patient would benefit from OT for education, treatment and training to promote independence in ADL's, mobility, safety and/or upper extremity function for ADL's. Plan of Care: ADL Retraining, Functional Mobility, Group Exercise/Act as Ind, UE Funct Exercise/Act Treatment Duration: May 23, 2022 Frequency: At least 5 of 7 days/Wk (IRF) Estimated Hrs Per Day: 1.5 hours per day Rehab Potential: Good Time Start Time: 13:10 Stop Time: 13:30 DATE: Apr 23, 2022 Total Time Billed (hr/min): 20 Billed Treatment Time 1MARCE ADDISON OT Apr 23, 2022 13:30
--- NOTE | 2022-04-23 14:25 | Physical Therapy Daily Note ---
PT Daily Note-Current Subjective Patient lying supine in bed upon PT arrival, nurse in the room, both agreeable to treatment. Nurse applying pain patch and Voltaren gel. Pain Section J - Health Conditions 1. Rarely or not at all 2. Occasionally 3. Frequently 4. Almost constantly 8. Unable to answer Pain Effect on Sleep: 3 Pain Interference with Therapy: 3 Pain Interference w/Day-to-Day: 3 Mental Status Patient Orientation: Person, Place, Time, Situation Transfers SCALE: Activities may be completed with or without assistive devices. 9-Tkaftxlwdm-nfdxgdd completes the activity by him/herself with no assistance from a helper. 5-Set-up or Clean-up Assistance-helper sets up or cleans up; patient completes activity. Henderson assists only prior to or following the activity. 4-Supervision or Touching Assistance-helper provides verbal cues and/or touching/steadying and/or contact guard assistance as patient completes activity. Assistance may be provided throughout the activity or intermittently. 3-Partial/Moderate Assistance-helper does LESS THAN HALF the effort. Henderson l ifts, holds or supports trunk or limbs, but provides less than half the effort. 2-Substantial/Maximal Assistance-helper does MORE THAN HALF the effort. Henderson lifts or holds trunk or limbs and provides more than half the effort. 1-Pbarwcjmt-qinqwz does ALL the effort. Patient does none of the effort to complete the activity. Or, the assistance of 2 or more helpers is required for t he patient to complete the activity. If activity was not attempted, code reason: 7-Patient Refused. 9-Not Applicable-not attempted and the patient did not perform the activity before the current illness, exacerbation or injury. 10-Not Attempted due to Environmental Limitations-(lack of equipment, weather restraints, etc.). 88-Not Attempted due to Medical Conditions or Safety Concerns. Roll Left & Right (QC): 4 Sit to Lying (QC): 4 Lying to Sitting/Side of Bed(Q: 4 Sit to Stand (QC): 4 Chair/Ecg-dy-Zeakl Xfer(QC): 4 Toilet Transfer (QC): 4 Weight Bearing Weight Bearing/Tolerated Weight Bearing/Tolerated Gait Training Does the Patient Walk?: Yes Distance: 15 feet x 2 Walk 10 feet (QC): 4 Gait Assistive Device: FWW Exercises Supine Ex: Ankle pumps, Quad Set, Glut sets Supine Reps: 20 Assessment Current Status: Fair Progress Patient tolerated treatment fair. He performs all bed mobility and transfers with SBA. Patient sits at edge of bed while nurse applies pain patch to right scapula and Voltaren Gel to left scapular region. Patient requires max A for donning of C-collar. Patient ambulates 15 feet with FWW with SBA into the BR. Requires min A for lowering pants. Patient requires min A for raising pants post BR. Patient ambulates to the bed and performs toilet to bed transfer with SBA. Patient performs LE exercises as listed above. Patient in bed post treatment with all needs met, nursing notified, call light in reach. PT Short Term Goals Short Term Goals Time Frame: Apr 29, 2022 Roll Left & Right: 4 Sit to lyin Lying to sitting on side of be: 4 Sit to stand: 4 Chair/dor-yx-rhxgo transfer: 4 Toilet transfer: 4 Car transfer: 4 Walk 10 feet: 4 Walk 50 feet with two turns: 4 Walk 150 feet: 4 Walking 10ft on uneven surface: 4 1 step (curb): 4 4 steps: 4 PT Scullion Chief Goals Scullion Chief Goals PT Halfway Goals Time Frame: May 13, 2022 Roll Left & Right (QC): 6 Sit to Lying (QC): 6 Lying-Sitting on Side/Bed(QC): 6 Sit to Stand (QC): 6 Chair/Iqq-hb-Dshev Xfer(QC): 6 Toilet Transfer (QC): 6 Car Transfer (QC): 6 Does the Patient Walk: Yes Walk 10 feet (QC): 6 Walk 50ft with 2 Turns (QC): 6 Walk 150 ft (QC): 6 Walking 10ft on Uneven Surface: 6 1 Step (curb) (QC): 6 4 Steps (QC): 6 12 Steps (QC): 6 Picking up an Object (QC): 6 Wheel 50 feet with 2 turns (QC: 9 Wheel 150 feet: 9 PT Plan Treatment/Plan Treatment Plan: Continue Plan of Care Treatment Plan: Bed Mobility, Education, Functional Activity Monica, Functional Strength, Group Therapy, Gait, Safety, Therapeutic Exercise, Transfers Treatment Duration: May 13, 2022 Frequency: Modified Program (IRF) Estimated Hrs Per Day: 1.5 hours per day Patient and/or Family Agrees t: Yes Safety Risks/Education Patient Education: Gait Training, Transfer Techniques, Correct Positioning Teaching Recipient: Patient Teaching Methods: Demonstration, Discussion Response to Teaching: Verbalize Understanding, Return Demonstration Time Time In: 1332 Time Out: 1357 DATE: Apr 23, 2022 Total Billed Treatment Time: 25 Total Billed Treatment Visit, FA, DEANGELO PADILLA PT Apr 23, 2022 14:24
[2022-04-23] MEDS: glipiZIDE XL 5 MG (GLUCOTROL XL) TAB PO SCH (17:28)
[2022-04-23 20:09] VITALS: BP 144/91
[2022-04-23] MEDS: traZODone 100 MG (DESYREL) TAB PO SCH (20:12)
[2022-04-23] MEDS: PRAMIPEXOLE 0.5 MG TAB (MIRAPEX) PO SCH (20:12)
[2022-04-23] MEDS: MONTELUKAST 10 MG (SINGULAIR) TAB PO SCH (20:12)
[2022-04-23] MEDS: TAMSULOSIN 0.4 MG (FLOMAX) CAP PO SCH (20:12)
[2022-04-23] MEDS: PATCH REMOVAL TP SCH (20:13)
--- NOTE | 2022-04-24 05:49 | Individualized Plan of Care ---
Individualized Plan of Care Rehab Nursing IPOC Order Admission Date Apr 21, 2022 at 13:30 Current Orders Orders Admission Order(Inpt,Obs,Sdc) (04/21/22 11:11) Vital Signs: Per Unit Policy ( (04/21/22 11:11) Sequential Compression Device (04/21/22 11:11) Transformer Tester-Inpt Rehab Con (04/21/22 11:11) Rehab Nursing Orders-Ipoc (04/21/22 11:11) Physical Therapy Rehab Orders (04/21/22 11:11) Occupational Therapy Rehab Ord (04/21/22 11:11) Speech Therapy Rehab Orders (04/21/22 11:11) Cbc With Automated Diff (04/22/22 06:00) Comprehensive Metabolic Panel (04/22/22 06:00) Precautions (Aru) (04/21/22 11:11) Rehab-Intensity Of Therapy (04/21/22 11:11) Initiate Admission Nursing Pro .admission (04/21/22 11:11) Calcium Carbonate Chew Tablet (Antacid C (04/21/22 11:15) Docusate Sodium Capsule (Colace Capsule) (04/21/22 21:00) Bisacodyl Suppository (Dulcolax Supposit (04/21/22 11:15) Polyethylene Glycol Powder Pkt (Miralax (04/21/22 21:00) Ondansetron Oral Dissolve Tab (Zofran (04/21/22 11:15) Code/Resuscitation (04/21/22 11:11) Initiate Admission Nursing Pro .admission (04/21/22 11:11) Accucheck Achs ACHS (04/21/22 11:13) Initiate Admission Nursing Pro .admission (04/21/22 11:13) Nursing Communication (Order) (04/21/22 11:13) Precautions (Aru) (04/21/22 11:13) Sequential Compression Device (04/21/22 11:13) Christoph Hose (04/21/22 11:13) Vte Contraindication (04/21/22 11:13) Vital Signs: Per Unit Policy ( (04/21/22 11:13) Cho 60g/M 1snack (16-2000 Sg) (04/21/22 Lunch) (Nf) Ketoconazole (04/21/22 11:15) (Nf) Liraglutide (Victoza 2-Eagle) (04/22/22 09:00) Tadalafil Tablet (Non-Form) (Tadalafil T (04/21/22 15:45) Alprazolam Tablet (Xanax Tablet) (04/21/22 11:15) Alprazolam Tablet (Xanax Tablet) (04/21/22 21:00) Acetaminophen Tablet/Caplet (Tylenol T (04/21/22 11:15) Albuterol Pre-Mix Nebs (Rt) (Proventil (04/21/22 11:15) Aspirin Enteric Coated Tablet (Ecotrin T (04/22/22 09:00) Atorvastatin Tablet (Lipitor Tablet) (04/21/22 21:00) Baclofen Tablet (Lioresal Tablet) (04/21/22 11:15) Bisacodyl Tablet (Dulcolax Tablet) (04/21/22 11:15) Carboxymethylcell Ophth Soln (Refresh Pl (04/21/22 11:15) Clindamycin Capsule (Cleocin Capsule) (04/21/22 13:00) Diclofenac 1% Gel (Voltaren 1% Gel) (04/21/22 13:00) Docusate Sodium Capsule (Colace Capsule) (04/21/22 11:15) Donepezil Tablet (Aricept Tablet) (04/22/22 09:00) Fluticasone Nasal Amery (Flonase Nasal S (04/21/22 11:15) Lactulose Oral Solution (Enulose Oral So (04/21/22 11:15) Lidocaine 4% Patch (Salonpas 4% Patch) (04/22/22 09:00) Loperamide Tablet (Imodium Tablet) (04/21/22 11:15) Loratadine Tablet (Claritin Tablet) (04/22/22 09:00) Losartan Tablet (Cozaar Tablet) (04/22/22 09:00) Magnesium Oxide Tablet (Mag Ox Tablet) (04/21/22 21:00) Meclizine Tablet (Antivert Tablet) (04/21/22 11:15) Melatonin Tablet (Melatonin Tablet) (04/21/22 11:15) Meloxicam Tablet (Mobic Tablet) (04/22/22 09:00) Memantine Tablet (Namenda Tablet) (04/21/22 21:00) Montelukast Tablet (Singulair Tablet) (04/21/22 21:00) Na Phos/Na Biphos Enema (Fleet Enema Christopher (04/21/22 11:15) Nitroglycerin 0.4 Mg Btl 25's (Nitrostat (04/21/22 11:15) Insulin Aspart (Novolog) (Novolog (Charg (04/21/22 16:00) Nystatin Cream (Mycostatin Cream) (04/21/22 11:15) Ondansetron Oral Dissolve Tab (Zofran (04/21/22 11:15) Pantoprazole Tablet (Protonix Tablet) (04/22/22 09:00) Patch Removal (Patch Removal) (04/21/22 21:00) Pramipexole Tablet (Mirapex Tablet) (04/21/22 21:00) Pregabalin Capsule (Lyrica Capsule) (04/21/22 21:00) Promethazine Tablet (Phenergan Tablet) (04/21/22 11:15) Senna S Tablet (Senokot S Tablet) (04/21/22 21:00) Sucralfate Tablet (Carafate Tablet) (04/21/22 21:00) Tamsulosin Capsule (Flomax Capsule) (04/21/22 21:00) Triamcinolone 0.1% Ointment (Kenalog 0.1 (04/21/22 11:15) Amlodipine Tablet (Norvasc Tablet) (04/22/22 09:00) Clonidine Tablet (Catapres Tablet) (04/21/22 11:15) Diphenhydramine Tablet (Benadryl Tablet) (04/21/22 11:15) Glipizide Xl Tablet (Glucotrol Xl Tablet (04/21/22 18:00) Guaifenesin/Codeine Syrup (Robitussin Ac (04/21/22 11:15) Insulin (Regular) Human (Novolin R (Per (04/21/22 11:15) Insulin Determir (Per Unit) (Levemir (Pe (04/21/22 21:00) Metoprolol Succinate (Xl) Tab (Toprol Xl (04/22/22 09:00) Metformin Tablet (Glucophage Tablet) (04/21/22 18:00) Oxycodone Extended Release Tab (Oxyconti (04/21/22 11:15) Oxycodone Immediate Rel Tablet (Oxyir Ta (04/21/22 11:15) Polyethylene Glycol Powder Pkt (Miralax (04/21/22 11:15) Trazodone Tablet (Desyrel Tablet) (04/21/22 21:00) Occupational Therapy Rehab Ord (04/21/22 11:13) Physical Therapy Rehab Orders (04/21/22 11:13) Rehab Nursing Orders-Ipoc (04/21/22 11:13) Rehab-Intensity Of Therapy (04/21/22 11:13) Svn Small Volume Nebulizer (04/21/22 11:13) Transformer Tester-Inpt Rehab Con (04/21/22 11:13) Speech Therapy Rehab Orders (04/21/22 11:13) Svn Small Volume Nebulizer (04/21/22 11:13) Cbc With Automated Diff (04/21/22 11:13) Comprehensive Metabolic Panel (04/21/22 11:13) Admission Arrival Bed Request (04/21/22 13:30) Urinalysis (04/21/22 16:39) Bladder Scan-Straight Cath-Pos (04/21/22 13:50) Lactic Acid Analyzer (04/21/22 13:50) Chest 1 View, Ap/Pa Only (04/21/22 13:50) Patient Visit (04/22/22 ) Pt Eval Moderate Complexity (04/22/22 ) Baclofen Tablet (Lioresal Tablet) (04/22/22 12:15) Oxycodone Immediate Rel Tablet (Oxyir Ta (04/22/22 12:15) Pramipexole Tablet (Mirapex Tablet) (04/22/22 21:00) Incentive Spirometry Initial (04/22/22 12:12) Incentive Spirometry (Nursing) Q2H (04/22/22 12:12) Albuterol Pre-Mix Nebs (Rt) (Proventil (04/22/22 12:15) Svn Small Volume Nebulizer (04/22/22 12:12) Alprazolam Tablet (Xanax Tablet) (04/22/22 21:00) Oxycodone Extended Release Tab (Oxyconti (04/22/22 21:00) Cbc With Automated Diff (04/23/22 07:25) Comprehensive Metabolic Panel (04/23/22 07:25) Patient Visit (04/23/22 ) Speech Sound Lang Comp (04/23/22 ) Treat. Speech/Lang/Voice (04/23/22 ) Patient Visit (04/23/22 ) Functional Activities, Ea 15 (04/23/22 ) Gait Training, Ea 15 Min (04/23/22 ) Exercise Therap, Ea 15 Min (04/23/22 ) Rehab Nursing Orders: Ongoing Assess. of Cognitive Status, Ongoing Assess. of Function Status, Bladder Management, Bladder Scan, Bladder Training, Bowel Management, Bowel Training, Disease Management & Educaiton, DVT Prophylaxis, Fall Prevention, Fluid/Electrolyte/Nutrition Mgmt, Infection Prevention, Medication Management & Education, Management of Risks & Complications, Management of Skin Intergrity, Nutrition Management, Pain Management, Patient/Family Support, Safety Management, Wound Management Intensity of Therapy to be met Patient to be seen: Min.3h per day/5 of 7d PT IPOC Problem List: Activity Tolerance, Functional Strength, Safety, Balance, Gait, Transfer, Bed Mobility, ROM Treatment Plan: Continue Plan of Care Bed Mobility, Education, Functional Activity Monica, Functional Strength, Group Therapy, Gait, Safety, Therapeutic Exercise, Transfers Treatment Duration: May 13, 2022 Frequency: Modified Program (IRF) Estimated Hrs Per Day: 1.5 hours per day OT IPOC Problems: Decreased Activ Tolerance, Decreased UE Strength, Impaired Funct Balance, Impaired I ADL's, Impaired Self-Care Skills OT Treatment, Training and Edu: Yes Plan of Care: ADL Retraining, Functional Mobility, Group Exercise/Act as Ind, UE Funct Exercise/Act Treatment Duration: May 23, 2022 Frequency: At least 5 of 7 days/Wk (IRF) Estimated Hrs Per Day: 1.[address] IPOC Speech Therapy Treatment Plan: Discontinue ST Treatment Duration: Apr 23, 2022 Frequency: 1 time per week Estimated Hrs Per Day: .25 hour per day Transformer Tester/Case Mgmt Transformer Tester/Case Managemen: Discharge Planning Dietitian/Water Quality Manager Dietitian/Water Quality Manager to monitor nutritional status and make changes and/or recommendations as needed and work with speech pathology on dietary upgrades as the occur. Physician IPOC Medical Issues being managed closely and that require the 24 hour availability of a physician: Recent complicated cervical spine surgery with residual pain and lethargy from overmedication will require close monitoring for any decompensation during hospital stay Medical Issues: Bowel/Bladder Function, DVT Prophylaxis, Falls Precautions, Fluid/Electrolyte/Nutrition Balance, Infection Protection, Pain Management, Wound Care Brief Synthesis of Preadmission Screen, Post-Admission Evaluation, and Therapy Evaluations: PT OT will focus on regaining function with use of AD in order to regain function of arms and legs since cervical spine stenosis with myelopathy and will help regain ADL's Medical Prognosis: Good Anticipated Length of Stay: 7 days CHINEDU STERN DO Apr 24, 2022 05:49
--- NOTE | 2022-04-24 05:50 | PM&R Progress Note ---
Subjective HPI/CC On Admission Date Seen by Provider: Apr 24, 2022 Time Seen by Provider: 09:00 Subjective/Events-last exam 04/24/2022: Patient doing well Seems to be irritable most of the time Wants to go home soon Reviewed meds 04/23/2022: Much improved status Decreased all sedatives and pain meds and muscle relaxants by 1/2 and now much improved No overmedicated appearance Family at bedside very pleased with his status today 04/22/2022: Patient appears to be oversedated Labs reviewed Vitals remained stable Reviewed entire medication list and minimized every narcotic and benzodiazepine and muscle relaxant by cutting dose in half Will monitor closely Review of Systems General: Fatigue, Malaise Musculoskeletal: neck pain Focused Exam Lactate Level Objective Exam Vital Signs Vital Signs Date Time Temp Pulse Resp B/P (MAP) Pulse Ox O2 Delivery O2 Flow Rate FiO2 04/24/22 22:04 94 Room Air 04/24/22 20:00 36.4 77 20 166/83 (110) Capillary Refill : General Appearance: No Apparent Distress, WD/WN, Chronically ill HEENT: PERRL/EOMI, Normal ENT Inspection, Pharynx Normal Neck: Full Range of Motion, Normal Inspection, Non Tender, Supple, Carotid Bruit Respiratory: Chest Non Tender, Lungs Clear, Normal Breath Sounds, No Accessory Muscle Use, No Respiratory Distress Cardiovascular: Regular Rate, Rhythm, No Edema, No Gallop, No JVD, No Murmur, Normal Peripheral Pulses Gastrointestinal: Normal Bowel Sounds, No Organomegaly, No Pulsatile Mass, Non Tender, Soft Back: Decreased Range of Motion, Muscle Spasm, Vertebral Tenderness Extremity: Normal Capillary Refill, Normal Inspection, Normal Range of Motion, Non Tender, No Calf Tenderness, No Pedal Edema Neurologic/Psychiatric: Alert, Oriented x3, No Motor/Sensory Deficits, Normal Mood/Affect, unit educator II-XII Norm as Tested, Motor Weakness (Generalized) Skin: Normal Color, Warm/Dry Lymphatic: No Adenopathy Results/Procedures Lab Patient resulted labs reviewed. FIM Transfers Therapy Code Descriptions/Definitions Functional [place] Measure: 0=Not Assessed/NA 4=Minimal Assistance 1=Total Assistance 5=Supervision or Setup 2=Maximal Assistance 6=Modified [place] 3=Moderate Assistance 7=Complete IndependenceSCALE: Activities may be completed with or without assistive devices. 6-Salcyntwpa-epquonk completes the activity by him/herself with no assistance from a helper. 5-Set-up or Clean-up Assistance-helper sets up or cleans up; patient completes activity. [place] assists only prior to or following the activity. 4-Supervision or Touching Assistance-helper provides verbal cues and/or touching/steadying and/or contact guard assistance as patient completes activity. Assistance may be provided throughout the activity or intermittently. 3-Partial/Moderate Assistance-helper does LESS THAN HALF the effort. [place] lifts, holds or supports trunk or limbs, but provides less than half the effort. 2-Substantial/Maximal Assistance-helper does MORE THAN HALF the effort. [place] lifts or holds trunk or limbs and provides more than half the effort. 2-Vksyeksmf-cqkbdj does ALL the effort. Patient does none of the effort to complete the activity. Or, the assistance of 2 or more helpers is required for the patient to complete the activity. If activity was not attempted, code reason: 7-Patient Refused. 9-Not Applicable-not attempted and the patient did not perform the activity before the current illness, exacerbation or injury. 10-Not Attempted due to Environmental Limitations-(lack of equipment, weather restraints, etc.). 88-Not Attempted due to Medical Conditions or Safety Concerns. Roll Left to Right (QC): 4 Sit to Lying (QC): 4 Sit to Stand (QC): 4 Chair/Fav-ve-Qmtdp Xfer(QC): 4 Car Transfer (QC): 88 Gait Training Does the Patient Walk?: Yes Distance: 15 feet x 2 Walk 10 feet (QC): 4 Walk 50 ft with 2 Turns(QC): 4 Walk 150 ft (QC): 4 Walking 10ft/uneven surface-QC: 88 Gait Persons Needed: 1 Gait Assistive Device: FWW Wheelchair Training Wheel 50 ft with 2 turns (QC): 88 Wheel 150 ft (QC): 88 Stair Training 1 Step (curb) (QC): 88 4 Steps (QC): 88 12 Steps (QC): 88 Balance Picking up an Object (QC): 88 ADL-Treatment Eating (QC): 6 Oral Hygiene (QC): 4 (CGA) Shower/Bathe Self (QC): 3 (Assistance washing/drying BLEs lower legs/feet.) Upper Body Dressing (QC): 3 (mod A overall with robe and button up shirt) Lower Body Dressing (QC): 3 (Mod Assistance) On/Off Footwear (QC): 2 Toileting Hygiene (QC): 4 (CGA) Assessment/Plan Assessment and Plan Assess & Plan/Chief Complaint Assessment: Cervical spine stenosis with myelopathy status post decompression by Dr. BLEDSOE POD # 5 after leaving AMA from inpatient rehab yesterday to 04/20/2022 after spending 3 hours on the unit but now returning today Pacemaker Dementia Diabetes insulin-dependent zoh-hm-mauf[place] Hypertension qya-ko-eznrzan Noncompliance Oversedation due to medication-minimize dose on 04/22/2022 Plan: Supportive care Pain control Home meds PT OT 04/22/2022: Minimize sedatives 04/23/2022: Much improved status Minimize pain meds 04/24/2022: Monitor pain meds closely (1) Stenosis of cervical spine with myelopathy (2) Risk for falls (3) Impulsiveness (4) Pacemaker (5) Hypertension Status: Acute (6) Diabetes (7) Dementia CHINEDU STERN DO Apr 24, 2022 05:50
[2022-04-24] MEDS: inSUlin ASPART (NovoLOG) 1 UNIT/0.01 ML (CHARGE PER UNIT) SC SCH ×4 (06:11→20:42)
[2022-04-24] MEDS: BACLOFEN 10 MG (LIORESAL) TAB PO PRN (06:18)
[2022-04-24] MEDS: RT-ALBUTEROL SULF 2.5 MG/3 ML PRE-MIX VIAL INH SCH ×2 (07:31→22:04)
[2022-04-24 07:34] VITALS: BP 155/90
--- NOTE | 2022-04-24 08:19 | Occupational Ther Daily Note ---
OT Current Status-Daily Note Subjective Pt taking self back to EOB from toilet upon OT arrival, RN notified. Pt agreeable to OT Tx with slight encouragement. Pt unable to recall that he has had a shower the last 2 days, believes he hasn't had a shower since surgery. Pt states he choked on breakfast this AM, PARACHUTE ACCESSORIES ATTACHER and RN notifed. ADL-Treatment Therapy Code Descriptions/Definitions Functional [place] Measure: 0=Not Assessed/NA 4=Minimal Assistance 1=Total Assistance 5=Supervision or Setup 2=Maximal Assistance 6=Modified [place] 3=Moderate Assistance 7=Complete IndependenceSCALE: Activities may be completed with or without assistive devices. 9-Aipjsuaehi-puujpfd completes the activity by him/herself with no assistance from a helper. 5-Set-up or Clean-up Assistance-helper sets up or cleans up; patient completes activity. [place] assists only prior to or following the activity. 4-Supervision or Touching Assistance-helper provides verbal cues and/or touching/steadying and/or contact guard assistance as patient completes activity. Assistance may be provided throughout the activity or intermittently. 3-Partial/Moderate Assistance-helper does LESS THAN HALF the effort. [place] lifts, holds or supports trunk or limbs, but provides less than half the effort. 2-Substantial/Maximal Assistance-helper does MORE THAN HALF the effort. [place] lifts or holds trunk or limbs and provides more than half the effort. 7-Kwvsynzcw-oervxf does ALL the effort. Patient does none of the effort to complete the activity. Or, the assistance of 2 or more helpers is required for the patient to complete the activity. If activity was not attempted, code reason: 7-Patient Refused. 9-Not Applicable-not attempted and the patient did not perform the activity be fore the current illness, exacerbation or injury. 10-Not Attempted due to Environmental Limitations-(lack of equipment, weather restraints, etc.). 88-Not Attempted due to Medical Conditions or Safety Concerns. Other Treatment Pt taking self back to EOB from toilet using FWW upon OT arrival, RN notified. Pt declined donning LE clothing, stating his is going to bring some later this AM. Pt agreeable to tx with focus on UE strengthening and activity tolerance with slight encouragement. Pt used FWW to perform functional mobility towards therapy gym, CGA, 1 seated rest break on the way. Pt requests knee braces, able to don with set up assistance. Once in therapy gym, pt completed UE reaching task, placing 1" pegs from foam pegboard, completing x35 total. Pt c/o 10/10 pain in his neck, RN notified and pain medication provided. Pt refused further tx at this time, stating that he needs to talk to his who is his power of civil litigation attorney because things aren't getting done the way he believes they should. OT asked pt if there was anything therapy or nursing can do to improve his stay. Pt replied he wasn't talking to anyone except his about his issues. Pt requests to return to room, stating he doesn't have to do therapy if he doesn't want to. Pt believes he should be able to call for therapy once a day when he wants to. OT provided education on ARU expectations and process, pt verbalized understanding, but still requests to return to his room. Pt used FWW to return to his room, CGA. Once in room, pt requests to use toilet. Pt able to complete toileting with SBA, then transfer to recliner. Post tx, pt in recliner, call light in reach and all needs met. OT tx terminated at this time per pt request. Education OT Patient Education: Correct positioning, Energy conservation, Modified ADL techniques, Progress toward Goal/Update tx plan, Purpose of tx/functional activities, Rehab process Teaching Recipient: Patient Teaching Methods: Discussion Response to Teaching: Reinforcement Needed OT Short Term Goals Short Term Goals Time Frame: May 08, 2022 Shower/bathe self: 4 Lower body dressin Putting on/taking off footwear: 4 OT Mcfp Goals [place] Mechanic Goals Time Frame: May 23, 2022 Acute change in mental status: 0 Inattention: 0 Disorganized thinkin Altered level of consciousness: 0 Eating (QC): 6 Oral Hygiene (QC): 6 Toileting Hygiene (QC): 6 Shower/Bathe Self (QC): 6 Upper Body Dressing (QC): 6 Lower Body Dressing (QC): 6 On/Off Footwear (QC): 6 Additional Goals: 1-Demonstrate ADL Tasks, 2-Verbalize Understanding, 3- ImproveStrength/Monica 1=Demonstrate adherence to instructed precautions during ADL tasks. 2=Patient will verbalize/demonstrate understanding of assistive devices/modifications for ADL. 3=Patient will improve strength/tolerance for activity to enable patient to perform ADL's. OT Education/Plan Problem List/Assessment Assessment: Decreased Activ Tolerance, Decreased Safety Aware, Decreased UE Strength, Impaired Cognition, Impaired Funct Balance, Impaired I ADL's, Impaired Self-Care Skills Discharge Recommendations Plan/Recommendations: Continue POC Treatment Plan/Plan of Care Patient would benefit from OT for education, treatment and training to promote independence in ADL's, mobility, safety and/or upper extremity function for ADL's. Plan of Care: ADL Retraining, Functional Mobility, Group Exercise/Act as Ind, UE Funct Exercise/Act Treatment Duration: May 23, 2022 Frequency: At least 5 of 7 days/Wk (IRF) Estimated Hrs Per Day: 1.5 hours per day Rehab Potential: Good Time Start Time: 07:45 Stop Time: 08:45 DATE: Apr 24, 2022 Total Time Billed (hr/min): 60 Billed Treatment Time 1, FA 2 (30'), ADL 2 (30') LALI HILLS OT Apr 24, 2022 08:19
[2022-04-24] MEDS: ALPRAZolam 0.5 MG (XANAX) TAB PO SCH ×2 (08:25→20:41)
[2022-04-24] MEDS: oxyCODONE ER 20 MG (OxyCONTIN CR) TAB PO SCH ×2 (08:26→20:41)
[2022-04-24] MEDS: SUCRALFATE 1 GM (CARAFATE) TAB PO SCH ×2 (08:44→20:41)
[2022-04-24] MEDS: ASPIRIN E.C. 81 MG (ECOTRIN) TAB PO SCH (08:44)
[2022-04-24] MEDS: CLINDAMYCIN 150 MG (CLEOCIN) CAP PO SCH ×3 (08:44→20:40)
[2022-04-24] MEDS: DOCUSATE SODIUM 100 MG (COLACE) CAP PO SCH ×2 (08:44→20:41)
[2022-04-24] MEDS: DONEPEZIL 10 MG (ARICEPT) TAB PO SCH (08:44)
[2022-04-24] MEDS: LOSARTAN 50 MG (COZAAR) TAB PO SCH (08:44)
[2022-04-24] MEDS: MELOXICAM 7.5 MG (MOBIC) TABLET PO SCH (08:44)
[2022-04-24] MEDS: PANTOPRAZOLE 40 MG (PROTONIX) TAB PO SCH (08:45)
[2022-04-24] MEDS: PREGABALIN 75 MG (LYRICA) CAP PO SCH ×2 (08:45→20:41)
[2022-04-24] MEDS: LORATADINE (CLARITIN) 10 MG TAB PO SCH (08:45)
[2022-04-24] MEDS: MAGNESIUM OXIDE (MAG-OX)400 MG TAB PO SCH ×2 (08:45→20:41)
[2022-04-24] MEDS: MEMANTINE 10 MG (NAMENDA) TABLET PO SCH ×2 (08:45→20:41)
[2022-04-24] MEDS: meTOprolol SUCCINATE 100 MG (TOPROL XL) TAB PO SCH (08:45)
[2022-04-24] MEDS: SENNA W/DOCUSATE (SENOKOT S) TABLET PO SCH ×2 (08:45→20:41)
[2022-04-24] MEDS: LIDOCAINE 4% (SALONPAS) PATCH TP SCH (08:57)
[2022-04-24] MEDS: polyethylene glycoL POWDER 17 GM (MIRALAX) PACK PO SCH ×2 (08:57→19:43)
[2022-04-24] MEDS: DICLOFENAC 1% GEL 100 GM (VOLTAREN) TUBE TP SCH ×4 (08:57→20:42)
[2022-04-24] MEDS: metFORMIN 500 MG (GLUCOPHAGE) TAB PO SCH ×2 (10:10→17:30)
--- NOTE | 2022-04-24 10:33 | Physical Therapy Daily Note ---
PT Daily Note-Current Subjective Pt sitting at EOB upon arrival. Pt's Sp & granddaughter present. Pt agrees to PT only after pt is allowed to shower. Pain Section J - Health Conditions 1. Rarely or not at all 2. Occasionally 3. Frequently 4. Almost constantly 8. Unable to answer Pain Effect on Sleep: 3 Pain Interference with Therapy: 3 Pain Interference w/Day-to-Day: 3 Mental Status Patient Orientation: Person, Place, Situation Attachments: Other-See Comments (Cervical Collar & B Knee Braces) Transfers SCALE: Activities may be completed with or without assistive devices. 9-Bkzsiavyoa-hqfsfyw completes the activity by him/herself with no assistance from a helper. 5-Set-up or Clean-up Assistance-helper sets up or cleans up; patient completes activity. [place] assists only prior to or following the activity. 4-Supervision or Touching Assistance-helper provides verbal cues and/or touching/steadying and/or contact guard assistance as patient completes activity. Assistance may be provided throughout the activity or intermittently. 3-Partial/Moderate Assistance-helper does LESS THAN HALF the effort. [place] lifts, holds or supports trunk or limbs, but provides less than half the effort. 2-Substantial/Maximal Assistance-helper does MORE THAN HALF the effort. [place] lifts or holds trunk or limbs and provides more than half the effort. 1-[place]-mnevxw does ALL the effort. Patient does none of the effort to complete the activity. Or, the assistance of 2 or more helpers is required for the patient to complete the activity. If activity was not attempted, code reason: 7-Patient Refused. 9-Not Applicable-not attempted and the patient did not perform the activity before the current illness, exacerbation or injury. 10-Not Attempted due to Environmental Limitations-(lack of equipment, weather restraints, etc.). 88-Not Attempted due to Medical Conditions or Safety Concerns. Sit to Stand (QC): 5 Toilet Transfer (QC): 5 Weight Bearing Weight Bearing/Tolerated Weight Bearing/Tolerated Gait Training Does the Patient Walk?: Yes Distance: 15' x2 Walk 10 feet (QC): 5 Gait Assistive Device: FWW Exercises Seated Therapy Exercises: Ankle pumps, Long arc quads, Hip flexion, Hamstring Curls, Hip abd/add Seated Reps: 15 NuStep Minutes: 10 NuStep Workload: 5 Treatments Pt sits at EOB and takes B knee braces off. PT amb to BR. Pt decides he needs to use toilet before shower then amb to shower to doff clothing. Sp steps in to assist w/shower. Pt dries off and dresses w/COAL DRIER OPERATOR assistance before amb. in hallway. Pt uses NuStep then amb. back to room to rest at end of tx. All needs met, call light in hand. Assessment Current Status: Fair Progress Pt is very impulsive and requires constant VC for safety but doesn't redirect. PT Short Term Goals Short Term Goals Time Frame: Apr 29, 2022 Roll Left & Right: 4 Sit to lyin Lying to sitting on side of be: 4 Sit to stand: 4 Chair/ydt-ag-mfkzt transfer: 4 Toilet transfer: 4 Car transfer: 4 Walk 10 feet: 4 Walk 50 feet with two turns: 4 Walk 150 feet: 4 Walking 10ft on uneven surface: 4 1 step (curb): 4 4 steps: [address] [facility] Go[address] Administrative Engineer Goals PT [facility] Goals Time Frame: May 13, 2022 Roll Left & Right (QC): 6 Sit to Lying (QC): 6 Lying-Sitting on Side/Bed(QC): 6 Sit to Stand (QC): 6 Chair/Qvk-ji-Xgfcw Xfer(QC): 6 Toilet Transfer (QC): 6 Car Transfer (QC): 6 Does the Patient Walk: Yes Walk 10 feet (QC): 6 Walk 50ft with 2 Turns (QC): 6 Walk 150 ft (QC): 6 Walking 10ft on Uneven Surface: 6 1 Step (curb) (QC): 6 4 Steps (QC): 6 12 Steps (QC): 6 Picking up an Object (QC): 6 Wheel 50 feet with 2 turns (QC: 9 Wheel 150 feet: 9 PT Plan Problem List Problem List: Safety Treatment/Plan Treatment Plan: Continue Plan of Care Treatment Plan: Bed Mobility, Education, Functional Activity Monica, Functional Strength, Group Therapy, Gait, Safety, Therapeutic Exercise, Transfers Treatment Duration: May 13, 2022 Frequency: Modified Program (IRF) Estimated Hrs Per Day: 1.5 hours per day Patient and/or Family Agrees t: Yes Safety Risks/Education Patient Education: Safety Issues Teaching Recipient: Patient Teaching Methods: Discussion Response to Teaching: Reinforcement Needed Time Time In: 900 Time Out: 1000 DATE: Apr 24, 2022 Total Billed Treatment Time: 60 Total Billed Treatment 1, FA x2 (30m), GT (10m) & EX (20m) DIONNA ROJO PTA Apr 24, 2022 10:33
--- NOTE | 2022-04-24 12:03 | Occupational Ther Daily Note ---
OT Current Status-Daily Note Subjective Pt just got to bed with nursing staff after toileting, agreeable to OT Tx with some encouragement. ADL-Treatment Therapy Code Descriptions/Definitions Functional [place] Measure: 0=Not Assessed/NA 4=Minimal Assistance 1=Total Assistance 5=Supervision or Setup 2=Maximal Assistance 6=Modified [place] 3=Moderate Assistance 7=Complete IndependenceSCALE: Activities may be completed with or without assistive devices. 3-Qaialuovxc-yftblnn completes the activity by him/herself with no assistance from a helper. 5-Set-up or Clean-up Assistance-helper sets up or cleans up; patient completes activity. [place] assists only prior to or following the activity. 4-Supervision or Touching Assistance-helper provides verbal cues and/or touching/steadying and/or contact guard assistance as patient completes activity. Assistance may be provided throughout the activity or intermittently. 3-Partial/Moderate Assistance-helper does LESS THAN HALF the effort. [place] lifts, holds or supports trunk or limbs, but provides less than half the effort. 2-Substantial/Maximal Assistance-helper does MORE THAN HALF the effort. [place] lifts or holds trunk or limbs and provides more than half the effort. 2-Rwzujvbkx-cegfub does ALL the effort. Patient does none of the effort to complete the activity. Or, the assistance of 2 or more helpers is required for the patient to complete the activity. If activity was not attempted, code reason: 7-Patient Refused. 9-Not Applicable-not attempted and the patient did not perform the activity before the current illness, exacerbation or injury. 10-Not Attempted due to Environmental Limitations-(lack of equipment, weather restraints, etc.). 88-Not Attempted due to Medical Conditions or Safety Concerns. Toileting Hygiene (QC): 4 (SBA standing at toilet to urinate.) Other Treatment Pt in bed, transferred supine to sit EOB without assistance. Pt used FWW to transfer to therapy gym, CGA-SBA. BUE reaching task completed to increase BUE strength and activity tolerance, pt completed nut/bolt block, placing/removing nuts and bolts using BUEs for 20 mins, pt used FWW to return to his room, stood at toilet to urinate, then transferred to recliner, CGA-SBA. Post tx, pt in recliner, call light in reach and all needs met. Education OT Patient Education: Correct positioning, Energy conservation, Modified ADL techniques, Progress toward Goal/Update tx plan, Purpose of tx/functional activities, Rehab process Teaching Recipient: Patient Teaching Methods: Discussion OT Short Term Goals Short Term Goals Time Frame: May 08, 2022 Shower/bathe self: 4 Lower body dressin Putting on/taking off footwear: 4 OT Centerless Grinder Tender Goals Residential Goals Time Frame: May 23, 2022 Acute change in mental status: 0 Inattention: 0 Disorganized thinkin Altered level of consciousness: 0 Eating (QC): 6 Oral Hygiene (QC): 6 Toileting Hygiene (QC): 6 Shower/Bathe Self (QC): 6 Upper Body Dressing (QC): 6 Lower Body Dressing (QC): 6 On/Off Footwear (QC): 6 Additional Goals: 1-Demonstrate ADL Tasks, 2-Verbalize Understanding, 3- ImproveStrength/Monica 1=Demonstrate adherence to instructed precautions during ADL tasks. 2=Patient will verbalize/demonstrate understanding of assistive devices/modifications for ADL. 3=Patient will improve strength/tolerance for activity to enable patient to perform ADL's. OT Education/Plan Problem List/Assessment Assessment: Decreased Activ Tolerance, Decreased UE Strength, Impaired Funct Balance, Impaired I ADL's, Impaired Self-Care Skills Discharge Recommendations Plan/Recommendations: Continue POC Treatment Plan/Plan of Care Patient would benefit from OT for education, treatment and training to promote independence in ADL's, mobility, safety and/or upper extremity function for ADL's. Plan of Care: ADL Retraining, Functional Mobility, Group Exercise/Act as Ind, UE Funct Exercise/Act Treatment Duration: May 23, 2022 Frequency: At least 5 of 7 days/Wk (IRF) Estimated Hrs Per Day: 1.5 hours per day Rehab Potential: Good Time Start Time: 11:15 Stop Time: 11:45 DATE: Apr 24, 2022 Total Time Billed (hr/min): 30 Billed Treatment Time 1, FA (20'), ADL (10') LALI HILLS OT Apr 24, 2022 12:03
--- NOTE | 2022-04-24 14:23 | Physical Therapy Daily Note ---
PT Daily Note-Current Subjective Pt in BR upon arrival. HOT MILL TIN ROLLER must stay present in room as pt is very impulsive and will get up w/o using call light. Pain Location: No Pain Reported Section J - Health Conditions 1. Rarely or not at all 2. Occasionally 3. Frequently 4. Almost constantly 8. Unable to answer Pain Effect on Sleep: 3 Pain Interference with Therapy: 3 Pain Interference w/Day-to-Day: 3 Mental Status Patient Orientation: Person, Place, Situation Attachments: Other-See Comments (Cervical Collar & B knee braces) Transfers SCALE: Activities may be completed with or without assistive devices. 2-Yhxscaiang-hcajclx completes the activity by him/herself with no assistance from a helper. 5-Set-up or Clean-up Assistance-helper sets up or cleans up; patient completes activity. [place] assists only prior to or following the activity. 4-Supervision or Touching Assistance-helper provides verbal cues and/or touching/steadying and/or contact guard assistance as patient completes activity. Assistance may be provided throughout the activity or intermittently. 3-Partial/Moderate Assistance-helper does LESS THAN HALF the effort. [place] lifts, holds or supports trunk or limbs, but provides less than half the effort. 2-Substantial/Maximal Assistance-helper does MORE THAN HALF the effort. [place] lifts or holds trunk or limbs and provides more than half the effort. 6-Xekviniiq-lhovle does ALL the effort. Patient does none of the effort to complete the activity. Or, the assistance of 2 or more helpers is required for the patient to complete the activity. If activity was not attempted, code reason: 7-Patient Refused. 9-Not Applicable-not attempted and the patient did not perform the activity before the current illness, exacerbation or injury. 10-Not Attempted due to Environmental Limitations-(lack of equipment, weather restraints, etc.). 88-Not Attempted due to Medical Conditions or Safety Concerns. Sit to Lying (QC): 5 Sit to Stand (QC): 5 Toilet Transfer (QC): 5 Weight Bearing Weight Bearing/Tolerated Weight Bearing/Tolerated Gait Training Does the Patient Walk?: Yes Distance: 15' Walk 10 feet (QC): 5 Gait Assistive Device: FWW Exercises Supine Ex: Ankle pumps, Quad Set, Glut sets, Heel Slides, Straight leg raise, Hip abd/add Supine Reps: 15 Treatments Pt finishes in BR then stands w/o using call light. HOT MILL TIN ROLLER walks w/pt back to EOB. Pt lays Supine to stretch out B LE (reporting achiness in B LE). Pt completes Supine EX before resting. All needs met, call light in hand. Assessment Current Status: Fair Progress Pt continues to demonstrates impulsivity w/safety. PT Short Term Goals Short Term Goals Time Frame: Apr 29, 2022 Roll Left & Right: 4 Sit to lyin Lying to sitting on side of be: 4 Sit to stand: 4 Chair/xvh-td-gijod transfer: 4 Toilet transfer: 4 Car transfer: 4 Walk 10 feet: 4 Walk 50 feet with two turns: 4 Walk 150 feet: 4 Walking 10ft on uneven surface: 4 1 step (curb): 4 4 steps: 4 PT Garageman Goals [facility] Goals PT Garageman Goals Time Frame: May 13, 2022 Roll Left & Right (QC): 6 Sit to Lying (QC): 6 Lying-Sitting on Side/Bed(QC): 6 Sit to Stand (QC): 6 Chair/Mqq-nq-Vymbs Xfer(QC): 6 Toilet Transfer (QC): 6 Car Transfer (QC): 6 Does the Patient Walk: Yes Walk 10 feet (QC): 6 Walk 50ft with 2 Turns (QC): 6 Walk 150 ft (QC): 6 Walking 10ft on Uneven Surface: 6 1 Step (curb) (QC): 6 4 Steps (QC): 6 12 Steps (QC): 6 Picking up an Object (QC): 6 Wheel 50 feet with 2 turns (QC: 9 Wheel 150 feet: 9 PT Plan Problem List Problem List: Safety Treatment/Plan Treatment Plan: Continue Plan of Care Treatment Plan: Bed Mobility, Education, Functional Activity Monica, Functional Strength, Group Therapy, Gait, Safety, Therapeutic Exercise, Transfers Treatment Duration: May 13, 2022 Frequency: Modified Program (IRF) Estimated Hrs Per Day: 1.5 hours per day Patient and/or Family Agrees t: Yes Safety Risks/Education Patient Education: Safety Issues Teaching Recipient: Patient Teaching Methods: Discussion Response to Teaching: Reinforcement Needed Time Time In: 1300 Time Out: 1330 DATE: Apr 24, 2022 Total Billed Treatment Time: 30 Total Billed Treatment 1, FA (10m) & EX (20m) DIONNA ROJO HOT MILL TIN ROLLER Apr 24, 2022 14:23
[2022-04-24] MEDS: glipiZIDE XL 5 MG (GLUCOTROL XL) TAB PO SCH (17:30)
[2022-04-24 20:00] VITALS: BP 166/83
[2022-04-24] MEDS: TAMSULOSIN 0.4 MG (FLOMAX) CAP PO SCH (20:40)
[2022-04-24] MEDS: PRAMIPEXOLE 0.5 MG TAB (MIRAPEX) PO SCH (20:40)
[2022-04-24] MEDS: MONTELUKAST 10 MG (SINGULAIR) TAB PO SCH (20:41)
[2022-04-24] MEDS: traZODone 100 MG (DESYREL) TAB PO SCH (20:41)
[2022-04-24] MEDS: PATCH REMOVAL TP SCH (20:42)
[2022-04-25] MEDS: inSUlin ASPART (NovoLOG) 1 UNIT/0.01 ML (CHARGE PER UNIT) SC SCH ×4 (06:08→22:07)
[2022-04-25] MEDS: BACLOFEN 10 MG (LIORESAL) TAB PO PRN (06:31)
--- NOTE | 2022-04-25 06:47 | PM&R Progress Note ---
Subjective HPI/CC On Admission Date Seen by Provider: Apr 25, 2022 Time Seen by Provider: 09:00 Subjective/Events-last exam 04/25/2022: Doing well Ready to DC tomorrow Pain meds will be increased to his usual dosing 04/24/2022: Patient doing well Seems to be irritable most of the time Wants to go home soon Reviewed meds 04/23/2022: Much improved status Decreased all sedatives and pain meds and muscle relaxants by 1/2 and now much improved No overmedicated appearance Family at bedside very pleased with his status today 04/22/2022: Patient appears to be oversedated Labs reviewed Vitals remained stable Reviewed entire medication list and minimized every narcotic and benzodiazepine and muscle relaxant by cutting dose in half Will monitor closely Review of Systems General: Fatigue, Malaise Objective Exam Vital Signs Vital Signs Date Time Temp Pulse Resp B/P (MAP) Pulse Ox O2 Delivery O2 Flow Rate FiO2 04/25/22 21:09 98 Room Air 04/25/22 20:04 36.3 79 22 133/79 (97) Capillary Refill : General Appearance: No Apparent Distress, WD/WN, Chronically ill HEENT: PERRL/EOMI, Normal ENT Inspection, Pharynx Normal Neck: Full Range of Motion, Normal Inspection, Non Tender, Supple, Carotid Bruit Respiratory: Chest Non Tender, Lungs Clear, Normal Breath Sounds, No Accessory Muscle Use, No Respiratory Distress Cardiovascular: Regular Rate, Rhythm, No Edema, No Gallop, No JVD, No Murmur, Normal Peripheral Pulses Gastrointestinal: Normal Bowel Sounds, No Organomegaly, No Pulsatile Mass, Non Tender, Soft Back: Decreased Range of Motion, Muscle Spasm, Vertebral Tenderness Extremity: Normal Capillary Refill, Normal Inspection, Normal Range of Motion, Non Tender, No Calf Tenderness, No Pedal Edema Neurologic/Psychiatric: Alert, Oriented x3, No Motor/Sensory Deficits, Normal Mood/Affect, public safety telecommunicator II-XII Norm as Tested, Motor Weakness (Generalized) Skin: Normal Color, Warm/Dry Lymphatic: No Adenopathy Results/Procedures Lab Patient resulted labs reviewed. FIM Transfers Therapy Code Descriptions/Definitions Functional [place] Measure: 0=Not Assessed/NA 4=Minimal Assistance 1=Total Assistance 5=Supervision or Setup 2=Maximal Assistance 6=Modified [place] 3=Moderate Assistance 7=Complete IndependenceSCALE: Activities may be completed with or without assistive devices. 4-Noefvqtjln-nkwhovu completes the activity by him/herself with no assistance from a helper. 5-Set-up or Clean-up Assistance-helper sets up or cleans up; patient completes activity. [place] assists only prior to or following the activity. 4-Supervision or Touching Assistance-helper provides verbal cues and/or touchin g/steadying and/or contact guard assistance as patient completes activity. Assistance may be provided throughout the activity or intermittently. 3-Partial/Moderate Assistance-helper does LESS THAN HALF the effort. Ernest lifts, holds or supports trunk or limbs, but provides less than half the effort. 2-Substantial/Maximal Assistance-helper does MORE THAN HALF the effort. Ernest lifts or holds trunk or limbs and provides more than half the effort. 6-Bsljzykbz-icolsq does ALL the effort. Patient does none of the effort to complete the activity. Or, the assistance of 2 or more helpers is required for the patient to complete the activity. If activity was not attempted, code reason: 7-Patient Refused. 9-Not Applicable-not attempted and the patient did not perform the activity before the current illness, exacerbation or injury. 10-Not Attempted due to Environmental Limitations-(lack of equipment, weather restraints, etc.). 88-Not Attempted due to Medical Conditions or Safety Concerns. Roll Left to Right (QC): 4 Sit to Lying (QC): 5 Sit to Stand (QC): 5 Chair/Nlz-rk-Wplnz Xfer(QC): 4 Car Transfer (QC): 88 Gait Training Does the Patient Walk?: Yes Distance: 15' Walk 10 feet (QC): 5 Walk 50 ft with 2 Turns(QC): 4 Walk 150 ft (QC): 4 Walking 10ft/uneven surface-QC: 88 Gait Persons Needed: 1 Gait Assistive Device: FWW Wheelchair Training Wheel 50 ft with 2 turns (QC): 88 Wheel 150 ft (QC): 88 Stair Training 1 Step (curb) (QC): 88 4 Steps (QC): 88 12 Steps (QC): 88 Balance Picking up an Object (QC): 88 ADL-Treatment Eating (QC): 6 Oral Hygiene (QC): 4 (CGA) Shower/Bathe Self (QC): 3 (Assistance washing/drying BLEs lower legs/feet.) Upper Body Dressing (QC): 3 (mod A overall with robe and button up shirt) Lower Body Dressing (QC): 3 (Mod Assistance) On/Off Footwear (QC): 2 Toileting Hygiene (QC): 4 (SBA standing at toilet to urinate.) Assessment/Plan Assessment and Plan Assess & Plan/Chief Complaint Assessment: Cervical spine stenosis with myelopathy status post decompression by Dr. BLEDSOE POD # 5 after leaving AMA from inpatient rehab yesterday to 04/20/2022 after spending 3 hours on the unit but now returning today Pacemaker Dementia Diabetes insulin-dependent oow-wg-gfylmme Hypertension mlj-bp-pyfflhm Noncompliance Oversedation due to medication-minimize dose on 04/22/2022 Plan: Supportive care Pain control Home meds PT OT 04/22/2022: Minimize sedatives 04/23/2022: Much improved status Minimize pain meds 04/24/2022: Monitor pain meds closely 04/25/2022: DC tomorrow (1) Stenosis of cervical spine with myelopathy (2) Risk for falls (3) Impulsiveness (4) Pacemaker (5) Hypertension Status: Acute (6) Diabetes (7) Dementia CHINEDU STERN DO Apr 25, 2022 06:47
[2022-04-25 07:26] VITALS: BP 150/79
[2022-04-25] MEDS: RT-ALBUTEROL SULF 2.5 MG/3 ML PRE-MIX VIAL INH SCH ×2 (07:40→21:09)
[2022-04-25] MEDS: DONEPEZIL 10 MG (ARICEPT) TAB PO SCH (08:13)
[2022-04-25] MEDS: LORATADINE (CLARITIN) 10 MG TAB PO SCH (08:13)
[2022-04-25] MEDS: SUCRALFATE 1 GM (CARAFATE) TAB PO SCH ×2 (08:14→20:43)
[2022-04-25] MEDS: ALPRAZolam 0.5 MG (XANAX) TAB PO SCH ×2 (08:14→20:44)
[2022-04-25] MEDS: ASPIRIN E.C. 81 MG (ECOTRIN) TAB PO SCH (08:14)
[2022-04-25] MEDS: MAGNESIUM OXIDE (MAG-OX)400 MG TAB PO SCH ×2 (08:14→20:44)
[2022-04-25] MEDS: PANTOPRAZOLE 40 MG (PROTONIX) TAB PO SCH (08:14)
[2022-04-25] MEDS: DOCUSATE SODIUM 100 MG (COLACE) CAP PO SCH ×2 (08:14→21:04)
[2022-04-25] MEDS: oxyCODONE ER 20 MG (OxyCONTIN CR) TAB PO SCH ×2 (08:14→20:44)
[2022-04-25] MEDS: PREGABALIN 75 MG (LYRICA) CAP PO SCH ×2 (08:14→20:45)
[2022-04-25] MEDS: metFORMIN 500 MG (GLUCOPHAGE) TAB PO SCH ×2 (08:14→18:04)
[2022-04-25] MEDS: MEMANTINE 10 MG (NAMENDA) TABLET PO SCH ×2 (08:14→20:43)
[2022-04-25] MEDS: LOSARTAN 50 MG (COZAAR) TAB PO SCH (08:14)
[2022-04-25] MEDS: meTOprolol SUCCINATE 100 MG (TOPROL XL) TAB PO SCH (08:14)
[2022-04-25] MEDS: CLINDAMYCIN 150 MG (CLEOCIN) CAP PO SCH ×3 (08:15→20:44)
[2022-04-25] MEDS: MELOXICAM 7.5 MG (MOBIC) TABLET PO SCH (08:15)
[2022-04-25] MEDS: LIDOCAINE 4% (SALONPAS) PATCH TP SCH (08:46)
[2022-04-25] MEDS: DICLOFENAC 1% GEL 100 GM (VOLTAREN) TUBE TP SCH ×4 (08:46→20:43)
[2022-04-25] MEDS: polyethylene glycoL POWDER 17 GM (MIRALAX) PACK PO SCH ×2 (08:51→19:47)
[2022-04-25] MEDS: SENNA W/DOCUSATE (SENOKOT S) TABLET PO SCH ×2 (08:51→21:04)
--- NOTE | 2022-04-25 10:09 | Physical Therapy Daily Note ---
PT Daily Note-Current Subjective Nurse has just taken pt to BR upon arrival. Pt agrees to PT for QC scoring items for d/c tomorrow. Pain Location: Incisional, Dorsal Location Body Site: Neck Pain Description: Ache Comment: Reports but doesn't rate Section J - Health Conditions 1. Rarely or not at all 2. Occasionally 3. Frequently 4. Almost constantly 8. Unable to answer Pain Effect on Sleep: 3 Pain Interference with Therapy: 3 Pain Interference w/Day-to-Day: 3 Mental Status Patient Orientation: Person, Confused, Place Attachments: Other-See Comments (Cervical Collar & B knee braces) Transfers SCALE: Activities may be completed with or without assistive devices. 6-Fyksbtgtji-jlmuuok completes the activity by him/herself with no assistance from a helper. 5-Set-up or Clean-up Assistance-helper sets up or cleans up; patient completes activity. [place] assists only prior to or following the activity. 4-Supervision or Touching Assistance-helper provides verbal cues and/or touching/steadying and/or contact guard assistance as patient completes activity. Assistance may be provided throughout the activity or intermittently. 3-Partial/Moderate Assistance-helper does LESS THAN HALF the effort. [place] li fts, holds or supports trunk or limbs, but provides less than half the effort. 2-Substantial/Maximal Assistance-helper does MORE THAN HALF the effort. [place] lifts or holds trunk or limbs and provides more than half the effort. 7-Yskchsdvs-oxiodo does ALL the effort. Patient does none of the effort to complete the activity. Or, the assistance of 2 or more helpers is required for the patient to complete the activity. If activity was not attempted, code reason: 7-Patient Refused. 9-Not Applicable-not attempted and the patient did not perform the activity before the current illness, exacerbation or injury. 10-Not Attempted due to Environmental Limitations-(lack of equipment, weather restraints, etc.). 88-Not Attempted due to Medical Conditions or Safety Concerns. Roll Left & Right (QC): 6 Sit to Lying (QC): 6 Lying to Sitting/Side of Bed(Q: 6 Sit to Stand (QC): 6 Chair/Wpj-hy-Zjyxq Xfer(QC): 5 Toilet Transfer (QC): 5 Car Transfer (QC): 6 Weight Bearing Weight Bearing/Tolerated Weight Bearing/Tolerated Gait Training Does the Patient Walk?: Yes Distance: 200' Walk 10 feet (QC): 6 Walk 50 ft with 2 Turns(QC): 6 Walk 150 ft (QC): 5 Walking 10ft/uneven surface-QC: 5 Gait Assistive Device: FWW Wheelchair Training Does the Pt Use a Wheelchair?: No Stair Training Stair Training: Handrails/: 2 handrails #of Steps: 4 1 Step (curb) (QC): 5 4 Steps (QC): 5 12 Steps (QC): 7 Stairs: Pattern: Step to Balance Picking up an Object (QC): 5 Treatments Pt completes QC scoring items listed above. Pt returns to room to rest in recliner w/family present at end of tx. All needs met, call light in hand. Assessment Current Status: Good Progress Pt continues to be very impulsive. VC given for safety. Sp will be with Pt. PT Short Term Goals Short Term Goals Time Frame: Apr 29, 2022 Roll Left & Right: 4 Sit to lyin Lying to sitting on side of be: 4 Sit to stand: 4 Chair/hll-uj-fawml transfer: 4 Toilet transfer: 4 Car transfer: 4 Walk 10 feet: 4 Walk 50 feet with two turns: 4 Walk 150 feet: 4 Walking 10ft on uneven surface: 4 1 step (curb): 4 4 steps: 4 PT Residential Goals Residential Goals PT Lard Renderer Goals Time Frame: May 13, 2022 Roll Left & Right (QC): 6 Sit to Lying (QC): 6 Lying-Sitting on Side/Bed(QC): 6 Sit to Stand (QC): 6 Chair/Gss-ak-Mykwn Xfer(QC): 6 Toilet Transfer (QC): 6 Car Transfer (QC): 6 Does the Patient Walk: Yes Walk 10 feet (QC): 6 Walk 50ft with 2 Turns (QC): 6 Walk 150 ft (QC): 6 Walking 10ft on Uneven Surface: 6 1 Step (curb) (QC): 6 4 Steps (QC): 6 12 Steps (QC): 6 Picking up an Object (QC): 6 Wheel 50 feet with 2 turns (QC: 9 Wheel 150 feet: 9 PT Plan Problem List Problem List: Safety Treatment/Plan Treatment Plan: Continue Plan of Care Treatment Plan: Bed Mobility, Education, Functional Activity Monica, Functional Strength, Group Therapy, Gait, Safety, Therapeutic Exercise, Transfers Treatment Duration: May 13, 2022 Frequency: Modified Program (IRF) Estimated Hrs Per Day: 1.5 hours per day Patient and/or Family Agrees t: Yes Safety Risks/Education Patient Education: Safety Issues Teaching Recipient: Patient, Family Teaching Methods: Discussion Response to Teaching: Verbalize Understanding, Reinforcement Needed Time Time In: 900 Time Out: 1000 DATE: Apr 25, 2022 Total Billed Treatment Time: 60 Total Billed Treatment 1, FA x3 (40m) & GT (20m) DIONNA ROJO INFORMATICA MDM DEVELOPER Apr 25, 2022 10:09
[2022-04-25] MEDS ORDERED: BACLOFEN 10 MG (LIORESAL) TAB PO PRN (10:15)
--- NOTE | 2022-04-25 11:13 | Occupational Ther Daily Note ---
OT Current Status-Daily Note Subjective Pt in bed, agreeable to OT Tx with some encouragement. ADL-Treatment Therapy Code Descriptions/Definitions Functional [place] Measure: 0=Not Assessed/NA 4=Minimal Assistance 1=Total Assistance 5=Supervision or Setup 2=Maximal Assistance 6=Modified [place] 3=Moderate Assistance 7=Complete IndependenceSCALE: Activities may be completed with or without assistive devices. 0-Bpvuithsqx-orvwztt completes the activity by him/herself with no assistance from a helper. 5-Set-up or Clean-up Assistance-helper sets up or cleans up; patient completes activity. [place] assists only prior to or following the activity. 4-Supervision or Touching Assistance-helper provides verbal cues and/or touching/steadying and/or contact guard assistance as patient completes activity. Assistance may be provided throughout the activity or intermittently. 3-Partial/Moderate Assistance-helper does LESS THAN HALF the effort. [place]anch lifts, holds or supports trunk or limbs, but provides less than half the effort. 2-Substantial/Maximal Assistance-helper does MORE THAN HALF the effort. Blanch lifts or holds trunk or limbs and provides more than half the effort. 4-Oubmpwuut-vulcin does ALL the effort. Patient does none of the effort to complete the activity. Or, the assistance of 2 or more helpers is required for the patient to complete the activity. If activity was not attempted, code reason: 7-Patient Refused. 9-Not Applicable-not attempted and the patient did not perform the activity before the current illness, exacerbation or injury. 10-Not Attempted due to Environmental Limitations-(lack of equipment, weather restraints, etc.). 88-Not Attempted due to Medical Conditions or Safety Concerns. Eating (QC): 6 Oral Hygiene (QC): 5 Shower/Bathe Self (QC): 4 (SBA) Upper Body Dressing (QC): 3 (Min A with neck brace) Lower Body Dressing (QC): 4 (SBA) On/Off Footwear: 4 (SBA with increased time) Toileting Hygiene (QC): 4 (SBA) Toilet Transfer (QC): 4 (SBA) Other Treatment Pt states he has already showered 2 times this morning, declining a shower at this time but agreeable to simulating task. Pt transferred supine to sit EOB. Pt demo'd ability to doff/don UE clothing including neck brace. Pt used FWW to transfer into bathroom and onto toilet. Pt completed toileting, SBA, then transferred to recliner. Pt doffed/donned pants and gripper socks, requiring SBA. Pt demo'd ability to complete shower, able to reach all parts, SBA for safety. Per pt report, pt was able to wash/dry all parts this AM. Pt used FWW to transfer into therapy gym, IND. OT Tx focused on increasing BUE strength and activity tolerance. Pt completed BUE reaching activity, completing nut/bolt block x15 mins. Pt completed UE reaching task, placing 1" pegs into foam pegboard, completing x100. Pt used FWW to return to his room, transferring to recliner. Post tx, pt in recliner, call light in reach and all needs met. Education OT Patient Education: Correct positioning, Energy conservation, Exercise program, Modified ADL techniques, Progress toward Goal/Update tx plan, Purpose of tx/functional activities, Rehab process Teaching Recipient: Patient Teaching Methods: Discussion Response to Teaching: Verbalize Understanding BIMS CAM BIMS Expression of Ideas and Wants: Without Difficulty Understanding Verbal Content: Understands Brief Interview/Mental Status: Yes IRF REBA BIMS: IRF REBA BIMS Response (Comments) Value Repitition of Three Words Three 3 Recalls Socks Yes, No Cue Required 2 Recalls Blue Yes, No Cue Required 2 Recalls Bed Yes, After Cueing 1 Year Correct 3 Month Accurate Within 5 Days 2 Day Incorrect or No Answer 0 Total 13 Should Staff Asses. Mental [address] No CAM Mental Status Change/Baseline: 0 Inattention: 0 Disorganized thinkin Altered level of consciousness: 0 OT Short Term Goals Short Term Goals Time Frame: May 08, 2022 Shower/bathe self: 4 Lower body dressin Putting on/taking off footwear: 4 OT Senior Living Goals Senior Living Goals Time Frame: May 23, 2022 Acute change in mental status: 0 Inattention: 0 Disorganized thinkin Altered level of consciousness: 0 Eating (QC): 6 (MET) Oral Hygiene (QC): 6 (NOT MET) Toileting Hygiene (QC): 6 (NOT MET) Shower/Bathe Self (QC): 6 (NOT MET) Upper Body Dressing (QC): 6 (NOT MET) Lower Body Dressing (QC): 6 (NOT MET) On/Off Footwear (QC): 6 (NOT MET) Additional Goals: 1-Demonstrate ADL Tasks, 2-Verbalize Understanding, 3- ImproveStrength/Monica 1=Demonstrate adherence to instructed precautions during ADL tasks. 2=Patient will verbalize/demonstrate understanding of assistive devices/modifications for ADL. 3=Patient will improve strength/tolerance for activity to enable patient to perform ADL's. OT Education/Plan Problem List/Assessment Assessment: Decreased Activ Tolerance, Decreased UE Strength, Impaired I ADL's Discharge Recommendations Plan/Recommendations: Continue POC Treatment Plan/Plan of Care Patient would benefit from OT for education, treatment and training to promote independence in ADL's, mobility, safety and/or upper extremity function for ADL's. Plan of Care: ADL Retraining, Functional Mobility, Group Exercise/Act as Ind, UE Funct Exercise/Act Treatment Duration: May 23, 2022 Frequency: At least 5 of 7 days/Wk (IRF) Estimated Hrs Per Day: 1.5 hours per day Rehab Potential: Good Time Start Time: 10:15 Stop Time: 11:45 DATE: Apr 25, 2022 Total Time Billed (hr/min): 90 Billed Treatment Time 1, ADL 4 (60'), FA 2 (30') LALI HILLS OT Apr 25, 2022 11:13
--- NOTE | 2022-04-25 13:31 | Physical Therapy Daily Note ---
PT Daily Note-Current Subjective Pt laying Supine in bed upon arrival. Pt agrees PT. Pain Numeric Pain Scale: 0-No Pain Section J - Health Conditions 1. Rarely or not at all 2. Occasionally 3. Frequently 4. Almost constantly 8. Unable to answer Pain Effect on Sleep: 3 Pain Interference with Therapy: 3 Pain Interference w/Day-to-Day: 3 Mental Status Patient Orientation: Person, Place, Situation Attachments: Other-See Comments (Cervical Collar & B knee braces) Transfers SCALE: Activities may be completed with or without assistive devices. 4-Ckpfrpvagi-odostzn completes the activity by him/herself with no assistance from a helper. 5-Set-up or Clean-up Assistance-helper sets up or cleans up; patient completes activity. [place] assists only prior to or following the activity. 4-Supervision or Touching Assistance-helper provides verbal cues and/or touching/steadying and/or contact guard assistance as patient completes activity. Assistance may be provided throughout the activity or intermittently. 3-Partial/Moderate Assistance-helper does LESS THAN HALF the effort. [place] lifts, holds or supports trunk or limbs, but provides less than half the effort. 2-Substantial/Maximal Assistance-helper does MORE THAN HALF the effort. [place] lifts or holds trunk or limbs and provides more than half the effort. 9-Etsbfpyxv-uyuqey does ALL the effort. Patient does none of the effort to complete the activity. Or, the assistance of 2 or more helpers is required for the patient to complete the activity. If activity was not attempted, code reason: 7-Patient Refused. 9-Not Applicable-not attempted and the patient did not perform the activity before the current illness, exacerbation or injury. 10-Not Attempted due to Environmental Limitations-(lack of equipment, weather restraints, etc.). 88-Not Attempted due to Medical Conditions or Safety Concerns. Lying to Sitting/Side of Bed(Q: 6 Weight Bearing Weight Bearing/Tolerated Weight Bearing/Tolerated Exercises Supine Ex: Ankle pumps, Quad Set, Glut sets, Heel Slides, Straight leg raise, Hip abd/add Supine Reps: 15 Treatments Pt completes Supine EX w/RB at needed. Pt TF to EOB to reposition to comfort. Pt resting at end of tx, all needs met, call light next to pt. Assessment Current Status: Good Progress Pt is impulsive at times. PT Short Term Goals Short Term Goals Time Frame: Apr 29, 2022 Roll Left & Right: 4 Sit to lyin Lying to sitting on side of be: 4 Sit to stand: 4 Chair/lje-ru-ecywq transfer: 4 Toilet transfer: 4 Car transfer: 4 Walk 10 feet: 4 Walk 50 feet with two turns: 4 Walk 150 feet: 4 Walking 10ft on uneven surface: 4 1 step (curb): 4 4 steps: 4 PT Skilled Nursing Goals Clerical Warehouse Worker Goals PT Clerical Warehouse Worker Goals Time Frame: May 13, 2022 Roll Left & Right (QC): 6 Sit to Lying (QC): 6 Lying-Sitting on Side/Bed(QC): 6 Sit to Stand (QC): 6 Chair/Tqs-go-Wkdbv Xfer(QC): 6 Toilet Transfer (QC): 6 Car Transfer (QC): 6 Does the Patient Walk: Yes Walk 10 feet (QC): 6 Walk 50ft with 2 Turns (QC): 6 Walk 150 ft (QC): 6 Walking 10ft on Uneven Surface: 6 1 Step (curb) (QC): 6 4 Steps (QC): 6 12 Steps (QC): 6 Picking up an Object (QC): 6 Wheel 50 feet with 2 turns (QC: 9 Wheel 150 feet: 9 PT Plan Problem List Problem List: Safety Treatment/Plan Treatment Plan: Continue Plan of Care Treatment Plan: Bed Mobility, Education, Functional Activity Monica, Functional Strength, Group Therapy, Gait, Safety, Therapeutic Exercise, Transfers Treatment Duration: May 13, 2022 Frequency: Modified Program (IRF) Estimated Hrs Per Day: 1.5 hours per day Patient and/or Family Agrees t: Yes Safety Risks/Education Patient Education: Safety Issues Teaching Recipient: Patient Teaching Methods: Discussion Response to Teaching: Reinforcement Needed Time Time In: 1300 Time Out: 1330 DATE: Apr 25, 2022 Total Billed Treatment Time: 30 Total Billed Treatment 1, EX (15m) & FA (15m) DIONNA ROJO PTA Apr 25, 2022 13:31
[2022-04-25] MEDS: glipiZIDE XL 5 MG (GLUCOTROL XL) TAB PO SCH (18:04)
[2022-04-25 20:04] VITALS: BP 133/79
[2022-04-25] MEDS: PRAMIPEXOLE 0.5 MG TAB (MIRAPEX) PO SCH (20:43)
[2022-04-25] MEDS: MONTELUKAST 10 MG (SINGULAIR) TAB PO SCH (20:43)
[2022-04-25] MEDS: traZODone 100 MG (DESYREL) TAB PO SCH (20:44)
[2022-04-25] MEDS: TAMSULOSIN 0.4 MG (FLOMAX) CAP PO SCH (20:45)
[2022-04-25] MEDS: PATCH REMOVAL TP SCH (20:45)
--- NOTE | 2022-04-26 06:00 | D/C HH Face to Face Order ---
D/C Face to Face Orders Reconcile Patient Problems Problems Reviewed?: Yes Instructions for Patient Via [facility], Patient Instructions/FollowUp: PCP 1 week Physician to follow Patient: Read Discharge Diet for Home: ADA Diet Patient Problems: C spine surgery Patient Data-Allergies,Ht & Wt Patient Allergies: Coded Allergies: Penicillins (Verified Allergy, Intermediate, RASH, 12/22/10) Height (Feet): 6 Height (Inches): 2.00 Weight (Pounds): 224 Weight (Ounces): 0.0 Home Health Need/Face to Face Date of Face to Face: Apr 26, 2022 Clinical Findings: Generalized weakness and fatigue, Instability, Muscle weakness I have seen Pt iqmf-iu-rfke: Yes Discharged To: Home Diagnosis/Conditions: C spine sx Patient is Homebound due to: Muscle weakness Homebound Status Due to the above stated illness, injury or surgical procedure (medical condition or diagnosis) and associated clinical findings, the patient is homebound because of his/her inability to leave home except with aid of a supportive device and/or person AND leaving the home requires a considerable and taxing effort or is medically contraindicated. Pt req the following assistanc: Walker Home Health Nursing Orders Home Health Services Order: Nursing Services, Physician-Evaluate & Treat, Physical Therapy-Evaluate & Treat Certify Stmt I certify that this patient is under my care and that I, a nurse practitioner or a physician; a assistant product manager working with me, had a face to face encounter that - meets the physician face to face encounter requirements with this patient as dated. CHINEDU STERN DO Apr 26, 2022 05:59
--- NOTE | 2022-04-26 06:00 | Discharge Summary ---
Diagnosis/Chief Complaint Date of Admission Apr 21, 2022 at 13:30 Date of Discharge Discharge Date: Apr 26, 2022 Discharge Diagnosis Assessment: Cervical spine stenosis with myelopathy status post decompression by Dr. BLEDSOE POD # 5 after leaving AMA from inpatient rehab yesterday to 04/20/2022 after spending 3 hours on the unit but now returning today Pacemaker Dementia Diabetes insulin-dependent oda-ug-oawfygc Hypertension [id number] Noncompliance Oversedation due to medication-minimize dose on 04/22/2022 Plan: Supportive care Pain control Home meds PT OT 04/22/2022: Minimize sedatives 04/23/2022: Much improved status Minimize pain meds 04/24/2022: Monitor pain meds closely 04/25/2022: DC tomorrow (1) Stenosis of cervical spine with myelopathy (2) Risk for falls (3) Impulsiveness (4) Pacemaker (5) Hypertension Status: Acute (6) Diabetes (7) Dementia Discharge Summary Discharge Physical Examination Allergies: Coded Allergies: Penicillins (Verified Allergy, Intermediate, RASH, 12/22/10) Vitals & I&Os Vital Signs Date Time Temp Pulse Resp B/P (MAP) Pulse Ox O2 Delivery O2 Flow Rate FiO2 04/26/22 10:30 36.2 88 18 155/85 96 Room Air General Appearance: Alert, Oriented X3, Cooperative Respiratory: Clear to Auscultation Cardiovascular: Regular Rate Psych/Mental Status: Mental Status NL Hospital Course Was the Problem List Reviewed?: Yes Patient had an uneventful course after he was readmitted following a "safe" AMA DC the previous Saturday. He participated with therapy and all meds were continued. He did have evidence of overmedication the day after admit requiring decrease in all sedating meds including pain meds and that resolved the issue and ultimately return back to original doses shortly afterward. Bowel function resumed normal function. Overall he was deemed stable for DC after he requested DC and was sent home with . Labs (last 24 hrs) Laboratory Tests 04/21/22 14:06: White Blood Count 10.7, Red Blood Count 4.37, Hemoglobin 11.0L, Hematocrit 33L, Mean Corpuscular Volume 76L, Mean Corpuscular Hemoglobin 25, Mean Corpuscular Hemoglobin Concent 33, Red Cell Distribution Width 15.9H, Platelet Count 158, Mean Platelet Volume 11.2, Immature Granulocyte % (Auto) 0, Neutrophils (%) (Aut o) 72, Lymphocytes (%) (Auto) 19, Monocytes (%) (Auto) 8, Eosinophils (%) (Auto) 0, Basophils (%) (Auto) 0, Neutrophils # (Auto) 7.8, Lymphocytes # (Auto) 2.0, Monocytes # (Auto) 0.9, Eosinophils # (Auto) 0.0, Basophils # (Auto) 0.0, Immature Granulocyte # (Auto) 0.0, Sodium Level 132L, Potassium Level 4.3, Chloride Level 102, Carbon Dioxide Level 21, Anion Gap 9, Blood Urea Nitrogen 24H, Creatinine 1.23, Estimat Glomerular Filtration Rate 62, BUN/Creatinine Ratio 20, Glucose Level 319H, Lactic Acid Level 1.58, Calcium Level 8.8, Corrected Calcium 9.2, Total Bilirubin 0.9, Aspartate Amino Transf (AST/SGOT) 29, Alanine Aminotransferase (ALT/SGPT) 30, Alkaline Phosphatase 102, Total Protein 7.0, Albumin 3.5 04/21/22 14:15: Urine Color YELLOW, Urine Clarity CLEAR, Urine pH 6.0, Urine Specific Rex 1.020, Urine Protein NEGATIVE, Urine Glucose (UA) 2+H, Urine Ketones NEGATIVE, Urine Nitrite NEGATIVE, Urine Bilirubin NEGATIVE, Urine Urobilinogen 1.0, Urine Leukocyte Esterase NEGATIVE, Urine RBC (Auto) 1+H, Urine RBC 0-2, Urine WBC NONE, Urine Squamous Epithelial Cells 0-2, Urine Crystals NONE, Urine Bacteria TRACE, Urine Casts NONE, Urine Mucus NEGATIVE, Urine Culture Indicated NO 04/21/22 20:07: Glucometer 263H 04/22/22 05:45: White Blood Count 10.0, Red Blood Count 4.28L, Hemoglobin 10.8L, Hematocrit 33L, Mean Corpuscular Volume 77L, Mean Corpuscular Hemoglobin 25, Mean Corpuscular Hemoglobin Concent 33, Red Cell Distribution Width 16.0H, Platelet Count 157, Mean Platelet Volume 10.4, Immature Granulocyte % (Auto) 0, Neutrophils (%) (Auto) 55, Lymphocytes (%) (Auto) 32, Monocytes (%) (Auto) 11, Eosinophils (%) (Auto) 1, Basophils (%) (Auto) 0, Neutrophils # (Auto) 5.5, Lymphocytes # (Auto) 3.2, Monocytes # (Auto) 1.1H, Eosinophils # (Auto) 0.1, Basophils # (Auto) 0.0, Immature Granulocyte # (Auto) 0.0, Sodium Level 137, Potassium Level 4.0, Chloride Level 102, Carbon Dioxide Level 24, Anion Gap 11, Blood Urea Nitrogen 27H, Creatinine 1.44H, Estimat Glomerular Filtration Rate 51, BUN/Creatinine Ratio 19, Glucose Level 146H, Calcium Level 9.1, Corrected Calcium 9.7, Total Bilirubin 1.1H, Aspartate Amino Transf (AST/SGOT) 29, Alanine Aminotransferase (ALT/SGPT) 31, Alkaline Phosphatase 94, Total Protein 6.7, Albumin 3.3 04/22/22 11:07: Glucometer 275H 04/22/22 15:50: Glucometer 261H 04/22/22 20:22: Glucometer 113H 04/23/22 06:18: Glucometer 161H 04/23/22 07:55: White Blood Count 10.4, Red Blood Count 4.45, Hemoglobin 11.2L, Hematocrit 34L, Mean Corpuscular Volume 75L, Mean Corpuscular Hemoglobin 25, Mean Corpuscular Hemoglobin Concent 33, Red Cell Distribution Width 15.8H, Platelet Count 190, Mean Platelet Volume 10.1, Immature Granulocyte % (Auto) 0, Neutrophils (%) (Auto) 74, Lymphocytes (%) (Auto) 18, Monocytes (%) (Auto) 7, Eosinophils (%) (Auto) 1, Basophils (%) (Auto) 0, Neutrophils # (Auto) 7.6, Lymphocytes # (Auto) 1.9, Monocytes # (Auto) 0.8, Eosinophils # (Auto) 0.1, Basophils # (Auto) 0.0, Immature Granulocyte # (Auto) 0.0, Sodium Level 134L, Potassium Level 4.6, Chloride Level 101, Carbon Dioxide Level 22, Anion Gap 11, Blood Urea Nitrogen 31H, Creatinine 1.36H, Estimat Glomerular Filtration Rate 55, BUN/Creatinine Ratio 23, Glucose Level 201H, Calcium Level 9.2, Corrected Calcium 9.8, Total Bilirubin 1.1H, Aspartate Amino Transf (AST/SGOT) 56H, Alanine Aminotransferase (ALT/SGPT) 36, Alkaline Phosphatase 99, Total Protein 6.9, Albumin 3.2 04/23/22 10:44: Glucometer 188H 04/23/22 15:15: Glucometer 126H 04/23/22 20:05: Glucometer 180H 04/24/22 06:05: Glucometer 78 04/24/22 11:45: Glucometer 152H 04/24/22 16:09: Glucometer 114H 04/24/22 20:38: Glucometer 178H 04/25/22 05:50: Glucometer 83 04/25/22 10:55: Glucometer 193H 04/25/22 15:13: Glucometer 122H 04/25/22 22:01: Glucometer 162H 04/26/22 06:19: Glucometer 145H Pending Labs Laboratory Tests 04/21/22 14:06: White Blood Count 10.7, Red Blood Count 4.37, Hemoglobin 11.0, Hematocrit 33, Mean Corpuscular Volume 76, Mean Corpuscular Hemoglobin 25, Mean Corpuscular Hemoglobin Concent 33, Red Cell Distribution Width 15.9, Platelet Count 158, Mean Platelet Volume 11.2, Immature Granulocyte % (Auto) 0, Neutrophils (%) (Auto) 72, Lymphocytes (%) (Auto) 19, Monocytes (%) (Auto) 8, Eosinophils (%) (Auto) 0, Basophils (%) (Auto) 0, Neutrophils # (Auto) 7.8, Lymphocytes # (Auto) 2.0, Monocytes # (Auto) 0.9, Eosinophils # (Auto) 0.0, Basophils # (Auto) 0.0, Immature Granulocyte # (Auto) 0.0, Sodium Level 132, Potassium Level 4.3, Chloride Level 102, Carbon Dioxide Level 21, Anion Gap 9, Blood Urea Nitrogen 24, Creatinine 1.23, Estimat Glomerular Filtration Rate 62, BUN/Creatinine Ratio 20, Glucose Level 319, Lactic Acid Level 1.58, Calcium Level 8.8, Corrected Calcium 9.2, Total Bilirubin 0.9, Aspartate Amino Transf (AST/SGOT) 29, Alanine Aminotransferase (ALT/SGPT) 30, Alkaline Phosphatase 102, Total Protein 7.0, Albumin 3.5 04/21/22 14:15: Urine Color YELLOW, Urine Clarity CLEAR, Urine pH 6.0, Urine Specific Rex 1. 020, Urine Protein NEGATIVE, Urine Glucose (UA) 2+, Urine Ketones NEGATIVE, Urine Nitrite NEGATIVE, Urine Bilirubin NEGATIVE, Urine Urobilinogen 1.0, Urine Leukocyte Esterase NEGATIVE, Urine RBC (Auto) 1+, Urine RBC 0-2, Urine WBC NONE, Urine Squamous Epithelial Cells 0-2, Urine Crystals NONE, Urine Bacteria TRACE, Urine Casts NONE, Urine Mucus NEGATIVE, Urine Culture Indicated NO 04/21/22 20:07: Glucometer 263 04/22/22 05:45: White Blood Count 10.0, Red Blood Count 4.28, Hemoglobin 10.8, Hematocrit 33, Mean Corpuscular Volume 77, Mean Corpuscular Hemoglobin 25, Mean Corpuscular Hemoglobin Concent 33, Red Cell Distribution Width 16.0, Platelet Count 157, Mean Platelet Volume 10.4, Immature Granulocyte % (Auto) 0, Neutrophils (%) (Auto) 55, Lymphocytes (%) (Auto) 32, Monocytes (%) (Auto) 11, Eosinophils (%) (Auto) 1, Basophils (%) (Auto) 0, Neutrophils # (Auto) 5.5, Lymphocytes # (Auto) 3.2, Monocytes # (Auto) 1.1, Eosinophils # (Auto) 0.1, Basophils # (Auto) 0.0, Immature Granulocyte # (Auto) 0.0, Sodium Level 137, Potassium Level 4.0, Chloride Level 102, Carbon Dioxide Level 24, Anion Gap 11, Blood Urea Nitrogen 27, Creatinine 1.44, Estimat Glomerular Filtration Rate 51, BUN/Creatinine Ratio 19, Glucose Level 146, Calcium Level 9.1, Corrected Calcium 9.7, Total Bilirubin 1.1, Aspartate Amino Transf (AST/SGOT) 29, Alanine Aminotransferase (ALT/SGPT) 31, Alkaline Phosphatase 94, Total Protein 6.7, Albumin 3.3 04/22/22 11:07: Glucometer 275 04/22/22 15:50: Glucometer 261 04/22/22 20:22: Glucometer 113 04/23/22 06:18: Glucometer 161 04/23/22 07:55: White Blood Count 10.4, Red Blood Count 4.45, Hemoglobin 11.2, Hematocrit 34, Mean Corpuscular Volume 75, Mean Corpuscular Hemoglobin 25, Mean Corpuscular Hemoglobin Concent 33, Red Cell Distribution Width 15.8, Platelet Count 190, Mean Platelet Volume 10.1, Immature Granulocyte % (Auto) 0, Neutrophils (%) (Auto) 74, Lymphocytes (%) (Auto) 18, Monocytes (%) (Auto) 7, Eosinophils (%) (Auto) 1, Basophils (%) (Auto) 0, Neutrophils # (Auto) 7.6, Lymphocytes # (Auto) 1.9, Monocytes # (Auto) 0.8, Eosinophils # (Auto) 0.1, Basophils # (Auto) 0.0, Immature Granulocyte # (Auto) 0.0, Sodium Level 134, Potassium Level 4.6, Chloride Level 101, Carbon Dioxide Level 22, Anion Gap 11, Blood Urea Nitrogen 31, Creatinine 1.36, Estimat Glomerular Filtration Rate 55, BUN/Creatinine Ratio 23, Glucose Level 201, Calcium Level 9.2, Corrected Calcium 9.8, Total Bilirubin 1.1, Aspartate Amino Transf (AST/SGOT) 56, Alanine Aminotransferase (ALT/SGPT) 36, Alkaline Phosphatase 99, Total Protein 6.9, Albumin 3.2 04/23/22 10:44: Glucometer 188 04/23/22 15:15: Glucometer 126 04/23/22 20:05: Glucometer 180 04/24/22 06:05: Glucometer 78 04/24/22 11:45: Glucometer 152 04/24/22 16:09: Glucometer 114 04/24/22 20:38: Glucometer 178 04/25/22 05:50: Glucometer 83 04/25/22 10:55: Glucometer 193 04/25/22 15:13: Glucometer 122 04/25/22 22:01: Glucometer 162 04/26/22 06:19: Glucometer 145 Discharge Home Medications: Active Scripts Active Clindamycin HCl 300 Mg Capsule 300 Mg PO TID Reported Magnesium (Magnesium Oxide) 400 Mg Magnesium Tablet 400 Mg PO BID Promethazine Tablet (Promethazine HCl) 25 Mg Tablet 25 Mg PO Q6H PRN Ondansetron Odt (Ondansetron) 4 Mg Tab.rapdis 4 Mg PO Q8H PRN Ketoconazole 2 % Shampoo 1 Applic UD PRN Refresh Tears (Carboxymethylcellulose Sodium) 0.5 % Drops 1-2 Drop OU UD PRN Cialis (Tadalafil) 5 Mg Tablet 5 Mg PO DAILY PRN Pramipexole Dihydrochloride (Pramipexole Di-HCl) 1 Mg Tablet 2 Mg PO HS TAKES 2 (1MG) TABS Metformin HCl 500 Mg Tablet 500 Mg PO BID WITH MEALS Lidocaine 5% Patch (Lidocaine) 5 % Adh..patch 1 Each TP DAILY MDD 2 APPLICATION SITE NOT LISTED ON THE [facility] DISCHARGE ORDERS LEAVE PATCH ON FOR 12 HOURS AND OFF FOR 12 HOURS Levemir Flextouch (Insulin Detemir) 100 Unit/Ml (3 Ml) Insuln.pen 15 Unit SQ HS Glipizide ER (Glipizide) 5 Mg Tab.er.24 5 Mg PO 1800 Flonase Allergy Relief (Fluticasone Propionate) 50 Mcg/Actuation [place].susp 1 [place] NS DAILY PRN Albuterol Sulfate 2.5 Mg/0.5 Ml Vial.neb 2.5 Mg INH Q8H PRN Oxycodone HCl 20 Mg Tablet 20 Mg PO Q4H PRN MDD 120MG Oxycodone HCl ER (Oxycodone HCl) 40 Mg Tab.er.12h 40 Mg PO Q12H MDD 80MG 7 Days Tylenol (Acetaminophen) 325 Mg Capsule 650 Mg PO Q6H PRN Flomax (Tamsulosin HCl) 0.4 Mg Cap 0.8 Mg PO HS TAKES 2 (0.4MG) CAPS Diclofenac Sodium 1 % Gel..gram. 1 Applic TP QID NO APPLICATION SITE LISTED ON THE [facility] DISCHARGE ORDERS Trazodone HCl 100 Mg Tablet 100 Mg PO HS Sucralfate 1 Gram Tablet 1 Gm PO BID Pregabalin 75 Mg Capsule 75 Mg PO BID Pramipexole Dihydrochloride (Pramipexole Di-HCl) 1 Mg Tablet 1 Mg PO 0800,1200,1800 Namzaric 28 mg-10 mg Capsule (Memantine HCl/Donepezil HCl) 28 Mg-10 Mg Cap.spr.24 1 Each PO DAILY Montelukast Sodium 10 Mg Tablet 10 Mg PO HS Metoprolol Succinate 100 Mg Tab.er.24h 100 Mg PO DAILY Losartan Potassium 50 Mg Tablet 50 Mg PO DAILY Bisacodyl 5 Mg Tablet.dr 5 Mg PO DAILY PRN Protonix (Pantoprazole Sodium) 40 Mg Tablet.dr 40 Mg PO DAILY Victoza 2-Eagle (Liraglutide) 0.6 Mg/0.1 Ml (18 Mg/3 Ml) Pen.injctr 1.2 Mg SQ DAILY Nystatin 15 Gm Cream..g. TP BID PRN Triamcinolone Acetonide 0.1% Ointment (Triamcinolone Acet) 0.1 % Oint 1 Applic TP DAILY PRN Baclofen 10 Mg Tablet 10 Mg PO TID PRN Miralax (Polyethylene Glycol 3350) 17 Gm Powd.pack 17 Gm PO DAILY PRN Aspirin EC (Aspirin) 81 Mg Tablet.dr 81 Mg PO DAILY Meclizine HCl 25 Mg Tablet 25 Mg PO TID PRN Nitroglycerin 0.4 Mg Tab.subl 0.4 Mg SL UD PRN Meloxicam 15 Mg Tablet 15 Mg PO DAILY Cetirizine HCl 10 Mg Tablet 10 Mg PO DAILY Docusate Sodium 100 Mg Capsule 100 Mg PO BID PRN Alprazolam 1 Mg Tablet 1 Mg PO BID Atorvastatin Calcium 20 Mg Tablet 20 Mg PO HS Instructions to patient/family Please see electronic discharge instructions given to patient. Diagnosis/Problems Diagnosis/Problems (1) Stenosis of cervical spine with myelopathy (2) Risk for falls (3) Impulsiveness (4) Pacemaker (5) Hypertension Status: Acute (6) Diabetes (7) Dementia Clinical Quality Measures DVT/VTE Risk/Contraindication: Contraindications-Pharm: Other *list below* Other: spine surgery too high risk for hematoma and subsequent paralysis CHINEDU STERN DO Apr 26, 2022 06:00
[2022-04-26] MEDS: inSUlin ASPART (NovoLOG) 1 UNIT/0.01 ML (CHARGE PER UNIT) SC SCH (06:24)
[2022-04-26] MEDS: RT-ALBUTEROL SULF 2.5 MG/3 ML PRE-MIX VIAL INH SCH (06:55)
[2022-04-26 07:55] VITALS: BP 155/85
[2022-04-26] MEDS: PANTOPRAZOLE 40 MG (PROTONIX) TAB PO SCH (08:13)
[2022-04-26] MEDS: ASPIRIN E.C. 81 MG (ECOTRIN) TAB PO SCH (08:13)
[2022-04-26] MEDS: SUCRALFATE 1 GM (CARAFATE) TAB PO SCH (08:13)
[2022-04-26] MEDS: MEMANTINE 10 MG (NAMENDA) TABLET PO SCH (08:14)
[2022-04-26] MEDS: LORATADINE (CLARITIN) 10 MG TAB PO SCH (08:14)
[2022-04-26] MEDS: metFORMIN 500 MG (GLUCOPHAGE) TAB PO SCH (08:14)
[2022-04-26] MEDS: DONEPEZIL 10 MG (ARICEPT) TAB PO SCH (08:14)
[2022-04-26] MEDS: PREGABALIN 75 MG (LYRICA) CAP PO SCH (08:14)
[2022-04-26] MEDS: LOSARTAN 50 MG (COZAAR) TAB PO SCH (08:14)
[2022-04-26] MEDS: meTOprolol SUCCINATE 100 MG (TOPROL XL) TAB PO SCH (08:14)
[2022-04-26] MEDS: ALPRAZolam 0.5 MG (XANAX) TAB PO SCH (08:14)
[2022-04-26] MEDS: MAGNESIUM OXIDE (MAG-OX)400 MG TAB PO SCH (08:14)
[2022-04-26] MEDS: DOCUSATE SODIUM 100 MG (COLACE) CAP PO SCH (08:14)
[2022-04-26] MEDS: SENNA W/DOCUSATE (SENOKOT S) TABLET PO SCH (08:14)
[2022-04-26] MEDS: oxyCODONE ER 20 MG (OxyCONTIN CR) TAB PO SCH (08:15)
[2022-04-26] MEDS: MELOXICAM 7.5 MG (MOBIC) TABLET PO SCH (08:15)
[2022-04-26] MEDS: CLINDAMYCIN 150 MG (CLEOCIN) CAP PO SCH (08:15)
[2022-04-26] MEDS: polyethylene glycoL POWDER 17 GM (MIRALAX) PACK PO SCH (08:23)
[2022-04-26] MEDS: DICLOFENAC 1% GEL 100 GM (VOLTAREN) TUBE TP SCH (08:24)
[2022-04-26] MEDS: LIDOCAINE 4% (SALONPAS) PATCH TP SCH (10:10)
[2022-04-26 10:30] VITALS: BP 155/85
--- NOTE | 2022-04-26 11:07 | Therapy Team Discharge Summary ---
Therapy Discharge Summary Discharge Recommendations Date of Discharge Physical Therapy Roll Left to Right (QC): 6 Sit to Lying (QC): 6 Lying to Sitting/Side of Bed(Q: 6 Sit to Stand (QC): 6 Chair/Tes-wg-Okxgb Xfer(QC): 5 Toilet Transfer (QC): 6 Car Transfer (QC): 6 Does the Patient Walk: Yes Mode of Locomotion: Walk Anticipated Mode of Locomotion: Walk Walk 10 feet (QC): 6 Walk 50 ft with 2 Turns(QC): 6 Walk 150 ft (QC): 5 Walking 10ft on uneven surface: 5 Gait Assistive Device: FWW Does the Pt Use a Wheelchair: No Wheel 50 ft with 2 turns (QC): 88 Wheel 150 ft (QC): 88 Type of Wheelchair: N/A #of Steps: 4 1 Step (curb) (QC): 5 4 Steps (QC): 5 12 Steps (QC): 7 Balance Sitting Static: Poor Balance Sitting Dynamic: Poor Balance-Standing Static: Poor Picking up an Object (QC): 5 Occupational Therapy Pt admitted to ARU with stenosis of cervical spine with myelopathy. At [facility], pt was independent with ADLS and functional mobility using a walker as needed. Upon initial evaluation, pt was independent with eating, required CGA with oral care and toileting, min A Showeirng, mod A UE/LE dressing and max A footwear. OT Tx focused on increasing BUE Strength and activity tolerance, and increasing safety and independence with ADLs and functional mobility. Pt made functional progress towards goals, but only attained LTG for eating. Pt discharging home with spouse, d/c from OT. Decreased Activ Tolerance, Decreased UE Strength, Impaired I ADL's Eating (QC): 6 Oral Hygiene (QC): 5 Shower/Bathe Self (QC): 4 (SBA) Upper Body Dressing (QC): 3 (Min A with neck brace) Lower Body Dressing (QC): 4 (SBA) On/Off Footwear (QC): 4 (SBA with increased time) Toileting Hygiene (QC): 4 (SBA) PT [facility] Goals Parasitologist Goals PT Parasitologist Goals Time Frame: May 13, 2022 Roll Left to Right (QC): 6 Sit to Lying (QC): 6 Lying-Sitting on Side/Bed(QC): 6 Sit to Stand (QC): 6 Chair/Lrc-dq-Arkuj Xfer(QC): 6 Toilet/Commode Transfer (QC): 6 Car Transfer (QC): 6 Does the Patient Walk: Yes Walk 10 feet (QC): 6 Walk 10ft-Uneven Surface(QC): 6 Walk 50ft with 2 Turns (QC): 6 Walk 150 ft (QC): 6 Wheel 50 feet with 2 turns (QC: 9 Wheel 150 feet: 9 1 Step (curb) (QC): 6 4 Steps (QC): 6 12 Steps (QC): 6 Picking up an Object (QC): 6 OT Parasitologist Goals Penitentiary Goals Time Frame: May 23, 2022 Acute change in mental status: 0 Inattention: 0 Disorganized thinkin Altered level of consciousness: 0 Eating (QC): 6 (MET) Oral Hygiene (QC): 6 (NOT MET) Toileting Hygiene (QC): 6 (NOT MET) Shower/Bathe Self (QC): 6 (NOT MET) Upper Body Dressing (QC): 6 (NOT MET) Lower Body Dressing (QC): 6 (NOT MET) On/Off Footwear (QC): 6 (NOT MET) Additional Goals: 1-Demonstrate ADL Tasks, 2-Verbalize Understanding, 3- ImproveStrength/Monica 1=Demonstrate adherence to instructed precautions during ADL tasks. 2=Patient will verbalize/demonstrate understanding of assistive devices/modifications for ADL. 3=Patient will improve strength/tolerance for activity to enable patient to perform ADL's. LALI HILLS OT Apr 26, 2022 11:07
--- NOTE | 2022-04-26 13:21 | Therapy Team Discharge Summary ---
Therapy Discharge Summary Discharge Recommendations Date of Discharge Physical Therapy Patient came to rehab post C2-T1 posterior cervical fusion, C4-5 lami. Upon evaluation patient performed rolling and sit to supine with SBA, supine <-> sit and sit <-> stand with min assist, transfers min assist, and ambulated 10' with a rolling walker with CGA/SBA. Patient has been performing bed mobility and transfer training, balance and endurance training,functional strengthening, stair training, gait training, and education. Patient has made fair progress but has only met his senior living goals for rolling, supine <-> sit and sit <-> stand and car transfer. Now, patient performs rolling and supine <-> sit with independence, sit <-> stand independent, transfers setup, car transfer independent, ambulates 200' with a rolling walker with setup (but ambulates 50' with at least 2 turns of 90 degrees independently, needs setup to ambulate 10' over an uneven surface), can go up and down 4 steps using 2 handrails with SBA, and can cherry picker operator an object from the floor using a biztalk consultant with setup. Patient has been discharged from this facility and will be discharged from PT at this time. Roll Left to Right (QC): 6 Sit to Lying (QC): 6 Lying to Sitting/Side of Bed(Q: 6 Sit to Stand (QC): 6 Chair/Aoh-tu-Lceuj Xfer(QC): 5 Toilet Transfer (QC): 5 Car Transfer (QC): 6 Does the Patient Walk: Yes Mode of Locomotion: Walk Anticipated Mode of Locomotion: Walk Walk 10 feet (QC): 6 Walk 50 ft with 2 Turns(QC): 6 Walk 150 ft (QC): 5 Walking 10ft on uneven surface: 5 Gait Assistive Device: FWW Does the Pt Use a Wheelchair: No Wheel 50 ft with 2 turns (QC): 88 Wheel 150 ft (QC): 88 Type of Wheelchair: N/A #of Steps: 4 1 Step (curb) (QC): 5 4 Steps (QC): 5 12 Steps (QC): 7 Balance Sitting Static: Poor Balance Sitting Dynamic: Poor Balance-Standing Static: Poor Picking up an Object (QC): 5 Occupational Therapy Decreased Activ Tolerance, Decreased UE Strength, Impaired I ADL's Eating (QC): 6 Oral Hygiene (QC): 5 Shower/Bathe Self (QC): 4 (SBA) Upper Body Dressing (QC): 3 (Min A with neck brace) Lower Body Dressing (QC): 4 (SBA) On/Off Footwear (QC): 4 (SBA with increased time) Toileting Hygiene (QC): 4 (SBA) PT Combatant Diver Officer Goals Combatant Diver Officer Goals PT Combatant Diver Officer Goals Time Frame: May 13, 2022 Roll Left to Right (QC): 6 Sit to Lying (QC): 6 Lying-Sitting on Side/Bed(QC): 6 Sit to Stand (QC): 6 Chair/Fvw-tc-Ffrwl Xfer(QC): 6 Toilet/Commode Transfer (QC): 6 Car Transfer (QC): 6 Does the Patient Walk: Yes Walk 10 feet (QC): 6 Walk 10ft-Uneven Surface(QC): 6 Walk 50ft with 2 Turns (QC): 6 Walk 150 ft (QC): 6 Wheel 50 feet with 2 turns (QC: 9 Wheel 150 feet: 9 1 Step (curb) (QC): 6 4 Steps (QC): 6 12 Steps (QC): 6 Picking up an Object (QC): 6 OT Mcc Goals Combatant Diver Officer Goals Time Frame: May 23, 2022 Acute change in mental status: 0 Inattention: 0 Disorganized thinkin Altered level of consciousness: 0 Eating (QC): 6 (MET) Oral Hygiene (QC): 6 (NOT MET) Toileting Hygiene (QC): 6 (NOT MET) Shower/Bathe Self (QC): 6 (NOT MET) Upper Body Dressing (QC): 6 (NOT MET) Lower Body Dressing (QC): 6 (NOT MET) On/Off Footwear (QC): 6 (NOT MET) Additional Goals: 1-Demonstrate ADL Tasks, 2-Verbalize Understanding, 3- ImproveStrength/Monica 1=Demonstrate adherence to instructed precautions during ADL tasks. 2=Patient will verbalize/demonstrate understanding of assistive devices/modifications for ADL. 3=Patient will improve strength/tolerance for activity to enable patient to perform ADL's. YEE DASH PT Apr 26, 2022 13:21
== END 2022-04-26 10:30 | disposition home health service (06) | DRG 93 ==
PROVIDERS: ADMIT Internal Medicine; ATTEND Internal Medicine
DX: G95.89 Other specified diseases of spinal cord (principal); Z47.89 Encounter for other orthopedic aftercare; R45.87 Impulsiveness; E11.65 Type 2 diabetes mellitus with hyperglycemia; F03.90 Unspecified dementia, unspecified severity, without behavioral disturbance, psychotic disturbance, mood disturbance, and anxiety; E78.00 Pure hypercholesterolemia, unspecified; I10 Essential (primary) hypertension; M19.91 Primary osteoarthritis, unspecified site; F41.9 Anxiety disorder, unspecified; Z79.84 Long term (current) use of oral hypoglycemic drugs; Z91.199 Patient's noncompliance with other medical treatment and regimen due to unspecified reason; Z87.891 Personal history of nicotine dependence; Z95.0 Presence of cardiac pacemaker; Z91.81 History of falling; Z79.82 Long term (current) use of aspirin; Z88.0 Allergy status to penicillin; Z83.3 Family history of diabetes mellitus; Z82.49 Family history of ischemic heart disease and other diseases of the circulatory system; Z79.4 Long term (current) use of insulin
CPT/HCPCS: 36415; 71045; 80053; 81000; 82947; 83605; 85025; 94640; 94760

== ENCOUNTER → 2022-08-22 | Outpatient (CLI) | payer MEDICARE, MEDICAID ==
[~2022-08-22] MED LIST changes: +FERR-84 PO; -INSU100I29 SQ; +INSU100I30 SQ; +METH4TAB10 PO; +OXC10TCR PO; +OXYC10TA55 PO; +OXYC40TA PO; -OXYC40TA57 PO
--- NOTE | 2022-08-22 13:42 | Diagnostic Imaging Report ---
INDICATION: Pre-MRI screening. Time of Exam: 1:36 PM Correlation is made with prior chest from 04/21/2022. Heart size normal. There is a dual lead left-sided cardiac pacemaker with lead tips in the region of the right atrium and right ventricle. No abandoned leads are identified. Lungs are clear. IMPRESSION: Negative chest. No abandoned pacemaker leads are identified. Dictated by: Dictated on workstation # [id number]
--- NOTE | 2022-08-22 16:03 | Diagnostic Imaging Report ---
PROCEDURE: MRI lumbar spine without contrast. TECHNIQUE: Multiplanar, multisequence MRI of the lumbar spine was performed without contrast. INDICATION: Back pain. Prior back surgery. COMPARISON: 04/18/2022. FINDINGS: 5 lumbar type vertebral bodies are visualized with the last well-formed disc space designated L5-S1. No acute fracture or dislocation is seen in the lumbar spine. Posterior fusion is visualized from L2 to S1. Laminectomy has also been performed from L2 to L5. Vertebral body heights are well-maintained. Modic type I endplate degenerative changes are present at the L1-L2 level with fluid in the L1-L2 disc space. The conus terminates at the L1 level. No masses are seen associated with the conus or nerve roots of the cauda equina. No epidural collections are identified. Multilevel degenerative changes are seen in the lumbar spine with disc bulges, facet hypertrophy, and buckling of the ligamentum flavum. T12-L1: No significant spinal canal or foraminal stenosis. L1-L2: Broad-based disc bulge and facet hypertrophy results in mild spinal canal narrowing and moderate bilateral foraminal stenosis. L2-L3: No significant spinal canal or foraminal stenosis. L3-L4: No significant spinal canal or foraminal stenosis. L4-L5: Marginal osteophytes and facet hypertrophy result in no significant spinal canal narrowing and mild right and gppk-bj-eidcqgmi left foraminal stenosis. L5-S1: Marginal osteophytes and facet hypertrophy results in no significant spinal canal narrowing and moderate right and mild left foraminal stenosis. Paravertebral soft tissues are unremarkable. IMPRESSION: 1. No acute fracture or dislocation in the lumbar spine. 2. Modic type I endplate degenerative changes at the L1-L2 level with fluid in the L1-L2 disc space. These findings are favored to be based on degenerative changes; however, early osteomyelitis/discitis can have this appearance. Recommend correlation with laboratory values and continued close followup. 3. Posterior fusion from L2 to S1 with laminectomy from L2 to L5. 4. Degenerative changes in the lumbar spine, greatest at L1-L2, L4-L5, and L5-S1. Dictated by: Dictated on workstation # [id number]
--- NOTE | 2022-08-22 16:11 | Diagnostic Imaging Report ---
TECHNIQUE: Multiplanar and multisequence MRI of the thoracic spine was performed without contrast. REASON FOR EXAM: Back pain. COMPARISON: 01/06/2020. FINDINGS: No acute fracture or dislocation in the thoracic spine. Alignment is anatomic. Hemangioma is seen in the T10 vertebral body. No suspicious focal osseous lesions. There is normal intrinsic signal within the thoracic spinal cord. No evidence of cord expansion. No epidural collections. Prominent epidural fat is noted in the thoracic spine. No large disc bulges. No high-grade spinal canal or foraminal stenosis. The paraspinal soft tissues are unremarkable. IMPRESSION: 1. No acute fracture or dislocation in the thoracic spine. 2. No high-grade spinal canal or foraminal stenosis. No large disc bulges. 3. Findings suggestive of epidural lipomatosis within the thoracic spine. Dictated by: Dictated on workstation # [id number]
== END ==
LOC: RAD 13:08
PROVIDERS: ATTEND Nurse Practitioner Adult Health
DX: Z01.818 Encounter for other preprocedural examination (principal); M47.816 Spondylosis without myelopathy or radiculopathy, lumbar region; M47.817 Spondylosis without myelopathy or radiculopathy, lumbosacral region; Z98.1 Arthrodesis status
CPT/HCPCS: 71045; 72146; 72148

== ENCOUNTER 2022-09-17 09:27 | Emergency (ER) | payer MEDICARE, MEDICAID ==
[~2022-09-17] VITALS: Ht 187 cm; Wt 104.5 kg
--- NOTE | 2022-09-17 09:56 | ED Lower Extremity ---
General Chief Complaint: Lower Extremity Stated Complaint: BILAT FEET SWELLING Nursing Triage Note: Pt to ed with c/o bilat lower ext swelling. states he was at a rehab facility in [place] in may after a spinal surgery and has swelling since shortly after. Source: patient, family () Exam Limitations: no limitations History of Present Illness Date Seen by Provider: Sep 17, 2022 Time Seen by Provider: 09:42 Initial Comments Patient is a 72-year-old male who presents to the emergency department today with a chief complaint of bilateral lower extremity swelling. Patient states that he has had swelling for a couple of months ever since he had spinal surgery. He was at inpatient rehab for a few time and then is now home. He states he tries to be up and moving around however when the swelling increases it becomes painful and he has to stop and put his feet up. Patient and his states that the swelling goes down a little bit at night but as soon as he is up his feet swell. He does have a history of congestive heart failure he believes, his heart doctor is Dr. Suazo. He has an appointment this Saturday on the with Dr. Suazo. He does not believe he is on a water pill. He states that he urinates 5 or 6 times a day. No dysuria urgency or frequency. He is not short of breath with exertion but states he develops a cough when he lays down. No fevers or chills. No chest pain or palpitations. When asked what brought him to the emergency department on this day he states "It's just bothering me". Onset: other (couple of months) Severity: moderate Pain/Injury Location: bilateral foot, bilateral ankle Allergies and Home Medications Allergies Coded Allergies: Penicillins (Verified Allergy, Intermediate, RASH, 12/22/10) Patient Home Medication List Home Medication List Reviewed: Yes Acetaminophen (Tylenol) 325 Mg Capsule, 650 MG PO Q6H PRN for PAIN-MILD (1-4), (Reported) Entered as Reported by: JULIUS GARBER on 04/20/22 1230 Albuterol Sulfate (Albuterol Sulfate) 2.5 Mg/0.5 Ml Vial.neb, 2.5 MG INH Q8H PRN for SHORTNESS OF BREATH, (Reported) Entered as Reported by: JULIUS GARBER on 04/20/22 1230 Alprazolam (Alprazolam) 1 Mg Tablet, 1 MG PO BID, (Reported) Entered as Reported by: ASHLEY GREWAL on 12/18/16 0846 Aspirin (Aspirin EC) 81 Mg Tablet.dr, 81 MG PO DAILY, (Reported) Entered as Reported by: ASHLEY GREWAL on 12/18/16 08 Atorvastatin Calcium (Atorvastatin Calcium) 20 Mg Tablet, 20 MG PO HS, (Reported) Entered as Reported by: ASHLEY GREWAL on 12/18/16 08 Baclofen (Baclofen) 10 Mg Tablet, 10 MG PO TID PRN for PAIN-BREAKTHROUGH, (Reported) Entered as Reported by: ASHLEY GREWAL on 12/18/16 08 Bisacodyl (Bisacodyl) 5 Mg Tablet.dr, 5 MG PO DAILY PRN for CONSTIPATION-4TH LINE, (Reported) Entered as Reported by: ASHLEY GREWAL on 07/18/17 1349 Carboxymethylcellulose Sodium (Refresh Tears) 0.5 % Drops, 1-2 DROP OU UD PRN for DRY EYES, (Reported) Entered as Reported by: JULIUS GARBER on 04/20/22 1324 Cetirizine HCl (Cetirizine HCl) 10 Mg Tablet, 10 MG PO DAILY, (Reported) Entered as Reported by: ASHLEY GREWAL on 12/18/16845 Docusate Sodium (Docusate Sodium) 100 Mg Capsule, 100 MG PO BID PRN for CONSTIPATION-1ST LINE, (Reported) Entered as Reported by: ASHLEY GREWAL on 12/18/16 0846 Ferrous Sulfate (Iron) 325 Mg (65 Mg Iron) Tablet, 325 MG PO Q48H Prescribed by: JANE QUINTANILLA on 06/05/22 0953 Fluticasone Propionate (Flonase Allergy Relief) 50 Mcg/Actuation [place].susp, 1 SPRAY NS DAILY PRN for CONGESTION, (Reported) Entered as Reported by: JULIUS GARBER on 04/20/22 1230 Glipizide (Glipizide ER) 5 Mg Tab.er.24, 5 MG PO 1800, (Reported) Entered as Reported by: JULIUS GARBER on 04/20/22 1230 Insulin Detemir (Levemir Flextouch) 100 Unit/Ml (3 Ml) Insuln.pen, 15 UNIT SQ HS, (Reported) Entered as Reported by: JULIUS GARBER on 04/20/22 1230 Ketoconazole (Ketoconazole) 2 % Shampoo, 1 APPLIC UD PRN for WHEN SHOWERING, (Reported) Entered as Reported by: JULIUS GARBER on 04/20/22 1354 Lidocaine (Lidocaine 5% Patch) 5 % Adh..patch, 1 EACH TP DAILY, (Reported) Entered as Reported by: JULIUS GARBER on 04/20/22 1230 Liraglutide (Victoza 2-Eagle) 0.6 Mg/0.1 Ml (18 Mg/3 Ml) Pen.injctr, 1.2 MG SQ DAILY, (Reported) Entered as Reported by: ASHLEY GREWAL on 12/18/16 0846 Losartan Potassium (Losartan Potassium) 50 Mg Tablet, 50 MG PO DAILY, (Reported) Entered as Reported by: ANTOINETTE MCKEON on 08/15/21 0845 Magnesium Oxide (Magnesium) 400 Mg Magnesium Tablet, 400 MG PO BID, (Reported) Entered as Reported by: JULIUS GARBER on 04/20/22 1424 Meclizine HCl (Meclizine HCl) 25 Mg Tablet, 25 MG PO TID PRN for DIZZINESS, (Reported) Entered as Reported by: ASHLEY GREWAL on 12/18/16 0846 Meloxicam (Meloxicam) 15 Mg Tablet, 15 MG PO DAILY, (Reported) Entered as Reported by: ASHLEY GREWAL on 12/18/16 0846 Memantine HCl/Donepezil HCl (Namzaric 28 mg-10 mg Capsule) 28 Mg-10 Mg Cap.spr.24, 1 EACH PO DAILY, (Reported) Entered as Reported by: ANTOINETTE MCKEON on 08/15/21 0845 Metformin HCl (Metformin HCl) 500 Mg Tablet, 500 MG PO BID WITH MEALS, (Reported) Entered as Reported by: JULIUS GARBER on 04/20/22 1230 Methylprednisolone (Methylprednisolone Dose Pack) 4 Mg Tab.ds.pk, 4 MG PO UD Prescribed by: JANE QUINTANILLA on 06/05/22 1122 Metoprolol Succinate (Metoprolol Succinate) 100 Mg Tab.er.24h, 100 MG PO DAILY, (Reported) Entered as Reported by: ANTOINETTE MCKEON on 08/15/21 0845 Montelukast Sodium (Montelukast Sodium) 10 Mg Tablet, 10 MG PO HS, (Reported) Entered as Reported by: ANTOINETTE MCKEON on 08/15/21 0845 Nitroglycerin (Nitroglycerin) 0.4 Mg Tab.subl, 0.4 MG SL UD PRN for CHEST PAIN, (Reported) Entered as Reported by: ASHLEY GREWAL on 12/18/16 0846 Nystatin (Nystatin) 15 Gm Cream..g., TP BID PRN for SORES, (Reported) Entered as Reported by: ASHLEY GREWAL on 12/18/16 0846 Ondansetron (Ondansetron Odt) 4 Mg Tab.rapdis, 4 MG PO Q8H PRN for NAUSEA/VOMI TING-1ST LINE, (Reported) Entered as Reported by: JULIUS GARBER on 04/20/22 135 Oxycodone HCl (Oxycodone HCl ER) 40 Mg Tab.er.12h, 40 MG PO BID Prescribed by: JANE QUINTANILLA on 06/05/22 112 Oxycodone HCl (Oxycontin) 10 Mg Tab.er.12h, 10 MG PO BID Prescribed by: JANE QUINTANILLA on 06/05/22 112 Pantoprazole Sodium (Protonix) 40 Mg Tablet.dr, 40 MG PO DAILY, (Reported) Entered as Reported by: ASHLEY GREWAL on 12/18/16 0945 Polyethylene Glycol 3350 (Miralax) 17 Gm Powd.pack, 17 GM PO DAILY PRN for CO NSTIPATION-2ND LINE, (Reported) Entered as Reported by: ASHLEY GREWAL on 12/18/16 0846 Pramipexole Di-HCl (Pramipexole Dihydrochloride) 1 Mg Tablet, 1 MG PO 0800,1200,1800, (Reported) Entered as Reported by: ANTOINETTE MCKEON on 08/15/21 0845 Promethazine HCl (Promethazine Tablet) 25 Mg Tablet, 25 MG PO Q6H PRN for NAUSEA/VOMITING, (Reported) Entered as Reported by: JULIUS GARBER on 04/20/22 1354 Sucralfate (Sucralfate) 1 Gram Tablet, 1 GM PO BID, (Reported) Entered as Reported by: ANTOINETTE MCKEON on 08/15/21 0845 Tadalafil (Cialis) 5 Mg Tablet, 5 MG PO DAILY PRN for URINARY SYMPTOMS, (Reported) Entered as Reported by: JULIUS GARBER on 04/20/22 1255 Tamsulosin HCl (Flomax) 0.4 Mg Cap, 0.8 MG PO HS, (Reported) Entered as Reported by: JULIUS GARBER on 04/20/22 1230 Trazodone HCl (Trazodone HCl) 100 Mg Tablet, 100 MG PO HS, (Reported) Entered as Reported by: ANTOINETTE MCKEON on 08/15/21 0845 Triamcinolone Acet (Triamcinolone Acetonide 0.1% Ointment) 0.1 % Oint, 1 APPLIC TP DAILY PRN for SKIN IRRITATION, (Reported) Entered as Reported by: ASHLEY GREWAL on 12/18/16 0846 Review of Systems Constitutional: see HPI EENTM: no symptoms reported Respiratory: cough (when laying down) Cardiovascular: edema Gastrointestinal: no symptoms reported Genitourinary: no symptoms reported Musculoskeletal: other (swelling bilateral ankles and feet) Skin: no symptoms reported All Other Systems Reviewed Negative Unless Noted: Yes Past Ecclegl-Obxgoc-Ojohjh Hx Patient Social History Tobacco Use?: No Substance use?: No Alcohol Use?: No Immunizations Up To Date Tetanus Booster (TDap): More than 5yrs PED Vaccines UTD: Yes Seasonal Allergies Seasonal Allergies: No Past Medical History Surgery/Hospitalization HX: MULT SX ON NECK,BACK,KNEES REPLACEMENT,BOTH SHOULDER REPAIRED. Pacemaker, DM Surgeries: Yes (r knee surgery x4, l tra, back surgery x6, hiatal hernia repair, neck) Eye Surgery, Pacemaker Respiratory: Yes Sleep Apnea Currently Using CPAP: Yes Currently Using BIPAP: No Cardiac: Yes (svt) High Cholesterol, Hypertension Neurological: Yes Dementia Reproductive Disorders: No Sexually Transmitted Disease: No Genitourinary: No Gastrointestinal: Yes Gall Bladder Disease Musculoskeletal: Yes Degenerate Disk Disease, Arthritis, Chronic Back Pain Endocrine: Yes Diabetes, Non-Insulin dep HEENT: Yes Cataract Loss of Vision: Denies Hearing Impairment: Denies Cancer: No Did You Recieve Any Treatments: No Psychosocial: Yes Sleep Difficulties, Anxiety Integumentary: Yes Eczema Blood Disorders: No Adverse Reaction/Blood Tranf: No Family Medical History Cancer 03 MOTHER 09 SISTER Family history: Cardiovascular disease 03 FATHER Family history: Diabetes mellitus 03 FATHER 09 BROTHER Family history: Hypertension 03 FATHER 09 BROTHER No Pertinent Family Hx Physical Exam Vital Signs Vital Signs - First Documented 09/17/22 09:35 Temp 35.7 Pulse 65 Resp 20 B/P (MAP) 167/107 (127) Pulse Ox 99 Capillary Refill : Height, Weight, BMI Height: 6'2.00" Weight: 224lbs. 0.0oz. [id number]; 29.00 BMI Method:Stated General Appearance: WD/WN, no apparent distress HEENT: PERRL/EOMI, other (edentulous) Neck: normal inspection Cardiovascular: regular rate, rhythm Respiratory: lungs clear, normal breath sounds, no respiratory distress, no accessory muscle use Gastrointestinal: non tender, soft Legs: bilateral leg other (no calf tenderness or swelling. RLE may be slightly larger than left) Ankles: bilateral ankle swelling Feet: bilateral foot swelling Neurologic/Psychiatric: alert, normal mood/affect, oriented x 3 Skin: normal color, warm/dry Progress/Results/Core Measures Results/Orders Lab Results Laboratory Tests Test 09/17/22 09:40 09/17/22 10:00 Range/Units White Blood Count 5.0 4.3-11.0 10^3/uL Red Blood Count 4.74 4.30-5.52 10^6/uL Hemoglobin 11.4 L 13.3-17.7 g/dL Hematocrit 36 L 40-54 % Mean Corpuscular Volume 76 L 80-99 fL Mean Corpuscular Hemoglobin 24 L 25-34 pg Mean Corpuscular Hemoglobin Concent 32 32-36 g/dL Red Cell Distribution Width 17.9 H 10.0-14.5 % Platelet Count 153 130-400 10^3/uL Mean Platelet Volume 9.0-12.2 fL Immature Granulocyte % (Auto) 0 % Neutrophils (%) (Auto) 49 42-75 % Lymphocytes (%) (Auto) 40 12-44 % Monocytes (%) (Auto) 8 0-12 % Eosinophils (%) (Auto) 2 0-10 % Basophils (%) (Auto) 0 0-10 % Neutrophils # (Auto) 2.5 1.8-7.8 10^3/uL Lymphocytes # (Auto) 2.0 1.0-4.0 10^3/uL Monocytes # (Auto) 0.4 0.0-1.0 10^3/uL Eosinophils # (Auto) 0.1 0.0-0.3 10^3/uL Basophils # (Auto) 0.0 0.0-0.1 10^3/uL Immature Granulocyte # (Auto) 0.0 0.0-0.1 10^3/uL Percent Immature Platelet Fraction 4.7 0.0-7.6 % Sodium Level 141 135-145 MMOL/L Potassium Level 3.9 3.6-5.0 MMOL/L Chloride Level 106 98-107 MMOL/L Carbon Dioxide Level 24 21-32 MMOL/L Anion Gap 11 5-14 MMOL/L Blood Urea Nitrogen 11 7-18 MG/DL Creatinine 0.82 0.60-1.30 MG/DL Estimat Glomerular Filtration Rate 92 BUN/Creatinine Ratio 13 Glucose Level 148 H 70-105 MG/DL Calcium Level 9.1 8.5-10.1 MG/DL B-Type Natriuretic Peptide 172.9 H <100.0 PG/ML Smear Scan YES Urine Color YELLOW Urine Clarity CLEAR Urine pH 6.0 5-9 Urine Specific [place] 1.015 L 1.016-1.022 Urine Protein NEGATIVE NEGATIVE Urine Glucose (UA) NEGATIVE NEGATIVE Urine Ketones NEGATIVE NEGATIVE Urine Nitrite NEGATIVE NEGATIVE Urine Bilirubin NEGATIVE NEGATIVE Urine Urobilinogen 0.2 < = 1.0 MG/DL Urine Leukocyte Esterase NEGATIVE NEGATIVE Urine RBC (Auto) 2+ H NEGATIVE Urine RBC 10-25 H /HPF Urine WBC NONE /HPF Urine Squamous Epithelial Cells 2-5 /HPF Urine Crystals NONE /LPF Urine Bacteria NEGATIVE /HPF Urine Casts NONE /LPF Urine Mucus NEGATIVE /LPF Urine Culture Indicated NO My Orders Orders - JEANINE PRYOR MD Ed Iv/Invasive Line Start (09/17/22 09:51) Cbc With Automated Diff (09/17/22 09:51) Basic Metabolic Panel (09/17/22 09:51) Bnp Gene (09/17/22 09:51) Ua Culture If Indicated (09/17/22 09:51) Furosemide Injection (Lasix Injection) (09/17/22 11:00) Medications Given in ED Current Medications Medications Dose Ordered Sig/Lupillo Route Start Time Stop Time Status Last Admin Dose Admin Furosemide 20 mg ONCE ONCE IVP 09/17/22 11:00 09/17/22 11:01 09/17/22 10:58 20 MG Vital Signs/I&O 09/17/22 09:35 Temp 35.7 Pulse 65 Resp 20 B/P (MAP) 167/107 (127) Pulse Ox 99 Blood Pressure Mean: 127 Progress Progress Note : Time: 11: Progress Note Patient seen and evaluated by me. Evaluation today includes physical exam, CBC, basic metabolic panel, BNP, UA. Pertinent physical exam findings well-developed well-nourished obese male in no acute distress. He has a regular heart rate, clear lungs, soft abdomen. 3+ edema in the bilateral lower extremities from approximately the ankle to the tips of the toes. This is slightly tender to palpation. No overlying signs of cellulitis. No open wounds. Differential diagnosis based on history and physical exam acute CHF, u ncomplicated peripheral edema, acute kidney injury. Labs independently reviewed and interpreted by me, CBC is normal, basic met abolic panel is normal, BNP is slightly elevated in the 170 range. Urinalysis shows microscopic hematuria. Is treated in the emergency department with 20 mg of Lasix IV. I discussed with him limiting salt intake and increasing his activity. I also advised him to elevate his legs while he is at rest. No concerning findings for acute CHF as his oxygen saturations are normal, no increased work of breathing, no rales or rhonchi noted on lung exam. Will send a copy of his chart both to Dr. Suazo who he has an appointment with at the end of the week as well as to his primary care physician. Return precautions given in both verbal and written format. All questions are sought and answered Departure Impression Primary Impression: Peripheral edema Additional Impression: Microscopic hematuria Disposition: HOME, SELF-CARE Condition: Stable Departure-Patient Inst. Decision time for Depature: 11:04 Referrals: SIMBA DE JESUS DO (PCP/Family) Primary Care Physician Patient Instructions: Swelling Add. Discharge Instructions: Try and stay active as much as you can, this will help to mobilize fluid and help you urinate it away. Continue your daily medications as prescribed. Keep your follow up appointment with Dr Suazo on Saturday. Please follow up with your Primary Care doctor. You did have some small amount of blood in your urine - this should be followed up. If you develop worsening swelling, especially with Shortness of breath, persistent cough or chest pain/tightness, please return to the Emergency Department for re-evaluation. Copy Copies To 1: MANUEL SUAZO MD FACP FACC CCDS JEANINE PRYOR MD Sep 17, 2022 09:55
[2022-09-17 10:00] LABS: POTASSIUM 3.9 MMOL/L (3.6-5.0)
[2022-09-17 10:01] LABS: BASOPHILS % (AUTO) 0 % (0-10); CALCIUM 9.1 MG/DL (8.5-10.1); HEMOGLOBIN 11.4 g/dL (13.3-17.7); MEAN CORPUSCULAR VOLUME 76 fL (80-99); MONOCYTES # (AUTO) 0.4 10^3/uL (0.0-1.0)
[2022-09-17 10:03] LABS: EOSINOPHILS # (AUTO) 0.1 10^3/uL (0.0-0.3); EOSINOPHILS % (AUTO) 2 % (0-10); HEMATOCRIT 36 % (40-54); LYMPHOCYTES % (AUTO) 40 % (12-44); MEAN CORPUSCULAR HEMOGLOBIN 24 pg (25-34); MEAN CORPUSCULAR HGB CONC 32 g/dL (32-36); MONOCYTES % (AUTO) 8 % (0-12); NEUTROPHILS # (AUTO) 2.5 10^3/uL (1.8-7.8); NEUTROPHILS % (AUTO) 49 % (42-75); PLATELET COUNT 153 10^3/uL (130-400)
[2022-09-17 10:06] LABS: CREATININE SERUM 0.82 MG/DL (0.60-1.30); SMEAR SCAN COMMENT YES
[2022-09-17 10:06] LABS: BILIRUBIN,URINE NEGATIVE (NEGATIVE); CLARITY,URINE CLEAR; COLOR,URINE YELLOW; GLUCOSE, URINE (UA) NEGATIVE (NEGATIVE); KETONES,URINE NEGATIVE (NEGATIVE); LEUKOCYTE ESTERASE ,URINE NEGATIVE (NEGATIVE); NITRITE,URINE NEGATIVE (NEGATIVE); PROTEIN,URINE NEGATIVE (NEGATIVE)
[2022-09-17 10:17] LABS: BACTERIA,URINE NEGATIVE /HPF
[2022-09-17] MEDS ORDERED: FUROSEMIDE 40 MG/4 ML INJ (LASIX) IVP ONE (11:00)
[2022-09-17 11:17] VITALS: BP 145/79
== END 2022-09-17 11:21 | disposition home or self-care (01) ==
LOC: EDUNIT# 09:27 → ER 09:29
DX: R60.0 Localized edema (principal); R31.29 Other microscopic hematuria; R79.89 Other specified abnormal findings of blood chemistry; G47.30 Sleep apnea, unspecified; Z99.89 Dependence on other enabling machines and devices
CPT/HCPCS: 36415; 80048; 81000; 83880; 85025

== ENCOUNTER 2022-10-11 10:39 | Emergency (ER) | payer MEDICARE, MEDICAID ==
[~2022-10-11] VITALS: Ht 187 cm; Wt 93.0 kg
[2022-10-11] MEDS ORDERED: NS IV 1000 ML 1,000 ML IV STA (11:06)
--- NOTE | 2022-10-11 11:06 | ED Abdominal Pain ---
General Chief Complaint: - Reproductive Stated Complaint: KIDNEY ISSUES | BLOOD IN URINE | SIDE PAIN Nursing Triage Note: ARRIVED VIA WC TO ROOM 05. LEFT SIDED FLANK PAIN X2 WEEKS ET BLOOD IN THE URINE X3 DAYS. HAS SEEN PCP WHO TOLD HIM HE WAS FINE. Source of Information: Patient, Family () Exam Limitations: No Limitations History of Present Illness Date Seen by Provider: Oct 11, 2022 Time Seen by Provider: 10:55 Initial Comments Patient is a 72-year-old male who presents to the emergency room with a chief complaint of left-sided flank pain and left lower quadrant abdominal pain for about 2 weeks. Patient states that he has not taken any pain medications for the pain as he thought it would just improve. He states he did not sleep well last night and decided to come to the emergency room for evaluation. He does have a history of prior spine surgery both cervical and lumbar. He has had prior issues with "infected" spine. He is a diabetic, hypertension. History of dementia. He denies any fevers or chills. No shortness of breath or chest pain. No nausea, vomiting or diarrhea. No black or bloody stool. Of note I saw the patient a couple of weeks ago and he had microscopic hematuria. He states that he was in his primary care doctor's office last week and told that he no longer had blood in his urine. His states that he had blood from his penis within the last 2 or 3 days. The patient denies dysuria, urgency or frequency. Movement, bumps in the road and the car make the pain worse. Remaining still improves it but does not make it go away. He denies any numbness tingling or weakness in his lower extremities. Had normal appetite. Timing/Duration: Other (2 weeks) Severity/Quality: Severe ("9") Location: LUQ, LLQ Radiation: No Radiation Activities at Onset: None Modifying Factors: Worsens With Movement Associated Symptoms: Back Pain (left flank), Weakness (generalized), Other (decreased appetite) Allergies and Home Medications Allergies Coded Allergies: Penicillins (Verified Allergy, Intermediate, RASH, 12/22/10) Patient Home Medication List Home Medication List Reviewed: Yes Acetaminophen (Tylenol) 325 Mg Capsule, 650 MG PO Q6H PRN for PAIN-MILD (1-4), (Reported) Entered as Reported by: JULIUS GARBER on 04/20/22 1230 Albuterol Sulfate (Albuterol Sulfate) 2.5 Mg/0.5 Ml Vial.neb, 2.5 MG INH Q8H PRN for SHORTNESS OF BREATH, (Reported) Entered as Reported by: JULIUS GARBER on 04/20/22 1230 Alprazolam (Alprazolam) 1 Mg Tablet, 1 MG PO BID, (Reported) Entered as Reported by: ASHLEY GREWAL on 12/18/16 0846 Aspirin (Aspirin EC) 81 Mg Tablet.dr, 81 MG PO DAILY, (Reported) Entered as Reported by: ASHLEY GREWAL on 12/18/16 0846 Atorvastatin Calcium (Atorvastatin Calcium) 20 Mg Tablet, 20 MG PO HS, (Reported) Entered as Reported by: ASHLEY GREWAL on 12/18/16 0846 Baclofen (Baclofen) 10 Mg Tablet, 10 MG PO TID PRN for PAIN-BREAKTHROUGH, (Reported) Entered as Reported by: ASHLEY GREWAL on 12/18/16 08 Bisacodyl (Bisacodyl) 5 Mg Tablet.dr, 5 MG PO DAILY PRN for CONSTIPATION-4TH LINE, (Reported) Entered as Reported by: ASHLEY GREWAL on 07/18/17 1349 Carboxymethylcellulose Sodium (Refresh Tears) 0.5 % Drops, 1-2 DROP OU UD PRN for DRY EYES, (Reported) Entered as Reported by: JULUIS GARBER on 04/20/22 1324 Cetirizine HCl (Cetirizine HCl) 10 Mg Tablet, 10 MG PO DAILY, (Reported) Entered as Reported by: ASHLEY GREWAL on 12/18/16 0846 Docusate Sodium (Docusate Sodium) 100 Mg Capsule, 100 MG PO BID PRN for CONSTIPATION-1ST LINE, (Reported) Entered as Reported by: ASHLEY GREWAL on 12/18/16 0846 Ferrous Sulfate (Iron) 325 Mg (65 Mg Iron) Tablet, 325 MG PO Q48H Prescribed by: JANE QUINTANILLA on 06/05/22 0953 Fluticasone Propionate (Flonase Allergy Relief) 50 Mcg/Actuation [place].susp, 1 SPRAY NS DAILY PRN for CONGESTION, (Reported) Entered as Reported by: JULIUS GARBER on 04/20/22 1230 Glipizide (Glipizide ER) 5 Mg Tab.er.24, 5 MG PO 1800, (Reported) Entered as Reported by: JULIUS GARBER on 04/20/22 1230 Insulin Detemir (Levemir Flextouch) 100 Unit/Ml (3 Ml) Insuln.pen, 15 UNIT SQ HS, (Reported) Entered as Reported by: JULIUS GARBER on 04/20/22 1230 Ketoconazole (Ketoconazole) 2 % Shampoo, 1 APPLIC UD PRN for WHEN SHOWERING, (Reported) Entered as Reported by: JULIUS GARBER on 04/20/22 1354 Lidocaine (Lidocaine 5% Patch) 5 % Adh..patch, 1 EACH TP DAILY, (Reported) Entered as Reported by: JULIUS GARBER on 04/20/22 1230 Liraglutide (Victoza 2-Eagle) 0.6 Mg/0.1 Ml (18 Mg/3 Ml) Pen.injctr, 1.2 MG SQ DAILY, (Reported) Entered as Reported by: ASHLEY GREWAL on 12/18/16 0846 Losartan Potassium (Losartan Potassium) 50 Mg Tablet, 50 MG PO DAILY, (Reported) Entered as Reported by: ANTOINETTE MCKEON on 08/15/21 0845 Magnesium Oxide (Magnesium) 400 Mg Magnesium Tablet, 400 MG PO BID, (Reported) Entered as Reported by: JULIUS GARBER on 04/20/22 1424 Meclizine HCl (Meclizine HCl) 25 Mg Tablet, 25 MG PO TID PRN for DIZZINESS, (Reported) Entered as Reported by: ASHLEY GREWAL on 12/18/16 0846 Meloxicam (Meloxicam) 15 Mg Tablet, 15 MG PO DAILY, (Reported) Entered as Reported by: ASHLEY GREWAL on 12/18/16 0846 Memantine HCl/Donepezil HCl (Namzaric 28 mg-10 mg Capsule) 28 Mg-10 Mg Cap.spr.24, 1 EACH PO DAILY, (Reported) Entered as Reported by: ANTOINETTE MCKEON on 08/15/21 0845 Metformin HCl (Metformin HCl) 500 Mg Tablet, 500 MG PO BID WITH MEALS, (Reported) Entered as Reported by: JULIUS GARBER on 04/20/22 1230 Methylprednisolone (Methylprednisolone Dose Pack) 4 Mg Tab.ds.pk, 4 MG PO UD Prescribed by: JANE QUINTANILLA on 06/05/22 1122 Metoprolol Succinate (Metoprolol Succinate) 100 Mg Tab.er.24h, 100 MG PO DAILY, (Reported) Entered as Reported by: ANTOINETTE MCKEON on 08/15/21 0845 Montelukast Sodium (Montelukast Sodium) 10 Mg Tablet, 10 MG PO HS, (Reported) Entered as Reported by: ANTOINETTE MCKEON on 08/15/2145 Nitroglycerin (Nitroglycerin) 0.4 Mg Tab.subl, 0.4 MG SL UD PRN for CHEST PAIN, (Reported) Entered as Reported by: ASHLEY GREWAL on 12/18/16 0846 Nystatin (Nystatin) 15 Gm Cream..g., TP BID PRN for SORES, (Reported) Entered as Reported by: ASHLEY GREWAL on 12/18/16845 Ondansetron (Ondansetron Odt) 4 Mg Tab.rapdis, 4 MG PO Q8H PRN for NAUSEA/VOMITING-1ST LINE, (Reported) Entered as Reported by: JULIUS GARBER on 04/20/22 1354 Oxycodone HCl (Oxycodone HCl ER) 40 Mg Tab.er.12h, 40 MG PO BID Prescribed by: JANE QUINTANILLA on 06/05/22 1123 Oxycodone HCl (Oxycontin) 10 Mg Tab.er.12h, 10 MG PO BID Prescribed by: JANE QUINTANILLA on 06/05/22 1123 Pantoprazole Sodium (Protonix) 40 Mg Tablet.dr, 40 MG PO DAILY, (Reported) Entered as Reported by: ASHLEY GREWAL on 12/18/16 0945 Polyethylene Glycol 3350 (Miralax) 17 Gm Powd.pack, 17 GM PO DAILY PRN for CONSTIPATION-2ND LINE, (Reported) Entered as Reported by: ASHLEY GREWAL on 12/18/16 0846 Pramipexole Di-HCl (Pramipexole Dihydrochloride) 1 Mg Tablet, 1 MG PO 0800,1200,1800, (Reported) Entered as Reported by: ANTOINETTE MCKEON on 08/15/21 0845 Promethazine HCl (Promethazine Tablet) 25 Mg Tablet, 25 MG PO Q6H PRN for NAUSEA/VOMITING, (Reported) Entered as Reported by: JULIUS GARBER on 04/20/22 1354 Sucralfate (Sucralfate) 1 Gram Tablet, 1 GM PO BID, (Reported) Entered as Reported by: ANTOINETTE MCKEON on 08/15/21 0845 Tadalafil (Cialis) 5 Mg Tablet, 5 MG PO DAILY PRN for URINARY SYMPTOMS, (Reported) Entered as Reported by: JULIUS GARBER on 04/20/22 1255 Tamsulosin HCl (Flomax) 0.4 Mg Cap, 0.8 MG PO HS, (Reported) Entered as Reported by: UJLIUS GARBER on 04/20/22 1230 Trazodone HCl (Trazodone HCl) 100 Mg Tablet, 100 MG PO HS, (Reported) Entered as Reported by: ANTOINETTE MCKEON on 08/15/21 0845 Triamcinolone Acet (Triamcinolone Acetonide 0.1% Ointment) 0.1 % Oint, 1 APPLIC TP DAILY PRN for SKIN IRRITATION, (Reported) Entered as Reported by: ASHLEY GREWAL on 12/18/16 0846 Review of Systems Review of Systems Constitutional: see HPI, malaise, weakness EENTM: No Symptoms Reported Respiratory: No Symptoms Reported Cardiovascular: No Symptoms Reported Gastrointestinal: Abdominal Pain, Poor Appetite Genitourinary: Other (blood from penis a few days ago, otherwise "clear urine") Past Lwjsmal-Buobcb-Xxbdds Hx Patient Social History Tobacco Use?: No Substance use?: No Alcohol Use?: No Immunizations Up To Date Tetanus Booster (TDap): More than 5yrs PED Vaccines UTD: Yes Seasonal Allergies Seasonal Allergies: No Past Medical History Surgery/Hospitalization HX: MULT SX ON NECK,BACK,KNEES REPLACEMENT,BOTH SHOULDER REPAIRED. Pacemaker, DM Surgeries: Yes (r knee surgery x4, l tra, back surgery x6, hiatal hernia repair, neck) Eye Surgery, Pacemaker Respiratory: Yes Sleep Apnea Currently Using CPAP: Yes Currently Using BIPAP: No Cardiac: Yes (svt) High Cholesterol, Hypertension Neurological: Yes Dementia Reproductive Disorders: No Sexually Transmitted Disease: No Genitourinary: No Gastrointestinal: Yes Gall Bladder Disease Musculoskeletal: Yes Degenerate Disk Disease, Arthritis, Chronic Back Pain Endocrine: Yes Diabetes, Non-Insulin dep HEENT: Yes Cataract Loss of Vision: Denies Hearing Impairment: Denies Cancer: No Did You Recieve Any Treatments: No Psychosocial: Yes Sleep Difficulties, Anxiety Integumentary: Yes Eczema Blood Disorders: No Adverse Reaction/Blood Tranf: No Family Medical History Cancer 03 MOTHER 09 SISTER Family history: Cardiovascular disease 03 FATHER Family history: Diabetes mellitus 03 FATHER 09 BROTHER Family history: Hypertension 03 FATHER 09 BROTHER No Pertinent Family Hx Physical Exam Vital Signs Vital Signs - First Documented 10/11/22 10:45 Temp 36.4 Pulse 64 Resp 16 B/P (MAP) 142/100 (114) Pulse Ox 99 O2 Delivery Room Air Capillary Refill : Less Than 3 Seconds Height/Weight/BMI Height: 6'2.00" Weight: 224lbs. 0.0oz. [id number]; 26.00 BMI Method:Stated General Appearance: WD/WN, no apparent distress, obese HEENT: PERRL/EOMI Respiratory: lungs clear, normal breath sounds, no respiratory distress, no accessory muscle use Cardiovascular: regular rate, rhythm Gastrointestinal: normal bowel sounds, soft, tenderness (very tender to pal pation in the left abdomen. No overlying rashes. 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, no motor/sensory deficits, alert, normal mood/affect, oriented x 3 Skin: normal color, warm/dry; No rash Progress/Results/Core Measures Results/Orders Lab Results Laboratory Tests Test 10/11/22 10:35 10/11/22 10:55 10/11/22 11:18 Range/Units C-Reactive Protein High Sensitivity 0.32 0.00-0.50 MG/DL White Blood Count 5.4 4.3-11.0 10^3/uL Red Blood Count 4.97 4.30-5.52 10^6/uL Hemoglobin 12.1 L 13.3-17.7 g/dL Hematocrit 37 L 40-54 % Mean Corpuscular Volume 74 L 80-99 fL Mean Corpuscular Hemoglobin 24 L 25-34 pg Mean Corpuscular Hemoglobin Concent 33 32-36 g/dL Red Cell Distribution Width 17.8 H 10.0-14.5 % Platelet Count 155 130-400 10^3/uL Mean Platelet Volume 10.3 9.0-12.2 fL Immature Granulocyte % (Auto) 0 % Neutrophils (%) (Auto) 45 42-75 % Lymphocytes (%) (Auto) 46 H 12-44 % Monocytes (%) (Auto) 7 0-12 % Eosinophils (%) (Auto) 2 0-10 % Basophils (%) (Auto) 0 0-10 % Neutrophils # (Auto) 2.4 1.8-7.8 10^3/uL Lymphocytes # (Auto) 2.5 1.0-4.0 10^3/uL Monocytes # (Auto) 0.4 0.0-1.0 10^3/uL Eosinophils # (Auto) 0.1 0.0-0.3 10^3/uL Basophils # (Auto) 0.0 0.0-0.1 10^3/uL Immature Granulocyte # (Auto) 0.0 0.0-0.1 10^3/uL Percent Immature Platelet Fraction 5.3 0.0-7.6 % Erythrocyte Sedimentation Rate 6 0-30 MM/HR Sodium Level 138 135-145 MMOL/L Potassium Level 3.8 3.6-5.0 MMOL/L Chloride Level 103 98-107 MMOL/L Carbon Dioxide Level 25 21-32 MMOL/L Anion Gap 10 5-14 MMOL/L Blood Urea Nitrogen 12 7-18 MG/DL Creatinine 0.80 0.60-1.30 MG/DL Estimat Glomerular Filtration Rate 93 BUN/Creatinine Ratio 15 Glucose Level 169 H 70-105 MG/DL Calcium Level 9.6 8.5-10.1 MG/DL Corrected Calcium 9.5 8.5-10.1 MG/DL Total Bilirubin 1.2 H 0.1-1.0 MG/DL Aspartate Amino Transf (AST/SGOT) 16 5-34 U/L Alanine Aminotransferase (ALT/SGPT) 13 0-55 U/L Alkaline Phosphatase 166 H 40-136 U/L Total Protein 7.4 6.4-8.2 GM/DL Albumin 4.1 3.2-4.5 GM/DL Urine Color YELLOW Urine Clarity CLEAR Urine pH 6.0 5-9 Urine Specific [place] 1.010 L 1.016-1.022 Urine Protein NEGATIVE NEGATIVE Urine Glucose (UA) NEGATIVE NEGATIVE Urine Ketones NEGATIVE NEGATIVE Urine Nitrite NEGATIVE NEGATIVE Urine Bilirubin NEGATIVE NEGATIVE Urine Urobilinogen 0.2 < = 1.0 MG/DL Urine Leukocyte Esterase NEGATIVE NEGATIVE Urine RBC (Auto) NEGATIVE NEGATIVE Urine RBC RARE /HPF Urine WBC RARE /HPF Urine Squamous Epithelial Cells 0-2 /HPF Urine Crystals NONE /LPF Urine Bacteria TRACE /HPF Urine Casts NONE /LPF Urine Mucus SMALL H /LPF Urine Culture Indicated NO My Orders Orders - JEANINE PRYOR MD Ed Iv/Invasive Line Start (10/11/22 11:06) Cbc With Automated Diff (10/11/22 11:06) Comprehensive Metabolic Panel (10/11/22 11:06) Ct Abdomen/Pelvis W (10/11/22 11:06) Ns Iv 1000 Ml (Sodium Chloride 0.9%) (10/11/22 11:06) Fentanyl Inj (Sublimaze Injection) (10/11/22 11:15) Ondansetron Injection (Zofran Injectio (10/11/22 11:15) Iohexol Injection (Omnipaque 350 Mg/Ml 1 (10/11/22 11:45) Received Contrast (Hold Metformin- Contr (10/11/22 11:45) Ns (Ivpb) 100 Ml (Sodium Chloride 0.9% 1 (10/11/22 11:45) Fentanyl Inj (Sublimaze Injection) (10/11/22 12:30) Erythrocyte Sedimentation Rate (10/11/22 13:09) Hs C Reactive Protein (10/11/22 13:13) Medications Given in ED Vital Signs/I&O 10/11/22 10/11/22 10:45 14:29 Temp 36.4 Pulse 64 60 Resp 16 16 B/P (MAP) 142/100 (114) 188/100 Pulse Ox 99 100 O2 Delivery Room Air Room Air Blood Pressure Mean: 114 Progress Progress Note : Time: 14:25 Progress Note Patient seen and evaluated by me. Evaluation today includes physical exam, CBC, Chem-12, CRP, sed rate and CT abdomen and pelvis without IV contrast. Pertinent physical exam findings elderly male in no acute distress. Well-developed well- nourished, moderately obese. Heart is regular, lungs are clear. Abdomen is soft with significant tenderness in the left lower and left mid abdomen. He does have CVA tenderness as well as tenderness over the entirety of the midline lumbar spine. He has no focal weakness or sensory disturbance in the lower extremities bilaterally. He is not incontinent. His vital signs are stable. Differential diagnosis based on history and physical exam, diverticulitis, urinary tract infection Labs independently reviewed and interpreted by me. His CBC shows a total white count of 5.4 with 46% lymphs. Hemoglobin is 12.1 hematocrit is 37, platelet count of 155. His sed rate is normal at 6. CRP 0.32. Chem-12 shows a glucose of 169 mildly elevated bili at 1.2, alk phos is slightly increased at 166. Urinalysis reveals no hematuria, no evidence of infection. CT abdomen and pelvis as read by the radiologist is normal except for interval increase in possible inflammatory change in the upper lumbar spine. No evidence of diverticulitis. There is significant irregularity at the L1-L2 disc. Initially I had not ordered the CRP and sed rate and after talking with the and patient regarding his "spine infection" several months ago these labs were added. Concerning for possible reinfection in the spine causing radiating pain into the abdomen. The patient was treated in the emergency department with IV fentanyl with improvement in his pain. As these inflammatory markers are not significantly elevated, he is not febrile, I do not feel that he has new infection in the lumbar spine. I advised the patient and his to monitor him for worsening symptoms and especially fever. I encouraged close follow-up with his primary care physician. He has no focal neurologic deficits or weakness or acute worsening of actual spine pain. I advised if he should worsen that they come back to the emergency department. His is comfortable with the plan of care. All questions have been sought and answered. Patient is stable for discharge. Diagnostic Imaging Diagonstic Imaging: CT Comments [facility] [place], [place] NAME: TAYLOR MATUTE [facility] REC#: [id number] PT STATUS: REG ER : 1950 PHYSICIAN: JEANINE PRYOR MD ADMIT DATE: 10/11/22/ER Signed Date of Exam:10/11/22 CT ABDOMEN/PELVIS W PROCEDURE: CT abdomen and pelvis with contrast. TECHNIQUE: Multiple contiguous axial images were obtained through the abdomen and pelvis after administration of intravenous contrast. Auto Exposure Controls were utilized during the CT exam to meet ALARA standards for radiation dose reduction. All CT scans use one or more of the following dose optimizing techniques: automated exposure control, MA and/or KvP adjustment based on patient size and exam type or iterative reconstruction. INDICATION: Hematuria with left flank pain and weight loss COMPARISON: 01/06/2020 There is no focal hepatic abnormality. Spleen is at the upper limits of normal for size without other evidence of focal abnormality. No definite pancreatic or adrenal gland abnormality is seen. There are bilateral renal cortical cysts with the largest in the upper pole left kidney showing interval increase in size. No perinephric fluid or inflammation is identified. Extensive surgical findings are noted in the lumbar spine and pelvis. There is significant joint space narrowing and endplate irregularity at the L1-L2 level. This also contains gas likely due to vacuum phenomenon. There is however associated cortical irregularity and surrounding edema and inflammation. No organized fluid collection is identified. Unopacified bladder is unremarkable. IMPRESSION: No definite acute abnormality is identified within the abdominal pelvic viscera although there does appear to be an interval increase in possible inflammation in the upper lumbar spine. There is significant irregularity of the L1-L2 disc. Correlation to site of pain would be useful. There is no evidence of obstructive uropathy. Dictated by: Dictated on workstation # [id number] Dict: 10/11/22 1152 Trans: 10/11/22 1426 [facility] [id number] Interpreted by: BRENDAN ROBBINS MD Electronically signed by: BRENDAN ROBBINS MD 10/11/22 1426 Departure Impression Primary Impression: Intractable low back pain Disposition: 01 HOME, SELF-CARE Condition: Stable Departure-Patient Inst. Decision time for Depature: 14:25 Referrals: SIMBA READ DO (PCP/Family) Primary Care Physician Patient Instructions: Low Back Pain ED Add. Discharge Instructions: Take your hydrocodone pain medication as needed/directed for your back pain. You can also use your lidocaine patches for pain. Please follow packaging instructions. Heating pads can also help. Take a daily stool softener if you are having to take your hydrocodone every day. Please call Dr. Read's office today for a follow-up appointment early next week. Monitor your symptoms for any fever over 100.4 if you have a fever and worsening pain please return to the emergency department for reevaluation. Copy Copies To 1: SIMBA READ KATHRYN M MD Oct 11, 2022 11:06
[2022-10-11 11:14] LABS: HEMOGLOBIN 12.1 g/dL (13.3-17.7)
[2022-10-11] MEDS ORDERED: ONDANSETRON 4 MG/2 ML (SDV) Z0FRAN IVP ONE (11:15)
[2022-10-11] MEDS ORDERED: fentaNYL INJ 100 MCG/2 ML AMP IVP ONE ×2 (11:15→12:30)
[2022-10-11 11:16] LABS: BASOPHILS % (AUTO) 0 % (0-10); EOSINOPHILS # (AUTO) 0.1 10^3/uL (0.0-0.3); EOSINOPHILS % (AUTO) 2 % (0-10); HEMATOCRIT 37 % (40-54); LYMPHOCYTES # (AUTO) 2.5 10^3/uL (1.0-4.0); LYMPHOCYTES % (AUTO) 46 % (12-44); MEAN CORPUSCULAR HEMOGLOBIN 24 pg (25-34); MEAN CORPUSCULAR HGB CONC 33 g/dL (32-36); MEAN CORPUSCULAR VOLUME 74 fL (80-99); MEAN PLATELET VOLUME 10.3 fL (9.0-12.2); MONOCYTES # (AUTO) 0.4 10^3/uL (0.0-1.0); MONOCYTES % (AUTO) 7 % (0-12); NEUTROPHILS # (AUTO) 2.4 10^3/uL (1.8-7.8); NEUTROPHILS % (AUTO) 45 % (42-75); PLATELET COUNT 155 10^3/uL (130-400); WHITE BLOOD COUNT 5.4 10^3/uL (4.3-11.0)
[2022-10-11 11:20] LABS: ALBUMIN 4.1 GM/DL (3.2-4.5); POTASSIUM 3.8 MMOL/L (3.6-5.0)
[2022-10-11 11:21] LABS: CALCIUM 9.6 MG/DL (8.5-10.1)
[2022-10-11 11:22] LABS: TOTAL PROTEIN 7.4 GM/DL (6.4-8.2)
[2022-10-11 11:22] LABS: BILIRUBIN,URINE NEGATIVE (NEGATIVE); CLARITY,URINE CLEAR; COLOR,URINE YELLOW; GLUCOSE, URINE (UA) NEGATIVE (NEGATIVE); KETONES,URINE NEGATIVE (NEGATIVE); LEUKOCYTE ESTERASE ,URINE NEGATIVE (NEGATIVE); NITRITE,URINE NEGATIVE (NEGATIVE); PROTEIN,URINE NEGATIVE (NEGATIVE)
[2022-10-11 11:24] LABS: BILIRUBIN,TOTAL 1.2 MG/DL (0.1-1.0)
[2022-10-11 11:26] LABS: CREATININE SERUM 0.8 MG/DL (0.60-1.30)
[2022-10-11 11:37] LABS: RBC,URINE RARE /HPF; WBC,URINE RARE /HPF
[2022-10-11 11:38] LABS: BACTERIA,URINE TRACE /HPF; SQUAMOUS EPITHELIAL CELL,UR 0-2 /HPF
[2022-10-11] MEDS ORDERED: HOLD METFORMIN - RECEIVED CONTRAST 20 ML VIAL IV SCH (11:45)
[2022-10-11] MEDS ORDERED: NS 100 ML (IVPB) BAG IV ONE (11:45)
[2022-10-11] MEDS ORDERED: IOHEXOL 350 MG/ML 100 ML (OMNIPAQUE 350) VIAL IV ONE (11:45)
--- NOTE | 2022-10-11 12:13 | Diagnostic Imaging Report ---
PROCEDURE: CT abdomen and pelvis with contrast. TECHNIQUE: Multiple contiguous axial images were obtained through the abdomen and pelvis after administration of intravenous contrast. Auto Exposure Controls were utilized during the CT exam to meet ALARA standards for radiation dose reduction. All CT scans use one or more of the following dose optimizing techniques: automated exposure control, MA and/or KvP adjustment based on patient size and exam type or iterative reconstruction. INDICATION: Hematuria with left flank pain and weight loss COMPARISON: 01/06/2020 There is no focal hepatic abnormality. Spleen is at the upper limits of normal for size without other evidence of focal abnormality. No definite pancreatic or adrenal gland abnormality is seen. There are bilateral renal cortical cysts with the largest in the upper pole left kidney showing interval increase in size. No perinephric fluid or inflammation is identified. Extensive surgical findings are noted in the lumbar spine and pelvis. There is significant joint space narrowing and endplate irregularity at the L1-L2 level. This also contains gas likely due to vacuum phenomenon. There is however associated cortical irregularity and surrounding edema and inflammation. No organized fluid collection is identified. Unopacified bladder is unremarkable. IMPRESSION: No definite acute abnormality is identified within the abdominal pelvic viscera although there does appear to be an interval increase in possible inflammation in the upper lumbar spine. There is significant irregularity of the L1-L2 disc. Correlation to site of pain would be useful. There is no evidence of obstructive uropathy. Dictated by: Dictated on workstation # [id number]
[2022-10-11 14:29] VITALS: BP 188/100
== END 2022-10-11 14:29 | disposition home or self-care (01) ==
LOC: EDUNIT# 10:39 → ER 10:41
DX: M54.50 Low back pain, unspecified (principal); R31.9 Hematuria, unspecified; R10.32 Left lower quadrant pain; R10.12 Left upper quadrant pain; E80.7 Disorder of bilirubin metabolism, unspecified; G47.30 Sleep apnea, unspecified; E66.9 Obesity, unspecified; E11.9 Type 2 diabetes mellitus without complications; Z68.26 Body mass index [BMI] 26.0-26.9, adult; Z99.89 Dependence on other enabling machines and devices; Z87.19 Personal history of other diseases of the digestive system; Z98.890 Other specified postprocedural states
CPT/HCPCS: 36415; 74177; 80053; 81000; 85025; 85652; 86141

== ENCOUNTER 2022-11-20 10:05 | Emergency (ER) | payer MEDICARE, MEDICAID ==
[~2022-11-20] VITALS: Ht 185.4 cm; Wt 93.0 kg
[~2022-11-20 10:05] MED LIST changes: +DICY-11 PO; -DICY10CA12 PO
[2022-11-20 11:02] LABS: CLARITY,URINE CLEAR; COLOR,URINE YELLOW
[2022-11-20 11:03] LABS: BILIRUBIN,URINE NEGATIVE (NEGATIVE); GLUCOSE, URINE (UA) NEGATIVE (NEGATIVE); KETONES,URINE NEGATIVE (NEGATIVE); LEUKOCYTE ESTERASE ,URINE NEGATIVE (NEGATIVE); NITRITE,URINE NEGATIVE (NEGATIVE); PROTEIN,URINE NEGATIVE (NEGATIVE); RBC,URINE RARE /HPF
[2022-11-20 11:04] LABS: BACTERIA,URINE TRACE /HPF; SQUAMOUS EPITHELIAL CELL,UR RARE /HPF
--- NOTE | 2022-11-20 11:38 | ED General ---
General Chief Complaint: - Reproductive Stated Complaint: URINARY PAIN, LOWER BACK PAIN Nursing Triage Note: ARRIVES TO ED WITH A C/O INCREASED FREQUENCY WITH URINATION SINCE THE REMOVAL OF A CATHETER HE HAD IN PLACE FOR ONE MONTH WHILE IN THE HOSPITAL ONE MONTH AGO. Source of Information: Patient, Family Exam Limitations: No Limitations History of Present Illness Date Seen by Provider: Nov 20, 2022 Time Seen by Provider: 10:36 Initial Comments Patient is a 72-year-old male who presents to the emergency room with a chief complaint of increased urinary frequency to the point of almost being incontinent. He had a catheter for approximately 1 month about a month ago. He states it was removed and ever since then he has had increased frequency. He denies dysuria. He does have a little suprapubic discomfort. He feels like he is emptying his bladder completely. No incontinence of stool. He has had quite a difficult go of things the last year with multiple spine infections. He denies any increased weakness in his legs or loss of sensation. He denies fever. He is occasionally nauseated. Timing/Duration: Other (1 month) Severity: Moderate Associated Systoms: Nausea/Vomiting Allergies and Home Medications Allergies Coded Allergies: Penicillins (Verified Allergy, Intermediate, RASH, 12/22/10) Patient Home Medication List Home Medication List Reviewed: Yes Acetaminophen (Tylenol) 325 Mg Capsule, 650 MG PO Q6H PRN for PAIN-MILD (1-4), (Reported) Entered as Reported by: JULIUS GARBER on 04/20/22 1230 Albuterol Sulfate (Albuterol Sulfate) 2.5 Mg/0.5 Ml Vial.neb, 2.5 MG INH Q8H PRN for SHORTNESS OF BREATH, (Reported) Entered as Reported by: JULIUS GARBER on 04/20/22 1230 Alprazolam (Alprazolam) 1 Mg Tablet, 1 MG PO BID, (Reported) Entered as Reported by: ASHLEY GREWAL on 12/18/16 08 Aspirin (Aspirin EC) 81 Mg Tablet.dr, 81 MG PO DAILY, (Reported) Entered as Reported by: ASHLEY GREWAL on 12/18/16845 Atorvastatin Calcium (Atorvastatin Calcium) 20 Mg Tablet, 20 MG PO HS, (Reported) Entered as Reported by: ASHLEY GREWAL on 12/18/16845 Baclofen (Baclofen) 10 Mg Tablet, 10 MG PO TID PRN for PAIN-BREAKTHROUGH, (Reported) Entered as Reported by: ASHLEY GREWAL on 12/18/16 0846 Bisacodyl (Bisacodyl) 5 Mg Tablet.dr, 5 MG PO DAILY PRN for CONSTIPATION-4TH LINE, (Reported) Entered as Reported by: ASHLEY GREWAL on 07/18/17 1349 Carboxymethylcellulose Sodium (Refresh Tears) 0.5 % Drops, 1-2 DROP OU UD PRN for DRY EYES, (Reported) Entered as Reported by: JULIUS GARBER on 04/20/22 1324 Cetirizine HCl (Cetirizine HCl) 10 Mg Tablet, 10 MG PO DAILY, (Reported) Entered as Reported by: ASHLEY GREWAL on 12/18/16 0846 Docusate Sodium (Docusate Sodium) 100 Mg Capsule, 100 MG PO BID PRN for CONSTIPATION-1ST LINE, (Reported) Entered as Reported by: ASHLEY GREWAL on 12/18/16 0846 Ferrous Sulfate (Iron) 325 Mg (65 Mg Iron) Tablet, 325 MG PO Q48H Prescribed by: JANE QUINTANILLA on 06/05/22 0953 Fluticasone Propionate (Flonase Allergy Relief) 50 Mcg/Actuation [place].susp, 1 SPRAY NS DAILY PRN for CONGESTION, (Reported) Entered as Reported by: JULIUS GARBER on 04/20/22 1230 Glipizide (Glipizide ER) 5 Mg Tab.er.24, 5 MG PO 1800, (Reported) Entered as Reported by: JULIUS GARBER on 04/20/22 1230 Insulin Detemir (Levemir Flextouch) 100 Unit/Ml (3 Ml) Insuln.pen, 15 UNIT SQ HS, (Reported) Entered as Reported by: JULIUS GARBER on 04/20/22 1230 Ketoconazole (Ketoconazole) 2 % Shampoo, 1 APPLIC UD PRN for WHEN SHOWERING, (Reported) Entered as Reported by: JULIUS GARBER on 04/20/22 1354 Lidocaine (Lidocaine 5% Patch) 5 % Adh..patch, 1 EACH TP DAILY, (Reported) Entered as Reported by: JULIUS GARBER on 04/20/22 1230 Liraglutide (Victoza 2-Eagle) 0.6 Mg/0.1 Ml (18 Mg/3 Ml) Pen.injctr, 1.2 MG SQ DAILY, (Reported) Entered as Reported by: ASHLEY GREWAL on 12/18/16845 Losartan Potassium (Losartan Potassium) 50 Mg Tablet, 50 MG PO DAILY, (Reported) Entered as Reported by: ANTOINETTE MCKEON on 08/15/21844 Magnesium Oxide (Magnesium) 400 Mg Magnesium Tablet, 400 MG PO BID, (Reported) Entered as Reported by: JULIUS GARBER on 04/20/22 1424 Meclizine HCl (Meclizine HCl) 25 Mg Tablet, 25 MG PO TID PRN for DIZZINESS, (Reported) Entered as Reported by: ASHLEY GREWAL on 12/18/16845 Meloxicam (Meloxicam) 15 Mg Tablet, 15 MG PO DAILY, (Reported) Entered as Reported by: ASHLEY GREWAL on 12/18/16845 Memantine HCl/Donepezil HCl (Namzaric 28 mg-10 mg Capsule) 28 Mg-10 Mg Cap.spr.24, 1 EACH PO DAILY, (Reported) Entered as Reported by: ANTOINETTE MCKEON on 08/15/21844 Metformin HCl (Metformin HCl) 500 Mg Tablet, 500 MG PO BID WITH MEALS, (Reported) Entered as Reported by: JULIUS GARBER on 04/20/22 1230 Methylprednisolone (Methylprednisolone Dose Pack) 4 Mg Tab.ds.pk, 4 MG PO UD Prescribed by: JANE QUINTANILLA on 06/05/22 1122 Metoprolol Succinate (Metoprolol Succinate) 100 Mg Tab.er.24h, 100 MG PO DAILY, (Reported) Entered as Reported by: ANTOINETTE MCKEON on 08/15/21844 Montelukast Sodium (Montelukast Sodium) 10 Mg Tablet, 10 MG PO HS, (Reported) Entered as Reported by: ANTOINETTE MCKEON on 08/15/21844 Nitroglycerin (Nitroglycerin) 0.4 Mg Tab.subl, 0.4 MG SL UD PRN for CHEST PAIN, (Reported) Entered as Reported by: ASHLEY GREWAL on 12/18/16845 Nystatin (Nystatin) 15 Gm Cream..g., TP BID PRN for SORES, (Reported) Entered as Reported by: ASHLEY GREWAL on 12/18/16 0846 Ondansetron (Ondansetron Odt) 4 Mg Tab.rapdis, 4 MG PO Q8H PRN for NAUSEA/VOMITING-1ST LINE, (Reported) Entered as Reported by: JULIUS GARBER on 04/20/22 1354 Oxycodone HCl (Oxycodone HCl ER) 40 Mg Tab.er.12h, 40 MG PO BID Prescribed by: JANE QUINTANILLA on 06/05/22 1123 Oxycodone HCl (Oxycontin) 10 Mg Tab.er.12h, 10 MG PO BID Prescribed by: JANE QUINTANILLA on 06/05/22 1123 Pantoprazole Sodium (Protonix) 40 Mg Tablet.dr, 40 MG PO DAILY, (Reported) Entered as Reported by: ASHLEY GREWAL on 12/18/16 0945 Polyethylene Glycol 3350 (Miralax) 17 Gm Powd.pack, 17 GM PO DAILY PRN for CONSTIPATION-2ND LINE, (Reported) Entered as Reported by: ASHLEY GREWAL on 12/18/16 0846 Pramipexole Di-HCl (Pramipexole Dihydrochloride) 1 Mg Tablet, 1 MG PO 0800,1200,1800, (Reported) Entered as Reported by: ANTOINETTE MCKEON on 08/15/21 0845 Promethazine HCl (Promethazine Tablet) 25 Mg Tablet, 25 MG PO Q6H PRN for NAUSEA/VOMITING, (Reported) Entered as Reported by: JULIUS GARBER on 04/20/22 1354 Sucralfate (Sucralfate) 1 Gram Tablet, 1 GM PO BID, (Reported) Entered as Reported by: ANTOINETTE MCKEON on 08/15/21 0845 Tadalafil (Cialis) 5 Mg Tablet, 5 MG PO DAILY PRN for URINARY SYMPTOMS, (Reported) Entered as Reported by: JULIUS GARBER on 04/20/22 1255 Tamsulosin HCl (Flomax) 0.4 Mg Cap, 0.8 MG PO HS, (Reported) Entered as Reported by: JULIUS GARBER on 04/20/22 1230 Trazodone HCl (Trazodone HCl) 100 Mg Tablet, 100 MG PO HS, (Reported) Entered as Reported by: ANTOINETTE MCKEON on 08/15/21 0845 Triamcinolone Acet (Triamcinolone Acetonide 0.1% Ointment) 0.1 % Oint, 1 APPLIC TP DAILY PRN for SKIN IRRITATION, (Reported) Entered as Reported by: ASHLEY GREWAL on 12/18/16 0846 Review of Systems Review of Systems Constitutional: see HPI Respiratory: no symptoms reported Cardiovascular: no symptoms reported Gastrointestinal: no symptoms reported Genitourinary: incontinence Musculoskeletal: no symptoms reported Skin: no symptoms reported Psychiatric/Neurological: No Symptoms Reported All Other Systems Reviewed Negative Unless Noted: Yes Past Tqjdacv-Jgocap-Spogmn Hx Patient Social History Tobacco Use?: No Substance use?: No Alcohol Use?: No Pt feels they are or have been: No Immunizations Up To Date Tetanus Booster (TDap): More than 5yrs PED Vaccines UTD: Yes Seasonal Allergies Seasonal Allergies: No Past Medical History Surgery/Hospitalization HX: MULT SX ON NECK,BACK,KNEES REPLACEMENT,BOTH SHOULDER REPAIRED. Pacemaker, DM Surgeries: Yes (r knee surgery x4, l tra, back surgery x6, hiatal hernia repair, neck) Eye Surgery, Pacemaker Respiratory: Yes Sleep Apnea Currently Using CPAP: Yes Currently Using BIPAP: No Cardiac: Yes (svt) High Cholesterol, Hypertension Neurological: Yes Dementia Reproductive Disorders: No Sexually Transmitted Disease: No Genitourinary: No Gastrointestinal: Yes Gall Bladder Disease Musculoskeletal: Yes Degenerate Disk Disease, Arthritis, Chronic Back Pain Endocrine: Yes Diabetes, Non-Insulin dep HEENT: Yes Cataract Loss of Vision: Denies Hearing Impairment: Denies Cancer: No Did You Recieve Any Treatments: No Psychosocial: Yes Sleep Difficulties, Anxiety Integumentary: Yes Eczema Blood Disorders: No Adverse Reaction/Blood Tranf: No Family Medical History Cancer 03 MOTHER 09 SISTER Family history: Cardiovascular disease 03 FATHER Family history: Diabetes mellitus 03 FATHER 09 BROTHER Family history: Hypertension 03 FATHER 09 BROTHER No Pertinent Family Hx Physical Exam Vital Signs Vital Signs - First Documented 11/20/22 10:10 Temp 36.8 Pulse 94 Resp 18 B/P (MAP) 158/110 (126) Pulse Ox 99 O2 Delivery Room Air Capillary Refill : Less Than 3 Seconds Height, Weight, BMI Height: 6'2.00" Weight: 224lbs. 0.0oz. 101.894549ml; 27.00 BMI Method:Stated General Appearance: No Apparent Distress, WD/WN Eyes: Bilateral Eye Normal Inspection, Bilateral Eye PERRL, Bilateral Eye EOMI HEENT: PERRL/EOMI Respiratory: Lungs Clear, Normal Breath Sounds, No Accessory Muscle Use, No Respiratory Distress Cardiovascular: Regular Rate, Rhythm, Normal Peripheral Pulses Gastrointestinal: Soft, Tenderness (Mild suprapubic tenderness) Extremity: Normal Capillary Refill, Normal Inspection, Normal Range of Motion Neurologic/Psychiatric: Alert, Oriented x3, No Motor/Sensory Deficits, Normal Mood/Affect Skin: Normal Color, Warm/Dry Progress/Results/Core Measures Suspected Sepsis SIRS Temperature: Pulse: 94 Respiratory Rate: 18 Blood Pressure 158 /110 Mean: 126 Results/Orders Lab Results Laboratory Tests Test 11/20/22 10:38 11/20/22 10:53 Range/Units Urine Color YELLOW Urine Clarity CLEAR Urine pH 6.0 5-9 Urine Specific [place] 1.020 1.016-1.022 Urine Protein NEGATIVE NEGATIVE Urine Glucose (UA) NEGATIVE NEGATIVE Urine Ketones NEGATIVE NEGATIVE Urine Nitrite NEGATIVE NEGATIVE Urine Bilirubin NEGATIVE NEGATIVE Urine Urobilinogen 0.2 < = 1.0 MG/DL Urine Leukocyte Esterase NEGATIVE NEGATIVE Urine RBC (Auto) NEGATIVE NEGATIVE Urine RBC RARE /HPF Urine WBC NONE /HPF Urine Squamous Epithelial Cells RARE /HPF Urine Crystals NONE /LPF Urine Bacteria TRACE /HPF Urine Casts NONE /LPF Urine Mucus SMALL H /LPF Urine Culture Indicated NO Glucometer 93 70-110 MG/DL My Orders Orders - JEANINE PRYOR MD Ua Culture If Indicated (11/20/22 10:20) Vital Signs/I&O 11/20/22 10:10 Temp 36.8 Pulse 94 Resp 18 B/P (MAP) 158/110 (126) Pulse Ox 99 O2 Delivery Room Air Capillary Refill : Less Than 3 Seconds Blood Pressure Mean: 126 Progress Note : Time: 11:35 Progress Note Patient seen and evaluated by me. Evaluation today includes physical exam, urinalysis. Patient also had bedside bladder scan. Pertinent physical exam findings well-developed well-nourished male in no acute distress. Vital signs are stable, exam is remarkable for only mild suprapubic tenderness. No involuntary guarding or rebound. Bowel sounds are present. No significant lower extremity edema. Differential diagnosis based on history and physical exam, urinary tract infection. Labs independently reviewed and interpreted by me. His urinalysis is clear of infection, no hematuria no white blood cells, nitrite negative, leukocyte Estrace negative. His bladder scan postvoid showed approximately 14 mL of urine. He is on Flomax daily. We will have him consider talking to his primary care doctor and possibly discontinuing this. His bedside blood sugar is 97. Being hyperglycemic does not seem to exacerbate his symptoms of increased urinary frequency/incontinence. Reassurance is provided to the patient. He has follow up scheduled with Dr Jolly tomorrow to schedule a colonoscopy as well as with his PCP, Dr Read. Return precautions provided in both verbal and written format. All questions are sought and answered. Patient is stable for discharge. Departure Impression Primary Impression: Urinary frequency Disposition: HOME, SELF-CARE Condition: Stable Departure-Patient Inst. Referrals: SIMBA READ DO (PCP/Family) Primary Care Physician Patient Instructions: Bladder Retraining Add. Discharge Instructions: Please follow-up with your primary care doctor. You may consider stopping your Flomax. This may be worsening your urine problem. Continue taking all of your other medications as prescribed. If you develop a fever, worsening bladder discomfort, burning with urination or any other emergent, concerning symptoms please return to the emergency department for reevaluation Copy Copies To 1: SIMBA READ KATHRYN M MD Nov 20, 2022 11:38
[2022-11-20 11:46] VITALS: BP 163/99
== END 2022-11-20 11:46 | disposition home or self-care (01) ==
LOC: EDUNIT# 10:05 → ER 10:08
DX: R35.0 Frequency of micturition (principal); G47.30 Sleep apnea, unspecified; Z99.89 Dependence on other enabling machines and devices
CPT/HCPCS: 81000; 82947; 99282

== ENCOUNTER → 2022-12-19 | Outpatient (CLI) | payer MEDICARE, MEDICAID ==
[~2022-12-19] MED LIST changes: -DICL100G13 TP; +DICL100G60 TP; -MECL-149 PO; +MECL-291 PO; -PREG75CA75 PO; +PREG75CA76 PO
--- NOTE | 2022-12-19 13:14 | Diagnostic Imaging Report ---
Indication: Pre-MRI screening. Time of Exam: 1:04 PM Correlation is made with prior chest from 08/22/2022. Dual-lead cardiac pacer is in place. No abandoned leads are identified. Lungs are clear. There is no infiltrate, effusion or pneumothorax. Impression: No evidence of abandoned leads. Dictated by: Dictated on workstation # [id number]
--- NOTE | 2022-12-19 16:57 | Diagnostic Imaging Report ---
PROCEDURE: MRI lumbar spine. TECHNIQUE: Multiplanar, multisequence MRI of the lumbar spine was performed without contrast. INDICATION: Increased lower back pain. History of these laminectomy and posterior fusion. COMPARISON: 08/22/2022 FINDINGS: Patient is status post previous lumbosacral fusion extending from L2 through S1. Bilateral SI screws are also noted. Evaluation integrity the hardware is suboptimal given MR modality and metallic susceptibility artifact, but static alignment is maintained. There is no significant anteroretrolisthesis. There is no evidence of jumped facets. Intervertebral disc spacers are also noted at the L3-L4 through L5-S1 levels and appear appropriately positioned. Vertebral body heights are maintained. There is no acute fracture. Evaluation marrow signal demonstrates moderate Modic type II change involving the adjacent endplates at L1 and L2. There is also pronounced intervertebral disc height loss with anterior posterior endplate osteophyte formations. Visualized portions of distal cord are unremarkable. Conus terminates at approximately the L1-L2 level. No abnormal intrathecal filling defects are seen. Pre and paravertebral soft tissue structures are unremarkable. Bilateral renal cysts are noted. Axial images demonstrate the following: T12-L1: There is no large disc bulge or focal protrusion. There is no significant spinal canal or neuroforaminal stenosis. L1-L2: There is broad-based posterior disc osteophyte complex formation with bilateral ligamentum laxity and facet arthropathy. As a result, there is moderate to severe stenosis of the spinal canal and moderate stenosis of bilateral neural foramen. L2-L3 through L5-S1: Postsurgical changes as above. There is mild multilevel neural foraminal narrowing, but no significant spinal canal stenosis. IMPRESSION: 1. Moderate degenerative changes at the L1-L2 level as described above. 2. No acute fracture or dislocation. 3. Redemonstration postsurgical changes of L2-S1. Again, evaluation integrity the hardware is suboptimal, but static alignment is maintained. Dictated by: Dictated on workstation # [id number]
== END ==
LOC: RAD 12:45
PROVIDERS: ATTEND Internal Medicine
DX: Z01.811 Encounter for preprocedural respiratory examination (principal); M47.816 Spondylosis without myelopathy or radiculopathy, lumbar region; M48.061 Spinal stenosis, lumbar region without neurogenic claudication; M46.26 Osteomyelitis of vertebra, lumbar region; M25.78 Osteophyte, vertebrae; R33.8 Other retention of urine; K59.03 Drug induced constipation; N40.0 Benign prostatic hyperplasia without lower urinary tract symptoms; Z98.1 Arthrodesis status
CPT/HCPCS: 71045; 72148

== ENCOUNTER 2022-12-26 10:05 | Outpatient (CLI) | payer MEDICARE, MEDICAID ==
[~2022-12-26 10:05] MED LIST changes: -BARIUM for suspension 96% w/w (Vanilla Silq Medium Density) PO ONE; -BARIUM for suspension 98% w/w (Vanilla Silq High Density) PO ONE
== END 2022-12-26 11:15 ==
LOC: SLEEP 10:05 → RT 11:15
PROVIDERS: ATTEND Otolaryngology Otolaryngology/Facial Plastic Surgery
DX: G47.33 Obstructive sleep apnea (adult) (pediatric) (principal); R06.83 Snoring
CPT/HCPCS: G0399

== ENCOUNTER → 2022-12-26 | Outpatient (CLI) | payer MEDICAID ==
[~2022-12-26] MED LIST changes: +BARIUM for suspension 96% w/w (Vanilla Silq Medium Density) PO ONE; +BARIUM for suspension 98% w/w (Vanilla Silq High Density) PO ONE
--- NOTE | 2022-12-26 12:31 | Diagnostic Imaging Report ---
INDICATION: Dysphasia since spinal surgery. TECHNIQUE: Patient ingested effervescent crystals followed by thick and thin barium with fluoroscopic interrogation and spot radiographs obtained in multiple obliquities, both upright and prone. FINDINGS: Swallowing was normal. There was no episode of aspiration or airway penetration. There are extensive postsurgical and degenerative changes throughout the cervical spine, but this exerts no mass effect upon the cervical esophagus which was widely patent and showed normal distensibility. Thoracic esophagus showed normal distensibility. There is some mild senescent dysmotility, but no segmental spasming. No ulcer or mass. No reflux or hernia was elicited. IMPRESSION: 1. Mild senescent dysmotility, unremarkable for age. No stricture, mass, or perforation. No intraluminal filling defect, hernia, or reflux. 2. In particular, no pathology to the cervical esophagus or complication to prior surgery apparent. Dictated by: Dictated on workstation # [id number]
== END ==
LOC: RAD 10:01
PROVIDERS: ATTEND Otolaryngology Otolaryngology/Facial Plastic Surgery
DX: K22.4 Dyskinesia of esophagus (principal)
CPT/HCPCS: 74220